=== PATIENT | male | born 1960 | race Caucasian/White ===

== ENCOUNTER 2020-01-29 12:01 | Outpatient (CLI) | payer BC, SELFPAY ==
[2020-01-29 12:15] LABS: Basophils Absolute Auto 0.04 K/mm3 (0.00-0.10); Basophils Percent Auto 0.4 % (0.0-1.0); Eosinophils Absolute Auto 0.14 K/mm3 (0.02-0.50); Eosinophils Percent Auto 1.4 % (1.0-6.0); Hematocrit 45.9 % (40.0-54.0); Hemoglobin 15.9 g/dL (14.0-18.0); Immature Granulocyte Absolute 0.04 K/mm3 (0.00-0.00); Immature Granulocyte Percent A 0.4 % (0.0-0.0); Lymphocytes Absolute Auto 2.81 K/mm3 (1.10-4.50); Lymphocytes Percent Auto 28.8 % (18.0-42.0); Mean Corpuscular HGB Conc 34.6 g/dL (32.0-36.0); Mean Corpuscular Hemoglobin 33.3 pg (27.0-31.0); Mean Platelet Volume 9.8 fl (8.7-11.0); Monocytes Absolute Auto 0.73 K/mm3 (0.10-0.90); Monocytes Percent Auto 7.5 % (2.0-11.0); Neutrophils Percent Auto 61.5 % (50.0-70.0); Platelet Count Result 234 K/mm3 (150-420); Red Blood Count 4.78 M/mm3 (4.70-6.10); Red Cell Distribution Width 13.2 % (11.6-14.4); White Blood Count 9.8 K/mm3 (4.8-10.8)
[2020-01-29 13:09] LABS: Alanine Aminotransferase 44 U/L (16-63); Albumin Level 3.8 g/dL (3.4-5.0); Alkaline Phosphatase 110 U/L (46-116); Anion Gap 14.2 mmol/L (7-16); Aspartate Amino Transferase 29 U/L (15-37); Bilirubin,Total 0.5 mg/dL (0.00-1.00); Blood Urea Nitrogen 15 mg/dL (7-18); Calcium 8.8 mg/dL (8.5-10.1); Carbon Dioxide 31 mmol/L (21-32); Chloride 101 mmol/L (98-108); Cholesterol 269 mg/dL (0-200); Estimated Glomerular Filt Rate > 60; Glucose 179 mg/dL (70-99); HDL Direct 30 mg/dL (40-60); LDL Cholesterol Calculated 201 mg/dL (<130); Osmolality Calculated 298 mOsm/kg (285-295); Potassium 4.2 mmol/L (3.5-5.1); Sodium 142 mmol/L (136-145); Total Protein 7.1 g/dL (6.4-8.2); Triglycerides 189 mg/dL (0-150)
== END 2020-01-29 12:02 | disposition home or self-care (01) ==
PROVIDERS: PCP Nurse Practitioner Family; Visit Provider Nurse Practitioner Family
DX: E11.9 Type 2 diabetes mellitus without complications (principal); I10 Essential (primary) hypertension
CPT/HCPCS: 36415; 80053; 80061; 83036; 85025

== ENCOUNTER 2020-03-07 06:32 | Outpatient (CLI) | payer BC, SELFPAY ==
[2020-03-07 17:27] LABS: SARS-CoV-2 RNA PCR Negative
== END 2020-03-07 06:33 | disposition home or self-care (01) ==
LOC: ANHCOVIDDT 06:32
PROVIDERS: PCP Nurse Practitioner Family; Visit Provider Otolaryngology
DX: Z01.812 Encounter for preprocedural laboratory examination (principal); Z11.59 Encounter for screening for other viral diseases
CPT/HCPCS: 87635; C9803; U0003

== ENCOUNTER 2020-03-10 02:47 | Day surgery (SDC) | payer BC, SELFPAY ==
[2020-02-28 12:02] VITALS: BMI 36.9
[2020-03-10] VITALS (7 sets, daily range): BP systolic 83–185; BP diastolic 59–99; PULSE 78–103; RESP 18–26; TEMP 36.3–37.1; O2SAT 94–100
--- NOTE | 2020-03-10 06:15 | PM.HPGS ---
History of Present Illness History of Present Illness Consent: Risks, benefits, and alternatives have been discussed and questions answered. Patient agrees to proceed with procedure. Chief complaint: vocal cord polyp Narrative: Yasmani Mcpherson Jr. is a 59 year old male history now has chronic coarseness indirect examination the office revealed the presence of vocal polyp he is admitted now for microlaryngoscopy removal of the polyp Review of Systems Review of Systems: All systems reviewed & are unremarkable except as noted in HPI and below PMFSH Social History Social History Smoking status: Current every day smoker Smoking end date: 11/02/18 Alcohol intake: never Substance use: never Substance use type: does not use Meds Home Medications and Allergies Home Medications Medication Instructions Recorded Confirmed Type glipizide 10 mg tablet 10 mg PO DAILY #180 tablet 12/02/19 02/28/20 Rx metformin 1,000 mg tablet 1,000 mg PO DAILY tablet 12/02/19 02/28/20 History atorvastatin 10 mg tablet 10 mg PO DAILY #30 tablet 01/29/20 02/28/20 Rx blood sugar diagnostic #100 each 01/29/20 02/10/20 Rx dulaglutide 0.75 mg/0.5 mL 0.75 mg SUB-Q WEEKLY #2 ml 01/29/20 02/28/20 Rx subcutaneous pen injector lancets #100 each 01/29/20 02/10/20 Rx lisinopril 20 mg tablet 20 mg PO DAILY #90 tablet 01/29/20 02/28/20 Rx cyclobenzaprine 10 mg PO DAILY 02/28/20 02/28/20 History loratadine [Claritin] 10 mg PO DAILY 02/28/20 02/28/20 History nicotine 14 mg/24 hr daily See Rx Instructions .ROUTE 03/02/20 Rx transdermal patch .COMPLEX #28 patch nicotine 7 mg/24 hr daily 1 patch TRANSDERM DAILY #14 each 03/02/20 Rx transdermal patch Allergies Allergy/AdvReac Type Severity Reaction Status Date / Time No Known Allergies Allergy Verified 02/28/20 12:03 Assessment and Plan Additional Plan Plan is for microlaryngoscopy and possible biopsy removal of vocal polyp
--- NOTE | 2020-03-10 06:17 | WPDHPUPDATE1 ---
History and Physical Update Update Date/Time: 03/10/20 06:17 History and Physical has been reviewed, including an updated exam of the patient. There are NO changes in the patient's condition. Risks, benefits, and alternatives have been discussed and questions answered. Patient agrees to proceed with procedure.
--- NOTE | 2020-03-10 08:11 | ECG_ITS ---
Measurements Intervals [place] Rate: 103 P: 52 AL: 163 QRS: -84 QRSD: 170 T: 83 QT: 395 QTc: 518 Interpretive Statements SINUS TACHYCARDIA POSSIBLE LEFT ATRIAL ENLARGEMENT RIGHT BUNDLE BRANCH BLOCK LEFT ANTERIOR FASCICULAR BLOCK LEFT VENTRICULAR HYPERTROPHY AND ST-T CHANGE ABNORMAL ECG Electronically Signed On 03-10-2020 8:58:43 CDT by Luis Manuel Hurt D.O.
--- NOTE | 2020-03-10 09:07 | WPDANESEPPF ---
Anes - Initial Pre Proc Eval Procedure: Operation Date: 03/10/20 10:30 Proposed Procedures p Microlaryngoscopy with Biopsy - Isaac Bonilla MD Date/Time: 03/10/20 09:07 Surgeon: Isaac Bonilla MD Pre Op Diagnosis: vocal cord polyp Patient Data Age: 59 Gender: M Height: 6 ft 1 in Weight: 127.01 kg Allergies Allergy/AdvReac Type Severity Reaction Status Date / Time No Known Allergies Allergy Verified 03/10/20 07:47 Home Medications Medication Instructions Recorded Confirmed Type glipizide 10 mg tablet 10 mg PO DAILY #180 tablet 12/02/19 02/28/20 Rx metformin 1,000 mg tablet 1,000 mg PO DAILY tablet 12/02/19 02/28/20 History atorvastatin 10 mg tablet 10 mg PO DAILY #30 tablet 01/29/20 02/28/20 Rx blood sugar diagnostic #100 each 01/29/20 02/10/20 Rx dulaglutide 0.75 mg/0.5 mL 0.75 mg SUB-Q WEEKLY #2 ml 01/29/20 02/28/20 Rx subcutaneous pen injector lancets #100 each 01/29/20 02/10/20 Rx lisinopril 20 mg tablet 20 mg PO DAILY #90 tablet 01/29/20 02/28/20 Rx cyclobenzaprine 10 mg PO DAILY 02/28/20 02/28/20 History loratadine [Claritin] 10 mg PO DAILY 02/28/20 02/28/20 History nicotine 14 mg/24 hr daily See Rx Instructions .ROUTE 03/02/20 Rx transdermal patch .COMPLEX #28 patch nicotine 7 mg/24 hr daily 1 patch TRANSDERM DAILY #14 each 03/02/20 Rx transdermal patch Patient hx anesthesia problems: none Family hx anesthesia problems: none PMFSH Past Medical History Medical History HTN (hypertension) Overweight Tobacco dependence Type 2 diabetes mellitus Social History Social History Smoking status: Current every day smoker Smoking end date: 11/02/18 Alcohol intake: never Substance use: never Substance use type: does not use Anes - Eval Final PreProcedure Day of Procedure 03/10/20 09:07 Patient weight: morbidly obese Heart: regular rate and rhythm Lungs: decreased breath sounds Airway: Mallampati scale class III Neurological: alert and oriented Last oral intake: >/= 8 hours ASA classification: III Emergent: no Anesthetic plan: proceed Anesthesia type and monitoring: general ETT and standard monitoring Informed Consent: The patient's anesthetic plan and its attendant risks and benefits were discussed with the patient/family/POA. Questions were solicited and answers provided to the satisfaction of the patient/family/POA.
[2020-03-10 09:11] LABS: Glucose Point of Care 288 (65-105)
[2020-03-10] MEDS: LACTATED RINGERS 1,000 ML 30 ML IV CONT ×2 (09:15→11:05)
--- NOTE | 2020-03-10 09:39 | SUR.PREOP ---
DR SHETH MADE AWARE OF HEART RATE, BLOOD SUGAR AND BLOOD PRESSURE. NO ORDERS RECEIVED
--- NOTE | 2020-03-10 10:46 | PM.PROC ---
Procedure Note - Detailed Date of procedure: 03/10/20 Pre-op diagnosis: vocal cord polyp Vocal cord polyps Surgeon: Isaac Bonilla MD
--- NOTE | 2020-03-10 10:47 | PM.PROC ---
Procedure Note - Detailed Date of procedure: 03/10/20 Pre-op diagnosis: vocal cord polyp Post-op diagnosis: same Procedure performed: Patient was prepped and draped for additional anesthesia laryngoscope changes of the left glottis there may major polyps on both sides which were removed with up-biting forceps might have been a polyp underneath the tube however could not be found the remainder of the polyps removed patient awakened returned to recovery in good condition Surgeon: Isaac Bonilla MD Estimated blood loss (mL): 0 Drains: No Packing: No Pathology: yes Complications: No immediate complications Condition: stable Disposition: PACU
--- NOTE | 2020-03-10 10:50 | PM.PROC ---
Procedure Note - Detailed Date of procedure: 03/10/20 Pre-op diagnosis: vocal cord polyp Post-op diagnosis: same Procedure performed: Patient was prepped and draped in usual fashion renal anesthesia laryngoscope was introduced to the level of glottis polyps on both sides remove the upbiting forceps I did not see a polyp under the endotracheal tube patient awakened returned to recovery in good condition Anesthesia: GLMA Surgeon: Isaac Bonilla MD Estimated blood loss (mL): 0 Drains: No Packing: No Pathology: yes Complications: No immediate complications Condition: stable Disposition: PACU
[2020-03-10 11:16] LABS: Glucose Point of Care 275 (65-105)
--- NOTE | 2020-03-10 11:26 | SUR.PHASEI ---
1125 DR BOSS AWARE OF BLOOD SUGAR 275- NO NEW ORDERS RECEIVED.
== END 2020-03-10 12:35 | disposition home or self-care (01) ==
PROVIDERS: PCP Nurse Practitioner Family; Visit Provider Otolaryngology
PROC: 0CJS8ZZ Inspection of Larynx, Via Natural or Artificial Opening Endoscopic (ICD-10-PCS; CPT 31575; principal; 2020-03-10 10:30)
DX: J38.1 Polyp of vocal cord and larynx (principal); I10 Essential (primary) hypertension; E11.9 Type 2 diabetes mellitus without complications; F17.210 Nicotine dependence, cigarettes, uncomplicated; Z79.84 Long term (current) use of oral hypoglycemic drugs; E66.01 Morbid (severe) obesity due to excess calories; Z68.39 Body mass index [BMI] 39.0-39.9, adult
CPT/HCPCS: 31535; 87635; 88305; 93005; C9803; J1100; J2250; J2370; J2405; J2704; J3010; J7120; U0003

== ENCOUNTER 2021-09-13 14:44 | Outpatient (NON) | payer BC, SELFPAY | END 2021-09-13 14:45 | disposition home or self-care (01) | LOC: CHSLAB 14:46 | PROVIDERS: PCP Nurse Practitioner Family; Visit Provider Nurse Practitioner Family | DX: S81.802A Unspecified open wound, left lower leg, initial encounter (principal) | CPT/HCPCS: 87070; 87205 ==

== ENCOUNTER 2021-10-11 09:47 | Outpatient (RCR) | payer BC, SELFPAY | END 2021-11-10 23:59 | disposition home or self-care (01) | LOC: CHSWOUND 09:47 | PROVIDERS: Visit Provider Nurse Practitioner Family | DX: E11.622 Type 2 diabetes mellitus with other skin ulcer (principal); L97.812 Non-pressure chronic ulcer of other part of right lower leg with fat layer exposed; I10 Essential (primary) hypertension; E66.9 Obesity, unspecified; F17.210 Nicotine dependence, cigarettes, uncomplicated; Z79.84 Long term (current) use of oral hypoglycemic drugs; Z79.899 Other long term (current) drug therapy | CPT/HCPCS: 11042; 87070; 87205; 99213; G0463 ==

== ENCOUNTER 2022-07-29 09:48 | Outpatient (CLI) | payer OTHER, SELFPAY ==
--- NOTE | ~2022-07-29 | XR_ITS ---
XR ribs BI 3V w CXR 2V DATE: 07/29/2022 10:29 INDICATION: Shortness of breath for one month TECHNIQUE: PA and lateral views. 3 views of right ribs. 3 views of left ribs. COMPARISON: 02/12/2019 2 view chest FINDINGS: There is cardiomegaly. There is prominence of the minor and greater fissure suggesting subp leural edema. There is pulmonary vascular congestion and redistribution. Small pleural effusions. The findings are consistent with mild congestive heart failure. No left or right rib fracture or bone destruction is detected. Very prominent bridging osteophyte on the right at L2-3. Moderately prominent loss of height and anterior wedging of L1, new findings since 02/12/2019. Diffuse osteopenia. IMPRESSION: Moderately prominent L1 compression fracture, new since 02/12/2019 Mild congestive heart failure Reviewed, dictated and finalized at location A. ESTATE LAW[employer]ER
[2022-07-29 10:14] LABS: Appearance Urine Clear (Clear); Bilirubin Urine Negative (Negative); Color Urine Yellow (Yellow); Glucose Urine UA 3+ (Negative); Ketones Urine Negative (Negative); Leukocyte Esterase Ur Negative LEU/UL (Negative); Nitrate Urine Negative (Negative); Protein Urine 2+ (Negative); Specific Grav Ur 1.025 (1.010-1.020); Urobilinogen Urine 0.2 mg/dL (0.2-1.0); pH Urine 6.5 (5.0-8.0)
[2022-07-29 10:19] LABS: Creatinine Urine 122.01 mg/dL (40-278)
[2022-07-29 10:20] LABS: Add Urine Microscopic? YES; Bacteria Urine Trace /hpf; Blood Urine Trace-lysed (Negative); RBC Urine 0-2 /hpf (0-2); Squamous Epithelial Cell Urine None seen /hpf (Few); WBC Urine 0-3 /hpf (0-3)
[2022-07-29 10:29] LABS: MALB Creatinine Ratio 327.8 mg/g (0-30); Microalbumin Urine Random > 400.0 mg/L
[2022-07-29 10:31] LABS: Troponin I 49.9 ng/L (0.00-60.4)
[2022-07-29 13:09] LABS: Basophils Absolute Auto 0.03 K/mm3 (0.00-0.10); Basophils Percent Auto 0.3 % (0.0-1.0); Eosinophils Absolute Auto 0.08 K/mm3 (0.02-0.50); Eosinophils Percent Auto 0.9 % (1.0-6.0); Hemoglobin 16.5 g/dL (14.0-18.0); Immature Granulocyte Absolute 0.04 K/mm3 (0.00-0.00); Immature Granulocyte Percent A 0.4 % (0.0-0.0); Lymphocytes Absolute Auto 1.86 K/mm3 (1.10-4.50); Lymphocytes Percent Auto 20.3 % (18.0-42.0); Mean Corpuscular Hemoglobin 32.9 pg (27.0-31.0); Mean Corpuscular Volume 99.8 fL (78.0-102.0); Mean Platelet Volume 11.2 fl (8.7-11.0); Monocytes Absolute Auto 0.56 K/mm3 (0.10-0.90); Monocytes Percent Auto 6.1 % (2.0-11.0); Neutrophils Absolute Auto 6.6 K/mm3 (1.7-7.2); Platelet Count Result 214 K/mm3 (150-420); Red Blood Count 5.01 M/mm3 (4.70-6.10); Red Cell Distribution Width 13.7 % (11.6-14.4); White Blood Count 9.2 K/mm3 (4.8-10.8)
[2022-07-29 13:17] LABS: Alanine Aminotransferase 44 U/L (16-63); Albumin Level 3.5 g/dL (3.4-5.0); Alkaline Phosphatase 175 U/L (46-116); Anion Gap 6 mmol/L (8-16); Aspartate Amino Transferase 20 U/L (15-37); Bilirubin,Total 0.5 mg/dL (0.00-1.00); Blood Urea Nitrogen 10 mg/dL (7-18); Calcium 8.8 mg/dL (8.5-10.1); Carbon Dioxide 30 mmol/L (21-32); Chloride 103 mmol/L (98-108); Estimated Glomerular Filt Rate > 60; Glucose 315 mg/dL (70-99); Osmolality Calculated 299 mOsm/kg (285-295); Potassium 4.1 mmol/L (3.5-5.1); Sodium 139 mmol/L (136-145); Total Protein 7.1 g/dL (6.4-8.2)
[2022-07-29 17:04] LABS: NT Pro B Type Natriuretic Pept 793 pg/mL (0-125)
== END 2022-07-29 09:49 | disposition home or self-care (01) ==
LOC: CHSLAB 09:49
PROVIDERS: PCP Nurse Practitioner Family; Visit Provider Nurse Practitioner Family
DX: R06.02 Shortness of breath (principal); I10 Essential (primary) hypertension; E11.9 Type 2 diabetes mellitus without complications
CPT/HCPCS: 36415; 71046; 71110; 80053; 81001; 82043; 83880; 84484; 85025

== ENCOUNTER 2022-11-29 11:14 | Outpatient (NON) | payer OTHER, SELFPAY | END 2022-11-29 11:15 | disposition home or self-care (01) | LOC: CHSLAB 11:15 | PROVIDERS: Visit Provider Nurse Practitioner Family | DX: S91.302A Unspecified open wound, left foot, initial encounter (principal) | CPT/HCPCS: 87070; 87205 ==

== ENCOUNTER 2023-02-03 09:18 | Outpatient (CLI) | payer OTHER, SELFPAY ==
--- NOTE | ~2023-02-03 | XR_ITS ---
EXAMINATION: XR chest 2V DATE: 02/03/2023 09:42 INDICATION: Orthopnea, shortness of breath TECHNIQUE: PA and lateral views of the chest are obtained. COMPARISON: 07/29/2022 FINDINGS: Cardiomegaly is noted. There is a mild diffuse interstitial pattern. There are small pleura l effusions. There are minimal airspace opacities of the lung bases. No pneumothorax is identified. A n L1 compression fracture is again noted. IMPRESSION: 1. Cardiomegaly with mild pulmonary edema. 2. Small pleural effusions with probable mild atelectasis. Reviewed, dictated and finalized at location B.
[2023-02-03 09:33] LABS: Hematocrit 47.9 % (40.0-54.0); Hemoglobin 15.8 g/dL (14.0-18.0); Mean Corpuscular Hemoglobin 32.9 pg (27.0-31.0); Mean Corpuscular Volume 99.8 fL (78.0-102.0); Mean Platelet Volume 10.6 fl (8.7-11.0); Platelet Count Result 181 K/mm3 (150-420)
--- NOTE | 2023-02-03 09:34 | ECG_ITS ---
Measurements Intervals [place] Rate: 93 P: 59 NC: 179 QRS: -76 QRSD: 181 T: 101 QT: 424 QTc: 529 Interpretive Statements SINUS RHYTHM POSSIBLE LEFT ATRIAL ENLARGEMENT [-0.1mV P-WAVE IN V1/V2] RIGHT BUNDLE BRANCH BLOCK LEFT ANTERIOR FASCICULAR BLOCK ST AND T-WAVE ABNORMALITY, CONSIDER LATERAL ISCHEMIA ABNORMAL ECG Electronically Signed On 02-06-2023 9:19:58 CDT by Kenny Christianson M.D.
[2023-02-03 09:54] LABS: Alanine Aminotransferase 51 U/L (16-63); Albumin Level 3.4 g/dL (3.4-5.0); Alkaline Phosphatase 225 U/L (46-116); Anion Gap 8 mmol/L (8-16); Aspartate Amino Transferase 23 U/L (15-37); Bilirubin,Total 0.5 mg/dL (0.00-1.00); Blood Urea Nitrogen 15 mg/dL (7-18); Calcium 8.4 mg/dL (8.5-10.1); Carbon Dioxide 30 mmol/L (21-32); Chloride 100 mmol/L (98-108); Estimated Glomerular Filt Rate > 60; Magnesium 1.9 mg/dL (1.8-2.4); NT Pro B Type Natriuretic Pept 750 pg/mL (0-125); Osmolality Calculated 304 mOsm/kg (285-295); Potassium 3.9 mmol/L (3.5-5.1); Sodium 138 mmol/L (136-145); Total Protein 7.1 g/dL (6.4-8.2)
[2023-02-03 09:57] LABS: Glucose 422 mg/dL (70-99)
[2023-02-03 13:15] LABS: Troponin I 56.4 ng/L (0.00-60.4)
== END 2023-02-03 09:19 | disposition home or self-care (01) ==
LOC: CHSLAB 09:21
PROVIDERS: PCP Nurse Practitioner Family; Visit Provider Nurse Practitioner Family
DX: R06.02 Shortness of breath (principal); R06.01 Orthopnea; I48.92 Unspecified atrial flutter; I50.9 Heart failure, unspecified; I51.7 Cardiomegaly; J90 Pleural effusion, not elsewhere classified; R94.31 Abnormal electrocardiogram [ECG] [EKG]
CPT/HCPCS: 36415; 71046; 80053; 83735; 83880; 84484; 85027; 93005

== ENCOUNTER 2023-02-03 10:41 | Emergency (ER) | payer OTHER, SELFPAY ==
[2023-02-03] VITALS (11 sets, daily range): BP systolic 151–195; BP diastolic 88–110; PULSE 72–86; RESP 18; TEMP 36.8–36.9; O2SAT 92–96
[2023-02-03 10:56] LABS: Glucose Point of Care > 450 mg/dl (65-105)
--- NOTE | 2023-02-03 10:59 | ED.RECABL ---
HPI - Recheck/Abnormal Lab/Rx General Chief Complaint: Recheck/Abnormal Lab/Rx Stated Complaint: abnormal labs Time Seen by Provider: 02/03/23 10:59 Source: patient and RN notes reviewed Mode of arrival: ambulatory Limitations: no limitations History of Present Illness HPI narrative: patient states he went to his primary care physician for shortness of breath this morning. He was sent over for evaluation possible pneumonia. Chest x-ray shows some pleural effusion no evidence of pneumonia. His being a trip peptide is unchanged from 1 month ago. However his blood sugar was 422 so they do not come the emergency room to get that lowered. complaint: abnormal lab Initial visit (ago): hour(s) (2) Initial visit for: other ( Shortness of breath) Returns today for: called because of abnormal lab/test Symptoms since prior visit: no new symptoms Associated symptoms: shortness of breath Related Data Home Medications Medication Instructions Recorded Confirmed amlodipine 10 mg tablet 10 mg PO DAILY 02/03/23 02/03/23 atorvastatin 10 mg tablet 10 mg PO DAILY 02/03/23 02/03/23 Allergies Allergy/AdvReac Type Severity Reaction Status Date / Time No Known Allergies Allergy Verified 02/03/23 10:57 Review of Systems Review of Systems: All systems reviewed & are unremarkable except as noted in HPI and below PMFSH Past Medical History Medical History (Updated 02/03/23 @ 14:36 by Gregorio Clinton MD) Atrial flutter HTN (hypertension) Overweight Tobacco dependence Type 2 diabetes mellitus Family History Family History Mother Hypertension Family history of chronic obstructive pulmonary disease Family history of obesity Other Family history of type 2 diabetes mellitus Social History Social History Smoking status: Current every day smoker Smoking end date: 11/02/18 Alcohol intake: never Substance use: never Substance use type: does not use Lack of Transportation: No Lack of Food: Never True Current Housing: I Have Housing Concerned About Future Housing: No Difficulty Paying Gas/Electric Bills: No Difficulty Paying for Meds: No Currently Unemployed: No Education: Associate Degree Difficulty w/ Childcare or Family Care: No Living arrangements: with family Exam Const: General: healthy appearing, no acute distress and alert Nutritional Appearance: well nourished and obese Orientation/consciousness: patient oriented x3 Limitations: no limitations HENMT: Head: normal to inspection Ears: external ears normal Face/Nose/Sinus: Normal external nose present Face and sinus: normal facial exam Mouth: Yes moist mucous membranes Eyes: Conjunctivae: conjunctivae normal Pupils: Equal, round and reactive pupils present EOM: EOMs intact bilaterally Neck: Neck: normal visual inspection Resp: Effort & Inspection: normal respiratory effort Auscultation: crackles diffuse Cardio: Rate: regular rate Rhythm: regular rhythm GI: GI Palp: Yes Soft to palpation and No Tenderness to palpation present (GI) Auscultation: normal bowel sounds Back/Spine/Pelvis: Cervical Spine: cervical ROM normal Thoracic/Lumbar Spine: thoraco-lumbar ROM normal Skin: General skin exam: normal color Rashes: no rashes Neuro: General: patient oriented x3 and moves all extremities Speech: normal speech Gait exam (Neuro): Normal gait present Extrem: General: edema bilateral ( 2+ to mid leon) Psych: Mental Status: mental status grossly normal Affect: normal affect Attitude: cooperative Course Course Emergency Course: patient given 1 L of normal saline but due to his history of congestive heart failure recent chest x-ray showing some increased pulmonary edema I decided only given 1 L and just work on bringing down his blood sugars. He is having some symptoms of increased fluid retention due to his medicatio
[2023-02-03] MEDS: SODIUM CHLORIDE 0.9% IV 1,000 ML 999 ML IV CONT (11:21)
[2023-02-03] MEDS: INSULIN REG 100 UNITS/100 ML 100 UNITS/100 ML BAG 8 UNITS IV CONT (11:22)
[2023-02-03 12:22] LABS: Glucose Point of Care 372 mg/dl (65-105)
[2023-02-03 13:22] LABS: Glucose Point of Care 291 mg/dl (65-105)
--- NOTE | 2023-02-03 14:16 | PC.NURSE ---
glucose is 227, per erp stop insulin drip at this time.
[2023-02-03 14:17] LABS: Glucose Point of Care 227 mg/dl (65-105)
[2023-02-03] MEDS: FUROSEMIDE INJ 40 MG/4 ML VIAL 60 MG IV PUSH (14:17)
== END 2023-02-03 14:53 | disposition home or self-care (01) ==
PROVIDERS: Emergency Provider Emergency Medicine; PCP Nurse Practitioner Family
DX: I11.0 Hypertensive heart disease with heart failure (principal); I50.22 Chronic systolic (congestive) heart failure; E11.65 Type 2 diabetes mellitus with hyperglycemia; Z87.891 Personal history of nicotine dependence
CPT/HCPCS: 82948; 96361; 96374; 96375; 99284; J1815; J1940; J7030

== ENCOUNTER 2023-02-18 13:51 | Emergency (ER) | payer OTHER, SELFPAY ==
--- NOTE | ~2023-02-18 | XR_ITS ---
XR tibia fibula LT 2V 02/18/2023 14:42 Indication: Left leg pain. Ulceration of the midposterior and distal anterior calf. Procedure: 2 views left tibia/fibula Comparison: No prior studies for comparison. Findings: Normal mineralization. No fracture, subluxation or dislocation. No evidence for osteomyelit is. Mild subcutaneous edema noted. No foreign bodies. Mild osteoarthritis of the left knee and ankle. Impression: 1: No significant bone or joint abnormality. Reviewed, dictated and finalized at location A. Impression: 1: No significant bone or joint abnormality.
[2023-02-18 13:51] VITALS: BP 179/109; PULSE 81; RESP 16; TEMP 35.7; O2SAT 96
--- NOTE | 2023-02-18 14:18 | ED.GENADULT ---
HPI - General Adult General Chief complaint: Skin/Abscess/Foreign Body Stated complaint: left leg possible spider bite History of Present Illness HPI narrative: This is a 62-year-old male with history of diabetes and lower extremity edema presenting ED with an ulceration to the back of his left calf. Patient notices approximately 3 days ago. He believes it is a brown reclusive bite. he has not seen a spider. It is not painful. He has multiple ulcerations that are similar over the rest was legs in different stages of healing. he denies fever, chills nausea vomiting or diarrhea. He has been to a wound care clinic in the past but has not seen the several years. Related Data Home Medications Medication Instructions Recorded Confirmed amlodipine 10 mg tablet 10 mg PO DAILY 02/03/23 02/18/23 Allergies Allergy/AdvReac Type Severity Reaction Status Date / Time No Known Allergies Allergy Verified 02/18/23 15:05 [facility] Past Medical History Medical History Atrial flutter HTN (hypertension) Overweight Tobacco dependence Type 2 diabetes mellitus Family History Family History Mother Hypertension Family history of chronic obstructive pulmonary disease Family history of obesity Other Family history of type 2 diabetes mellitus Social History Social History Smoking status: Current every day smoker Smoking end date: 11/02/18 Alcohol intake: never Substance use: never Substance use type: does not use Lack of Transportation: No Lack of Food: Never True Current Housing: I Have Housing Concerned About Future Housing: No Difficulty Paying Gas/Electric Bills: No Difficulty Paying for Meds: No Currently Unemployed: No Education: Associate Degree Difficulty w/ Childcare or Family Care: No Living arrangements: with family Exam Narrative: APPEARANCE: No apparent distress. Head: atraumatic. EYES: EOMI, NOSE: Atraumatic NECK: Trachea midline RESPIRATORY: No increased rate of breathing, CTAB CARDIOVASCULAR: RRR, Chronic edema of the lower extremities ABDOMINAL: Non-distended MUSCULOSKELETAl: No obvious deformities NEURO: Alert. Moving 4/4 extremities SKIN:: multiple ulcerations over the lower extremities in different stages of healing. The ulceration of concern is in the back of the left calf is approximately 1 cm in diameter with black eschar in the middle. No purulent drainage or surrounding cellulitis PSYCHIATRIC: Normal affect Course Vital Signs Vital signs: Vital Signs Temperature 96.2 F L 02/18/23 13:51 Pulse Rate 81 02/18/23 13:51 Respiratory Rate 16 02/18/23 13:51 Blood Pressure 179/109 H 02/18/23 13:51 Pulse Oximetry 96 02/18/23 13:51 Oxygen Delivery Room Air 02/18/23 13:51 Temperature 96.2 F L 02/18/23 13:51 Pulse Rate 77 02/18/23 14:39 Respiratory Rate 16 02/18/23 14:39 Blood Pressure 140/84 02/18/23 14:39 Pulse Oximetry 96 02/18/23 13:51 Oxygen Delivery Room Air 02/18/23 13:51 Medical Decision Making [facility] Narrative Medical decision making narrative: -Presentation: 62-year-old diabetic with chronic lower extremity edema presenting with an ulceration back to his calf. patient is a poorly controlled diabetic and is a history of medication noncompliance. 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 Glucose is elevated without evidence of DKA/HHS. Co
[2023-02-18 14:39] VITALS: BP 140/84; PULSE 77; RESP 16
[2023-02-18 14:44] LABS: Basophils Absolute Auto 0.03 K/mm3 (0.00-0.10); Basophils Percent Auto 0.3 % (0.0-1.0); Eosinophils Percent Auto 1.1 % (1.0-6.0); Hematocrit 48.9 % (40.0-54.0); Hemoglobin 16.5 g/dL (14.0-18.0); Immature Granulocyte Absolute 0.02 K/mm3 (0.00-0.00); Immature Granulocyte Percent A 0.2 % (0.0-0.0); Lymphocytes Absolute Auto 1.97 K/mm3 (1.10-4.50); Lymphocytes Percent Auto 21.6 % (18.0-42.0); Mean Corpuscular HGB Conc 33.7 g/dL (32.0-36.0); Mean Corpuscular Hemoglobin 33.1 pg (27.0-31.0); Mean Platelet Volume 10.6 fl (8.7-11.0); Monocytes Absolute Auto 0.69 K/mm3 (0.10-0.90); Monocytes Percent Auto 7.6 % (2.0-11.0); Neutrophils Absolute Auto 6.3 K/mm3 (1.7-7.2); Neutrophils Percent Auto 69.2 % (50.0-70.0); Platelet Count Result 206 K/mm3 (150-420); Red Blood Count 4.99 M/mm3 (4.70-6.10); Red Cell Distribution Width 13.2 % (11.6-14.4); White Blood Count 9.1 K/mm3 (4.8-10.8)
[2023-02-18 14:54] LABS: Partial Thromboplastin Time 27.8 SEC (23.90-30.70); Prothrombin Time 10.7 Seconds (9.50-12.10)
[2023-02-18 14:58] LABS: Lactic Acid Reflex 2.5 mmol/L (0.4-2.0)
[2023-02-18 15:01] LABS: Anion Gap 9 mmol/L (8-16); Blood Urea Nitrogen 17 mg/dL (7-18); Calcium 9.2 mg/dL (8.5-10.1); Carbon Dioxide 30 mmol/L (21-32); Chloride 98 mmol/L (98-108); Estimated CRCL calculation 80 ml/min; Estimated Glomerular Filt Rate > 60; Magnesium 1.8 mg/dL (1.8-2.4); Osmolality Calculated 306 mOsm/kg (285-295); Potassium 3.8 mmol/L (3.5-5.1); Sodium 137 mmol/L (136-145)
[2023-02-18 15:02] LABS: Glucose 483 mg/dL (70-99)
[2023-02-18 15:33] LABS: Reflex Lactic Acid Yes or No Add Lactic
[2023-02-18 15:43] LABS: Erythrocyte Sedimentation Rate 6 mm/hr (0-20)
[2023-02-18 15:50] VITALS: BP 180/100; PULSE 91; RESP 18; O2SAT 95
== END 2023-02-18 16:01 | disposition home or self-care (01) ==
PROVIDERS: Emergency Provider Emergency Medicine; PCP Nurse Practitioner Family
DX: I11.0 Hypertensive heart disease with heart failure (principal); I50.9 Heart failure, unspecified; E11.622 Type 2 diabetes mellitus with other skin ulcer; L97.229 Non-pressure chronic ulcer of left calf with unspecified severity; E11.65 Type 2 diabetes mellitus with hyperglycemia; Z91.148 Patient's other noncompliance with medication regimen for other reason; Z87.891 Personal history of nicotine dependence
CPT/HCPCS: 36415; 73590; 80048; 83605; 83735; 85025; 85610; 85652; 85730; 99283

== ENCOUNTER 2023-02-21 10:32 | Emergency (ER) | payer OTHER, SELFPAY ==
[2023-02-21] VITALS (17 sets, daily range): BP systolic 155–198; BP diastolic 83–108; PULSE 100–104; RESP 17–22; TEMP 36.7–36.8; O2SAT 87–96
--- NOTE | ~2023-02-21 | XR_ITS ---
EXAMINATION: XR chest 1V portable 02/21/2023 12:00 INDICATION: Hemoptysis PROCEDURE: AP portable chest COMPARISON: Comparison to multiple prior studies sequentially, with oldest reviewed study dated 01/21. FINDINGS: The lungs are clear. The cardiomediastinal silhouette is within normal limits. There are no pleural effusions. There is no pneumothorax suspected. IMPRESSION: 1: NO ACUTE CARDIOPULMONARY DISEASE. Reviewed, dictated and finalized at location L.
--- NOTE | 2023-02-21 10:45 | ED.GENADULT ---
HPI - General Adult General Chief complaint: Unspecified Stated complaint: Nausea; blood in vomit Time Seen by Provider: 02/21/23 10:40 Source: patient Mode of arrival: ambulatory Limitations: no limitations History of Present Illness HPI narrative: 62-year-old male, with a 40 pack year smoking history, obesity, hypertension, diabetes, dyslipidemia, Arthritis, bilateral leg swelling,atrial flutter on Eliquis presented to the ER after a spider bite to the left lower extremity 3 days ago. He received Bactrim. He presents to the ER today with -- hemoptysis. He had 1 episode where he spit out a glob of blood larger than a giuliano. he denies fever/chills. He has chronic cough but no mucopurulent sputum. No chest pain or palpitation. -- He is also noted to have oral bleeding possibly from a carious tooth. -- bilateral leg swelling with multiple ulcerations. Onset (ago): day(s) ( 1 day) Relieving factors: none Exacerbating factors: none Treatments prior to arrival: other ( On Bactrim for spider bite related cellulitis) Related Data Home Medications Medication Instructions Recorded Confirmed amlodipine 10 mg tablet 10 mg PO DAILY 02/03/23 02/21/23 Allergies Allergy/AdvReac Type Severity Reaction Status Date / Time No Known Allergies Allergy Verified 02/21/23 10:48 Review of Systems Constitutional: Constitutional: Reports as per HPI and Reports no additional constitutional complaints Eyes: Eyes: Reports as per HPI and Reports no additional eye complaints ENT: Reports system reviewed and no additional complaints, except as documented and Reports as per HPI Cardiovascular: Cardiovascular: Reports as per HPI and Reports no additional cardiovascular complaints Respiratory: Respiratory: Reports as per HPI, Reports no additional respiratory complaints, Reports cough and Reports dyspnea Gastrointestinal: Gastrointestinal: Reports as per HPI and Reports no additional gastrointestinal complaints Genitourinary: Genitourinary: Reports no additional male genitourinary complaints Musculoskeletal: Musculoskeletal: Reports no additional musculoskeletal complaints and Reports as per HPI Integumentary/Breasts: Skin/Breast: Reports system reviewed and no additional complaints, except as docu Comments: bilateral leg swelling with multiple cutaneous ulcers measuring 1-3 cm. Neurologic: Reports system reviewed and no additional complaints, except as documented and Reports as per HPI Psychiatric: Psychiatric: Reports no additional psychiatric complaints and Reports as per HPI Endocrine: Endocrine: Reports no additional endocrine complaints, Reports as per HPI and Reports fatigue Hematologic/Lymphatic: Hematologic/Lymphatic: Reports no additional hematologic/lymphatic complaints and Reports as per HPI Allergic/Immunologic: Allergic/Immunologic: Reports no additional allergic/immunologic complaints and Reports as per HPI PMFSH Past Medical History Medical History Atrial flutter HTN (hypertension) Overweight Tobacco dependence Type 2 diabetes mellitus Family History Family History Mother Hypertension Family history of chronic obstructive pulmonary disease Family history of obesity Other Family history of type 2 diabetes mellitus Social History Social History Smoking status: Current every day smoker Smoking end date: 11/02/18 Alcohol intake: never Substance use: never Substance use type: does not use Lack of Transportation: No Lack of Food: Never True Current Housing: I Have Housing Concerned About Future Housing: No Difficulty Paying Gas/Electric Bills: No Difficulty Paying for Meds: No Currently Unemployed: No Education: Associate Degree Difficulty w/ Childcare or Family Care: No Living arrangements: with family
[2023-02-21 12:00] LABS: Basophils Absolute Auto 0.06 K/mm3 (0.00-0.10); Basophils Percent Auto 0.7 % (0.0-1.0); Eosinophils Percent Auto 1.1 % (1.0-6.0); Hematocrit 45.5 % (40.0-54.0); Hemoglobin 15.5 g/dL (14.0-18.0); Immature Granulocyte Absolute 0.02 K/mm3 (0.00-0.00); Immature Granulocyte Percent A 0.2 % (0.0-0.0); Lymphocytes Absolute Auto 1.66 K/mm3 (1.10-4.50); Lymphocytes Percent Auto 18.5 % (18.0-42.0); Mean Corpuscular HGB Conc 34.1 g/dL (32.0-36.0); Mean Corpuscular Hemoglobin 32.8 pg (27.0-31.0); Mean Corpuscular Volume 96.4 fL (78.0-102.0); Mean Platelet Volume 10.6 fl (8.7-11.0); Monocytes Percent Auto 5.6 % (2.0-11.0); Neutrophils Absolute Auto 6.6 K/mm3 (1.7-7.2); Neutrophils Percent Auto 73.9 % (50.0-70.0); Platelet Count Result 199 K/mm3 (150-420); Red Blood Count 4.72 M/mm3 (4.70-6.10)
[2023-02-21 12:09] LABS: Anion Gap 7 mmol/L (8-16); Blood Urea Nitrogen 12 mg/dL (7-18); Calcium 8.7 mg/dL (8.5-10.1); Carbon Dioxide 31 mmol/L (21-32); Chloride 97 mmol/L (98-108); Estimated CRCL calculation 94 ml/min; Estimated Glomerular Filt Rate > 60; Glucose 351 mg/dL (70-99); Osmolality Calculated 293 mOsm/kg (285-295); Potassium 3.5 mmol/L (3.5-5.1); Sodium 135 mmol/L (136-145)
[2023-02-21 12:14] LABS: Partial Thromboplastin Time 29.8 SEC (23.90-30.70); Prothrombin Time 11.4 Seconds (9.50-12.10)
== END 2023-02-21 12:59 | disposition home or self-care (01) ==
PROVIDERS: Emergency Provider Internal Medicine Critical Care Medicine; PCP Nurse Practitioner Family
DX: D68.9 Coagulation defect, unspecified (principal); E11.65 Type 2 diabetes mellitus with hyperglycemia; R04.2 Hemoptysis; I10 Essential (primary) hypertension; E78.5 Hyperlipidemia, unspecified; Z79.01 Long term (current) use of anticoagulants; Z87.891 Personal history of nicotine dependence
CPT/HCPCS: 36415; 71045; 80048; 85025; 85610; 85730; 99283

== ENCOUNTER 2023-07-13 10:21 | Outpatient (NON) | payer OTHER, SELFPAY | END 2023-07-13 10:22 | disposition home or self-care (01) | LOC: CHSLAB 10:22 | PROVIDERS: Visit Provider Nurse Practitioner Family | DX: L97.309 Non-pressure chronic ulcer of unspecified ankle with unspecified severity (principal); E11.622 Type 2 diabetes mellitus with other skin ulcer | CPT/HCPCS: 87070; 87147; 87186; 87205 ==

== ENCOUNTER 2023-08-24 10:20 | Outpatient (CLI) | payer OTHER, SELFPAY ==
--- NOTE | ~2023-08-24 | XR_ITS ---
AP and lateral views of the left tibia/fibula Clinical History: Ulcer, diabetes Findings: No acute fracture or dislocation is seen. Osseous alignment is anatomic. Joint spaces are p reserved without significant erosive or degenerative change. Soft tissues are unremarkable. Impression: Unremarkable left tib-fib radiographs. Reviewed, dictated and finalized at [facility]. [employer]ICAL FOREMAN Impression: Unremarkable left tib-fib radiographs.
--- NOTE | ~2023-08-24 | XR_ITS ---
Left foot Technique: AP and lateral views were obtained. Clinical History: Chronic ulcer Findings: No acute fracture or dislocation is seen. Osseous alignment is anatomic. Joint spaces are p reserved without erosive or degenerative change. Soft tissues are unremarkable. Impression: Unremarkable left foot radiographs. Reviewed, dictated and finalized at [facility]. [employer]ER Impression: Unremarkable left foot radiographs.
--- NOTE | ~2023-08-24 | XR_ITS ---
AP and lateral views of the right tibia/fibula Clinical History: Ulcer, diabetes Findings: No acute fracture or dislocation is seen. Osseous alignment is anatomic. Possible focal or erosive change is cortical destruction of the medial malleolus of the distal tibia. Joint spaces are preserved without significant erosive or degenerative change. Soft tissues are unremarkable. Impression: Suspected focal erosive change at the medial malleolus, which could reflect osteomyelitis. Reviewed, dictated and finalized at location M. INE EDITOR Impression: Suspected focal erosive change at the medial malleolus, which could reflect ost eomyelitis.
[2023-08-24 10:41] LABS: Basophils Absolute Auto 0.05 K/mm3 (0.00-0.10); Basophils Percent Auto 0.5 % (0.0-1.0); Eosinophils Absolute Auto 0.09 K/mm3 (0.02-0.50); Eosinophils Percent Auto 0.8 % (1.0-6.0); Hematocrit 53.6 % (40.0-54.0); Immature Granulocyte Absolute 0.03 K/mm3 (0.00-0.00); Immature Granulocyte Percent A 0.3 % (0.0-0.0); Lymphocytes Absolute Auto 2.29 K/mm3 (1.10-4.50); Lymphocytes Percent Auto 20.7 % (18.0-42.0); Mean Corpuscular HGB Conc 33.6 g/dL (32.0-36.0); Mean Corpuscular Hemoglobin 32.8 pg (27.0-31.0); Mean Corpuscular Volume 97.6 fL (78.0-102.0); Mean Platelet Volume 10.6 fl (8.7-11.0); Monocytes Absolute Auto 0.85 K/mm3 (0.10-0.90); Monocytes Percent Auto 7.7 % (2.0-11.0); Neutrophils Absolute Auto 7.8 K/mm3 (1.7-7.2); Platelet Count Result 230 K/mm3 (150-420); Red Blood Count 5.49 M/mm3 (4.70-6.10); Red Cell Distribution Width 13.1 % (11.6-14.4); White Blood Count 11.1 K/mm3 (4.8-10.8)
[2023-08-24 11:29] LABS: Alanine Aminotransferase 24 U/L (16-63); Albumin Level 3.9 g/dL (3.4-5.0); Alkaline Phosphatase 164 U/L (46-116); Anion Gap 6 mmol/L (8-16); Aspartate Amino Transferase 24 U/L (15-37); Bilirubin,Total 0.5 mg/dL (0.00-1.00); Blood Urea Nitrogen 18 mg/dL (7-18); CRP 1.2 mg/dL (0.0-0.9); Calcium 9.8 mg/dL (8.5-10.1); Carbon Dioxide 34 mmol/L (21-32); Chloride 99 mmol/L (98-108); Estimated Glomerular Filt Rate > 60; Glucose 268 mg/dL (70-99); Osmolality Calculated 298 mOsm/kg (285-295); Potassium 4.5 mmol/L (3.5-5.1); Sodium 139 mmol/L (136-145); Total Protein 7.8 g/dL (6.4-8.2)
== END 2023-08-24 10:21 | disposition home or self-care (01) ==
PROVIDERS: PCP Nurse Practitioner Family; Visit Provider Nurse Practitioner Family
DX: M79.672 Pain in left foot (principal); L97.309 Non-pressure chronic ulcer of unspecified ankle with unspecified severity; E11.622 Type 2 diabetes mellitus with other skin ulcer; L97.509 Non-pressure chronic ulcer of other part of unspecified foot with unspecified severity
CPT/HCPCS: 36415; 73590; 73620; 80053; 85025; 86140

== ENCOUNTER 2023-08-25 12:49 | Emergency (ER) | payer OTHER, SELFPAY ==
[2023-08-25] VITALS (21 sets, daily range): BP systolic 110–166; BP diastolic 57–91; PULSE 74–101; RESP 12–20; TEMP 36.6; O2SAT 95–100
--- NOTE | 2023-08-25 14:17 | ED.WOUNDLAC ---
HPI - Wound/Laceration General Chief Complaint: Wound/Laceration Stated Complaint: Diabetic Wounds Time Seen by Provider: 08/25/23 13:33 Source: patient and family (daughter) Limitations: no limitations History of Present Illness HPI narrative: 63-year-old male with past medical history diabetes who presents with wounds his bilateral shins and feet. he denies any pain. These wounds have been the clinic and ongoing for 3-4 months. no fevers. Patient was recently seen yesterday at [place]. imaging there was concerning for osteomyelitis and patient was told to present to this hospital. patient denies any known history of neuropathy. his only complaint is of headache and some nausea. Medications are A muscle relaxer, Jardiance 10 mg, glipizide, Trulicity, lisinopril and Eliquis. He is not certain why he is on Eliquis but believes it might be for atrial fibrillation. His last dose was last evening. PCP Yessi Aguilar. Related Data Allergies Allergy/AdvReac Type Severity Reaction Status Date / Time No Known Allergies Allergy Verified 08/25/23 13:59 [facility] Past Medical History Medical History Atrial flutter HTN (hypertension) Overweight Tobacco dependence Type 2 diabetes mellitus Family History Family History Mother Hypertension Family history of chronic obstructive pulmonary disease Family history of obesity Other Family history of type 2 diabetes mellitus Social History Social History (Updated 08/27/23 @ 17:16 by Keri Seaman MD) Social History: Has a daughter Smoking status: Current every day smoker Smoking end date: 11/02/18 Alcohol intake: never Substance use: never Substance use type: does not use Lack of Transportation: No Lack of Food: Never True Current Housing: I Have Housing Concerned About Future Housing: No Difficulty Paying Gas/Electric Bills: No Difficulty Paying for Meds: No Currently Unemployed: No Education: Associate Degree Difficulty w/ Childcare or Family Care: No Living arrangements: with family Occupation/Education: occupation 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 Mountain Dew in hand. HEAD: Normocephalic, atraumatic. EYES: Non injected, non icteric ENT: Nares clear, no rhinorrhea or epistaxis. NECK: Supple. CHEST: speaking in clear sentences. No respiratory distress. HEART: Regular rate and rhythm the time of my exam . initially difficult to palpate DP pulses but there is arterial and venous blood flow on color flow using point of care ultrasound ABDOMEN: Soft, nondistended. EXTREMITIES: Normal range of motion. Venous stasis. Diffuse ulceration wounds along anterior tibial shins bilaterally with escar and granulation tissue. Surrounding tissue woody, not particularly warm to the touch but erythematous. No tenderness to palpation overlying bilateral medial malleoli. SKIN: Diffuse ulceration wounds along anterior tibial shins bilaterally with escar and granulation tissue. NEURO: Alert and oriented x3. Intermittent proprioception in bilateral great toes (equivocal). Diminished sensation throughout bilateral lower extremities. PSYCH: Normal mood and affect. Very pleasant. Course Vital Signs Vital signs: Vital Signs Temperature 97.9 F 08/25/23 12:52 Pulse Rate 101 H 08/25/23 12:52 Respiratory Rate 18 08/25/23 12:52 Blood Pressure 166/85 H 08/25/23 12:52 Pulse Oximetry 99 08/25/23 12:52 Oxygen Delivery Room Air 08/25/23 12:52 Temperature 97.9 F 08/25/23 12:52 Pulse Rate 95 08/25/23 19:45 Respiratory Rate 19 08/25/23 19:45 Blood Pressure 110/72 08/25/23 18:00 Pulse Oximetry 96 08/25/23 18:45 Oxygen Delivery Room Air 08/25/23 12:52 MDM - Wound/Laceration
[2023-08-25] MEDS: ACETAMINOPHEN 500 MG TABLET 1000 MG PO (15:24)
[2023-08-25 15:45] LABS: Glucose Point of Care 281 mg/dl (65-105)
[2023-08-25 15:51] LABS: Basophils Percent Auto 0.3 % (0.2-1.2); Eosinophils Absolute Auto 0.1 K/mm3 (0-0.3); Eosinophils Percent Auto 0.7 % (0-4.4); Hematocrit 53.7 % (42.0-52.0); Hemoglobin 17.4 g/dL (14.0-18.0); Immature Granulocyte Absolute 0.02 K/mm3 (0.00-0.031); Immature Granulocyte Percent A 0.2 % (0-0.5); Lymphocytes Absolute Auto 2.05 K/mm3 (0.9-3.2); Lymphocytes Percent Auto 18.8 % (18.3-44.2); Mean Corpuscular HGB Conc 32.4 g/dl (32-36); Mean Corpuscular Hemoglobin 31.6 pg (26-34); Mean Corpuscular Volume 97.5 fl (80-100); Mean Platelet Volume 10.4 fl (7.4-10.4); Monocytes Absolute Auto 0.9 K/mm3 (0.1-0.6); Neutrophils Absolute Auto 7.8 K/mm3 (1.3-6.7); Platelet Count Result 221 k/mm3 (150-375); Red Blood Count 5.51 M/mm3 (4.6-6.20); Red Cell Distribution Width 13.4 % (11.5-14.5); White Blood Count 10.9 K/mm3 (4.5-10.0)
[2023-08-25 16:04] LABS: Partial Thromboplastin Time 35.5 SECONDS (22.3-36.8)
[2023-08-25 16:36] LABS: Erythrocyte Sedimentation Rate 8 mm/hr (0-20)
[2023-08-25 17:12] LABS: Alanine Aminotransferase 20 U/L (6-50); Albumin Level 3.9 g/dL (3.5-5.1); Alkaline Phosphatase 127 U/L (38-126); Anion Gap 10 mmol/L (8-16); Aspartate Amino Transferase 25 U/L (17-59); Bilirubin,Total 0.7 mg/dL (0.2-1.3); Blood Urea Nitrogen 23 mg/dL (9-20); CRP 1.9 mg/dL (<1.0); Calcium 9.4 mg/dL (8.4-10.2); Carbon Dioxide 28 mmol/L (22-30); Chloride 99 mmol/L (98-107); Estimated CRCL calculation 76 ml/min; Estimated Glomerular Filt Rate > 60; Glucose 270 mg/dL (65-110); Sodium 137 mmol/L (137-145)
[2023-08-25] MEDS: SULFAMETHOXAZOLE/TRIMETHOPRIM 800/160 MG DS TABLET 2 TAB PO (20:25)
[2023-08-25] MEDS: CEPHALEXIN 500 MG CAPSULE PO (20:25)
== END 2023-08-25 20:30 | disposition home or self-care (01) ==
PROVIDERS: Emergency Provider Student in an Organized Health Care Education/Training Program; PCP Nurse Practitioner Family
DX: E11.622 Type 2 diabetes mellitus with other skin ulcer (principal); L97.819 Non-pressure chronic ulcer of other part of right lower leg with unspecified severity; L97.829 Non-pressure chronic ulcer of other part of left lower leg with unspecified severity; L03.116 Cellulitis of left lower limb; L03.115 Cellulitis of right lower limb; I48.91 Unspecified atrial fibrillation; I10 Essential (primary) hypertension; E66.3 Overweight; Z68.33 Body mass index [BMI] 33.0-33.9, adult; Z87.891 Personal history of nicotine dependence; Z79.85 Long-term (current) use of injectable non-insulin antidiabetic drugs; Z79.84 Long term (current) use of oral hypoglycemic drugs; Z79.01 Long term (current) use of anticoagulants
CPT/HCPCS: 36415; 80053; 82948; 85025; 85610; 85652; 85730; 86140; 99283; A9270

== ENCOUNTER 2023-09-07 13:05 | Outpatient (CLI) | payer OTHER, SELFPAY ==
--- NOTE | ~2023-09-07 | US_ITS ---
EXAMINATION: US arterial ankle brachial ind DATE: 09/07/2023 13:49 INDICATION: Other specified symptoms and signs involving the circulatory system. Peripheral vascular disease risk factors of diabetes, hypertension, hyperlipidemia and smoking. Bilateral leon wounds. TECHNIQUE: Segmental pressures and plethysmographic and Doppler waveforms of the brachial and lower e xtremity arteries were obtained. COMPARISON: None. FINDINGS: Right and left brachial artery pressures of 103 mm Hg and 99 mm Hg, respectively, are concordant (nor mal difference <= 30 mmHg). The right ankle-brachial index (CHUCK) is 1.13 (normal >= 0.9-1.0). The right great toe-brachial index (TBI) is unable to be obtained due to inability to identify a discernible pulse at the great toe (nor mal >= 0.65). Arterial Doppler waveforms are monophasic with mildly delayed systolic upstrokes at the right posterior tibial artery. A barely discernible pulses identified at the right dorsalis pedis ar kierra. The left CHUCK is 1.11. The left TBI is 0.66. Arterial Doppler waveforms are monophasic with borderline mildly delayed systolic upstrokes at both left posterior tibial and dorsalis pedis arteries. IMPRESSION: 1. Normal bilateral ABIs and left TBI which is discordant with the indiscernible right great toe wave form, nearly indiscernible waveforms at the left great toe and the right dorsalis pedis artery and mo nophasic waveforms with mildly delayed upstrokes in the remaining arteries at the ankles. This sugges ts the obtained occlusion pressures may be artifactually elevated due to vessel wall calcification al though only minimal vessel wall calcification is evident on the bilateral lower leg radiographs dated 08/24/2023. Reviewed, dictated and finalized at location A. REPRESENTATIVE IMPRESSION: 1. Normal bilateral ABIs and left TBI which is discordant with the indiscernibl e right great toe waveform, nearly indiscernible waveforms at the left great to e and the right dorsalis pedis artery and monophasic waveforms with mildly pancho yed upstrokes in the remaining arteries at the ankles. This suggests the obtain ed occlusion pressures may be artifactually elevated due to vessel wall calcifi cation although only minimal vessel wall calcification is evident on the bilate ral lower leg radiographs dated 08/24/2023.
== END 2023-09-07 13:06 | disposition home or self-care (01) ==
LOC: CHSIMG 13:12
PROVIDERS: PCP Nurse Practitioner Family; Visit Provider Nurse Practitioner Family
DX: R09.89 Other specified symptoms and signs involving the circulatory and respiratory systems (principal)
CPT/HCPCS: 93922

== ENCOUNTER 2024-01-19 20:54 | Emergency (ER) | payer OTHER, SELFPAY ==
[2024-01-19 21:00] VITALS: BP 162/104; PULSE 91; RESP 20; TEMP 37; O2SAT 97
--- NOTE | 2024-01-19 21:27 | ED.SKABFB ---
HPI - Skin/Abscess/Foreign Bdy General Chief complaint: Skin/Abscess/Foreign Body Stated complaint: Allergic Reaction Time Seen by Provider: 01/19/24 21:27 Source: patient Mode of arrival: ambulatory Limitations: no limitations History of Present Illness HPI narrative: 63-year-old male with a history smoking, hypertension, dyslipidemia,diabetes mellitus diabetic foot atrial flutter on Eliquis, hypertension presents to the ER with -- bilateral forearm erythematous rash with swelling and swelling of his fingers which has been going on for the past 1 month. No itching. The rash is present in predominantly sun-exposed areas. No throat swelling. No worsening of his shortness of breath -- diabetic foot for which he is currently on treatment. The patient has high blood sugars with the latest HbA1c of 7.7. The patient takes Empagliflozin 25 mg, glipizide 10 mg and semaglutide 0.75 mg weekly. His abdominal wounds are healing. The patient does not want to switch to insulin for financial reasons. -- Bilateral leg swelling which has greatly improved with recent increase in the dose of Lasix. The the rash has been treated with topical steroids. MD complaint: rash Onset (ago): month(s) ( One month) Tetanus up to date: no Location: LUE and RUE ( the rash is predominantly present in both forearms.) Severity: moderate Quality: burning Pain Consistency: constant Relieving factors: none Exacerbating factors: none Associated symptoms: denies other symptoms Treatments prior to arrival: none Related Data Home Medications Medication Instructions Recorded Confirmed metoprolol tartrate 50 mg tablet 50 mg PO DAILY 01/19/24 01/19/24 Allergies Allergy/AdvReac Type Severity Reaction Status Date / Time No Known Allergies Allergy Verified 01/03/24 13:51 Review of Systems Review of Systems: All systems reviewed & are unremarkable except as noted in HPI and below Constitutional: Constitutional: Reports as per HPI and Reports no additional constitutional complaints Eyes: Eyes: Reports as per HPI and Reports no additional eye complaints ENT: Reports system reviewed and no additional complaints, except as documented and Reports as per HPI Cardiovascular: Cardiovascular: Reports as per HPI and Reports no additional cardiovascular complaints Respiratory: Respiratory: Reports as per HPI, Reports no additional respiratory complaints and Reports cough Gastrointestinal: Gastrointestinal: Reports as per HPI and Reports no additional gastrointestinal complaints Genitourinary: Genitourinary: Reports no additional male genitourinary complaints Musculoskeletal: Musculoskeletal: Reports no additional musculoskeletal complaints and Reports as per HPI Comments: Diabetic foot ulcers Neurologic: Reports system reviewed and no additional complaints, except as documented and Reports as per HPI Psychiatric: Psychiatric: Reports no additional psychiatric complaints and Reports as per HPI Endocrine: Endocrine: Reports no additional endocrine complaints and Reports as per HPI Hematologic/Lymphatic: Hematologic/Lymphatic: Reports no additional hematologic/lymphatic complaints and Reports as per HPI Allergic/Immunologic: Allergic/Immunologic: Reports no additional allergic/immunologic complaints and Reports as per HPI PMFSH Past Medical History Medical History Atrial flutter HTN (hypertension) Overweight Tobacco dependence Type 2 diabetes mellitus Family History Family History Mother Hypertension Family history of chronic obstructive pulmonary disease Family history of obesity Other Family history of type 2 diabetes mellitus Social History Social History Social History: Has a daughter Smoking status: Current every day smoker Smoking end date: 11/02/18 Alcohol
[2024-01-19] MEDS: TETANUS,DIPHTHERIA,AC PERTUSSIS ADULT 0.5 ML (ADACEL) IM (23:01)
[2024-01-19 23:12] VITALS: BP 145/75; PULSE 87; RESP 20; TEMP 36.6; O2SAT 98
== END 2024-01-19 23:12 | disposition home or self-care (01) ==
PROVIDERS: Emergency Provider Internal Medicine Critical Care Medicine; PCP Nurse Practitioner Family
DX: L23.9 Allergic contact dermatitis, unspecified cause (principal); I48.92 Unspecified atrial flutter; I10 Essential (primary) hypertension; E78.5 Hyperlipidemia, unspecified; E11.9 Type 2 diabetes mellitus without complications; Z79.01 Long term (current) use of anticoagulants; Z79.84 Long term (current) use of oral hypoglycemic drugs; Z87.891 Personal history of nicotine dependence; Z23 Encounter for immunization
CPT/HCPCS: 90471; 90715; 99283

== ENCOUNTER 2024-02-08 17:40 | Outpatient (CLI) | payer OTHER, SELFPAY ==
[2024-02-08 17:55] LABS: Basophils Absolute Auto 0.04 K/mm3 (0.00-0.10); Basophils Percent Auto 0.4 % (0.0-1.0); Eosinophils Absolute Auto 0.07 K/mm3 (0.02-0.50); Eosinophils Percent Auto 0.7 % (1.0-6.0); Hemoglobin 16.2 g/dL (14.0-18.0); Immature Granulocyte Absolute 0.03 K/mm3 (0.00-0.00); Immature Granulocyte Percent A 0.3 % (0.0-0.0); Lymphocytes Absolute Auto 2.24 K/mm3 (1.10-4.50); Lymphocytes Percent Auto 23.7 % (18.0-42.0); Mean Corpuscular HGB Conc 33.1 g/dL (32-36); Mean Corpuscular Hemoglobin 31.8 pg (27.0-31.0); Mean Corpuscular Volume 96.1 fL (78.0-102.0); Mean Platelet Volume 10.2 fl (8.7-11.0); Monocytes Absolute Auto 0.71 K/mm3 (0.10-0.90); Monocytes Percent Auto 7.5 % (2.0-11.0); Neutrophils Absolute Auto 6.38 K/mm3 (1.70-7.20); Neutrophils Percent Auto 67.4 % (50.0-70.0); Platelet Count Result 225 K/mm3 (150-420); Red Cell Distribution Width 13.6 % (11.6-14.4); White Blood Count 9.5 K/mm3 (4.8-10.8)
[2024-02-08 18:03] LABS: Hemoglobin A1C 8.9 % (<5.7)
[2024-02-08 18:50] LABS: Albumin Level 3.3 g/dL (3.4-5.0); Alkaline Phosphatase 111 U/L (46-116); Anion Gap 9 mmol/L (4-12); Aspartate Amino Transferase 14 U/L (15-37); Bilirubin,Total 0.4 mg/dL (0.00-1.00); Blood Urea Nitrogen 30 mg/dL (7-18); Calcium 8.8 mg/dL (8.5-10.1); Carbon Dioxide 29 mmol/L (21-32); Chloride 99 mmol/L (98-108); Estimated Glomerular Filt Rate 44; Osmolality Calculated 308 mOsm/kg (285-295); Potassium 4.3 mmol/L (3.5-5.1); Sodium 137 mmol/L (136-145); Total Protein 6.5 g/dL (6.4-8.2)
[2024-02-08 19:11] LABS: Alanine Aminotransferase < 6 U/L (16-63); Glucose 415 mg/dL (70-99)
[2024-02-12 14:38] LABS: CRP, High Sensitivity 4.1 mg/L
[2024-02-13 16:09] LABS: Almond (F20) IgE <0.10 kU/L; Cashew Nut (F202) IgE <0.10 kU/L; Cashew Nut (F202) IgE Class 0; Codfish (F3) IgE <0.10 kU/L; Codfish (F3) IgE Class 0; Cow's Milk (F2) IgE <0.10 kU/L; Cow's Milk (F2) IgE Class 0; Egg White (F1) IgE <0.10 kU/L; Egg White (F1) IgE Class 0; Hazelnut (F17) IgE <0.10 kU/L; Hazelnut (F17) IgE Class 0; Peanut (F13) IgE <0.10 kU/L; Peanut (F13) IgE Class 0; Salmon (F41) IgE <0.10 kU/L; Salmon (F41) IgE Class 0; Scallop (F338) IgE <0.10 kU/L; Scallop (F338) IgE Class 0; Sesame Seed <0.10 kU/L; Shrimp (F24) IgE <0.10 kU/L; Soybean (F14) IgE <0.10 kU/L; Soybean (F14) IgE Class 0; Tuna (F40) <0.10 kU/L; Tuna (F40) Class 0; Walnut (F256) IgE <0.10 kU/L; Walnut (F256) IgE Class 0; Wheat (F4) IgE <0.10 kU/L; Wheat (F4) IgE Class 0
[2024-02-21 12:20] LABS: Rheumatoid Factor Screen Negative (Negative)
== END 2024-02-08 17:41 | disposition home or self-care (01) ==
LOC: CHSLAB 17:41
PROVIDERS: PCP Nurse Practitioner Family; Visit Provider Nurse Practitioner Family
DX: E11.9 Type 2 diabetes mellitus without complications (principal); R21 Rash and other nonspecific skin eruption; R53.83 Other fatigue
CPT/HCPCS: 36415; 80053; 82785; 83036; 85025; 86003; 86038; 86039; 86141; 86430

== ENCOUNTER 2024-03-21 10:02 | Observation (INO) | payer OTHER, SELFPAY ==
[2024-03-21] VITALS (53 sets, daily range): BP systolic 132–188; BP diastolic 52–119; PULSE 92–120; RESP 13–27; TEMP 35.9–36.8; O2SAT 90–100; BMI 36.1
--- NOTE | ~2024-03-21 | CT_ITS ---
Clinical Indication: Shortness of breath CT Scan of the Chest with Contrast: Technique: Contiguous sections were acquired throughout the chest after intravenous administration of 100 cc of Omnipaque 350. Dose reduction technique was used on this scan by utilizing automated expos ure control and iterative reconstruction technique. The dose-length product (DLP) was 993.06 mGy-cm. Findings: 30 gland is diffusely prominent, without discrete nodule identified on CT imaging. There is no evidence of any significant mediastinal, hilar or axillary lymphadenopathy. There is no f illing defect in the pulmonary arterial tree to suggest pulmonary embolus. There is no evidence of ao rtic dissection or aneurysm. No pericardial effusion. Moderate to large right pleural effusion is present. There is mild dependent atelectatic change bilat erally. No left pleural effusion. Probable minimal patchy groundglass pulmonary edema in the aerated lungs. Images through the upper abdomen reveal no abnormalities. Compression fracture of L1 present. Impression: No evidence of pulmonary embolus, aortic dissection, or aortic aneurysm. Moderate to large right pleural effusion with mild bibasilar atelectatic change and probable mild pul monary edema. Reviewed, dictated and finalized at [facility]. Impression: No evidence of pulmonary embolus, aortic dissection, or aortic aneurysm. Moderate to large right pleural effusion with mild bibasilar atelectatic change and probable mild pulmonary edema.
--- NOTE | ~2024-03-21 | XR_ITS ---
XR chest 2V 03/23/2024 09:33 Indication: Pneumonia Procedure: 2 view chest Comparison: Comparison to multiple prior studies sequentially, with oldest reviewed study dated 10/2022. Findings: Cardiomegaly. Right basilar airspace disease. Bilateral pleural effusions, right greater th an left. No pneumothorax. No acute osseous abnormality. Impression: 1: Right basilar airspace disease may represent atelectasis or pneumonia. 2: Bilateral pleural effusions, right greater than left. 3: Cardiomegaly. Reviewed, dictated and finalized at location B. Impression: 1: Right basilar airspace disease may represent atelectasis or pneumonia. 2: Bilateral pleural effusions, right greater than left. 3: Cardiomegaly.
--- NOTE | ~2024-03-21 | XR_ITS ---
Portable chest x-ray Comparison: 02/21/2023 Clinical History: Shortness of breath Findings: Olxfy-qe-[id number] right pleural effusion present. There is mild right basilar pulmonary ed junior/atelectasis. Cardiomediastinal silhouette is stable. Bones and soft tissues are unremarkable. Impression: [id number] right pleural effusion with bibasilar pulmonary edema/atelectasis. Correlate clinic ally for pneumonia. Reviewed, dictated and finalized at location . Impression: Njzzz-[id number] right pleural effusion with bibasilar pulmonary edema/atelect asis. Correlate clinically for pneumonia.
--- NOTE | 2024-03-21 10:16 | ECG_ITS ---
Test Date: 2024-03-21 10:13:55 Measurements Intervals [place] Rate: 120 P: 270 MN: 149 QRS: -77 QRSD: 162 T: 105 QT: 391 QTc: 552 Interpretive Statements ATRIAL FLUTTER/TACHYCARDIA WITH RAPID VENTRICULAR RESPONSE RIGHT BUNDLE BRANCH BLOCK LEFT ANTERIOR FASCICULAR BLOCK LEFT VENTRICULAR HYPERTROPHY AND ST-T CHANGE BASELINE ARTIFACT- I, AVR, AVL, V4 ABNORMAL ECG No previous ECG available for comparison Electronically Signed On 03-21-2024 16:40:31 CDT by Luis Manuel Hurt D.O.
--- NOTE | 2024-03-21 10:34 | PC.NURSE ---
1035: covid test administered & handed to lab who is @ pt bedside
--- NOTE | 2024-03-21 10:37 | ED.SOB ---
HPI - SOB/Dyspnea General Chief Complaint: Shortness of Breath/Dyspnea Stated Complaint: SOB History of Present Illness HPI Narrative: A 64-year-old white male smoker, with history of hypercholesterolemia, type 2 diabetes, hypertension, history of intermittent atrial fibrillation on anticoagulation, obesity, COPD, presents having been at his baseline when he went to bed last night, and was this morning when he woke up he had dyspnea on exertion when he tried to walk to the restroom, but walked to the kitchen, get dressed, or any other type of activity. Once she sits back down to takes a few minutes for him to catch his breath and then his breathing is back to baseline. He denies any chest pain, near-syncope or syncope. Denies recent fever or chills, sinus drainage, sore throat, has a chronic smoker cough Which he thinks is a little worse than usual, denies abdominal pain, nausea or vomiting, diarrhea constipation, dysuria urgency or frequency. He reports he has had a little increase in pedal edema in the lower extremities over the past few days, but reports she always has some, and he does use compression stockings that reach to the knee but not include the knee. Related Data Allergies Allergy/AdvReac Type Severity Reaction Status Date / Time No Known Allergies Allergy Verified 03/21/24 10:10 Review of Systems Review of Systems: All systems reviewed & are unremarkable except as noted in HPI and below PMFSH Past Medical History Medical History Atrial flutter HTN (hypertension) Overweight Tobacco dependence Type 2 diabetes mellitus Family History Family History Mother Hypertension Family history of chronic obstructive pulmonary disease Family history of obesity Other Family history of type 2 diabetes mellitus Social History Social History Social History: Has a daughter Smoking status: Current every day smoker Smoking end date: 11/02/18 Alcohol intake: never Substance use: never Substance use type: does not use Lack of Transportation: No Lack of Food: Never True Current Housing: I Have Housing Concerned About Future Housing: No Difficulty Paying Gas/Electric Bills: No Difficulty Paying for Meds: No Currently Unemployed: No Education: Associate Degree Difficulty w/ Childcare or Family Care: No Living arrangements: with family Occupation/Education: occupation 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 Skin changes consistent with longstanding tobacco exposure. Const: General: no acute distress, alert and well nourished Nutritional Appearance: well nourished and obese Orientation/consciousness: patient oriented x3 Limitations: no limitations HENMT: Head: normal to inspection Ears: external ears normal Face/Nose/Sinus: Normal external nose present and normal facial exam Mouth: Yes Normal oral and palatal mucosa present Teeth and gingiva: dentition normal Throat: posterior oropharynx normal Eyes: Conjunctivae: conjunctivae normal Pupils: Equal, round and reactive pupils present EOM: EOMs intact bilaterally Neck: Neck: normal visual inspection and no meningeal signs Chest: Chest palpation & inspection: normal inspection of the chest Resp: Effort & Inspection: normal respiratory effort Auscultation: rales and rhonchi Cardio: Rate: regular rate Rhythm: regular rhythm GI: GI Palp: Yes Soft to palpation and Yes Tenderness to palpation present (GI) Auscultation: normal bowel sounds Other: No mass, no organomegaly, no percussion or rebound tenderness : General: Yes bladder normal to palpation Skin: General ski
[2024-03-21 10:51] LABS: Hematocrit 45.8 % (40.0-54.0); Hemoglobin 14.8 g/dL (14.0-18.0); Mean Corpuscular HGB Conc 32.3 g/dL (32-36); Mean Corpuscular Hemoglobin 32.7 pg (27.0-31.0); Mean Corpuscular Volume 101.1 fL (78.0-102.0); Mean Platelet Volume 10.2 fl (8.7-11.0); Platelet Count Result 271 K/mm3 (150-420); Red Blood Count 4.53 M/mm3 (4.70-6.10); Red Cell Distribution Width 15.1 % (11.6-14.4); White Blood Count 9.9 K/mm3 (4.8-10.8)
[2024-03-21 11:05] LABS: Alanine Aminotransferase 14 U/L (16-63); Albumin Level 3.3 g/dL (3.4-5.0); Alkaline Phosphatase 175 U/L (46-116); Anion Gap 10 mmol/L (4-12); Aspartate Amino Transferase 14 U/L (15-37); Bilirubin,Total 0.6 mg/dL (0.00-1.00); Blood Urea Nitrogen 20 mg/dL (7-18); Carbon Dioxide 29 mmol/L (21-32); Chloride 103 mmol/L (98-108); Estimated CRCL calculation 83 ml/min; Estimated Glomerular Filt Rate > 60; Glucose 208 mg/dL (70-99); Osmolality Calculated 302 mOsm/kg (285-295); Potassium 3.6 mmol/L (3.5-5.1); Sodium 142 mmol/L (136-145)
[2024-03-21 11:07] LABS: D Dimer 0.89 mg/L (0.19-0.50)
[2024-03-21 11:08] LABS: Lactic Acid Reflex 1.5 mmol/L (0.4-2.0)
[2024-03-21 11:24] LABS: SARS-CoV-2 RNA PCR Negative (Negative)
[2024-03-21 11:28] LABS: Influenza A QL RT-PCR Negative (Negative); Influenza B QL RT-PCR Negative (Negative); NT Pro B Type Natriuretic Pept 2675 pg/mL (0-125); RSV RNA, RT-PCR Negative (Negative); Troponin I 36.5 ng/L (0.00-60.4)
[2024-03-21 11:28] LABS: INR 1.1; Prothrombin Time 11.9 Seconds (9.50-12.1)
[2024-03-21 11:29] LABS: Magnesium 2.2 mg/dL (1.8-2.4)
[2024-03-21] MEDS: ALBUTEROL SULFATE NEB 2.5 MG/3 ML INH 10 MG INHALATION (11:31)
[2024-03-21] MEDS: NITROGLYCERIN OINTMENT 1 INCH DOSE TRANSDERM (11:36)
[2024-03-21] MEDS: methylPREDNISolone SOD SUCC 125 MG VIAL IV PUSH (11:37)
[2024-03-21] MEDS: FUROSEMIDE INJ 100 MG/10 ML VIAL 80 MG IV PUSH (11:39)
[2024-03-21] MEDS: cefTRIAXone 2 GM/NS 100 ML 2 GM/100 ML BAG IVPB (11:41)
[2024-03-21] MEDS: hydrALAZINE HCL 20 MG/ML VIAL IV PUSH (12:06)
[2024-03-21] MEDS: AZITHROMYCIN 500 MG/NS 250 ML 500 MG/250 ML BAG 250 MG IVPB (12:13)
[2024-03-21 14:04] LABS: Troponin I 36.3 ng/L (0.00-60.4)
[2024-03-21] MEDS: hydrALAZINE HCL 20 MG/ML VIAL 10 MG IV PUSH (14:42)
--- OUTSIDE RECORDS SUMMARY | 2024-03-21 15:28 | XMS_ITS | Continuity of Care Document ---
Author Name Unknown Address [address] [place] [address] Phone [facility] Address [address] [place] [address] Phone Support Name Relationship Address Phone VIVIANA Cantu Primary Care Provider [address] [place] [address] MD Nikolai Bejarano Emergency Provider [address] [place] [address] Unavailable DO Luis Manuel Hurt Attending Provider [address] [facility] [address] [place] [id number] MD Daniele Scott Emergency Provider [address] [place] [address] MD Le[place] [address] Care Teams Patient Care Team Team Status: Active Member Role Status Eli Cantu NP Primary Care Provider Active Visit Care Team Team Status: Active Member Role Status Eli Cantu NP Primary Care Provider Active Daniele Scott MD Emergency Provider Active Leandro Hatfield MD Admit Provider, Attending Provi wili Active Visit Care Team Team Status: Inactive Member Role Status Eli Cantu NP Primary Care Provider Active Nikolai Bejarano MD Emergency Provider Active Visit Care Team Team Status: Inactive Member Role Status Eli Cantu NP Primary Care Provider, Attend ing Provider Active Visit Care Team Team Status: Inactive
[2024-03-21 16:37] LABS: Glucose Point of Care 256 mg/dl (65-105)
[2024-03-21] MEDS: LEVALBUTEROL NEB 1.25 MG/3 ML INHALATION (16:37)
[2024-03-21] MEDS: ACETAMINOPHEN 325 MG TABLET 650 MG PO (16:51)
[2024-03-21] MEDS: FUROSEMIDE INJ 40 MG/4 ML VIAL IV PUSH (16:51)
[2024-03-21] MEDS: DOCUSATE SODIUM 100 MG CAPSULE PO (16:52)
[2024-03-21] MEDS: INSULIN HUMAN LISPRO (*BKC) 1,000 UNITS/10 ML VIAL SUB-Q (16:53)
--- NOTE | 2024-03-21 18:13 | PC.NURSE ---
Patient came to unit in w/c, accompanied by ER staff and patient's daughter. Patient able to transfer independently from w/c to bed to be weighed and from bed to chair. Patient admitted to room 210 and educated on use of call light, bed controls, visiting hours, isolation practices and general hospital policies. Patient has wounds on BLE that are being treated by [facility] wound center. There are 2 open areas on Right lower leg, one on Right 2nd metatarsal, One on the lateral Left Great toe and one on the top of the Left 2nd metatarsal. Photos taken and wounds cleansed and covered with CDI dressing. Patient voices understanding of education. Education provided r/t CHF.
[2024-03-21] MEDS: IBUPROFEN 400 MG TABLET PO (18:35)
[2024-03-21] MEDS: RIVAROXABAN 15 MG TABLET PO (18:39)
[2024-03-21] MEDS: carvediloL 6.25 MG TABLET PO (20:52)
[2024-03-21 20:53] LABS: Glucose Point of Care 289 mg/dl (65-105)
[2024-03-21] MEDS: GABAPENTIN 300 MG CAPSULE PO (20:53)
[2024-03-22] VITALS (12 sets, daily range): BP systolic 112–147; BP diastolic 67–95; PULSE 85–118; RESP 16–18; TEMP 35.6–37; O2SAT 93–98
[2024-03-22] MEDS: ACETAMINOPHEN 325 MG TABLET 650 MG PO ×2 (00:24→23:46)
[2024-03-22] MEDS: IBUPROFEN 400 MG TABLET PO (04:49)
[2024-03-22] MEDS: diphenhydrAMINE HCl CAP 25 MG CAPSULE 50 MG PO (04:50)
[2024-03-22 05:20] LABS: Basophils Absolute Auto 0.01 K/mm3 (0.00-0.10); Basophils Percent Auto 0.1 % (0.0-1.0); Hematocrit 43.6 % (40.0-54.0); Hemoglobin 14.4 g/dL (14.0-18.0); Immature Granulocyte Absolute 0.03 K/mm3 (0.00-0.00); Immature Granulocyte Percent A 0.3 % (0.0-0.0); Lymphocytes Percent Auto 10.1 % (18.0-42.0); Mean Corpuscular Hemoglobin 32.6 pg (27.0-31.0); Mean Corpuscular Volume 98.6 fL (78.0-102.0); Monocytes Absolute Auto 0.44 K/mm3 (0.10-0.90); Monocytes Percent Auto 4.9 % (2.0-11.0); Neutrophils Absolute Auto 7.53 K/mm3 (1.70-7.20); Neutrophils Percent Auto 84.6 % (50.0-70.0); Platelet Count Result 276 K/mm3 (150-420); Red Blood Count 4.42 M/mm3 (4.70-6.10); Red Cell Distribution Width 14.7 % (11.6-14.4); White Blood Count 8.9 K/mm3 (4.8-10.8)
[2024-03-22 05:31] LABS: Anion Gap 12 mmol/L (4-12); Blood Urea Nitrogen 26 mg/dL (7-18); Calcium 8.9 mg/dL (8.5-10.1); Carbon Dioxide 26 mmol/L (21-32); Chloride 100 mmol/L (98-108); Estimated CRCL calculation 78 ml/min; Estimated Glomerular Filt Rate > 60; Glucose 228 mg/dL (70-99); Osmolality Calculated 297 mOsm/kg (285-295); Potassium 3.7 mmol/L (3.5-5.1); Sodium 138 mmol/L (136-145)
[2024-03-22] MEDS: LEVALBUTEROL NEB 1.25 MG/3 ML INHALATION (05:42)
[2024-03-22 05:43] LABS: Lactic Acid Reflex 1.2 mmol/L (0.4-2.0)
[2024-03-22] MEDS: DOCUSATE SODIUM 100 MG CAPSULE PO (09:07)
[2024-03-22] MEDS: ATORVASTATIN 10 MG TABLET PO (09:07)
[2024-03-22] MEDS: FUROSEMIDE INJ 40 MG/4 ML VIAL IV PUSH ×2 (09:07→16:41)
[2024-03-22] MEDS: LOSARTAN POTASSIUM 50 MG TABLET 100 MG PO (09:07)
[2024-03-22] MEDS: EMPAGLIFLOZIN 25 MG TABLET PO (09:08)
[2024-03-22] MEDS: INSULIN HUMAN LISPRO (*BKC) 1,000 UNITS/10 ML VIAL SUB-Q ×2 (09:08→12:19)
[2024-03-22] MEDS: HYDROCORTISONE 1% 30 GM CREAM 1 APPLIC TOPICAL (09:09)
[2024-03-22] MEDS: POTASSIUM CHLORIDE 20 MEQ ER TABLET 40 MEQ PO (09:46)
[2024-03-22] MEDS: carvediloL 12.5 MG TABLET PO ×2 (09:46→21:44)
[2024-03-22 12:00] LABS: Glucose Point of Care 249 mg/dl (65-105)
[2024-03-22] MEDS: AZITHROMYCIN IV 250 MG in SODIUM CHLORIDE 0.9% IV 250 ML IVPB (12:19)
--- NOTE | 2024-03-22 12:44 | PM.IMHP ---
H&P: HPI History of Present Illness Date/Time: 03/22/24 12:44 Chief Complaint: SOB Narrative: Patient is a 64-year-old male who presented to the emergency department with complaints shortness of breath that started earlier that day prior to arrival to the emergency department. Patient has a history of HLD, diabetes, HTN, paroxysmal AFib/a flutter, COPD, tobacco dependency and obesity. Patient stated his shortness of breath has been worsening with any activity or exertion and it is taking longer for him to recover when at rest. Patient is currently on no treatment for his COPD. Patient denied any chest pain, nausea, vomiting, dizziness, abdominal pain, fever or chills. Findings the emergency department patient's BNP 2675, CTA was negative for pulmonary emboli however did show a moderate to large right pleural effusion and pulmonary edema. Patient's EKG also showed AFib with RVR at a rate of 120. Patient was admitted to the medical unit for continued evaluation and treatment of acute on chronic CHF exacerbation COPD exacerbation, AFIB with RVR and pleural effusion. Review of Systems Review of Systems: All systems reviewed & are unremarkable except as noted in HPI and below PMFSH Past Medical History Medical History (Updated 03/22/24 @ 13:18 by Gladis Lin APRN) Acute bronchitis Atrial flutter Bilateral cellulitis of lower leg Chronic laryngitis Chronic wound of extremity Coagulation disorder Decreased pedal pulses Diabetic ulcer of leon Dyslipidemia Edema of both lower extremities Hemoptysis HTN (hypertension) Hyperglycemia Hypertension Insomnia Noncompliance with medication regimen Orthopnea Overweight Overweight Singers' nodes Sinusitis Snoring Tobacco abuse Tobacco dependence Tobacco dependence syndrome Type 2 diabetes mellitus Type 2 diabetes mellitus Type 2 diabetes mellitus with hyperglycemia Ulcer of ankle due to diabetes mellitus Ulcer of foot Ulcer of lower extremity Venous insufficiency of both lower extremities Wound of left foot Wound of right lower extremity Family History Family History Mother Hypertension Family history of chronic obstructive pulmonary disease Family history of obesity Other Family history of type 2 diabetes mellitus Social History Social History Social History: Has a daughter Smoking packs per day: 0.5 Smoking cigarettes per day: 10.0 Years smoked: 40 Smoking pack-years: 20.00 Smoking status: Current every day smoker Tobacco type: cigarettes Second hand tobacco smoke exposure: Yes Smoking end date: 11/02/18 Alcohol intake: never Substance use: never Substance use type: does not use Lack of Transportation: No Lack of Food: Never True Current Housing: I Have Housing Concerned About Future Housing: No Difficulty Paying Gas/Electric Bills: No Difficulty Paying for Meds: No Currently Unemployed: No Education: Associate Degree Difficulty w/ Childcare or Family Care: No Living arrangements: with family Occupation/Education: occupation 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 Meds Home Medications and Allergies Home Medications Medication Instructions Recorded Confirmed Type blood glucose control, normal #1 ea 07/29/22 03/21/24 Rx (OneTouch Ultra Control solution) blood sugar diagnostic (OneTouch #100 ea 07/29/22 03/21/24 Rx Ultra Test strips) blood-glucose meter (OneTouch #1 ea 07/29/22 03/21/24 Rx Ultra2 Meter) lancets (OneTouch UltraSoft #100 ea 07/29/22 03/21/24 Rx Lancets) cyclobenzaprine 10 mg tablet See Rx Instructions .Route 10/05/23 03/21/24 Rx .COMPLEX #30 tabs atorvastatin 10 mg tablet See Rx Instructions .Route 12/15/23 03/21/24 Rx .COMPLEX #90 tabs empagliflozin 25 mg tablet 25 mg PO DAILY #90 tabs 12/21/23 03/21/24 Rx (Ja
[2024-03-22] MEDS: SPIRONOLACTONE 25 MG TABLET 50 MG PO (13:36)
[2024-03-22] MEDS: RIVAROXABAN 15 MG TABLET PO (16:41)
[2024-03-22 16:48] LABS: Glucose Point of Care 151 mg/dl (65-105)
--- NOTE | 2024-03-22 19:00 | PC.NURSE ---
Band aids to right and left toes changed, site cleansed with wound cleanser and clean band aid applied. Patient sitting up in recliner with BLE elevated. Call light at side.
[2024-03-22] MEDS: GABAPENTIN 300 MG CAPSULE PO (21:44)
[2024-03-22 21:56] LABS: Glucose Point of Care 208 mg/dl (65-105)
[2024-03-23 04:00] VITALS: BP 138/75; PULSE 82; PULSE 90; RESP 18; TEMP 36.1; O2SAT 92
[2024-03-23 05:39] LABS: Hematocrit 42.6 % (40.0-54.0); Mean Corpuscular HGB Conc 32.9 g/dL (32-36); Mean Corpuscular Hemoglobin 33.1 pg (27.0-31.0); Mean Corpuscular Volume 100.7 fL (78.0-102.0); Mean Platelet Volume 10.4 fl (8.7-11.0); Platelet Count Result 265 K/mm3 (150-420); Red Blood Count 4.23 M/mm3 (4.70-6.10); Red Cell Distribution Width 15.3 % (11.6-14.4); White Blood Count 9.8 K/mm3 (4.8-10.8)
[2024-03-23 06:03] LABS: Alanine Aminotransferase 13 U/L (16-63); Alkaline Phosphatase 130 U/L (46-116); Anion Gap 6 mmol/L (4-12); Aspartate Amino Transferase 10 U/L (15-37); Bilirubin,Total 0.5 mg/dL (0.00-1.00); Blood Urea Nitrogen 33 mg/dL (7-18); Calcium 8.6 mg/dL (8.5-10.1); Carbon Dioxide 31 mmol/L (21-32); Chloride 100 mmol/L (98-108); Estimated CRCL calculation 70 ml/min; Estimated Glomerular Filt Rate 55; Glucose 165 mg/dL (70-99); Osmolality Calculated 295 mOsm/kg (285-295); Potassium 3.4 mmol/L (3.5-5.1); Sodium 137 mmol/L (136-145); Total Protein 6.2 g/dL (6.4-8.2)
[2024-03-23 06:06] LABS: Cholesterol 141 mg/dL (0-200); Triglycerides 98 mg/dL (0-150)
[2024-03-23 06:07] LABS: HDL Direct 35 mg/dL (40-60); LDL Cholesterol Calculated 86 mg/dL (<130)
[2024-03-23 08:00] VITALS: BP 117/70; PULSE 85; PULSE 95; RESP 16; TEMP 36; O2SAT 99
[2024-03-23] MEDS: FUROSEMIDE INJ 40 MG/4 ML VIAL IV PUSH (08:41)
[2024-03-23] MEDS: SPIRONOLACTONE 25 MG TABLET 50 MG PO (08:44)
[2024-03-23] MEDS: predniSONE 40 MG, predniSONE 10 MG 50 MG PO (08:44)
[2024-03-23] MEDS: ATORVASTATIN 10 MG TABLET PO (08:45)
[2024-03-23] MEDS: EMPAGLIFLOZIN 25 MG TABLET PO (08:45)
[2024-03-23 08:46] VITALS: PULSE 85
[2024-03-23] MEDS: LOSARTAN POTASSIUM 50 MG TABLET 100 MG PO (08:46)
[2024-03-23] MEDS: carvediloL 12.5 MG TABLET PO (08:46)
[2024-03-23] MEDS: DOCUSATE SODIUM 100 MG CAPSULE PO (08:46)
--- NOTE | 2024-03-23 10:16 | PM.DS ---
DS: Admitting Diagnosis Discharge Date 03/23/2024 Admitting Diagnosis Shortness of breath, Afib w RVR, Hypertension DS: Discharge Diagnosis Discharge Diagnosis (1) Type 2 diabetes mellitus with hyperglycemia: Code(s): E11.65 - Type 2 diabetes mellitus with hyperglycemia Status: Acute Assessment and Plan: continue to monitor your blood sugars. (2) Tobacco abuse: Code(s): Z72.0 - Tobacco use Status: Acute Assessment and Plan: encourage to quit smoking (3) Shortness of breath: Code(s): R06.02 - Shortness of breath Status: Acute Assessment and Plan: breathing treatment inhalers as needed (4) Rash: Code(s): R21 - Rash and other nonspecific skin eruption Status: Acute Assessment and Plan: Oral steroids monitor you may need immunology (5) Hypertension: Code(s): I10 - Essential (primary) hypertension Status: Acute Assessment and Plan: cotninue home medication (6) Congestive heart failure: Code(s): I50.9 - Heart failure, unspecified Status: Acute Assessment and Plan: continue home medication monitor labs DS: Summary Hospital Course Reason for hospitalization: chronic CHF exacerbation COPD exacerbation, AFIB with RVR and pleural effusion Hospital Course: This is a 64 year old male that was treated for CHF, COPD, Afib w rvr. Patient was treated with breathing treatments, IV lasix and continued on home medication and anticoagulation. Patient has been up on the side of the bed eating and drinking without difficulties and has remained a febrile. Patient breathing is a lot better and labs are trending down. Patient may be in need of a thoracentesis if his pleural effusion do not improve but he will be seen as a outpatient with his pcp and they will decided the next step. Patient to have labs drawn and sent to his pcp. Patient is able to ambulate without shortness of breath and he is feeling more like himself. Potassium is 3.4, sodium 137, BUN 33, CR 1.31,WBC9.8, plt 265. He will discharge on oral antibioitics and lasix and inhaler. Patient instructed on symptoms when he should return to hospital and to follow up with his PCP Time Spent with Patient Time attestation: Total time spent providing and/or coordinating discharge services: Exam Narrative: Physical Exam: GENERAL: Pleasant older obese male Alert and oriented x 3. No acute distress. EYES: EOMI. No scleral icterus. PERRLA. HEENT: Moist mucous membranes. LUNGS: diminished auscultation bilaterally. No accessory muscle use. CARDIOVASCULAR: Irregular irregular 108. No murmur. No JVD. S1-S2 ABDOMEN: Soft, non tenderness and non-distended. No palpable masses. EXTREMITIES: No edema. Non-tender SKIN: Non raise rash to bilateral upper extremities or lesions. Skin warm, dry. NEUROLOGIC: No focal neurological deficits. CN II-XII grossly intact PSYCHIATRIC: Appropriate mood and affect. Good judgement and insight. No visual or auditory hallucinations. No suicidal or homicidal ideation. DS: Data Data Completed and Pending Labs on day of discharge: Labs from last 24 hours 03/23/24 03/22/24 03/22/24 04:59 21:51 16:42 WBC 9.8 RBC 4.23 L Hgb 14.0 Hct 42.6 MCV 100.7 MCH 33.1 H MCHC 32.9 RDW 15.3 H Plt Count 265 MPV 10.4 Sodium 137 Potassium 3.4 L Chloride 100 Carbon Dioxide 31 Anion Gap 6 BUN 33 H Creatinine 1.31 H Estim Creat Clear Calc 70 Estimated GFR 55 L Glucose 165 H POC Capillary Glucose 208 H 151 H Calculated Osmolality 295 Calcium 8.6 Total Bilirubin 0.5 AST 10 L ALT 13 L Alkaline Phosphatase 130 H Total Protein 6.2 L Albumin 3.0 L Triglycerides 98 Cholesterol 141 LDL Cholesterol, Calc 86 HDL Direct 35 L 03/22/24 11:58 WBC RBC Hgb Hct MCV MCH MCHC RDW Plt Count MPV Sodium Potassium
[2024-03-23] MEDS: AZITHROMYCIN IV 250 MG in SODIUM CHLORIDE 0.9% IV 250 ML IVPB (10:31)
--- NOTE | 2024-03-23 10:57 | PC.NURSE ---
Furosemide prescription did not electronically transmit, paper script printed and given to patient.
[2024-03-23 11:36] LABS: Glucose Point of Care 205 mg/dl (65-105)
[2024-03-23 12:00] VITALS: PULSE 86
[2024-03-23] MEDS: INSULIN HUMAN LISPRO (*BKC) 1,000 UNITS/10 ML VIAL SUB-Q (12:19)
--- NOTE | 2024-03-23 14:15 | PC.NURSE ---
Patient left unit in w/c accompanied by patient's daughter and nurse. Discharge instructions given to both patient and patient's daughter and both voiced understanding. Personal belongings sent home with patient. Written prescription sent with patient for medication that would not send electronically. Patient left hospital grounds in privately owned vehicle.
--- NOTE | 2024-04-01 09:31 | PC.NURSE ---
Discharge call back attempted, no answer
--- NOTE | 2024-04-04 10:49 | PC.NURSE ---
unable to complete dc call back, no answer
== END 2024-03-23 14:15 | disposition home or self-care (01) ==
LOC: CHSED 12:31 → CHS2ND 14:47
PROVIDERS: Nurse Practitioner Family; Admitting Provider Internal Medicine; Emergency Provider Emergency Medicine; PCP Nurse Practitioner Family; Visit Provider Nurse Practitioner Family
DX: J90 Pleural effusion, not elsewhere classified (principal); I11.0 Hypertensive heart disease with heart failure; I50.33 Acute on chronic diastolic (congestive) heart failure; R21 Rash and other nonspecific skin eruption; R06.02 Shortness of breath; E11.65 Type 2 diabetes mellitus with hyperglycemia; J44.9 Chronic obstructive pulmonary disease, unspecified; I48.0 Paroxysmal atrial fibrillation; E78.00 Pure hypercholesterolemia, unspecified; Z20.822 Contact with and (suspected) exposure to COVID-19; E66.9 Obesity, unspecified; Z68.36 Body mass index [BMI] 36.0-36.9, adult; Z79.84 Long term (current) use of oral hypoglycemic drugs; Z79.01 Long term (current) use of anticoagulants; F17.210 Nicotine dependence, cigarettes, uncomplicated
CPT/HCPCS: 36415; 71045; 71046; 71275; 80048; 80053; 80061; 82948; 83605; 83735; 83880; 84484; 85025; 85027; 85380; 85610; 87040; 87637; 93005; 94640; 96365; 96367; 96374; 96375; 96376; 99285; A9270; G0378; J0360; J0456; J0696; J1815; J1940; J2919; J7050; J7512; Q9967

== ENCOUNTER 2024-04-08 14:05 | Outpatient (CLI) | payer OTHER, SELFPAY ==
--- NOTE | ~2024-04-08 | XR_ITS ---
EXAMINATION: XR chest 2V Exam Date/Time: 04/08/2024 14:30 CDT HISTORY: J90 - Pleural effusion, not elsewhere classified Comparison: 03/23/2024. RESULT: Lines, tubes, and devices: None. Lungs and pleura: Right basilar airspace disease. Mild right and minimal left costophrenic angle eliud nting. Cardiomediastinal silhouette: Stable. Other: No acute osseous or upper abdominal finding. IMPRESSION: Stable, small right pleural effusion with adjacent atelectasis, right basilar infection not excluded. Trace left pleural effusion versus chronic pleural blunting. Reviewed, dictated and finalized at location [facility]. IMPRESSION: Stable, small right pleural effusion with adjacent atelectasis, right basilar i nfection not excluded. Trace left pleural effusion versus chronic pleural blunt ing.
[2024-04-08 14:30] LABS: Basophils Absolute Auto 0.05 K/mm3 (0.00-0.10); Basophils Percent Auto 0.5 % (0.0-1.0); Eosinophils Absolute Auto 0.08 K/mm3 (0.02-0.50); Eosinophils Percent Auto 0.8 % (1.0-6.0); Hematocrit 46.4 % (40.0-54.0); Hemoglobin 14.9 g/dL (14.0-18.0); Immature Granulocyte Absolute 0.02 K/mm3 (0.00-0.00); Immature Granulocyte Percent A 0.2 % (0.0-0.0); Lymphocytes Absolute Auto 1.81 K/mm3 (1.10-4.50); Lymphocytes Percent Auto 17.3 % (18.0-42.0); Mean Corpuscular HGB Conc 32.1 g/dL (32-36); Mean Corpuscular Volume 102.7 fL (78.0-102.0); Mean Platelet Volume 10.4 fl (8.7-11.0); Monocytes Absolute Auto 0.81 K/mm3 (0.10-0.90); Monocytes Percent Auto 7.7 % (2.0-11.0); Neutrophils Absolute Auto 7.72 K/mm3 (1.70-7.20); Neutrophils Percent Auto 73.5 % (50.0-70.0); Platelet Count Result 152 K/mm3 (150-420); Red Blood Count 4.52 M/mm3 (4.70-6.10); Red Cell Distribution Width 14.5 % (11.6-14.4); White Blood Count 10.5 K/mm3 (4.8-10.8)
[2024-04-09 18:31] LABS: Alanine Aminotransferase 36 U/L (16-63); Albumin Level 3.3 g/dL (3.4-5.0); Alkaline Phosphatase 185 U/L (46-116); Anion Gap 10 mmol/L (4-12); Aspartate Amino Transferase 13 U/L (15-37); Bilirubin,Total 0.7 mg/dL (0.00-1.00); Blood Urea Nitrogen 28 mg/dL (7-18); Calcium 8.6 mg/dL (8.5-10.1); Carbon Dioxide 25 mmol/L (21-32); Chloride 104 mmol/L (98-108); Estimated Glomerular Filt Rate > 60; Glucose 291 mg/dL (70-99); NT Pro B Type Natriuretic Pept 2142 pg/mL (0-125); Osmolality Calculated 304 mOsm/kg (285-295); Potassium 4.3 mmol/L (3.5-5.1); Sodium 139 mmol/L (136-145); Total Protein 6.1 g/dL (6.4-8.2)
== END 2024-04-08 14:06 | disposition home or self-care (01) ==
LOC: CHSLAB 14:07
PROVIDERS: PCP Nurse Practitioner Family; Visit Provider Nurse Practitioner Family
DX: I50.9 Heart failure, unspecified (principal); J90 Pleural effusion, not elsewhere classified
CPT/HCPCS: 36415; 71046; 80053; 83880; 85025

== ENCOUNTER 2024-05-09 13:45 | Outpatient (CLI) | payer OTHER, SELFPAY ==
[2024-05-09 13:57] LABS: Hematocrit 50.6 % (40.0-54.0); Hemoglobin 16.1 g/dL (14.0-18.0); Mean Corpuscular HGB Conc 31.8 g/dL (32-36); Mean Corpuscular Hemoglobin 32.1 pg (27.0-31.0); Mean Corpuscular Volume 100.8 fL (78.0-102.0); Mean Platelet Volume 10.7 fl (8.7-11.0); Platelet Count Result 195 K/mm3 (150-420); Red Blood Count 5.02 M/mm3 (4.70-6.10); Red Cell Distribution Width 13.7 % (11.6-14.4); White Blood Count 7.3 K/mm3 (4.8-10.8)
[2024-05-10 09:09] LABS: Alanine Aminotransferase 16 U/L (6-50); Albumin Level 3.7 g/dL (3.5-5.1); Alkaline Phosphatase 176 U/L (38-126); Anion Gap 10 mmol/L (4-12); Aspartate Amino Transferase 22 U/L (17-59); Bilirubin,Total 0.4 mg/dL (0.2-1.3); Blood Urea Nitrogen 23 mg/dL (9-20); Calcium 8.9 mg/dL (8.4-10.2); Carbon Dioxide 27 mmol/L (22-30); Chloride 103 mmol/L (98-107); Estimated Glomerular Filt Rate > 60; Glucose 244 mg/dL (65-110); Osmolality Calculated 301 mOsm/kg (285-295); Potassium 3.8 mmol/L (3.4-5.0); Sodium 140 mmol/L (137-145)
[2024-05-10 09:36] LABS: NT Pro B Type Natriuretic Pept 2780 pg/mL (19.9-100)
[2024-05-10 12:27] LABS: Cholesterol 137 mg/dL (0-200); HDL Direct 37 mg/dL; LDL Cholesterol Calculated 72 mg/dL (<130); Triglycerides 141 mg/dL (<150)
== END 2024-05-09 13:46 | disposition home or self-care (01) ==
PROVIDERS: Internal Medicine Cardiovascular Disease; Nurse Practitioner Family; PCP Nurse Practitioner Family; Visit Provider Nurse Practitioner Family
DX: E78.5 Hyperlipidemia, unspecified (principal); E11.65 Type 2 diabetes mellitus with hyperglycemia; I50.9 Heart failure, unspecified; I10 Essential (primary) hypertension
CPT/HCPCS: 36415; 80053; 80061; 83880; 84443; 85027

== ENCOUNTER 2025-01-15 09:57 | Emergency (ER) | payer OTHER, SELFPAY ==
[2025-01-15] VITALS (28 sets, daily range): BP systolic 76–154; BP diastolic 38–88; PULSE 41–86; RESP 11–20; TEMP 36.6–36.8; O2SAT 93–98
--- NOTE | ~2025-01-15 | XR_ITS ---
EXAMINATION: XR chest 1V portable DATE: 01/15/2025 12:04 INDICATION: Shortness of breath TECHNIQUE: frontal view of the chest was obtained. COMPARISON: Chest radiograph dated 04/08/2024 FINDINGS: Unchanged mild linear discoid atelectasis/scarring at the left costophrenic angle. Remainder the lung s are clear. No pulmonary edema, pleural effusion or pneumothorax. Heart size is normal. IMPRESSION: 1. Minimal discoid atelectasis/scarring at the left costophrenic angle. No other acute cardiopulmonar y disease. Reviewed, dictated and finalized at location A. IMPRESSION: 1. Minimal discoid atelectasis/scarring at the left costophrenic angle. No othe r acute cardiopulmonary disease.
--- NOTE | 2025-01-15 10:04 | ED_ITS ---
HPI - Dizziness General Chief Complaint: Dizziness Stated Complaint: dizzy Time Seen by Provider: 01/15/25 10:02 Source: patient, family and EMS History of Present Illness HPI Narrative: year old male for a history of hypertension, dyslipidemia, diabetes mellitus, CHF systolic/ diastolic with an EF of 35-40%, atrial fibrillation/ flutter on Xarelto, chronic diarrhea, COPD, peripheral vascular disease with bilateral leg ulcers with osteomyelitis on vancomycin and ertapenem presents to the ED with -- low blood pressure. blood pressure was noted to be in 70s. The patient is on Coreg, losartan and Lasix. the patient had cardioversion few weeks ago. -- dizziness his leg wounds are improving. He is on vancomycin and ertapenem for osteomyelitis of the right 3rd toe which was started last . No sore throat or upper respiratory symptoms no chest pain or shortness of breath MD elicited complaint: dizziness and lightheadedness Onset (ago): day(s) ( 1 day) Timing: sudden onset Severity: mild Description: lightheadedness Context: change in body position Exacerbating factors: change in body position Relieving factors: remaining still Associated symptoms: denies other symptoms and weakness Related Data Home Medications Medication Instructions Recorded Confirmed Last Taken Type carvedilol 6.25 mg tablet 6.25 mg PO DAILY 01/15/25 Unknown History ertapenem 1 gram solution for 1 g IV Q24H 01/15/25 Unknown History injection furosemide 40 mg tablet 80 mg PO QAM 01/15/25 Unknown History losartan 100 mg tablet 100 mg PO DAILY 01/15/25 Unknown History rivaroxaban 15 mg tablet 15 mg PO DAILY 01/15/25 Unknown History vancomycin 1,000 mg intravenous 1.25 g IV DAILY 01/15/25 Unknown History injection Allergies Allergy/AdvReac Type Severity Reaction Status Date / Time Sulfa (Sulfonamide Allergy Intermediate Redness of Verified 01/15/25 11:23 Antibiotics) Skin Review of Systems 2 Review of Systems: All systems reviewed & are unremarkable except as noted in HPI and below Constitutional: Constitutional: Reports as per HPI, Reports no additional constitutional complaints and Reports weakness Eyes: Eyes: Reports as per HPI and Reports no additional eye complaints ENT: Reports system reviewed and no additional complaints, except as documented and Reports as per HPI Cardiovascular: Cardiovascular: Reports as per HPI and Reports no additional cardiovascular complaints Respiratory: Respiratory: Reports as per HPI and Reports no additional respiratory complaints Gastrointestinal: Gastrointestinal: Reports as per HPI and Reports no additional gastrointestinal complaints Genitourinary: Genitourinary: Reports no additional male genitourinary complaints and Reports as per HPI Musculoskeletal: Musculoskeletal: Reports no additional musculoskeletal complaints and Reports as per HPI Integumentary/Breasts: Skin/Breast: Reports system reviewed and no additional complaints, except as docu and Reports as per HPI Comments: bilateral leg and foot ulcers Neurologic: Reports system reviewed and no additional complaints, except as documented and Reports as per HPI Psychiatric: Psychiatric: Reports no additional psychiatric complaints and Reports as per HPI Endocrine: Endocrine: Reports no additional endocrine complaints and Reports as per HPI Hematologic/Lymphatic: Hematologic/Lymphatic: Reports no additional hematologic/lymphatic complaints and Reports as per HPI Allergic/Immunologic: Allergic/Immunologic: Reports no additional allergic/immunologic complaints and Reports as per HPI [facility] Past Medical History Medical History Wound of right lower extremity Wound of left foot Venous insufficiency of both lower extremities Ulcer of lower extremity Ulcer of foot Ulcer of ankle due to diabetes mellitus Type 2 diabetes mellitus with hyperglycemia Type 2 diabetes mellitus Tobacco dependence syndrome Tobacco abuse Snoring Sinusitis Singers' nodes Overweight Orthopnea Noncompliance with medication regimen Insomnia Hypertension Hyperglycemia Hemoptysis Edema of both lower extremities Dyslipidemia Diabetic ulcer of leon Decreased pedal pulses Coagulation disorder Chronic wound of extremity Chronic laryngitis Bilateral cellulitis of lower leg Acute bronchitis Atrial flutter Overweight Tobacco dependence Type 2 diabetes mellitus HTN (hypertension) Family History Family History Mother Hypertension Family history of chronic obstructive pulmonary disease Family history of obesity Other Family history of type 2 diabetes mellitus Social History Social History Social History: Has a daughter Smoking packs per day: 0.5 Smoking cigarettes per day: 10.0 Years smoked: 40 Smoking pack-years: 20.00 Smoking status: Current every day smoker Tobacco type: cigarettes Second hand tobacco smoke exposure: Yes Smoking end date: 11/02/18 Alcohol intake: never Substance use: never Substance use type: does not use Do You Feel Safe in your Home?: Yes Lack of Transportation: No Lack of Food: Never True Current Housing: I Have Housing Concerned About Future Housing: No Difficulty Paying Gas/Electric Bills: No Difficulty Paying for Meds: No Currently Unemployed: No Education: High School Diploma/GED Difficulty w/ Childcare or Family Care: No Living arrangements: with family Occupation/Education: occupation 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 Exam 2 Narrative: blood pressure was noted to be 77 /45 with a heart rate 49 Const: General: no acute distress Orientation/consciousness: patient oriented x3 Limitations: no limitations HENMT: Head: normal to inspection Face/Nose/Sinus: Normal external nose present Face and sinus: normal facial exam Mouth: Yes Normal oral and palatal mucosa present Throat: posterior oropharynx normal Eyes: Conjunctivae: conjunctivae normal Pupils: Equal, round and reactive pupils present EOM: EOMs intact bilaterally Direct Ophthalmoscopy: no photophobia Neck: Neck: normal visual inspection, no lymphadenopathy and no meningeal signs Chest: Chest palpation & inspection: normal inspection of the chest Resp: Effort & Inspection: normal respiratory effort Other: basilar rales Cardio: Rate: bradycardic Rhythm: abnormal rhythm GI: GI Palp: Yes Soft to palpation Auscultation: normal bowel sounds O ther: no tenderness/rigidity / rebound. : General: Yes no CVA tenderness Back/Spine/Pelvis: Back: no CVA tenderness Skin: Other: Bilateral leg wounds is ulceration /wounds of the right medial ankle, 2nd/3rd/ 4th and great toes left medial great toe Neuro: General: patient oriented x3, moves all extremities, no meningeal signs, no focal motor deficits and CN's II-XI intact bilaterally Speech: n ormal speech Extrem: General: edema Other: wound/ulceration of the right ankle, 1st 2nd 3/4 toes and left medial great toe Psych: Mental Status: mental status grossly normal Affect: normal affect Attitude: cooperative Course Course Emergency Course: hypotension and bradycardia- patient on losartan, Lasix and Coreg. Would give him glucagon and 1 L NS in view of his hypotension. during his ER stay the patient has had notable rhythm with a rate as low as 44. Currently he is in normal sinus rhythm with a rate of 81. Elevated troponin of 0.079 and BNP of 8 150 acute on chronic renal failure. The patient has a BUN/ creatinine of 29/1.6 and a baseline creatinine of 1.3 hyperglycemia bilateral leg wounds Vital Signs Vital signs: Vital Signs Temperature 36.6 C 01/15/25 09:58 Pulse Rate 86 01/15/25 09:58 Respiratory Rate 18 01/15/25 09:58 Blood Pressure 95/51 L 01/15/25 09:58 Pulse Oximetry 97 01/15/25 09:58 Oxygen Delivery Room Air 01/15/25 09:58 Temperature 36.6 C 01/15/25 09:58 Pulse Rate 80 01/15/25 12:50 Respiratory Rate 20 01/15/25 11:30 Blood Pressure 154/88 H 01/15/25 12:32 Pulse Oximetry 93 01/15/25 12:32 Oxygen Delivery Room Air 01/15/25 12:32 MDM - Dizziness MDM Narrative Medical decision making narrative: symptomatic bradycardia with blood pressure of 77/40 and dizziness sick sinus syndrome patient has a history of AFib and currently bradycardia. During the ER stay the patient had rose rhythm heart rate in the 40s elevated troponin /proBNP acute on chronic renal failure Differential Diagnosis Differential diagnosis: Likely vertebral basilar insufficiency and cerebrovascular accident Medical Records Attestation: I reviewed the patient's medical records. Lab Data Attestation: I reviewed the patient's lab results. 01/15/25 10:33 01/15/25 10:33 Labs: Lab Results 01/15/25 Range/Units 10:33 WBC 7.7 (4.8-10.8) K/mm3 RBC 4.84 (4.70-6.10) M/mm3 Hgb 15.1 (14.0-18.0) g/dL Hct 47.2 (40.0-54.0) % MCV 97.5 (78.0-102.0) fL MCH 31.2 H (27.0-31.0) pg MCHC 32.0 (32-36) g/dL RDW 15.2 H (11.6-14.4) % Plt Count 184 (150-420) K/mm3 MPV 10.7 (8.7-11.0) fl Immature Gran % (Auto) 0.1 H (0.0-0.0) % Neut % (Auto) 72.4 H (50.0-70.0) % Lymph % (Auto) 16.2 L (18.0-42.0) % Moffat % (Auto) 9.7 (2.0-11.0) % Eos % (Auto) 1.2 (1.0-6.0) % Baso % (Auto) 0.4 (0.0-1.0) % Lymph # (Auto) 1.25 (1.10-4.50) K/mm3 Moffat # (Auto) 0.75 (0.10-0.90) K/mm3 Eos # (Auto) 0.09 (0.02-0.50) K/mm3 Baso # (Auto) 0.03 (0.00-0.10) K/mm3 Abs Immat Gran (auto) 0.01 H (0.00-0.00) K/mm3 Absolute Neuts (auto) 5.59 (1.70-7.20) K/mm3 Absolute Nucleated RBC 0.00 (0.00-0.00) K/mm3 Nucleated RBC % 0.0 (0-0.0) % PT 11.9 (9.50-12.1) Seconds INR 1.1 APTT 30.7 (23.9-30.70) Sec Sodium 140 (137-145) mmol/L Potassium 4.4 (3.4-5.0) mmol/L Chloride 104 (98-107) mmol/L Carbon Dioxide 31 H (22-30) mmol/L Anion Gap 5 (4-12) mmol/L BUN 29 H (9-20) mg/dL Creatinine 1.61 H (0.7-1.3) mg/dL Estim Creat Clear Calc 58 ml/min Estimated GFR 44 L (59 - ) Glucose 179 H (65-110) mg/dL Calculated Osmolality 299 H (285-295) mOsm/kg Lactic Acid 1.8 (0.4-2.0) mmol/L Calcium 8.9 (8.4-10.2) mg/dL Total Bilirubin 0.8 (0.2-1.3) mg/dL AST 28 (17-59) U/L ALT 25 (6-50) U/L Alkaline Phosphatase 157 H (38-126) U/L Total Creatine Kinase 46 L (55-170) U/L Troponin I 0.079 H* (0.000-0.034) ng/mL NT-Pro-B Natriuret Pep 8150 H (19.9-100) pg/mL Total Protein 6.3 (6.3-8.2) g/dL Albumin 3.5 (3.5-5.1) g/dL Discharge Plan Discharge Clinical Impression: Non-ST elevated myocardial infarction (non-STEMI), Sick sinus syndrome Type 2 diabetes mellitus with hyperglycemia Qualifiers: Diabetes mellitus exterminator insulin use: without long-term use Qualified Code(s): E11.65 - Type 2 diabetes mellitus with hyperglycemia Acute on chronic kidney failure Qualifiers: Acute renal failure type: unspecified Chronic kidney disease stage: unspecified stage Qualified Code(s): N17.9 - Acute kidney failure, unspecified Patient Disposition: Still a Patient Condition: Stable Additional Instructions: transfer patient to [facility]. Patient has been accepted by Dr. Valderrama Patient Language: Namibian Prescriptions: No Action albuterol sulfate 90 mcg/actuation HFA aerosol inhaler 2 inh inhalation Q4H PRN (Reason: shortness of breath or wheezing) Qty: 6.7 0RF carvedilol 6.25 mg tablet 6.25 mg PO DAILY ertapenem 1 gram recon soln 1 g IV Q24H losartan 100 mg tablet 100 mg PO DAILY rivaroxaban 15 mg tablet 15 mg PO DAILY Rx Instructions: must administer with evening meal vancomycin 1,000 mg recon soln 1.25 g IV DAILY furosemide 40 mg tablet 80 mg PO QAM Xarelto 15 mg tablet 15 mg PO QPM Qty: 90 2RF Rx Instructions: must administer with evening meal losartan 100 mg tablet 100 mg PO DAILY Qty: 90 3RF (DME) lancets [OneTouch UltraSoft Lancets[place] [facility] [place]ructions .ROUTE .MEDSUPPLY Qty: 100 2RF Rx Instructions: For testing once daily dx: E11.9 (DME) blood-glucose meter [OneTouch Ultra2 Meter] Misc See Rx Instructions .Route Qty: 1 0RF Rx Instructions: As directed (DME) blood glucose control, normal [OneTouch Ultra Control] Solution See Rx Instructions .ROUTE .MEDSUPPLY Qty: 1 0RF Rx Instructions: As directed (DME) OneTouch Ultra Test Strip See Rx Instructions .ROUTE .MEDSUPPLY Qty: 100 2RF Rx Instructions: As directed Jardiance 25 mg tablet 25 mg PO DAILY Qty: 90 3RF cyclobenzaprine 10 mg tablet See Rx Instructions .ROUTE .COMPLEX Qty: 30 3RF Dose Instruction: TAKE 1 TABLET BY MOUTH EVERY 8 HOURS NEEDED FOR MUSCLE SPASMS Rx Instructions: TAKE 1 TABLET BY MOUTH EVERY 8 HOURS NEEDED FOR MUSCLE SPASMS gabapentin 300 mg capsule See Rx Instructions .ROUTE .COMPLEX Qty: 30 2RF Dose Instruction: 300 MG ORALLY EVERY DAY AT BEDTIME Rx Instructions: 300 MG ORALLY EVERY DAY AT BEDTIME Ozempic 2 mg/dose (8 mg/3 mL) pen injector See Rx Instructions .ROUTE .COMPLEX Qty: 3 3RF Dose Instruction: 2 MG (0.75 ML) SUBCUTANEOUSLY WEEKLY Rx Instructions: 2 MG (0.75 ML) SUBCUTANEOUSLY WEEKLY atorvastatin 10 mg tablet See Rx Instructions .ROUTE .COMPLEX Qty: 90 2RF Dose Instruction: TAKE 1 TABLET BY MOUTH EVERY DAY Rx Instructions: TAKE 1 TABLET BY MOUTH EVERY DAY tramadol 50 mg tablet 50 mg PO Q6H PRN (Reason: pain) Qty: 20 0RF Follow-up/Referrals: Yessi Cantu JEWELRY MAKER [Primary Care Provider] - Time of Disposition: 13:03
--- NOTE | 2025-01-15 10:14 | ECG_ITS ---
Test Date: 2025-01-15 10:17:26 Measurements Intervals Monette Rate: 51 P: 0 ID: 0 QRS: -78 QRSD: 177 T: 72 QT: 498 QTc: 460 Interpretive Statements JUNCTIONAL BRADYCARDIA WITH INTERMITTENT PREMATURE ATRIAL BETAS RIGHT BUNDLE BRANCH BLOCK [120+ ms QRS DURATION, UPRIGHT V1, 40+ ms S IN I/aVL/V4/V5/V6] LEFT ANTERIOR FASCICULAR BLOCK [QRS AXIS <= -45, QR IN I, RS IN II] LEFT VENTRICULAR HYPERTROPHY AND ST-T CHANGE [VOLTAGE CRITERIA PLUS ST/T ABNORMALITY] Compared to ECG 03/21/2024 10:13:55 Atrial flutter no longer present Electronically Signed On 01-15-2025 11:45:01 CDT by Everett Powell M.D.
--- OUTSIDE RECORDS SUMMARY | 2025-01-15 10:18 | XMS_ITS | Encounter Summary ---
Author Organization [facility] Address [address] [place] [address] Care Team Providers Care Nutrition Services Assistant Name Role Phone Yessi Cantu PATRICE Primary Care Provider [phone] Ray Brar MD Unavailable [phone] Encounter Details Date Type Department Care Team (Late st Contact Info) Description 01/14/2025 12:58 PM CDT Hospital Encounter [facility] [address], [place] [id number] Meenakshi Koroma MD [address], [place] [id number] Arrived Social History Tobacco Use Types Packs/Day Years Used Date Smoking Tobacco: Every Day Cigarettes 1 40 Smokeless Tobacco: Never Alcohol Use Standard Drinks/Week Comments Never 0 (1 standard drink = 0.6 oz pur e alcohol) OASIS D0700: Social Isolation Answer Da te Recorded Frequency of experiencing loneliness or isolatio n Never 10/30/2024 OASIS A1250: Transportation Answer Date Recorded Lack of Transportation (Medical) No 10/30/2024 Lack of Transportation (Non-Medical) No 10/30/2024 Patient Unable or Declines to Respond No 10/30/2024 OASIS B1300: Health Literacy Answer Onofre e Recorded Frequency of needing help to read materials from doctor or pharmacy Never 10/30/2024 [facility] Utilities Answer Date Recorded In the past 12 months has th e electric, gas, oil, or water company threatened to shut off services in your home? No 06/02/2024 Humiliation, Afraid, Rape, and Kick questionnair e Answer Date Recorded Within the last year, have y ou been afraid of your partner or ex-partner? No 06/02/2024 Within the last year, have y ou been humiliated or emotionally abused in other ways by your partner or ex-partner? No Within the last year, have y ou been kicked, hit, slapped, or otherwise physically hurt by your partner or ex-partner? No 06/02/2024 Within the last year, have y ou been raped or forced to have any kind of sexual activity by your partner or ex-partner? No 06/02/2024 Overall Financial Resource Strain (CARDIA) Answe r Date Recorded How hard is it for you to pa y for the very basics like food, housing, medical care, and heating? Not hard at all 06/02/2024 Hunger Vital Sign Answer Date Recorded Within the past 12 months, y ou worried that your food would run out before you got the money to buy more. Never true 06/02/20 24 Within the past 12 months, t he food you bought just didn't last and you didn't have money to get more. Never true 06/02/2024 PRAPARE - Transportation Answer Date Re corded In the past 12 months, has l ack of transportation kept you from medical appointments or from getting medications? No 05/06 In the past 12 months, has l ack of transportation kept you from meetings, work, or from getting things needed for daily living? No 06/02/2024 Housing Stability Vital Sign Answer Onofre e Recorded In the last 12 months, was t here a time when you were not able to pay the mortgage or rent on time? No 06/02/2024 In the past 12 months, how m any times have you moved where you were living? 0 06/02/2024 At any time in the past 12 m [facility], were you homeless or living in a usp (including now)? No 06/02/2024 Sex and Gender Information Value Date Recorded Sex Assigned at Male 09/23/2024 10:52 AM KITCHEN AND BATH DESIGNER Legal Sex Male 5:55 PM KITCHEN AND BATH DESIGNER Gender Identity Not on file Sexual Orientation Not on file documented as of this encounter Functional Status * Are you deaf or do you have serious difficulty hearing Answer Date of Assessment Author Status No 05/30/2024 2:43 AM Aliyah Coulter RN Active * Are you blind or do you have serious difficulty seeing, even when wearing glasses? Answer Date of Assessment Author Status No 05/30/2024 2:43 AM Aliyah Coulter RN Active * Do you have serious difficulty walking or climbing stairs? Answer Date of Assessment Author Status Yes 05/30/2024 2:43 AM Aliyah Coulter RN Active * Do you have difficulty dressing or bathing? Answer Date of Assessment Author Status Yes 05/30/2024 2:43 AM Aliyah Coulter RN Active * Because of a physical, mental, or emotional condition, do you have difficulty doing errands alone such as visiting a doctor's office or shopping? Answer Date of Assessment Author Status No 05/30/2024 2:43 AM Aliyah Coulter RN Active documented as of this encounter Mental Status * Because of a physical, mental, or emotional condition, do you have serious difficulty concentrating, remembering, or making decisions? Answer Entry Date Author Status No 05/30/2024 2:43 AM Aliyah Coulter RN Active documented in this encounter Plan of Treatment Upcoming Encounters Date Type Department Care Team (Late st Contact Info) Description 01/17/2025 8:15 AM CDT Home Care Visit [facility] [address] [place] [address] María Elena Canales LPN 01/20/2025 11:00 AM CDT Home Care Visit [facility] Home Care [facility] [address] [place] [address] Phyllis Grande, RN 01/21/2025 2:00 PM CDT Appointment [facility] [address] [place] [address] Isaac Serrano, DPM [address] [place] [address] 01/24/2025 9:00 AM CDT Home Care Visit [facility] Home Care [facility] [address] [place] [address] Phyllis Grande, RN 01/28/2025 12:00 PM CDT Home Care Visit [facility] Home Care [facility] [address] [place] [address] Phyllis Grande, RN 01/30/2025 11:00 AM CDT [facility] [address] [place] [address] Ray Brar MD [address] [place] [address] 01/31/2025 9:00 AM CDT Home Care Visit [place] [address] [place] [address] Phyllis Grande, RN 02/03/2025 10:30 AM CDT Home Care Visit [facility] [place] [address] [place] [address] Phyllis Grande, RN 02/07/2025 8:00 AM CDT Home Care Visit [facility] Home Care [place] [address] [place] [address] Phyllis Grande, RN 02/10/2025 9:00 AM CDT Home Care Visit [place] [address] [place] [address] Phyllis Grande, RN 02/14/2025 8:00 AM CDT Home Care Visit [facility] Home Care [place] [address] [place] [address] Phyllis Grande, RN 02/17/2025 9:00 AM CDT Home Care Visit [facility] Home Care [place] [address] [place] [address] Phyllis Grande, RN 02/21/2025 8:00 AM CDT Home Care Visit [facility] [place] [address] [place] [address] Phyllis Grande, RN 02/24/2025 9:00 AM CDT Appointment [facility] Care [facility] [address] [place] [address] Phyllis Grande, RN documented as of this encounter Visit Diagnoses Not on filedocumented in this encounter Administered Medications Inactive Administered Medications - up to 3 most recent administrations Medication Order MAR Action Action Date Dose Rate Site lidocaine 2 % URO-JET jelly 1 dose, Starting on Mon01/14/25 at 1331, Until Mon01/14/25 at 1336, Created by cabinet override Given 01/14/2025 1:36 PM CDT 11 mLs documented in this encounter Additional Health Concerns Infection Onset Date Last Indicated Resolved Time MRSA 05/30/2024 05/30/2024 documented as of this encounter Care Teams Nutrition Services Assistant Relationship Specialty Start Date End Date Yessi Cantu FNP [address] [place] [address] PCP - General NURSE PRACTITIONER 09/26/23 Ray Brar MD [address] [place] [address] EP Energy Systems Engineer CLINICAL CARDIAC ELECTROPHYSIOLOGY 10/31/24 documented as of this encounter
--- OUTSIDE RECORDS SUMMARY | 2025-01-15 10:18 | XMS_ITS | Encounter Summary ---
Author Organization [facility] Address [address] [place] [address] Care Team Providers Care Salad Maker Name Role Phone Yessi Cantu PATRICE Primary Care Provider [phone] Ray Brar MD Unavailable [phone] Encounter Details Date Type Department Care Team (Late st Contact Info) Description 12/23/2024 Results Follow-Up [facility] [address] [place] [address] Ruth Durbin, VIVIANA [address] [place] [address] MRI FOOT LT WWO CON, MRI FOOT RT WWO CON Social History Tobacco Use Types Packs/Day Years [...] materials from doctor or pharmacy Never 10/30/2024 [facility] Utilities Answer Date Recorded In the past 12 months has th e [employer], gas, oil, or water company threatened to [...] any time in the past 12 m [facility], were you homeless or living in a jail (including now)? No 06/02/2024 Sex and Gender Information Value Date Recorded Sex Assigned at Male 09/23/2024 10:52 AM WIND FIELD MANAGER Legal Sex Male 5:55 PM WIND FIELD MANAGER Gender Identity Not on file Sexual Orientation [...] 2:43 AM Aliyah Coulter RN Active * Calculated C-SSRS Risk Score (Lifetime/Recent) Answer Date of Assessment Author Status No Risk Indicated 12/25/2024 12:10 PM Soniya Allan RN Active * [place]ine Suicide Severity Rating Scale (Screener/Recent Self-Report) Question Answer Date of Assessment Author Status 1. Wish to be (Past 1 Month) No 12/25/2024 12:10 PM Liya Allan RN Ac tive 2. Non-Specific Active Suicidal Thoughts (Past 1 Month) No 12/25/2024 12:10 PM Liya Allan RN Ac tive 6. Suicidal Behavior (Lifetime) No 12/25/2024 12:10 PM Liya Allan RN Ac tive documented as of this encounter Mental Status * Because of a physical, mental, or emotional condition, do you have serious difficulty concentrating, remembering, or making decisions? Answer Entry Date Author Status No 05/30/2024 2:43 AM Aliyah Coulter RN Active documented in this encounter Progress Notes * Ruth Durbin NP - 12/23/2024 4:56 PM CDT Pt has follow up with you tomorrow. documented in this encounter Plan of Treatment Upcoming Encounters Date Type Department Care Team (Late st Contact Info) Description 01/17/2025 8:15 AM CDT Home Care Visit [facility] [address] [place] [address] María Elena Canales LPN 01/20/2025 11:00 AM CDT Home Care Visit [place] [address] [place] [address] Phyllis Grande, RN 01/21/2025 2:00 PM CDT Appointment [facility] Wound [facility] [address] [place] [address] Isaac Serrano, DPM [address] [place] [address] 01/24/2025 9:00 AM CDT Home Care Visit [place] [address] [place] [address] Phyllis Grande, RN 01/28/2025 12:00 PM CDT Home Care Visit [place] [address] [place] [address] Phyllis Grande, RN 01/30/2025 11:00 AM CDT [facility] [address] [place] [address] Ray Brar MD [address] [place] [address] 01/31/2025 9:00 AM CDT Home Care Visit [place] [address] [place] [address] Phyllis Grande, RN 02/03/2025 10:30 AM CDT Home Care Visit [place] [address] [place] [address] Phyllis Grande, RN 02/07/2025 8:00 AM CDT [facility] Care Visit [facility] [address] [place] [address] Phyllis Grande, RN 02/10/2025 9:00 AM CDT Home Care Visit [facility] [address] [place] [address] Phyllis Grande, RN 02/14/2025 8:00 AM CDT Home Care Visit [place] [address] [place] [address] Phyllis Grande, RN 02/17/2025 9:00 AM CDT Home Care Visit [facility] [place] [address] [place] [address] Phyllis Grande, RN 02/21/2025 8:00 AM CDT Home Care Visit [place] [address] [place] [address] Phyllis Grande, RN 02/24/2025 9:00 AM CDT Appointment [place] [address] [place] [address] Phyllis Grande, RN documented as of this encounter Visit Diagnoses Not on filedocumented in this encounter Additional Health Concerns Infection Onset Date Last Indicated Resolved Time MRSA 05/30/2024 05/30/2024 documented as of this encounter Care Teams Salad Maker Relationship Specialty Start Date End Date Yessi Cantu FNP [address] [place] [address] PCP - General NURSE PRACTITIONER 09/26/23 Ray Brar MD [address] [place] [address] EP Customer Order Clerk CLINICAL CARDIAC ELECTROPHYSIOLOGY 10/31/24 documented as of this encounter
--- OUTSIDE RECORDS SUMMARY | 2025-01-15 10:18 | XMS_ITS | Encounter Summary ---
Author Organization [facility] Address [address] [place] [address] Care Team Providers Care Voice Professor Name Role Phone Yessi Cantu PATRICE Primary Care Provider [phone] Ray rBar MD Unavailable [phone] Encounter Details Date Type Department Care Team (Latest Contact Info) Description 01/14/2025 Travel Social History Tobacco Use Types Packs/Day Years [...] materials from doctor or pharmacy Never 10/30/2024 [facility] Utilities Answer Date Recorded In the past 12 months has e [employer], oil, or water [employer] threatened to shut off services in your [...] any time in the past 12 m [facility], were you homeless or living in a prison (including now)? No 06/02/2024 Sex and Gender Information Value Date Recorded Sex Assigned at Male 09/23/2024 10:52 AM BOARD WINDER Legal Sex Male 5:55 PM BOARD WINDER Gender Identity Not on file Sexual Orientation [...] Assessment Author Status Yes 05/30/2024 2:43 AM CDT Aliyah Eagle RN Active * Do you have difficulty dressing or bathing? Answer Date of Assessment Author Status Yes 05/30/2024 2:43 AM GRIST Aliyah Eagle RN Active * Because of a physical, [...] 01/17/2025 8:15 AM CDT Home Care Visit [facility] [address] [place] [address] María Elena Canales LPN 01/20/2025 11:00 AM CDT Home Care Visit [facility] [address] [place] [address] Phyllis Grande, RN 01/21/2025 2:[address] [facility] [address] [place] [address] Isaac Serrano, DPM [address] [place] [address] 01/24/2025 9:00 AM CDT Home Care Visit [facility] [address] [place] [address] Phyllis Grande, RN 01/28/2025 12:00 PM CDT Home Care Visit [facility] [address] [place] [address] Phyllis Grande, RN 01/30/2025 11:00 AM CDT Office Visit [facility] [address] [place] [place] [phone] Ray Brar MD [address] [place] [address] 01/31/2025 9:00 AM CDT Home Care Visit [place] [address] [place] [address] Phyllis Grande, RN 02/03/2025 10:30 AM CDT Home Care Visit [facility] [address] [place] [address] Phyllis Grande, RN 02/07/2025 8:00 AM CDT Home Care Visit [facility] [address] [place] [address] Phyllis Grande, RN 02/10/2025 9:00 AM CDT Home Care Visit [facility] [address] [place] [address] Phyllis Grande, RN 02/14/2025 8:00 AM CDT Home Care Visit [facility] [place] [address] [place] [address] Phyllis Grande, RN 02/17/2025 9:00 AM CDT Home Care Visit [place] [address] [place] [address] Phyllis Grande, RN 02/21/2025 8:00 AM CDT Home Care Visit [facility] Home [place] [address] [place] [address] Phyllis Grande, RN 02/24/2025 9:00 AM CDT Appointment [place] [address] [place] [address] Phyllis Grande, RN documented as of this encounter Visit Diagnoses Not on filedocumented in this encounter Additional Health Concerns Infection Onset Date Last Indicated Resolved Time MRSA 05/30/2024 05/30/2024 documented as of this encounter Care Teams Voice Professor Relationship Specialty Start Date End Date Yessi Cantu FNP [address] [place] [address] PCP - General NURSE PRACTITIONER 09/26/23 Ray Brar MD [address] [place] [address] EP Tour Counselor CLINICAL CARDIAC ELECTROPHYSIOLOGY 10/31/24 documented as of this encounter
--- OUTSIDE RECORDS SUMMARY | 2025-01-15 10:18 | XMS_ITS | Encounter Summary ---
Author Organization [facility] Address [address] [place] [address] Care Team Providers Care Hogshead Dumper Name Role Phone Yessi Cantu PATRICE Primary Care Provider [phone] Ray Brar MD Unavailable [phone] Encounter Details Date Type Department Care Team (Late st Contact Info) Description 12/26/2024 Results Follow-Up [facility] [address] [place] [phone] Connie Forman LPN USE ECHOCARDIOGRAM Social History Tobacco Use Types Packs/Day Years [...] materials from doctor or pharmacy Never 10/30/2024 [facility] Utilities Answer Date Recorded In the past 12 months has th e [employer], gas, oil, or water company threatened to [...] any time in the past 12 m [facility], were you homeless or living in a skilled nursing (including now)? No 06/02/2024 Sex and Gender Information Value Date Recorded Sex Assigned at Male 09/23/2024 10:52 AM WILDLIFE BIOLOGY TECHNICIAN Legal Sex Male 5:55 PM WILDLIFE BIOLOGY TECHNICIAN Gender Identity Not on file Sexual Orientation Not on file documented as of this encounter Functional Status * Are you deaf or do you have serious difficulty hearing Answer Date of Assessment Author Status No 05/30/2024 2:43 AM CDAliyah Crowley RN Active * Are you blind or do you have serious difficulty seeing, even when wearing glasses? Answer Date of Assessment Author Status No 05/30/2024 2:43 AM CDT Aliyah Eagle RN Active * Do you have serious difficulty walking or climbing stairs? Answer Date of Assessment Author Status Yes 05/30/2024 2:43 AM GRIST Aliyah Eagle RN Active * Do you have difficulty dressing or bathing? Answer Date of Assessment Author Status Yes 05/30/2024 2:43 AM RGIST Aliyah Eagle RN Active * Because of [...] 01/17/2025 8:15 AM CDT Home Care Visit [facility] [address] [place] [address] María Elena Canales LPN 01/20/2025 11:00 AM CDT Home Care Visit [facility] [address] [place] [address] Phyllis Grande, RN 01/21/2025 2:00 PM CDT Appointment [facility] [address] [place] [address] Isaac Serrano, DPM [address] [place], [place] [address] 01/24/2025 9:00 AM CDT Home Care Visit [facility] [address] [place] [address] Phyllis Grande, RN 01/28/2025 12:00 PM CDT Home Care Visit [facility] Home Care [place] [address] [place] [address] Phyllis Grande, RN 01/30/2025 11:00 AM CDT [facility] [address] [place] [address] Ray Brar MD [address] [place] [address] 01/31/2025 9:00 AM CDT Home Care Visit [place] [address] [place] [address] Phyllis Grande, RN 02/03/2025 10:30 AM CDT Home Care Visit [place] [address] [place] [address] Phyllis Grande, RN 02/07/2025 8:00 AM CDT Home Care Visit [place] [address] [place] [address] Phyllis Grande, RN 02/10/2025 9:00 AM CDT Home Care Visit [place] [address] [place] [address] Phyllis Grande, RN 02/14/2025 8:00 AM CDT Home Care Visit [place] [address] [place] [address] Phyllis Grande, RN 02/17/2025 9:00 AM CDT Home Care Visit [place] [address] [place] [address] Phyllis Grande, RN 02/21/2025 8:00 AM CDT Home Care Visit [facility] Care [place] [address] [place] [address] Phyllis Grande, RN 02/24/2025 9:00 AM CDT Appointment [place] [address] [place] [address] Phyllis Grande, RN documented as of this encounter Visit Diagnoses Not on filedocumented in this encounter Additional Health Concerns Infection Onset Date Last Indicated Resolved Time MRSA 05/30/2024 05/30/2024 documented as of this encounter Care Teams Hogshead Dumper Relationship Specialty Start Date End Date Yessi Cantu FNP [address] [place] [address] PCP - General NURSE PRACTITIONER 09/26/23 Ray Brar MD [address] [place] [phone] EP Repairer Finished Metal CLINICAL CARDIAC ELECTROPHYSIOLOGY 10/31/24 documented as of this encounter
--- OUTSIDE RECORDS SUMMARY | 2025-01-15 10:18 | XMS_ITS | Encounter Summary ---
Author Organization [facility] Address [address] [place] [address] Care Team Providers Care Talend Etl Developer Name Role Phone Yessi Cantu HVAC MECHANICAL ENGINEER Primary Care Provider [phone] Ray Brar MD Unavailable [phone] Encounter Details Date Type Department Care Team (Latest Contact Info) Description 01/07/2025 Scan [facility] FACILITY DEFAULT Scanned[facility] Social History Tobacco Use Types Packs/Day Years [...] materials from doctor or pharmacy Never 10/30/2024 [facility] Utilities Answer Date Recorded In the past 12 months has e [employer], oil, or water [employer] threatened to shut off services in your [...] any time in the past 12 m [facility], were you homeless or living in a fci (including now)? No 06/02/2024 Sex and Gender Information Value Date Recorded Sex Assigned at Male 09/23/2024 10:52 AM CHAIN PERSON Legal Sex Male 5:55 PM CHAIN PERSON Gender Identity Not on file Sexual Orientation [...] AM CDT Aliyah Eagle RN Active * Because of a physical, mental, or emotional condition, do you have difficulty doing errands alone such as visiting a doctor's office or shopping? Answer Date of Assessment Author Status No 05/30/2024 2:43 AM CDT Aliyah Eagle RN Active documented as of this encounter Mental Status * Because of a physical, mental, or emotional condition, do you have serious difficulty concentrating, remembering, or making decisions? Answer Entry Date Author Status No 05/30/2024 2:43 AM GRIST Aliyah Eagle RN Active documented in this encounter Plan of Treatment Upcoming Encounters Date Type Department Care Team (Late st Contact Info) Description 01/17/2025 8:15 AM CDT Home Care Visit [place] [address] [place] [address] María Elena Canales LPN 01/20/2025 11:00 AM CDT Home Care Visit [place] [address] [place] [address] Phyllis Grande, RN 01/21/2025 2:00 PM CDT Appointment [facility] [address] [place] [address] Isaac Serrano, DPM [address] [place] [address] 01/24/2025 9:00 AM CDT Home Care Visit [place] [address] [place] [address] Phyllis Grande, RN 01/28/2025 12:00 PM CDT Home Care Visit [place] [address] [place] [address] Phyllis Grande, RN 01/30/2025 11:00 AM CDT [facility] [address] [place] [address] [phone] Ray Brar MD [address] [place] [phone] 01/31/2025 9:00 AM CDT Home Care Visit [place] [address] [place] [address] Phyllis Grande, RN 02/03/2025 10:30 AM CDT Home Care Visit [place] [address] [place] [address] Phyllis Grande, RN 02/07/2025 8:00 AM CDT Home Care Visit [place] [address] [place] [address] Phyllis Grande, RN 02/10/2025 9:00 AM CDT Home Care Visit [place] [address] [place] [address] Phyllis Grande, RN 02/14/2025 8:00 AM CDT Home Care Visit [place] [address] [place] [address] Phyllis Grande, RN 02/17/2025 9:00 AM CDT Home Care Visit [place] [address] [place] [address] Phyllis Grande, RN 02/21/2025 8:00 AM CDT Home Care Visit [facility] Home [place] [address] [place] [address] Phyllis Grande, RN 02/24/2025 9:00 AM CDT Appointment [place] [address] [place] [address] Phyllis Grande, RN documented as of this encounter Visit Diagnoses Not on filedocumented in this encounter Additional Health Concerns Infection Onset Date Last Indicated Resolved Time MRSA 05/30/2024 05/30/2024 documented as of this encounter Care Teams Talend Etl Developer Relationship Specialty Start Date End Date Yessi Cantu FNP [address] [place] [address] PCP - General NURSE PRACTITIONER 09/26/23 Ray Brar MD [address] [place] [phone] EP Electrical Control Assembler CLINICAL CARDIAC ELECTROPHYSIOLOGY 10/31/24 documented as of this encounter
--- OUTSIDE RECORDS SUMMARY | 2025-01-15 10:18 | XMS_ITS | Clinical Summary ---
Author Organization [facility] Address [address] [place] [address] Care Team Providers Care Antenna Installer Name Role Phone Yessi Cantu PATRICE Primary Care Provider [phone] Ray Brar MD Unavailable [phone] Allergies Active Allergy Reactions Criticality Noted Date Comments Sulfa Antibiotics Unknown 05/29/2024 Medications cyclobenzaprine (FLEXERIL) 10 MG tabletIndicatio ns:muscle spasms Take 1 tablet (10 mg total) by mouth daily. Indications: muscle spasms FOR MUSCLE SPASMS 024 Active atorvastatin (LIPITOR) 10 MG tabletIndicatio ns:cholesterol Take 1 tablet (10 mg total) by mouth daily. Indications: cholesterol 024 Active empagliflozin (JARDIANCE) 25 MG tabletIndicatio ns:diabetes Take 1 tablet (25 mg total) by mouth daily. Indications: diabetes 024 Active OZEMPIC 1 mg/dose injection (PEN)Indication s:Diabetes Mellitus Inject 3 mg into the skin once a week. Indications: Diabetes 024 Active albuterol sulfate HFA 108 (90 Base) MCG/ACT inhalerIndicati ons:cough, wheezing Inhale 2 puffs into the lungs every 6 (six) hours as needed for Wheezing. Indications: cough, wheezing Active gabapentin (NEURONTIN) 300 MG capsuleIndicati ons:neuropathy Take 1 capsule (300 mg total) by mouth daily. Indications: neuropathy 025 Active acetaminophen (TYLENOL) 500 MG tabletIndicatio ns:pain Take 2 tablets (1,000 mg total) by mouth every 6 (six) hours as needed for Pain. Indications: pain 025 Active Loperamide HCl PowderIndicatio ns:diarrhea Take 1-2 tablets by mouth as needed (diarrhea). Indications: diarrhea 025 Active diphenhydrAMINE (BENADRYL) 50 MG tabletIndicatio ns:itching Take 1 tablet (50 mg total) by mouth every 6 (six) hours as needed for Itching. Indications: itching 025 Active HYDROcodone-erickson taminophen (NORCO) 5-325 MG tabletIndicatio ns:Chronic Pain Take 1 tablet by mouth every 8 (eight) hours as needed for Pain. Indications: Chronic Pain 025 Active furosemide (LASIX) 40 MG tablet TAKE 1 TABLET (40 MG TOTAL) BY MOUTH 2 (TWO) TIMES DAILY FOR 120 DOSES. 025 Active furosemide (LASIX) 80 MG tabletIndicatio ns:diuretic Take 1 tablet (80 mg total) by mouth daily. Indications: diuretic 90 tablet 4 025 Active losartan (COZAAR) 100 MG tabletIndicatio ns:hypertension Take 1 tablet (100 mg total) by mouth daily. Indications: hypertension 90 tablet 4 025 Active rivaroxaban (XARELTO) 15 MG tabletIndicatio ns:Atrial Fibrillation Take 1 tablet (15 mg total) by mouth daily with supper. Indications: Atrial Fibrillation 90 tablet 4 025 Active traMADol (ULTRAM) 50 MG tabletIndicatio ns:Acute Pain < 7 Day Supply,Chronic Pain Take 1 tablet (50 mg total) by mouth every 6 (six) hours as needed. Indications: Acute Pain < 7 Day Supply, Chronic Pain 025 Active carvedilol (COREG) 6.25 MG tabletIndicatio ns:Atrial Fibrillation Take 1 tablet (6.25 mg total) by mouth 2 (two) times daily. Indications: Atrial Fibrillation 60 tablet 1 025 Active vancomycin (VANCOCIN) 1.25 g injectionIndica tions:Osteomyel itis, foot Inject 1.25 g into the vein every 12 (twelve) hours. Indications: Osteomyelitis, foot 025 2024 Active ertapenem 1,000 mg in sodium chloride 0.9 % SOLN 50 mLIndications:O steomyelitis Inject 1,000 mg into the vein daily. Indications: Infection of Bone and Bone Marrow 025 2024 Active Heparin Sod, Pork, Lock Flush (HEPARIN, PORCINE, LOCK FLUSH IV)Indications: IV Flush Inject 10 Units/mL into the vein see administration instructions. Infuse per SASH method with IV med administration and blood draws. Indications: IV Flush Active sodium chloride 0.9 % solutionIndicat ions:IV Flush Inject 10 mLs into the vein see administration instructions. Infuse per SASH method with IV med administration and blood draws. Indications: IV Flush Active carvedilol (COREG) 12.5 MG tabletIndicatio ns:hypertension Take 1 tablet (12.5 mg total) by mouth daily. Indications: hypertension patient taking 1 tab 1 time daily 90 tablet 4 025 2024 Discontinued(S top Taking at Discharge) doxycycline hyclate (VIBRAMYCIN) 100 MG capsuleIndicati ons:Infection Take 100 mg by mouth 2 (two) times daily. Indications: Infection 025 2024 Discontinued amoxicillin (AMOXIL) 875 MG tabletIndicatio ns:Infection Take 875 mg by mouth 2 (two) times daily. Indications: Infection 025 2024 Discontinued doxycycline hyclate (VIBRAMYCIN) 100 MG capsuleIndicati ons:Diabetic Foot Ulcer Take 1 capsule (100 mg total) by mouth 2 (two) times daily for 14 days. Indications: Diabetic Foot Ulcer 28 capsule 025 2024 ampicillin 500 MG capsuleIndicati ons:Diabetic Foot Ulcer Take 1 capsule (500 mg total) by mouth 3 (three) times daily for 14 days. Indications: Diabetic Foot Ulcer 42 capsule 025 2024 Active Problems Problem Noted Date Diagnosed Date Other chronic osteomyelitis, right ankle and foot ([facility]) 01/08/2025 Open wound of both lower ext remities with complication, initial encounter 10/25/2023 Chronic venous insufficiency 10/25/2023 Ulcer of lower extremity wit h fat layer exposed, unspecified laterality ([facility]) 10/25/2023 Dyslipidemia Atrial flutter ([facility]) CHF (congestive heart failure) ([facility]) Overview (12/01/2024): 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% Encounters Date Type Department Care Team Description 01/14/2025 2:30 PM CDT Hospital Encounter [facility] [address] [place] [address] Russell Cannon MD Arrived 01/14/2025 12:58 PM CDT Hospital Encounter [facility] [address] [place] [address] Meenakshi Koroma MD Arrived 01/14/2025 Travel 01/13/2025 10:31 AM CDT - 01/13/2025 11:59 PM CDT Hospital Encounter [facility] [address] [facility] [facility] [place] [address] Meenakshi Koroma MD Discharge Disposition: Home or Self Care (Routine Discharge) 01/13/2025 8:00 AM CDT Home Care Visit [facility] Home Care [facility] [address] [place] [address] Phyllis Grande, RN SN HOME VISIT 01/13/2025 Orders Only [facility] [address] [place] [address] Meenakshi Koroma MD 01/13/2025 Telephone [facility] [address] [place] [address] Carla Arana, RN Advise (Phyllis schmid/[facility] Home health called stating patient's red lumen on his PICC is leaking when flushing with saline and when drawing blood it draws back air as well. Nurse clamped red lumen and will not use, purple lumen functioning appropriately. Patient to come in tomorrow 01/14/25 after wound clinic appt for PICC check. Phyllis to give patient appointment info.) 01/10/2025 8:00 AM CDT Home Care Visit [facility] Home Care [facility] [address] [place] [address] Phyllis Grande, RN SN HOME VISIT 01/10/2025 Telephone [facility] [address] [place] [phone] Ray Brar MD Holter Monitor 01/09/2025 3:30 PM CDT Treatment [facility] [address] [place] [address] Meenakshi Koroma MD Infusion Therapy; Lab Draw 01/09/2025 2:00 PM CDT - 01/09/2025 11:59 PM CDT Hospital Encounter [facility] [address] [place] [address] Meenakshi Koroma MD Discharge Disposition: Home or Self Care (Routine Discharge) 01/09/2025 Travel 01/07/2025 2:00 PM CDT - 01/07/2025 11:59 PM CDT Hospital Encounter [facility] [address] [place] [address] Isaac Serrano DPM Discharge Disposition: Home or Self Care (Routine Discharge) 01/07/2025 Scan [facility] FACILITY DEFAULT [facility] 01/07/2025 Travel 01/07/2025 Telephone [facility] [address] [place] [address] Carla Arana, RN Schedule Procedure (Patient accepted procedure date/time of 01/09/25 ARR 1345/PICC 1400 and where to arrive. They are aware they may eat, drink, take meds, and drive after the procedure.) 01/02/2025 8:49 AM CDT - 01/02/2025 11:59 PM CDT Hospital Encounter [facility] Wound [facility] [address] [place] [address] Meenakshi Koroma MD Discharge Disposition: Home or Self Care (Routine Discharge) 01/02/2025 Travel 12/31/2024 10:15 AM CDT Home Care Visit [facility] Home Care [facility] [address] [place] [address] María Elena Cnaales LPN SN HOME VISIT 12/31/2024 Telephone [facility] [address] [place] [phone] Ray Brar MD Concerns 12/27/2024 11:00 AM CDT Home Care Visit [facility] Home Care [facility] [address] [place] [address] Phyllis Grande, RN SN OASIS RECERTIFICATION 12/27/2024 Plan of Care Documentation [facility] Home Care [facility] [address] [place] [address] 12/26/2024 [address] [facility] [address] [place] [phone] Ray Brar MD Heart Problem 12/26/2024 Results Follow-Up [facility] [address] [place] [phone] Connie Forman LPN USE ECHOCARDIOGRAM 12/25/2024 9:57 AM CDT - 12/25/2024 11:59 PM CDT Hospital Encounter [facility] [address] [place] [address] Ray Brar MD Discharge Disposition: Home or Self Care (Routine Discharge) 12/25/2024 9:54 AM CDT - 12/25/2024 9:56 AM CDT Hospital Encounter [facility] Non Invasive Cardiology [facility] [address] [place] [address] Ray Brar MD Discharge Disposition: Home or Self Care (Routine Discharge) 12/25/2024 Travel 12/24/2024 8:41 AM CDT - 12/24/2024 11:59 PM CDT Hospital Encounter [facility] Wound [facility] [address] [place] [address] Jayashree Lee, DPM Discharge Disposition: Home or Self Care (Routine Discharge) 12/24/2024 Travel 12/23/2024 Results Follow-Up [facility] [address] [place] [address] Ruth Durbin, VIVIANA MRI FOOT LT WWO CON, MRI FOOT RT WWO CON 12/20/2024 12:30 PM CDT Home Care Visit [facility] Home Care [facility] [address] [place] [address] María Elena Canales LPN SN HOME PRN VISIT 12/18/2024 9:02 AM CDT - 12/18/2024 11:59 PM CDT Hospital Encounter [facility] [address] [place] [address] Ruth Durbin, VIVIANA Discharge Disposition: Home or Self Care (Routine Discharge) 12/17/2024 2:02 PM CDT - 12/17/2024 11:59 PM CDT Hospital Encounter [facility] Wound [facility] [address] [place] [address] Isaac Serrano, DPM Discharge Disposition: Home or Self Care (Routine Discharge) 12/17/2024 Travel 12/13/2024 10:00 AM CDT Home Care Visit [facility] [address] [place] [address] María Elena Canales LPN SN HOME VISIT 12/10/2024 9:42 AM CDT - 12/10/2024 11:59 PM CDT Hospital Encounter [facility] Wound [facility] [address] [place] [address] Jayashree Lee, ASHTYNM Discharge Disposition: Home or Self Care (Routine Discharge) 12/10/2024 Travel 12/05/2024 1:30 PM CDT Home Care Visit [facility] Home [facility] [address] [place] [address] María Elena Canales LPN SN HOME VISIT 12/02/2024 9:58 AM CDT - 12/02/2024 11:59 PM CDT Hospital Encounter [facility] Wound [facility] [address] [place] [address] Ruth Durbin, PEDIATRIC NEPHROLOGIST Discharge Disposition: Home or Self Care (Routine Discharge) 12/02/2024 Travel 11/28/2024 11:30 AM CDT Home Care Visit [facility] Home [facility] [address] [place] [address] Phyllis Grande, RN SN HOME VISIT 11/27/2024 Telephone [facility] [address] [place] [address] Ray Brar MD Schedule Procedure 11/25/2024 12:56 PM CDT - 11/25/2024 11:59 PM CDT Hospital Encounter [facility] [address] [place] [address] Ruth Durbin, PEDIATRIC NEPHROLOGIST Discharge Disposition: Home or Self Care (Routine Discharge) 11/25/2024 11:30 AM CDT Office Visit [facility] [address] [place] [address] Ray Brar MD Consult 11/25/2024 Travel 11/22/[address]24 [address] [facility] [address] [place] [address] Ray Brar MD Appointment Reminder 11/20/2024 12:00 PM CDT Home Care Visit [facility] [address] [place] [address] Regine Salvador LPN SN HOME VISIT 11/19/2024 Home Care Visit [facility] [address] [place] [address] Phyllis Grande, RN SN TELEPHONE CALL 11/18/2024 1:39 PM CDT - 11/18/2024 11:59 PM CDT Hospital Encounter [facility] [address] [place] [address] Percy Bowen MD Discharge Disposition: Home or Self Care (Routine Discharge) 11/18/2024 Home Care Visit [facility] Home [facility] [address] [place] [address] Bre Wallace, RN CASE COMMUNICATION 11/18/2024 Travel 11/14/2024 10:30 AM CDT Home Care Visit [facility] Home Care [facility] [address] [place] [address] Regine Salvador LPN SN HOME VISIT 11/11/2024 10:00 AM CDT - 11/11/2024 11:59 PM CDT Hospital Encounter [facility] [address] [place] [address] Ruth Durbin, PEDIATRIC NEPHROLOGIST Discharge Disposition: Home or Self Care (Routine Discharge) 11/11/2024 Travel 11/07/2024 9:30 AM COMMUNITY SERVICE SPECIALIST Home Care Visit [place] [address] [place] [address] Phyllis Grande RN SN HOME VISIT 11/06/2024 Abstract [facility] [address] [place] [address] Abstract, Doc Pccl 11/04/2024 10:55 AM COMMUNITY SERVICE SPECIALIST - 11/04/2024 11:59 PM COMMUNITY SERVICE SPECIALIST Hospital Encounter [facility] [address] [place] [address] Percy Bowen MD Discharge Disposition: Home or Self Care (Routine Discharge) 11/04/2024 Scan [facility] FACILITY DEFAULT Scanned, Doc Hospital 11/04/2024 Travel 10/31/[address]24 Telephone [facility] [address] [place] [address] Ray Brar MD Appointment Request 10/30/2024 10:45 AM COMMUNITY SERVICE SPECIALIST Home Care Visit [facility] Home Care [facility] [address] [place] [address] Yessenia Degroot, RN SN OASIS START OF CARE 10/30/2024 Scan [facility] [address] [place] [address] Scanned, Doc Pccl 10/30/2024 Home Care Visit [facility] [address] [place] [address] Yessenia Degroot RN [facility] 10/30/2024 Plan of Care Documentation [facility] [address] [place] [address] 10/28/2024 10:44 AM COMMUNITY SERVICE SPECIALIST - 10/28/2024 11:59 PM COMMUNITY SERVICE SPECIALIST Hospital Encounter [facility] [address] [place] [address] Percy Bowen MD Discharge Disposition: Home or Self Care (Routine Discharge) 10/28/2024 Travel 10/25/2024 9:54 AM COMMUNITY SERVICE SPECIALIST - 10/25/2024 11:59 PM COMMUNITY SERVICE SPECIALIST Hospital Encounter [facility] Wound [facility] [address] [place] [address] Percy Bowen MD Discharge Disposition: Home or Self Care (Routine Discharge) 10/25/2024 Scan [facility] [address] [place] [address] [facility] 10/25/2024 Travel from Last 3 Months Immunizations Immunization Administration Dates Next Due Fluzone (IIV3, Trivalent, 0.5 ML Prefilled Syrin ) 06/02/2024 Social History Tobacco Use Types Packs/Day Years Used Date Smoking Tobacco: Every Day Cigarettes 1 40 Smokeless Tobacco: Never Tobacco Cessation:Ready to Q uit: Not Asked; Counseling Given: Not Answered Alcohol Use Standard Drinks/Week Comments Never 0 [...] materials from doctor or pharmacy Never 10/30/2024 C Utilities Answer Date Recorded In the past 12 months has th e electric, gas, oil, or water [employer] threatened to shut off services in your [...] any time in the past 12 m [facility], were you homeless or living in a jail (including now)? No 06/02/2024 Sex and Gender Information Value Date Recorded Sex Assigned at Male 09/23/2024 10:52 AM COMMUNITY SERVICE SPECIALIST Legal Sex Male 5:55 PM COMMUNITY SERVICE SPECIALIST Gender Identity Not on file Sexual Orientation Not on file Last Filed Vital Signs Vital Sign Reading Time Taken Comments Blood Pressure 122/68 01/13/2025 8:50 AM CDT Pulse 70 01/13/2025 8:50 AM CDT Temperature 36.4 C (97.6 F) 01/13/2025 8:50 AM CDT Respiratory Rate 18 01/13/2025 8:50 AM CDT Oxygen Saturation 92% 01/13/2025 8:50 AM CDT Inhaled Oxygen Concentration - - Weight 111.6 kg (246 lb) 12/25/2024 12:16 PM CDT Height 182.9 cm (6') 12/25/2024 12:16 PM CDT Body Mass Index 33.36 12/25/2024 12:16 PM CDT Plan of Treatment Upcoming Encounters Date Type Department Care Team (Late st Contact Info) Description 01/17/2025 8:15 AM CDT Home Care Visit [facility] [address] [place] [address] María Elena Canales LPN 01/20/2025 11:00 AM CDT Home Care Visit [facility] [address] [place] [address] Phyllis Grande, RN 01/21/2025 2:00 PM CDT Appointment [facility] [address] [place] [address] Isaac Serrano, DPM [address] [place] [address] 01/24/2025 9:00 AM CDT Home Care Visit [facility] [address] [place] [address] Phyllis Grande, RN 01/28/2025 12:00 PM CDT Home Care Visit [facility] [address] [place] [address] Phyllis Grande, RN 01/30/2025 11:00 AM CDT Office Visit [facility] [address] [place] [address] Ray Brar MD [address] [place] [phone] 01/31/2025 9:00 AM CDT Home Care Visit [facility] [address] [place] [address] Phyllis Grande, RN 02/03/2025 10:30 AM CDT Home Care Visit [facility] Home Care [facility] [address] [place] [address] Phyllis Grande, RN 02/07/2025 8:00 AM CDT Home Care Visit [facility] Care [place] [address] [place] [address] Phyllis Grande, RN 02/10/2025 9:00 AM CDT Home Care Visit [facility] [address] [place] [address] Phyllis Grande, RN 02/14/2025 8:00 AM CDT Home Care Visit [facility] [address] [place] [address] Phyllis Grande, RN 02/17/2025 9:00 AM CDT Home Care Visit [facility] [address] [place] [address] Phyllis Grande, RN 02/21/2025 8:00 AM CDT Home Care Visit [facility] Home Care [place] [address] [place] [address] Phyllis Grande, RN 02/24/2025 9:00 AM CDT Appointment [facility] [address] [place] [address] Phyllis Grande, RN Health Maintenance Due Date Last Done Comments ASCVD LDL 1962 Colorectal Cancer Screening Colonoscopy (10 Years) 1962 Kidney Health Evaluation 1962 Hemoglobin A1C 1962 Lipid Panel 1962 Annual Physical 1965 Diabetes: Retinopathy Eye Exam 1980 Hepatitis C 1980 DTaP, Tdap and Td Vaccines ( 1 - Tdap) 1981 Pneumococcal Vaccine: 50+ Years (1 of 2 - PCV) 1981 Lung Cancer Screening 2012 Zoster Vaccines (1 of 2) 2012 RSV Immunization or 60+ Years (1 - Risk 60-74 years 1-dose series) 2022 COVID-19 Vaccine (3 - 2023-2 5 season) 2024 01/26/2021, 12/15/2020 Meningococcal B Vaccine Aged Out No l onger eligible based on patient's age to complete this topic Meningococcal Vaccine Aged Out No carlton tamanna eligible based on patient's age to complete this topic RSV Immunizations Under 20 Months Aged Out No longer eligible b ased on patient's age to complete this topic Procedures Procedure Name Priority Date/Time Associated Diagnosis Comments IR REPLACE PICC WO PORT PUMP Routine 01/14/2025 3:37 PM CDT S/P PICC central line placement CBC W/DIFF AUTOMATED Routine 01/13/2025 8:30 AM CDT Osteomyelitis of right foot ([facility]) SED RATE, ERYTHROCYTE (ESR) Routine 01/13/2025 8:30 AM CDT Osteomyelitis of right foot ([facility]) COMPREHENSIVE METABOLIC PANEL Routine 01/13/2025 8:30 AM CDT Osteomyelitis of right foot ([facility] HHS/HCC) VANCOMYCIN TROUGH Routine 01/13/2025 8:30 AM CDT Osteomyelitis of right foot ([facility] HHS/HCC) C-REACTIVE PROTEIN Routine 01/13/2025 8:30 AM CDT Osteomyelitis of right foot ([facility] HHS/HCC) C-REACTIVE PROTEIN Routine 01/09/2025 2:50 PM CDT Other chronic osteomyelitis, right ankle and foot (CMS/HCC HHS/HCC) SED RATE, ERYTHROCYTE (ESR) Routine 01/09/2025 2:50 PM CDT Other chronic osteomyelitis, right ankle and foot (CMS/HCC HHS/HCC) COMPREHENSIVE METABOLIC PANEL Routine 01/09/2025 2:50 PM CDT Other chronic osteomyelitis, right ankle and foot (CMS/HCC HHS/HCC) CBC W/DIFF AUTOMATED Routine 01/09/2025 2:50 PM CDT Other chronic osteomyelitis, right ankle and foot (CMS/HCC HHS/HCC) IR PICC PLC GREATER 5YR Routine 01/10/20 25 2:27 PM CDT Chronic osteomyelitis of toe, right (CMS/HCC HHS/HCC) ECG 12-LEAD Routine 12/25/2024 2:04 PM CDT Atrial fibrillation status post cardioversion (CMS/HCC HHS/HCC) ECG 12-LEAD Routine 12/25/2024 12:31 PM CDT A-fib (CMS/HCC HHS/HCC) USE ECHOCARDIOGRAM Routine 12/25/2024 10:44 AM CDT Acute on chronic systolic congestive heart failure (CMS/HCC HHS/HCC) A-fib (CMS/HCC HHS/HCC) BASIC METABOLIC PANEL STAT 12/25/2024 10:04 AM CDT Acute on chronic systolic congestive heart failure (CMS/HCC HHS/HCC) CARDIOVERSION EXTERNAL Routine 9:57 AM CDT Acute on chronic systolic congestive heart failure (CMS/HCC HHS/HCC) A-fib (CMS/HCC HHS/HCC) MRI FOOT RT WWO CON Routine 12/18/2024 11:17 AM CDT Chronic venous insufficiency Ulcer of lower extremity with fat layer exposed, unspecified laterality (CMS/HCC HHS/HCC) Open wound of both lower extremities with complication, initial encounter Osteomyelitis (CMS/HCC HHS/HCC) MRI FOOT LT WWO CON Routine 12/18/2024 11:16 AM CDT Chronic venous insufficiency Ulcer of lower extremity with fat layer exposed, unspecified laterality (CMS/HCC HHS/HCC) Open wound of both lower extremities with complication, initial encounter Osteomyelitis (CMS/HCC HHS/HCC) CULTURE, TISSUE W/GRAM STAIN Nurse Collected Priority 12/02/2024 11:15 AM CDT Ulcer of lower extremity with fat layer exposed, unspecified laterality (CMS/HCC HHS/HCC) CULTURE, WOUND, W/GRAM STAIN Nurse Collected Priority 12/02/2024 11:15 AM CDT Ulcer of lower extremity with fat layer exposed, unspecified laterality (CMS/HCC HHS/HCC) ELECTROCARDIOGRAM (NON MIDMARK ACQUIRED) Routine 11/25/2024 11:55 AM CDT H/O atrial flutter CTA AORTO ILIOFEM RUNOFF Routine 11/18/2024 2:44 PM CDT Swelling CREATININE WHOLE BLOOD Routine 2:30 PM CDT from Last 3 Months Results * IR REPLACE PICC WO PORT PUMP (01/14/2025 3:37 PM CDT) Anatomical Region Laterality Modality NA Interventional R adiology, Radiographic Imaging 01/14/2025 3:47 PM CDT Impressions 01/14/2025 4:04 PM CDT IMPRESSION: Procedure note for PICC line change. Ordered By: RUSSELL CANNON Interpreted By: Ace Asencio MD, 01/14/2025 3:47 PM Narrative 01/14/2025 4:04 PM [address]T [address] [id number] IR PROCEDURE NOTE - PICC LINE CHANGE Indication/preprocedure diagnosis: Hole in red lumen of PICC line PICC line change required. Post procedure diagnosis: Same Radiologist: Dr. Asencio Senior Product Designer: None Technique/findings: The left arm PICC line site was prepped and draped in sterile fashion. Maximal sterile barrier technique was utilized for the entire procedure including hand washing with conventional soap and water or an alcohol based hand rub. Timeout was performed. The indwelling the line was removed over a 0.018 guidewire. Peel-away sheath was placed. A new 5 Jamaican dual PICC line was cut to 51 cm length and then advanced through the peel-away sheath and positioned under fluoroscopic guidance with tip at junction of SVC and right atrium. PICC line was secured in place. No complications. Permanent fluoroscopic image was recorded. Patient's radiation exposure - Reference Air Kerma (Ka,r) 2 mGy for this procedure. Single permanent fluoroscopic Image was recorded. Complications: None EBL: Nil Procedure Note Ace Asencio MD - 01/14/2025 [place] [id number] IR PROCEDURE NOTE - PICC LINE CHANGE Indication/preprocedure diagnosis: Hole in red lumen of PICC line PICCline change required. Post procedure diagnosis: Same Radiologist: Dr. Asencio Senior Product Designer: None Technique/findings: The left arm PICC line site was prepped and draped in sterile fashion. Maximal sterile barrier technique was utilized for the entire procedureincluding hand washing with conventional soap and water or an alcoholbased hand rub. Timeout was performed. The indwelling the line was removed over a 0.018 guidewire. Peel-awaysheath was placed. A new 5 Jamaican dual PICC line was cut to 51 cm lengthand then advanced through the peel-away sheath and positioned underfluoroscopic guidance with tip at junction of SVC and right atrium. PICCline was secured in place. No complications. Permanent fluoroscopic imagewas recorded. Patient's radiation exposure - Reference Air Kerma (Ka,r) 2 mGy for thisprocedure. Single permanent fluoroscopic Image was recorded. Complications: None EBL: Nil IMPRESSION: Procedure note for PICC line change. Ordered By: RUSSELL CANNON Interpreted By: Ace Asencio MD, 01/14/2025 3:47 PM us Russell Cannon MD INTERVENTIONAL RADIOLOGY Final Result * VANCOMYCIN TROUGH (01/13/2025 8:30 AM CDT) VANCOMYCIN TROUGH 13.7 10.0 - 20.0 MCG/ML 01/13/2025 11:[address] [facility] Specimen (Source) Anatomical Location / [id number]|2025-01-17 13:34:56|2025-01-17 13:34:56|PC.NURSE||||"Preliminary blood culture report; no growth to date. "
--- OUTSIDE RECORDS SUMMARY | 2025-01-15 10:19 | XMS_ITS | Encounter Summary ---
Author Organization [facility] Address [address] [place] [address] Care Team Providers Care Buddhist Monk Name Role Phone Yessi Cantu THREAD PULLER Primary Care Provider [phone] Ray Brar MD Unavailable [phone] Reason for Visit * Imaging (Routine) - Closed Specialty Diagnoses / Procedures Referred By Contac t Referred To Contact Diagnoses S/P PICC central line placement Procedures IR REPLACE PICC WO PORT PUMP IR CENTRAL VENOUS CATH CHECK Russell Quigley MD [address] [address] Phone: tel: fax: [facility] [address] [place] [address] Phone: tel: fax: Referral ID Status Reason Start Date Expiration Date Visits Re quested Visits Authorized [id number] Closed 01/13/2025 02/12/2026 1 1 Encounter Details Date Type Department Care Team (Latest Contact Info) Description 01/14/2025 2:30 PM CDT Hospital Encounter [facility] Interventional Radiology [address] [place] [address] Russell Quigley MD [address] [id number] Arrived Social History Tobacco Use Types Packs/Day [...] materials from doctor or pharmacy Never 10/30/2024 [facility] Utilities Answer Date Recorded In the past 12 months has th e [employer], oil, or water [employer] threatened to shut off services in your [...] any time in the past 12 m [facility], were you homeless or living in a [facility] (including now)? 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 Legal Sex Male 5:55 PM COVERSTITCH ELASTIC ATTACHER Gender Identity Not on file Sexual Orientation [...] 01/17/2025 8:15 AM CDT Home Care Visit [facility] [place] [address] [place] [address] María Elena Canales LPN 01/20/2025 11:00 AM CDT Home Care Visit [facility] [address] [place] [address] Phyllis Grande, RN 01/21/2025 2:00 PM CDT Appointment [facility] [address] [place] [address] Isaac Serrano, DPM [address] [place] [address] 01/24/2025 9:00 AM CDT Home Care Visit [place] [address] [place] [address] Phyllis Grande, RN 01/28/2025 12:00 PM CDT Home Care Visit [facility] [address] [place] [address] Phyllis Grande, RN 01/30/2025 11:00 AM CDT Office Visit [facility] [address] [place] [address] Ray Brar MD [address] [place] [address] 01/31/2025 9:00 AM CDT Home Care Visit [facility] [address] [place] [address] Phyllis Grande, RN 02/03/2025 10:30 AM CDT Home Care Visit [facility] [address] [place] [address] Phyllis Grande, RN 02/07/2025 8:00 AM CDT Home Care Visit [facility] [address] [place] [address] Phyllis Grande, RN 02/10/2025 9:00 AM CDT Home Care Visit [facility] [address] [place] [address] Phyllis Grande, RN 02/14/2025 8:00 AM CDT Home Care Visit [place] [address] [place] [address] Phyllis Grande, RN 02/17/2025 9:00 AM CDT Home Care Visit [place] [address] [place] [address] Phyllis Grande, RN 02/21/2025 8:00 AM CDT Home Care Visit [place] [address] [place] [address] Phyllis Grande, RN 02/24/2025 9:00 AM CDT Appointment [place] [address] [place] [address] Phyllis Grande, RN documented as of this encounter Procedures Procedure Name Priority Date/Time Associated Diagnosis Comments IR REPLACE PICC WO PORT PUMP Routine 01/14/2025 3:37 PM CDT S/P PICC central line placement documented in this encounter Results * IR REPLACE PICC WO PORT PUMP (01/14/2025 3:37 PM CDT) Anatomical Region Laterality Modality NA Interventional R adiology, Radiographic Imaging 01/14/2025 3:47 PM CDT Impressions 01/14/2025 4:04 PM CDT IMPRESSION: Procedure note for PICC line change. Ordered By: RUSSELL QUIGLEY Interpreted By: Ace Asencio MD, 01/14/2025 3:47 PM Narrative 01/14/2025 4:04 PM CDT [address] [address] IR PROCEDURE NOTE - PICC LINE CHANGE Indication/preprocedure diagnosis: Hole in red lumen of PICC line PICC line change required. Post procedure diagnosis: Same Radiologist: Dr. Asencio Wedding Photographer: None Technique/findings: The left arm PICC line site was prepped and draped in sterile fashion. Maximal sterile barrier technique was utilized for the entire procedure including hand washing with conventional soap and water or an alcohol based hand rub. Timeout was performed. The indwelling the line was removed over a 0.018 guidewire. Peel-away sheath was placed. A new 5 Citizen [place] dual PICC line was cut to 51 [...] Procedure Note Ace Asencio MD - 01/14/[address] PROCEDURE NOTE - PICC LINE CHANGE Indication/preprocedure diagnosis: Hole in red lumen of PICC line PICCline change required. Post procedure diagnosis: Same Radiologist: Dr. Asencio Wedding Photographer: None Technique/findings: The left arm PICC line site was prepped and draped in sterile fashion. Maximal sterile barrier technique was utilized for the entire procedureincluding hand washing with conventional soap and water or an alcoholbased hand rub. Timeout was performed. The indwelling the line was removed over a 0.018 guidewire. Peel-awaysheath was placed. A new 5 Citizen [place] dual PICC line was cut to 51 [...] for PICC line change. 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
--- OUTSIDE RECORDS SUMMARY | 2025-01-15 10:19 | XMS_ITS | Encounter Summary ---
Author Organization [facility] Address [address] [place] [address] Care Team Providers Care Scene Painter Name Role Phone Yessi Cantu PATRICE Primary Care Provider [phone] Ray Brar MD Unavailable [phone] Encounter Details Date Type Department Care Team (Late st Contact Info) Description 01/13/2025 10:31 AM CDT - 01/13/2025 11:59 PM T Hospital Encounter [facility] [address] [place] [address] [place] [address] Meenakshi Koroma MD [address] [place], [place] [id number] Discharge Disposition: Home or Self Care (Routine Discharge) Social History Tobacco Use Types Packs/Day Years [...] materials from doctor or pharmacy Never 10/30/2024 [facility] Utilities Answer Date Recorded In the [...] any time in the past 12 m [facility], were you homeless or living in a [facility] (including now)? 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 Indications: pain 5 albuterol sulfate HFA 108 (90 Base) MCG/ACT inhalerIndication s:cough, wheezing Inhale 2 puffs into the lungs every 6 (six) hours as needed for Wheezing. Indications: cough, wheezing atorvastatin (LIPITOR) 10 MG tabletIndications :cholesterol Take 1 tablet (10 mg total) by mouth daily. Indications: cholesterol 4 carvedilol (COREG) 6.25 MG tabletIndications :Atrial Fibrillation Take 1 tablet (6.25 mg total) by mouth 2 (two) times daily. Indications: Atrial Fibrillation 60 tablet 1 5 cyclobenzaprine (FLEXERIL) 10 MG tabletIndications :muscle spasms Take 1 tablet (10 mg total) by mouth daily. Indications: muscle spasms FOR MUSCLE SPASMS 4 diphenhydrAMINE (BENADRYL) 50 MG tabletIndications :itching Take 1 tablet (50 mg total) by mouth every 6 (six) hours as needed for Itching. Indications: itching 5 empagliflozin (JARDIANCE) 25 MG tabletIndications :diabetes Take 1 tablet (25 mg total) by mouth daily. Indications: diabetes 4 ertapenem 1,000 mg in sodium chloride 0.9 % SOLN 50 mLIndications:Ost eomyelitis Inject 1,000 mg into the vein daily. Indications: Infection of Bone and Bone Marrow 5 02/21/20 25 furosemide (LASIX) 40 MG tablet TAKE 1 TABLET (40 MG TOTAL) BY MOUTH 2 (TWO) TIMES DAILY FOR 120 DOSES. 5 furosemide (LASIX) 80 MG tabletIndications :diuretic Take 1 tablet (80 mg total) by mouth daily. Indications: diuretic 90 tablet 4 5 gabapentin (NEURONTIN) 300 MG capsuleIndication s:neuropathy Take 1 capsule (300 mg total) by mouth daily. Indications: neuropathy 5 Heparin Sod, Pork, Lock Flush (HEPARIN, PORCINE, LOCK FLUSH IV)Indications:IV Flush Inject 10 Units/mL into the vein see administration instructions. Infuse per SAS method with IV med administration and blood draws. Indications: IV Flush 5 HYDROcodone-aceta minophen (NORCO) 5-325 MG tabletIndications :Chronic Pain Take 1 tablet by mouth every 8 (eight) hours as needed for Pain. Indications: Chronic Pain 5 Loperamide HCl PowderIndications :diarrhea Take 1-2 tablets by mouth as needed (diarrhea). Indications: diarrhea 5 losartan (COZAAR) 100 MG tabletIndications :hypertension Take 1 tablet (100 mg total) by mouth daily. Indications: hypertension 90 tablet 4 5 OZEMPIC 1 mg/dose injection (PEN)Indications: Diabetes Mellitus Inject 3 mg into the skin once a week. Indications: Diabetes 4 rivaroxaban (XARELTO) 15 MG tabletIndications :Atrial Fibrillation Take 1 tablet (15 mg total) by mouth daily with supper. Indications: Atrial Fibrillation 90 tablet 4 5 sodium chloride 0.9 % solutionIndicatio ns:IV Flush Inject 10 mLs into the vein see administration instructions. Infuse per SASH method with IV med administration and blood draws. Indications: IV Flush 5 traMADol (ULTRAM) 50 MG tabletIndications :Acute Pain < 7 Day Supply,Chronic Pain Take 1 tablet (50 mg total) by mouth every 6 (six) hours as needed. Indications: Acute Pain < 7 Day Supply, Chronic Pain 5 vancomycin (VANCOCIN) 1.25 g injectionIndicati ons:Osteomyelitis , foot Inject 1.25 g into the vein every 12 (twelve) hours. Indications: Osteomyelitis, foot 5 02/21/20 25 documented as of this encounter Plan of Treatment Upcoming Encounters Date Type Department Care Team (Late st Contact Info) Description 01/17/2025 8:15 AM CDT Home Care Visit [facility] [address] [place] [address] María Elena Canales LPN 01/20/2025 11:00 AM CDT Home Care Visit [facility] [address] [place] [address] Phyllis Grande, RN 01/21/2025 2:00 PM CDT Appointment [facility] [address] [place] [address] Isaac Serrano, DPM [address] [place] [address] 01/24/2025 9:00 AM CDT Home Care Visit [facility] [address] [place] [address] Phyllis Grande, RN 01/28/2025 12:00 PM CDT Home Care Visit [facility] [address] [place] [address] Phyllis Grande, RN 01/30/2025 11:00 AM CDT [facility] [place] [address] [place] [address] Ray Brar MD [address] [place] [address] 01/31/2025 9:00 AM CDT Home Care Visit [place] [address] [place] [address] Phyllis Grande, RN 02/03/2025 10:30 AM CDT Home Care Visit [place] [address] [place] [address] Phyllis Grande, RN 02/07/2025 8:00 AM CDT Home Care Visit [place] [address] [place] [address] Phyllis Grande, RN 02/10/2025 9:00 AM CDT Home Care Visit [address] [address] Phyllis Grande, RN 02/14/2025 8:00 AM CDT Home Care Visit [address] [address] Phyllis Grande, RN 02/17/2025 9:00 AM CDT Home Care Visit [address] [address] Phyllis Grande, RN 02/21/2025 8:00 AM CDT Home Care Visit [place] [address] [place] [address] Phyllis Grande, RN 02/24/2025 9:00 AM CDT Appointment [address] [address] Phyllis Grande, RN documented as of this encounter Procedures Procedure Name Priority Date/Time Associated Diagnosis Comments VANCOMYCIN TROUGH Routine 01/13/2025 8:3 0 AM CDT Osteomyelitis of right foot ([facility]) SED RATE, ERYTHROCYTE (ESR) Routine 01/13/2025 8:30 AM CDT Osteomyelitis of right foot ([facility]/HCC) COMPREHENSIVE METABOLIC PANEL Routine 01/13/2025 8:30 AM CDT Osteomyelitis of right foot ([facility]/HCC HHS/HCC) C-REACTIVE PROTEIN Routine 01/13/2025 8: 30 AM CDT Osteomyelitis of right foot ([facility] H[facility]/HCC) CBC W/DIFF AUTOMATED Routine 01/13/2025 8:30 AM CDT Osteomyelitis of right foot ([facility]/HCC) documented in this encounter Results * (ABNORMAL) CBC W/DIFF AUTOMATED (01/13/2025 8:30 AM CDT) WBC 6.26 4.00 - 10.80 x10'3/uL 01/13/2025 10:45 AM CDT [facility] RBC 4.75 4.50 - 6.10 x10'6/uL 01/13/2025 10:45 AM CDT [facility] HGB 15.0 13.0 - 18.0 G/DL 01/13/2025 10:45 AM CDT [facility] HCT 46.2 37.0 - 52.0 % 01/13/2025 10:45 AM CDT [facility] MCV 97.3 78.0 - 100.0 FL 01/13/2025 10:45 AM CDT [facility] MCH 31.6(H) 27.0 - 31.0 PG 01/13/2025 10:45 AM CDT [facility] MCHC 32.5(L) 33.0 - 36.0 G/DL 01/13/2025 10:45 AM CDT [facility] RDW 14.9(H) 11.5 - 14.5 % 01/13/2025 10:45 AM CDT [facility] PLT 159 150 - 350 x10'3/uL 01/13/2025 10:45 AM CDT [facility] MPV 11.7(H) 7.4 - 10.4 FL 01/13/2025 10:45 AM CDT [facility] CBC COMMENT NORMAL REFERENCE RANGE NOT ESTABLISHED FOR THE PROPORTIONAL LEUKOCYTE DIFFERENTIAL. 01/13/2025 10:45 AM CDT [facility] NEUTROPHILS % 74.1 % 01/13/2025 10:45 AM CDT [facility] LYMPHOCYTES % 13.7 % 01/13/2025 10:45 AM CDT [facility] MONOCYTES % 10.1 % 01/13/2025 10:45 AM CDT [facility] EOSINOPHILS % 1.4 % 01/13/2025 10:45 AM CDT [facility] BASOPHILS % 0.5 % 01/13/2025 10:45 AM CDT [facility] IMMATURE GRANS % 0.2 % 01/14/20 10:45 AM CDT [facility] NRBC % 0.0 % 01/13/2025 10:45 AM CDT [facility] ABS. NEUTROPHILS 4.64 1.60 - 8.30 x10'3/uL 01/13/2025 10:45 AM CDT [facility] ABS. LYMPHOCYTES 0.86 0.80 - 4.70 x10'3/uL 01/13/2025 10:45 AM T [facility] ABS. MONOCYTES 0.63 0.00 - 1.50 x10'3/uL 01/13/2025 10:45 AM CDT [facility] ABS. EOSINOPHILS 0.09 0.00 - 0.40 x10'3/uL 01/13/2025 10:45 AM CDT [facility] ABS. BASOPHILS 0.03 0.00 - 0.20 x10'3/uL 01/13/2025 10:45 AM CDT [facility] ABS. IMMATURE GRANULOCYTES 0.01 0.00 - 0.03 x10'3/uL 01/13/2025 10:45 AM CDT [facility] ABS. NUCLEATED RBC'S 0.00 0.00 - 0.01 x10'3/uL 01/13/2025 10:45 AM CDT [facility] 01/13/2025 8:30 AM CDT us Meenakshi Koroma MD LABORATORY Final Result Performing Organization Address [facility]/ZIP Co de Phone Number [facility] [address] [place] [address], * (ABNORMAL) SED RATE, ERYTHROCYTE (ESR) (01/13/2025 8:30 AM CDT) ESR 33(H) 0 - 15 MM/HR 01/13/2025 10:51 AM CDT [facility] 01/13/2025 8:30 AM CDT us Meenakshi Koroma MD LABORATORY Final Result Performing Organization Address [facility] Co de Phone Number [facility] [address] [place] [address], [place] [phone] * (ABNORMAL) COMPREHENSIVE METABOLIC PANEL (01/13/2025 8:30 AM CDT) SODIUM S/P/B 141 136 - 145 MMOL/L 01/13/2025 11:12 AM CDT [facility] POTASSIUM S/P/B 4.1 3.5 - 5.1 MMOL/L 01/13/2025 11:12 AM CDT [facility] CHLORIDE S/P/B 103 98 - 107 MMOL/L 01/13/2025 11:12 AM CDT [facility] CO2 34.0(H) 21.0 - 32.0 MMOL/L 01/13/2025 11:12 AM CDT [facility] GLUCOSE 236(H) 70 - 99 MG/DL 01/13/2025 11:12 AM CDT [facility] Comment: FASTING GLUCOSE 100 TO 125 MG/DL IS CONSISTENT WITH IMPAIRED FASTING GLUCOSE. FASTING GLUCOSE >125 MG/DL IS CONSISTENT WITH DIABETES. RANDOM GLUCOSE >200 MG/DL WITH HYPERGLYCEMIC SYMPTOMS IS CONSISTENT WITH DIABETES. PER ADA GUIDELINES BUN 22 6 - 24 MG/DL 01/13/2025 11:12 AM [facility] CREATININE S/P/B 1.04 0.70 - 1.30 MG/DL 01/13/2025 11:12 AM [facility] CALCIUM S/P/B 9.3 8.4 - 10.5 MG/DL 01/13/2025 11:12 AM [facility] BILIRUBIN TOTAL S/P/B 0.8 0.2 - 1.0 MG/DL 01/13/2025 11:12 AM [facility] Comment: THIS ASSAY IS NOT RECOMMENDED FOR PATIENTS UNDERGOING TREATMENT WITH ELTROMBOPAG DUE TO THE POTENTIAL FOR FALSELY ELEVATED RESULTS. ALKALINE PHOSPHATASE S/P/B 192(H) 45 - 115 U/L 01/13/2025 11:12 AM [facility] AST 31 15 - 37 U/L 01/13/2025 11:12 AM [facility] ALT 31 16 - 63 U/L 01/13/2025 11:12 AM [facility] TOTAL PROTEIN S/P/B 6.8 6.4 - 8.2 G/DL 01/13/2025 11:12 AM [facility] ALBUMIN S/P/B 3.1(L) 3.4 - 5.0 G/DL 01/13/2025 11:12 AM [facility] ANION GAP 4.0(L) 5.0 - 15.0 MMOL/L 01/13/2025 11:12 AM [facility] OSMOLALITY (CALC) 303 MOSM/KG 025 11:12 AM [facility] Comment:REFERENCE RANGE NOT ESTABLISHED GFR ESTIMATE 81(L) >89 ML/MIN/1. 73 M2 01/13/2025 11:12 AM [facility] GFR NOTES GFR REFERENCE S: 01/13/2025 11:12 AM [facility] Comment: THE ESTIMATED GFR IS CALCULATED USING THE 2020 CKD-EPI EQUATION. THE FOLLOWING CATEGORIES FOR GRADING RENAL FUNCTION ARE RECOMMENDED BY THE INTERNATIONAL SOCIETY OF NEPHROLOGY (KDIGO 2012 CLINICAL PRACTICE GUIDELINE). G1,NORMAL OR HIGH: >89 ml/min/1.73 m2 G2,MILDLY DECREASED: 60-89 ml/min/1.73 m2 G3A,MILDLY TO MODERATELY DECREASED: 45-59 ml/min/1.73 m2 G3B,MODERATELY TO SEVERELY DECREASED: 30-44 ml/min/1.73 m2 G4,SEVERELY DECREASED: 15-29 ml/min/1.73 m2 G5,KIDNEY FAILURE: <15 ml/min/1.73 m2 01/13/2025 8:30 AM CDT us Meenakshi Koroma MD LABORATORY Final Result Performing Organization Address [facility] Co de Phone Number [facility] [address] [place] [address], * VANCOMYCIN TROUGH (01/13/2025 8:30 AM CDT) VANCOMYCIN TROUGH 13.7 10.0 - 20.0 MCG/ML 01/13/2025 11:12 AM CDT [facility] 01/13/2025 8:30 AM CDT us Meenakshi Koroma MD LABORATORY Final Result Performing Organization Address [facility] Co de Phone Number [facility] [address] [place] [address], [place] [phone] * (ABNORMAL) C-REACTIVE PROTEIN (01/13/2025 8:30 AM CDT) C-REACTIVE PROTEIN 1.00(H) <0.30 mg/dL 01/13/2025 11:12 AM CDT [facility] 01/13/2025 8:30 AM CDT us Meenakshi Koroma MD LABORATORY Final Result Performing Organization Address City/[facility]/ZIP Co de Phone Number [facility] [address] [place], [place] [address] [phone] documented in this encounter Visit Diagnoses Diagnosis Osteomyelitis of right foot ([facility]) Unspecified osteomyelitis, ankle and foot documented in this encounter Additional Health Concerns Infection Onset Date Last Indicated Resolved Time MRSA 05/30/2024 05/30/2024 documented as of this encounter Care Teams Scene Painter Relationship Specialty Start Date End Date Yessi Cantu FNP [address] [place] [address] PCP - General NURSE PRACTITIONER 09/26/23 Ray Brar MD [address] [place] [id number] EP Company Doctor CLINICAL CARDIAC ELECTROPHYSIOLOGY 10/31/24 documented as of this encounter
--- OUTSIDE RECORDS SUMMARY | 2025-01-15 10:19 | XMS_ITS | Encounter Summary ---
Author Organization [facility] Address [address] [place] [address] Care Team Providers Care Reach Lift Truck Driver Name Role Phone Yessi Cantu PATRICE Primary Care Provider [phone] Ray Brar MD Unavailable [phone] Encounter Details Date Type Department Care Team (Late st Contact Info) Description 01/13/2025 Orders Only [facility] [address] [place] [address] Meenakshi Koroma MD [address] [place] [address] Social History Tobacco Use Types Packs/Day Years [...] materials from doctor or pharmacy Never 10/30/2024 [facility] Utilities Answer Date Recorded In the past 12 months has th e [employer], gas, oil, or water [employer] threatened to shut off services in your [...] any time in the past [address] [facility], were you homeless or living in a fci (including now)? No 06/02/2024 Sex and Gender Information Value Date Recorded Sex Assigned at Male 09/23/2024 10:52 AM R D INTERN Legal Sex Male 5:55 PM R D INTERN Gender Identity Not on file Sexual Orientation [...] Assessment Author Status No 05/30/2024 2:43 AM GRIST [...] Assessment Author Status No 05/30/2024 2:43 AM GRIST Aliyah Eagle RN Active documented as of [...] 01/17/2025 8:15 AM CDT Home Care Visit [facility] Home Care [facility] [address] [place] [address] María Elena Canales LPN 01/20/2025 11:00 AM CDT Home Care Visit [facility] Home Care [facility] [address] [place] [address] Phyllis Grande, RN 01/21/2025 2:00 PM CDT Appointment [facility] [address] [place] [address] Isaac Serrano, DPSamantha [address] [place] [address] 01/24/2025 9:00 AM CDT Home Care Visit [facility] [address] [place] [address] Phyllis Grande, RN 01/28/2025 12:00 PM CDT Home Care Visit [facility] Home Care [facility] [address] [place] [address] Phyllis Grande, RN 01/30/2025 11:00 AM CDT [facility] [address] [place] [phone] Ray Brar MD [address] [place] [phone] 01/31/2025 9:00 AM CDT Home Care Visit [facility] Care [place] [address] [place] [address] Phyllis Grande, RN 02/03/2025 10:30 AM CDT Home Care Visit [place] [address] [place] [address] Phyllis Grande, RN 02/07/2025 8:00 AM CDT Home Care Visit [facility] Home Care [place] [address] [place] [address] Phyllis Grande, RN 02/10/2025 9:00 AM CDT Home Care Visit [place] [address] [place] [address] Phyllis Grande, RN 02/14/2025 8:00 AM CDT Home Care Visit [facility] Home Care [facility] [address] [place] [address] Phyllis Grande, RN 02/17/2025 9:00 AM CDT Home Care Visit [facility] [place] [address] [place] [address] Phyllis Grande, RN 02/21/2025 8:00 AM CDT Home Care Visit [facility] Care [facility] [address] [place] [address] Phyllis Grande, RN 02/24/2025 9:00 AM CDT Appointment [place] [address] [place] [address] Phyllis Grande RN documented as of this encounter Results * (ABNORMAL) C-REACTIVE PROTEIN (01/13/2025 8:30 AM CDT) Pathologist [facility] C-REACTIVE PROTEIN 1.00(H) <0.30 mg/dL 01/13/2025 11:12 AM CDT [facility] 01/13/2025 8:30 AM CDT us Meenakshi Koroma MD LABORATORY Final Result Performing Organization Address City/[facility]/ZIP Co de Phone Number [facility] [address] [place] [address], * VANCOMYCIN TROUGH (01/13/2025 8:30 AM CDT) Pathologist [facility] VANCOMYCIN TROUGH 13.7 10.0 - 20.0 MCG/ML 01/13/2025 11:12 AM CDT [facility] 01/13/2025 8:30 AM CDT us Meenakshi Koroma MD LABORATORY Final Result Performing Organization Address City/[facility]/ZIP Co de Phone Number [facility] [address] [place] [address], [place] [phone] * (ABNORMAL) COMPREHENSIVE METABOLIC PANEL (01/13/2025 8:30 AM CDT) Pathologist [facility] SODIUM S/P/B 141 136 - 145 MMOL/L 01/13/2025 11:12 AM CDT [facility] POTASSIUM S/P/B 4.1 3.5 - 5.1 MMOL/L 01/13/2025 11:12 AM CDT [facility] CHLORIDE S/P/B 103 98 - 107 MMOL/L 01/13/2025 11:12 AM CDT [facility] CO2 34.0(H) 21.0 - 32.0 MMOL/L 01/13/2025 11:12 AM CDT [facility] GLUCOSE 236(H) 70 - 99 MG/DL 01/13/2025 11:12 AM [facility] Comment: FASTING GLUCOSE 100 TO 125 MG/DL IS CONSISTENT WITH IMPAIRED FASTING GLUCOSE. FASTING GLUCOSE >125 MG/DL IS CONSISTENT WITH DIABETES. RANDOM GLUCOSE >200 MG/DL WITH HYPERGLYCEMIC SYMPTOMS IS CONSISTENT WITH DIABETES. PER ADA GUIDELINES BUN 22 6 - 24 MG/DL 01/13/2025 11:12 AM [facility] CREATININE S/P/B 1.04 0.70 - 1.30 MG/DL 01/13/2025 11:12 AM [facility] CALCIUM S/P/B 9.3 8.4 - 10.5 MG/DL 01/13/2025 11:12 AM [facility] BILIRUBIN TOTAL S/P/B 0.8 0.2 - 1.0 MG/DL 01/13/2025 11:12 AM [facility] Comment: THIS ASSAY IS NOT RECOMMENDED FOR PATIENTS UNDERGOING TREATMENT WITH ELTROMBOPAG DUE TO THE POTENTIAL FOR FALSELY ELEVATED RESULTS. ALKALINE PHOSPHATASE S/P/B 192(H) 45 - 115 U/L 01/13/2025 11:12 AM [facility] AST 31 15 - 37 U/L 01/13/2025 11:12 AM [facility] ALT 31 16 - 63 U/L 01/13/2025 11:12 AM [facility] TOTAL PROTEIN S/P/B 6.8 6.4 - 8.2 G/DL 01/13/2025 11:12 AM [facility] ALBUMIN S/P/B 3.1(L) 3.4 - 5.0 G/DL 01/13/2025 11:12 AM [facility] ANION GAP 4.0(L) 5.0 - 15.0 MMOL/L 01/13/2025 11:12 AM [facility] OSMOLALITY (CALC) 303 MOSM/KG 025 11:12 AM [facility] Comment:REFERENCE RANGE NOT ESTABLISHED GFR ESTIMATE 81(L) >89 ML/MIN/1. 73 M2 01/13/2025 11:12 AM CDT [facility] GFR NOTES GFR REFERENCE S: 01/13/2025 11:12 AM CDT [facility] Comment: THE ESTIMATED GFR IS [...] us Meenakshi Koroma MD LABORATORY Final Result [facility] [address] [place] [address], * (ABNORMAL) SED RATE, ERYTHROCYTE (ESR) (01/13/2025 8:30 AM CDT) ESR 33(H) 0 - 15 MM/HR 01/13/2025 10:51 AM CDT [facility] 01/13/2025 8:30 AM CDT us Meenakshi Koroma MD LABORATORY Final Result [facility] [address] [place] [address], * (ABNORMAL) CBC W/DIFF AUTOMATED (01/13/2025 8:30 AM CDT) WBC 6.26 4.00 - 10.80 x10'3/uL 01/13/2025 10:45 AM CDT [facility] RBC 4.75 4.50 - 6.10 x10'6/uL 01/13/2025 10:45 AM CDT [facility] HGB 15.0 13.0 - 18.0 G/DL 01/13/2025 10:45 AM CDT [facility] HCT 46.2 37.0 - 52.0 % 01/13/2025 10:45 AM CDT [facility] MCV 97.3 78.0 - 100.0 FL 01/13/2025 10:45 AM CDT [facility] MCH 31.6(H) 27.0 - 31.0 PG 01/13/2025 10:45 AM CDT [facility] MCHC 32.5(L) 33.0 - 36.0 G/DL 01/13/2025 10:45 AM CDT [facility] RDW 14.9(H) 11.5 - 14.5 % 01/13/2025 10:45 AM CDT [facility] PLT 159 150 - 350 x10'3/uL 01/13/2025 10:45 AM CDT [facility] MPV 11.7(H) 7.4 - 10.4 FL 01/13/2025 10:45 AM CDT [facility] CBC COMMENT NORMAL REFERENCE RANGE NOT ESTABLISHED FOR THE PROPORTIONAL LEUKOCYTE DIFFERENTIAL. 01/13/2025 10:45 AM CDT [facility] NEUTROPHILS % 74.1 % 01/13/2025 10:45 AM CDT [facility] LYMPHOCYTES % 13.7 % 01/13/2025 10:45 AM CDT [facility] MONOCYTES % 10.1 % 01/13/2025 10:45 AM CDT [facility] EOSINOPHILS % 1.4 % 01/13/2025 10:45 AM CDT [facility] BASOPHILS % 0.5 % 01/13/2025 10:45 AM CDT [facility] IMMATURE GRANS % 0.2 % 01/14/20 10:45 AM CDT [facility] NRBC % 0.0 % 01/13/2025 10:45 AM CDT [facility] ABS. NEUTROPHILS 4.64 1.60 - 8.30 x10'3/uL 01/13/2025 10:45 AM CDT [facility] ABS. LYMPHOCYTES 0.86 0.80 - 4.70 x10'3/uL 01/13/2025 10:45 AM CDT [facility] ABS. MONOCYTES 0.63 0.00 - 1.50 x10'3/uL 01/13/2025 10:45 AM CDT [facility] ABS. EOSINOPHILS 0.09 0.00 - 0.40 x10'3/uL 01/13/2025 10:45 AM CDT [facility] ABS. BASOPHILS 0.03 0.00 - 0.20 x10'3/uL 01/13/2025 10:45 AM CDT [facility] ABS. IMMATURE GRANULOCYTES 0.01 0.00 - 0.03 x10'3/uL 01/13/2025 10:45 AM CDT [facility] ABS. 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
[2025-01-15] MEDS: SODIUM CHLORIDE 0.9% IV 1,000 ML 999 ML IV CONT (10:26)
[2025-01-15 10:38] LABS: Basophils Absolute Auto 0.03 K/mm3 (0.00-0.10); Basophils Percent Auto 0.4 % (0.0-1.0); Eosinophils Absolute Auto 0.09 K/mm3 (0.02-0.50); Eosinophils Percent Auto 1.2 % (1.0-6.0); Hematocrit 47.2 % (40.0-54.0); Hemoglobin 15.1 g/dL (14.0-18.0); Immature Granulocyte Absolute 0.01 K/mm3 (0.00-0.00); Immature Granulocyte Percent A 0.1 % (0.0-0.0); Lymphocytes Absolute Auto 1.25 K/mm3 (1.10-4.50); Lymphocytes Percent Auto 16.2 % (18.0-42.0); Mean Corpuscular Hemoglobin 31.2 pg (27.0-31.0); Mean Corpuscular Volume 97.5 fL (78.0-102.0); Mean Platelet Volume 10.7 fl (8.7-11.0); Monocytes Absolute Auto 0.75 K/mm3 (0.10-0.90); Monocytes Percent Auto 9.7 % (2.0-11.0); Neutrophils Absolute Auto 5.59 K/mm3 (1.70-7.20); Neutrophils Percent Auto 72.4 % (50.0-70.0); Platelet Count Result 184 K/mm3 (150-420); Red Blood Count 4.84 M/mm3 (4.70-6.10); Red Cell Distribution Width 15.2 % (11.6-14.4); White Blood Count 7.7 K/mm3 (4.8-10.8)
[2025-01-15] MEDS: GLUCAGON FOR INJ 1 MG VIAL IM (10:38)
--- OUTSIDE RECORDS SUMMARY | 2025-01-15 10:57 | XMS_ITS | Clinical Summary ---
Author Organization [facility] Address [address] [place] [address] Care Team Providers Care Stretching Press Operator Name Role Phone Yessi Cantu PATRICE Primary Care Provider [phone] Ray Brar MD Unavailable [phone] Allergies Active Allergy Reactions Criticality Noted [...] Other chronic osteomyelitis, right ankle and foot ([facility]) 01/08/2025 Open wound of both lower ext remities with complication, initial encounter 10/25/2023 Chronic venous insufficiency 10/25/2023 Ulcer of lower extremity wit h fat layer exposed, unspecified laterality ([facility]) 10/25/2023 Dyslipidemia Atrial flutter ([facility]) CHF (congestive heart failure) ([facility]) Overview (12/01/2024): 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% Encounters Date Type Department Care Team Description 01/14/2025 2:30 PM CDT Hospital Encounter [facility] Interventional Radiology [address] [place] [address] Russell Cannon MD Arrived 01/14/2025 12:58 PM CDT Hospital Encounter [facility] [address] [place] [address] Meenakshi Koroma MD Arrived 01/14/2025 Travel 01/13/2025 10:31 AM CDT - 01/13/2025 11:59 PM CDT Hospital Encounter [facility] [email or web address] [address] Meenakshi Koroma MD Discharge Disposition: Home or Self Care (Routine Discharge) 01/13/2025 8:00 AM CDT Home Care Visit [facility] Home Care [facility] [address] [place] [address] Phyllis Grande, RN SN HOME VISIT 01/13/2025 Orders Only [facility] [address] [place] [address] Meenakshi Koroma MD 01/13/2025 Telephone [facility] Interventional Radiology [address] [place] [address] Carla Araan, RN Advise (Phyllis schmid/[facility] Home health called stating patient's red lumen [...] 01/10/2025 8:00 AM CDT Home Care Visit [facility] Home Care [facility] [address] [place] [address] Phyllis Grande, RN SN HOME VISIT 01/10/2025 Telephone [facility] [address] [place] [phone] Ray Brar MD Holter Monitor 01/09/2025 3:30 PM CDT Treatment [facility] Infusion Services [address] [place] [address] Meenakshi Koroma MD Infusion Therapy; Lab Draw 01/09/2025 2:00 PM CDT - 01/09/2025 11:59 PM CDT Hospital Encounter [facility] Interventional Radiology [address] [place] [address] Meenakshi Koroma MD Discharge Disposition: Home or Self Care (Routine Discharge) 01/09/2025 Travel 01/07/2025 2:00 PM CDT - 01/07/2025 11:59 PM CDT Hospital Encounter [facility] [address] [place] [address] Isaac Serrano DPM Discharge Disposition: Home or Self Care (Routine Discharge) 01/07/2025 Scan [facility] FACILITY DEFAULT [facility] 01/07/2025 Travel 01/07/2025 Telephone [facility] Interventional Radiology [address] [place] [address] Carla Arana, RN Schedule Procedure (Patient accepted procedure date/time of 01/09/25 ARR 1345/PICC 1400 and where to arrive. They are aware they may eat, drink, take meds, and drive after the procedure.) 01/02/2025 8:49 AM CDT - 01/02/2025 11:59 PM CDT Hospital Encounter [facility] [address] [place] [address] Meenakshi Koroma MD Discharge Disposition: Home or Self Care (Routine Discharge) 01/02/2025 Travel 12/31/2024 10:15 AM CDT Home Care Visit [facility] Home Care [facility] [address] [place] [address] María Elena Canales LPN SN HOME VISIT 12/31/2024 Telephone [facility] [address] [place] [phone] Ray Brar MD Concerns 12/27/2024 11:00 AM CDT Home Care Visit [facility] Home Care [facility] [address] [place] [address] Phyllis Grande, RN SN OASIS RECERTIFICATION 12/27/2024 Plan of Care Documentation [facility] Home Care [facility] [address] [place] [address] 12/26/2024 Telephone [facility] [address] [place] [phone] Ray Brar MD Heart Problem 12/26/2024 Results Follow-Up [facility] [address] [place] [phone] Connie Forman LPN USE ECHOCARDIOGRAM 12/25/2024 9:57 AM CDT - 12/25/2024 11:59 PM CDT Hospital Encounter [facility] [address] [place] [address] Ray Brar MD Discharge Disposition: Home or Self Care (Routine Discharge) 12/25/2024 9:54 AM CDT - 12/25/2024 9:56 AM CDT Hospital Encounter [facility] Non Invasive Cardiology [facility] [address] [place] [address] Ray Brar MD Discharge Disposition: Home or Self Care (Routine Discharge) 12/25/2024 Travel 12/24/2024 8:41 AM CDT - 12/24/2024 11:59 PM CDT Hospital Encounter [facility] [address] [place] [address] Jayashree Lee, DPM Discharge Disposition: Home or Self Care (Routine Discharge) 12/24/2024 Travel 12/23/2024 Results Follow-Up [facility] [address] [place] [address] Ruth Durbin, VIVIANA MRI FOOT LT WWO CON, MRI FOOT RT WWO CON 12/20/2024 12:30 PM CDT Home Care Visit [facility] Home Care [facility] [address] [place] [address] María Elena Canales LPN SN HOME PRN VISIT 12/18/2024 9:02 AM CDT - 12/18/2024 11:59 PM CDT Hospital Encounter [facility] [address] [place] [address] Ruth Durbin, VIVIANA Discharge Disposition: Home or Self Care (Routine Discharge) 12/17/2024 2:02 PM CDT - 12/17/2024 11:59 PM CDT Hospital Encounter [facility] [address] [place] [address] Isaac Serrano, DPM Discharge Disposition: Home or Self Care (Routine Discharge) 12/17/2024 Travel 12/13/2024 10:00 AM CDT Home Care Visit [facility] [address] [place] [address] María Elena Canales LPN SN HOME VISIT 12/10/2024 9:42 AM CDT - 12/10/2024 11:59 PM CDT Hospital Encounter [facility] [address] [place] [address] Jayashree Lee, ASHTYNM Discharge Disposition: Home or Self Care (Routine Discharge) 12/10/2024 Travel 12/05/2024 1:30 PM CDT Home Care Visit [facility] Home [facility] [address] [place] [address] María Elena Canales LPN SN HOME VISIT 12/02/2024 9:58 AM CDT - 12/02/2024 11:59 PM CDT Hospital Encounter [facility] [address] [place] [address] Ruth Durbin, POLE FRAMER Discharge Disposition: Home or Self Care (Routine Discharge) 12/02/2024 Travel 11/28/2024 11:30 AM CDT Home Care Visit [facility] Home [facility] [address] [place] [address] Phyllis Grande, RN SN HOME VISIT 11/27/2024 Telephone [facility] [address] [place] [address] Ray Brar MD Schedule Procedure 11/25/2024 12:56 PM CDT - 11/25/2024 11:59 PM CDT Hospital Encounter [facility] [address] [place] [address] Ruth Durbin, POLE FRAMER Discharge Disposition: Home or Self Care (Routine Discharge) 11/25/2024 11:30 AM CDT Office Visit [facility] [address] [place] [address] Ray Brar MD Consult 11/25/2024 Travel 11/22/2024 Telephone [facility] [address] [place] [address] Ray Brar MD Appointment Reminder 11/20/2024 12:00 PM CDT Home Care Visit [facility] [address] [place] [address] Regine Salvador LPN SN HOME VISIT 11/19/2024 Home Care Visit [facility] [address] [place] [address] Phyllis Grande, RN SN TELEPHONE CALL 11/18/2024 1:39 PM CDT - 11/18/2024 11:59 PM CDT Hospital Encounter [facility] [address] [place] [address] Percy Bowen MD Discharge Disposition: Home or Self Care (Routine Discharge) 11/18/2024 Home Care Visit [facility] Home [facility] [address] [place] [address] Bre Wallace, RN CASE COMMUNICATION 11/18/2024 Travel 11/14/2024 10:30 AM CDT Home Care Visit [facility] Home Care [facility] [address] [place] [address] Regine Salvador LPN SN HOME VISIT 11/11/2024 10:00 AM CDT - 11/11/2024 11:59 PM CDT Hospital Encounter [facility] [address] [place] [address] Ruth Durbin, POLE FRAMER Discharge Disposition: Home or Self Care (Routine Discharge) 11/11/2024 Travel 11/07/2024 9:30 AM NOZZLEMAN Home Care Visit [place] [address] [place] [address] Phyllis Grande RN SN HOME VISIT 11/06/2024 Abstract [facility] [place] [address] [place] [address] Abstract, Doc Pccl 11/04/2024 10:55 AM NOZZLEMAN - 11/04/2024 11:59 PM NOZZLEMAN Hospital Encounter [facility] [address] [place] [address] Percy Bowen MD Discharge Disposition: Home or Self Care (Routine Discharge) 11/04/2024 Scan [facility] FACILITY DEFAULT Scanned, [facility] Hospital 11/04/2024 Travel 10/31/2024 Telephone [facility] [address] [place] [address] Ray Brar MD Appointment Request 10/30/2024 10:45 AM NOZZLEMAN Home Care Visit [facility] Home Care [facility] [address] [place] [address] Yessenia Degroot, RN SN OASIS START OF CARE 10/30/2024 Scan [facility] [address] [place] [address] Scanned, Doc Pccl 10/30/2024 Home Care Visit [facility] [address] [place] [address] Yessenia Degroot RN [facility] 10/30/2024 Plan of Care Documentation [facility] [address] [place] [address] 10/28/2024 10:44 AM NOZZLEMAN - 10/28/2024 11:59 PM NOZZLEMAN Hospital Encounter [facility] [address] [place] [address] Percy Bowen MD Discharge Disposition: Home or Self Care (Routine Discharge) 10/28/2024 Travel 10/25/2024 9:54 AM NOZZLEMAN - 10/25/2024 11:59 PM NOZZLEMAN Hospital Encounter [facility] [address] [place] [address] Percy Bowen MD Discharge Disposition: Home or Self Care (Routine Discharge) 10/25/2024 Scan [facility] [address] [place] [address] [facility] 10/25/2024 Travel from Last 3 Months Immunizations [...] th e electric, gas, oil, or water [employer] threatened to shut off services in your [...] in the past 12 m [facility], were you homeless or living in a penitentiary (including now)? No 06/02/2024 Sex and Gender Information Value Date Recorded Sex Assigned at Male 09/23/2024 10:52 AM NOZZLEMAN Legal Sex Male 5:55 PM NOZZLEMAN Gender Identity Not on file Sexual Orientation [...] 01/17/2025 8:15 AM CDT Home Care Visit [facility] [address] [place] [address] María Elena Canales LPN 01/20/2025 11:00 AM CDT Home Care Visit [facility] [address] [place] [address] Phyllis Grande, RN 01/21/2025 2:00 PM CDT Appointment [facility] [address] [place] [address] Isaac Serrano, DPM [address] [place] [address] 01/24/2025 9:00 AM CDT Home Care Visit [facility] [address] [place] [address] Phyllis Grande, RN 01/28/2025 12:00 PM CDT Home Care Visit [facility] [address] [place] [address] Phyllis Grande, RN 01/30/2025 11:00 AM CDT Office Visit [facility] [address] [place] [address] Ray Brar MD [address] [place] [address] 01/31/2025 9:00 AM CDT Home Care Visit [facility] [address] [place] [address] Phyllis Grande, RN 02/03/2025 10:30 AM CDT Home Care Visit [facility] Home Care [place] [address] [place] [address] Phyllis Grande, RN 02/07/2025 8:00 AM CDT Home Care Visit [facility] Care [place] [address] [place] [address] Phyllis Grande, RN 02/10/2025 9:00 AM CDT Home Care Visit [place] [address] [place] [address] Phyllis Grande, RN 02/14/2025 8:00 AM CDT Home Care Visit [place] [address] [place] [address] Phyllis Grande, RN 02/17/2025 9:00 AM CDT Home Care Visit [place] [address] [place] [address] Phyllis Grande, RN 02/21/2025 8:00 AM CDT Home Care Visit [facility] Home Care [place] [address] [place] [address] Phyllis Grande, RN 02/24/2025 9:00 AM CDT Appointment [place] [address] [place] [address] Phyllis Grande, RN Health Maintenance Due Date [...] 8:30 AM CDT Osteomyelitis of right foot ([facility]) SED RATE, ERYTHROCYTE (ESR) Routine 01/13/2025 8:30 AM CDT Osteomyelitis of right foot ([facility]) COMPREHENSIVE METABOLIC PANEL Routine 01/13/2025 8:30 AM CDT Osteomyelitis of right foot ([facility]/HCC) VANCOMYCIN TROUGH Routine 01/13/2025 8:30 AM CDT Osteomyelitis of right foot ([facility]/H[facility]) C-REACTIVE PROTEIN Routine 01/13/2025 8:30 AM CDT Osteomyelitis of right foot ([facility]) C-REACTIVE PROTEIN Routine 01/09/2025 2:50 PM [...] 3:47 PM Narrative 01/14/2025 4:04 PM CDT [address] [address] IR PROCEDURE NOTE - PICC LINE CHANGE Indication/preprocedure diagnosis: Hole in red lumen of PICC line PICC line change required. Post procedure diagnosis: Same Radiologist: Dr. Asencio Pipeline Systems Operator: None Technique/findings: The left arm PICC line site was prepped and draped in sterile fashion. Maximal sterile barrier technique was utilized for the entire procedure including hand washing with conventional soap and water or an alcohol based hand rub. Timeout was performed. The indwelling the line was removed over a 0.018 guidewire. Peel-away sheath was placed. A new 5 [place]ander dual PICC line was cut to 51 [...] Procedure Note Ace Asencio MD - 01/14/2025 [place] [address] IR PROCEDURE NOTE - PICC LINE CHANGE Indication/preprocedure diagnosis: Hole in red lumen of PICC line PICCline change required. Post procedure diagnosis: Same Radiologist: Dr. Asencio Pipeline Systems Operator: None Technique/findings: The left arm PICC line site was prepped and draped in sterile fashion. Maximal sterile barrier technique was utilized for the entire procedureincluding hand washing with conventional soap and water or an alcoholbased hand rub. Timeout was performed. The indwelling the line was removed over a 0.018 guidewire. Peel-awaysheath was placed. A new 5 [place] dual PICC line was cut to 51 [...] By: Ace Asencio MD, 01/14/2025 3:47 PM Russell Cannon MD INTERVENTIONAL RADIOLOGY Final Result * VANCOMYCIN TROUGH (01/13/2025 8:30 AM CDT) VANCOMYCIN TROUGH 13.7 10.0 - 20.0 MCG/ML 01/13/2025 11:12 AM CDT [facility] Specimen (Source) Anatomical Location / Late [id number]|2025-01-15 10:58:00|2025-01-15 10:57:00|XMS_ITS|TYRONE NUR|External Medical Summaries|[id number]|" Encounter Summary Created on: January 15, 2025 Yasmani Mcpherson : 1960 Sex: Male Author Organization [facility] Address [facility] [place] [address] Care Team Providers Care Stretching Press Operator Name Role Phone Yessi Cantu Primary Care Provider [phone] Ray Brar MD Unavailable Encounter Details Date Type Department Care Team (Late Contact Info) Description 12/26/2024 Results Follow-Up [facility] [address] [place] [address] Connie Forman LPN USE ECHOCARDIOGRAM Social History [...] materials from doctor or pharmacy Never 10/30/2024 [facility] Utilities Answer Date Recorded In the past 12 months has th e earthmine, oil, or water [employer] threatened to shut off services in your [...] in the past 12 m [facility], were you homeless or living in a penitentiary (including now)? No 06/02/2024 Sex and Gender Information Value Date Recorded Sex Assigned at Male 09/23/2024 10:52 AM NOZZLEMAN Legal Sex Male 5:55 PM NOZZLEMAN Gender Identity Not on file Sexual Orientation [...] 01/17/2025 8:15 AM CDT Home Care Visit [facility] Home Care [facility] [address] [place] [address] María Elena Canales LPN 01/20/2025 11:00 AM CDT Home Care Visit [facility] Care [facility] [address] [place] [address] Phyllis Grande, RN 01/21/2025 2:00 PM CDT Appointment [facility] [address] [place] [address] Isaac Serrano, DPM [address] [place] [address] 01/24/2025 9:00 AM CDT Home Care Visit [facility] [address] [place] [address] Phyllis Grande, RN 01/28/2025 12:00 PM CDT Home Care Visit [facility] [address] [place] [address] Phyllis Grande, RN 01/30/2025 11:00 AM CDT [facility] [address] [place] [address] Ray Brar MD [address] [place] [address] 01/31/2025 9:00 AM CDT Home Care Visit [facility] [address] [place] [address] Phyllis Grande, RN 02/03/2025 10:30 AM CDT Home Care Visit [facility] [address] [place] [address] Phyllis Grande, RN 02/07/2025 8:00 AM CDT Home Care Visit [facility] [address] [place] [address] Phyllis Grande, RN 02/10/2025 9:00 AM CDT Home Care Visit [facility] [address] [place] [address] Phyllis Grande, RN 02/14/2025 8:00 AM CDT Home Care Visit [facility] [address] [place] [address] Phyllis Grande, RN 02/17/2025 9:00 AM CDT Home Care Visit [facility] [address] [place] [address] Phyllis Grande, RN 02/21/2025 8:00 AM CDT Home Care Visit [facility] [address] [place] [address] Phyllis Grande, RN 02/24/2025 9:00 AM CDT Appointment [place] [address] [place] [address] Phyllis Grande, RN documented as of this encounter Visit Diagnoses Not on filedocumented in this encounter Additional Health Concerns Infection Onset Date Last Indicated Resolved Time MRSA 05/30/2024 05/30/2024 documented as of this encounter Care Teams Stretching Press Operator Relationship Specialty Start Date End Date Yessi Cantu FNP [address] [place] [address] PCP - General NURSE PRACTITIONER 09/26/23 Ray Brar MD [address] [place] [address] EP Hydraulic Boom Operator CLINICAL CARDIAC ELECTROPHYSIOLOGY 10/31/24 documented as of this encounter "
--- OUTSIDE RECORDS SUMMARY | 2025-01-15 10:58 | XMS_ITS | Encounter Summary ---
Author Organization [facility] Address [address] [place] [address] Care Team Providers Care Tipple Repairer Name Role Phone Yessi Cantu PATRICE Primary Care Provider [phone] Ray Brar MD Unavailable [phone] Encounter Details Date Type Department Care Team (Late st Contact Info) Description 01/14/2025 12:58 PM CDT Hospital Encounter [facility] [address] [place], [place] [phone] Meenakshi Koroma MD [address] [place], [place] [phone] Arrived Social History Tobacco Use Types Packs/Day [...] materials from doctor or pharmacy Never 10/30/2024 [facility] Utilities Answer Date Recorded In the past [...] any time in the past 12 m [facility], were you homeless or living in a [facility] (including now)? No 06/02/2024 Sex and Gender Information Value Date Recorded Sex Assigned at Male 09/23/2024 10:52 AM INTERMEDIATE TEACHER Legal Sex Male 5:55 PM INTERMEDIATE TEACHER Gender Identity Not on file Sexual Orientation [...] 01/17/2025 8:15 AM CDT Home Care Visit [facility] [address] [place] [address] María Elena Canales LPN 01/20/2025 11:00 AM CDT Home Care Visit [facility] Home Care [facility] [address] [place] [address] Phyllis Grande, RN 01/21/2025 2:00 PM CDT Appointment [facility] [address] [place] [address] Isaac Serrano, DPM [address] [place] [address] 01/24/2025 9:00 AM CDT Home Care Visit [facility] Home Care [facility] [address] [place] [address] Phyllis Grande, RN 01/28/2025 12:00 PM CDT Home Care Visit [facility] Home Care [facility] [address] [place] [address] Phyllis Grande, RN 01/30/2025 11:00 AM CDT [facility] [address] [place] [address] Ray Brar MD [address] [place] [address] 01/31/2025 9:00 AM CDT Home Care Visit [place] [address] [place] [address] Phyllis Grande, RN 02/03/2025 10:30 AM CDT Home Care Visit [facility] Care [place] [address] [place] [address] Phyllis Grande, RN 02/07/2025 8:00 AM CDT Home Care Visit [facility] Home Care [place] [address] [place] [address] Phyllis Grande, RN 02/10/2025 9:00 AM CDT Home Care Visit [place] [address] [place] [address] Phyllis Grande, RN 02/14/2025 8:00 AM CDT Home Care Visit [facility] Home Care [place] [address] [place] [address] Phyllis Grande, RN 02/17/2025 9:00 AM CDT Home Care Visit [facility] Home Care [place] [address] [place] [address] Phyllis Grande, RN 02/21/2025 8:00 AM CDT Home Care Visit [facility] Care [place] [address] [place] [address] Phyllis Grande, RN 02/24/2025 9:00 AM CDT Appointment [facility] Care [facility] [address] [place] [address] Phyllis Grande, RN documented as of this [...] documented as of this encounter Care Teams Tipple Repairer Relationship Specialty Start Date End Date Yessi Cantu FNP [address] [place] [address] PCP - General NURSE PRACTITIONER 09/26/23 Ray Brar MD [address] [place] [address] EP Bullion Weigher CLINICAL CARDIAC ELECTROPHYSIOLOGY 10/31/24 documented as of this encounter
--- OUTSIDE RECORDS SUMMARY | 2025-01-15 10:58 | XMS_ITS | Encounter Summary ---
Author Organization [facility] Address [address] [place] [address] Care Team Providers Care Marketing Intern Name Role Phone Yessi Cantu PATRICE Primary Care Provider [phone] Ray Brar MD Unavailable [phone] Encounter Details Date Type Department Care [...] doctor or pharmacy Never 10/30/2024 [facility] Utilities Answer Date Recorded In the past 12 months has e [employer], oil, or water [employer] threatened to shut off services in your [...] any time in the past 12 m [facility], were you homeless or living in a care home (including now)? No 06/02/2024 Sex and Gender Information Value Date Recorded Sex Assigned at Male 09/23/2024 10:52 AM DOWEL POINTER Legal Sex Male 5:55 PM DOWEL POINTER Gender Identity Not on file Sexual Orientation [...] 01/17/2025 8:15 AM CDT Home Care Visit [facility] [address] [place] [address] María Elena Canales LPN 01/20/2025 11:00 AM CDT Home Care Visit [facility] [address] [place] [address] Phyllis Grande, RN 01/21/2025 2:00 PM CDT Appointment [facility] [address] [place] [address] Isaac Serrano, DPM [address] [place] [address] 01/24/2025 9:00 AM CDT Home Care Visit [facility] [address] [place] [address] Phyllis Grande, RN 01/28/2025 12:00 PM CDT Home Care Visit [facility] [address] [place] [address] Phyllis Grande, RN 01/30/2025 11:00 AM CDT Office Visit [facility] [address] [phone] Ray Brar MD [address] [place] [phone] 01/31/2025 9:00 AM CDT Home Care Visit [place] [address] [place] [address] Phyllis Grande, RN 02/03/2025 10:30 AM CDT Home Care Visit [place] [address] [place] [address] Phyllis Grande, RN 02/07/2025 8:00 AM CDT Home Care Visit [place] [address] [place] [address] Phyllis Grande, RN 02/10/2025 9:00 AM CDT Home Care Visit [place] [address] [place] [address] Phyllis Grande, RN 02/14/2025 8:00 AM CDT Home Care Visit [place] [address] [place] [address] Phyllis Grande, RN 02/17/2025 9:00 AM CDT Home Care Visit [place] [address] [place] [address] Phyllis Grande, RN 02/21/2025 8:00 AM CDT Home Care Visit [facility] [place] [address] [place] [address] Phyllis Grande, RN 02/24/2025 9:00 AM CDT Appointment [place] [address] [place] [address] Phyllis Grande, RN documented as of this encounter Visit Diagnoses Not on filedocumented in this encounter Additional Health Concerns Infection Onset Date Last Indicated Resolved Time MRSA 05/30/2024 05/30/2024 documented as of this encounter Care Teams Marketing Intern Relationship Specialty Start Date End Date Yessi Cantu FNP [address] [place] [address] PCP - General NURSE PRACTITIONER 09/26/23 Ray Brar MD [address] [place] [phone] EP Coder CLINICAL CARDIAC ELECTROPHYSIOLOGY 10/31/24 documented as of this encounter
--- OUTSIDE RECORDS SUMMARY | 2025-01-15 10:58 | XMS_ITS | Encounter Summary ---
Author Organization [facility] Address [address] [place] [address] Care Team Providers Care Head Bucker Name Role Phone Yessi Cantu ANESTHESIA RESIDENT Primary Care Provider [phone] Ray Brar MD Unavailable [phone] Encounter Details Date Type Department Care Team (Latest Contact Info) Description 01/07/2025 Scan [facility] DEFAULT Scanned, [facility] Social History [...] materials from doctor or pharmacy Never 10/30/2024 [facility] Utilities Answer Date Recorded In the past 12 months has e [employer], oil, or water [employer] threatened to shut off services in your [...] Sex Assigned at Male 09/23/2024 10:52 AM YARN 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 OPERATOR Legal Sex Male 5:55 PM YARN MERCERIZER OPERATOR Gender Identity Not on file Sexual Orientation [...] 01/17/2025 8:15 AM CDT Home Care Visit [place] [address] [place] [address] María Elena Canales LPN 01/20/2025 11:00 AM CDT Home Care Visit [place] [address] [place] [address] Phyllis Grande, RN 01/21/2025 2:00 PM CDT Appointment [facility] [address] [place] [address] Isaac Serrano, DPM [address] [place] [address] 01/24/2025 9:00 AM CDT Home Care Visit [place] [address] [place] [address] Phyllis Grande, RN 01/28/2025 12:00 PM CDT Home Care Visit [place] [address] [place] [address] Phyllis Grande, RN 01/30/2025 11:00 AM CDT Office Visit [facility] [address] [place] [address] [phone] Ray Brar MD [address] [place] [phone] 01/31/2025 9:00 AM CDT Home Care Visit [place] [address] [place] [address] Phyllis Grande, RN 02/03/2025 10:30 AM CDT Home Care Visit [place] [address] [place] [address] Phyllis Grande, RN 02/07/2025 8:00 AM CDT Home Care Visit [place] [address] [place] [address] Phyllis Grande, RN 02/10/2025 9:00 AM CDT Home Care Visit [place] [address] [place] [address] Phyllis Grande, RN 02/14/2025 8:00 AM CDT Home Care Visit [place] [address] [place] [address] Phyllis Grande, RN 02/17/2025 9:00 AM CDT Home Care Visit [place] [address] [place] [address] Phyllis Grande, RN 02/21/2025 8:00 AM CDT Home Care Visit [facility] [place] [address] [place] [address] Phyllis Grande, RN 02/24/2025 9:00 AM CDT Appointment [place] [address] [place] [address] Phyllis Grande, RN documented as of this encounter Visit Diagnoses Not on filedocumented in this encounter Additional Health Concerns Infection Onset Date Last Indicated Resolved Time MRSA 05/30/2024 05/30/2024 documented as of this encounter Care Teams Head Bucker Relationship Specialty Start Date End Date Yessi Cantu FNP [address] [place] [address] PCP - General NURSE PRACTITIONER 09/26/23 Ray Brar MD [address] [place] [phone] EP Central Supply Supervisor CLINICAL CARDIAC ELECTROPHYSIOLOGY 10/31/24 documented as of this encounter
--- OUTSIDE RECORDS SUMMARY | 2025-01-15 10:58 | XMS_ITS | Encounter Summary ---
Author Organization [facility] Address [address] [place] [address] Care Team Providers Care Building Estimator Name Role Phone Yessi Cantu RACKMAN Primary Care Provider [phone] Ray Brar MD Unavailable [phone] Reason for Visit * Imaging (Routine) - Closed Specialty Diagnoses / Procedures Referred By Contac t Referred To Contact Diagnoses S/P PICC central line placement Procedures IR REPLACE PICC WO PORT PUMP IR CENTRAL VENOUS CATH CHECK Russell Quigley MD [address] [address] Phone: tel: fax: [facility] [address] [place] [address] Phone: tel: fax: Referral ID Status Reason Start Date Expiration Date Visits Re quested Visits Authorized [id number] Closed 01/13/2025 02/12/2026 1 1 Encounter Details Date Type Department Care Team (Latest Contact Info) Description 01/14/2025 2:30 PM CDT Hospital Encounter [facility] Interventional Radiology [address] [place] [address] Russell Quigley MD [address] [phone] Arrived Social History Tobacco Use Types Packs/Day [...] materials from doctor or pharmacy Never 10/30/2024 [facility] Utilities Answer Date Recorded In the past 12 months has th e [employer], oil, or water [employer] threatened to shut off services in your [...] any time in the past 12 m [facility], were you [facility] or living in a fci (including now)? No 06/02/2024 Sex and Gender Information Value Date Recorded Sex Assigned at Male 09/23/2024 10:52 AM EGG CRATER Legal Sex Male 5:55 PM EGG CRATER Gender Identity Not on file Sexual Orientation [...] 01/17/2025 8:15 AM CDT Home Care Visit [facility] Home Care [place] [address] [place] [address] María Elena Canales LPN 01/20/2025 11:00 AM CDT Home Care Visit [facility] Care [facility] [address] [place] [address] Phyllis Grande, RN 01/21/2025 2:00 PM CDT Appointment [facility] [address] [place] [address] Isaac Serrano, DPM [address] [place] [address] 01/24/2025 9:00 AM CDT Home Care Visit [place] [address] [place] [address] Phyllis Grande, RN 01/28/2025 12:00 PM CDT Home Care Visit [facility] [address] [place] [address] Phyllis Grande, RN 01/30/2025 11:00 AM CDT Office Visit [facility] [address] [place] [address] Ray Brar MD [address] [place] [address] 01/31/2025 9:00 AM CDT Home Care Visit [facility] [address] [place] [address] Phyllis Grande, RN 02/03/2025 10:30 AM CDT Home Care Visit [facility] [address] [place] [address] Phyllis Grande, RN 02/07/2025 8:00 AM CDT Home Care Visit [facility] [address] [place] [address] Phyllis Grande, RN 02/10/2025 9:00 AM CDT Home Care Visit [facility] [address] [place] [address] Phyllis Grande, RN 02/14/2025 8:00 AM CDT Home Care Visit [place] [address] [place] [address] Phyllis Grande, RN 02/17/2025 9:00 AM CDT Home Care Visit [place] [address] [place] [address] Phyllis Grande, RN 02/21/2025 8:00 AM CDT Home Care Visit [place] [address] [place] [address] Phyllis Grande, RN 02/24/2025 9:00 AM CDT Appointment [place] [address] [place] [address] Phyllis Grande, RN documented as of this [...] 3:47 PM Narrative 01/14/2025 4:04 PM CDT [address] [address] IR PROCEDURE NOTE - PICC LINE CHANGE Indication/preprocedure diagnosis: Hole in red lumen of PICC line PICC line change required. Post procedure diagnosis: Same Radiologist: Dr. Asencio Tile Applicator: None Technique/findings: The left arm PICC line site was prepped and draped in sterile fashion. Maximal sterile barrier technique was utilized for the entire procedure including hand washing with conventional soap and water or an alcohol based hand rub. Timeout was performed. The indwelling the line was removed over a 0.018 guidewire. Peel-away sheath was placed. A new 5 Guyanese dual PICC line was cut to 51 [...] Procedure Note Ace Asencio MD - 01/14/[address] PROCEDURE NOTE - PICC LINE CHANGE Indication/preprocedure diagnosis: Hole in red lumen of PICC line PICCline change required. Post procedure diagnosis: Same Radiologist: Dr. Asencio Tile Applicator: None Technique/findings: The left arm PICC line site was prepped and draped in sterile fashion. Maximal sterile barrier technique was utilized for the entire procedureincluding hand washing with conventional soap and water or an alcoholbased hand rub. Timeout was performed. The indwelling the line was removed over a 0.018 guidewire. Peel-awaysheath was placed. A new 5 Guyanese dual PICC line was cut to 51 [...] documented as of this encounter Care Teams Building Estimator Relationship Specialty Start Date End Date Yessi Cantu FNP [address] [place] [address] PCP - General NURSE PRACTITIONER 09/26/23 Ray Brar MD [address] [place] [address] EP Eyeglass Lens Generator CLINICAL CARDIAC ELECTROPHYSIOLOGY 10/31/24 documented as of this encounter
--- OUTSIDE RECORDS SUMMARY | 2025-01-15 10:58 | XMS_ITS | Encounter Summary ---
Author Organization [facility] Address [address] [place] [address] Care Team Providers Care Furnace Installer Name Role Phone Yessi Cantu PATRICE Primary Care Provider [phone] Ray Brar MD Unavailable [phone] Encounter Details Date Type Department Care Team (Late st Contact Info) Description 01/13/2025 10:31 AM CDT - 01/13/2025 11:59 PM T Hospital Encounter [facility] [address] [place] [address] [place] [address] Meenakshi Koroma MD [address] [place], [place] [address] Discharge Disposition: Home or Self Care (Routine [...] materials from doctor or pharmacy Never 10/30/2024 [facility] Utilities Answer Date Recorded In [...] any time in the past 12 m [facility], were you homeless or living in a fci (including now)? No 06/02/2024 Sex and Gender Information Value Date Recorded Sex Assigned at Male 09/23/2024 10:52 AM BLUEPRINT TRACER Legal Sex Male 5:55 PM BLUEPRINT TRACER Gender Identity Not on file Sexual Orientation [...] 8:15 AM CDT Home Care Visit [facility] [address] [place] [address] María Elena Canales LPN 01/20/2025 11:00 AM CDT Home Care Visit [facility] [address] [place] [address] Phyllis Grande, RN 01/21/2025 2:00 PM CDT Appointment [facility] [address] [place] [address] Isaac Serrano, DPM [address] [place] [address] 01/24/2025 9:00 AM CDT Home Care Visit [facility] [address] [place] [address] Phyllis Grande, RN 01/28/2025 12:00 PM CDT Home Care Visit [facility] [address] [place] [address] Phyllis Grande, RN 01/30/2025 11:00 AM CDT [facility] [place] [address] [place] [address] Ray Brar MD [address] [place] [address] 01/31/2025 9:00 AM CDT Home Care Visit [place] [address] [place] [address] Phyllis Grande, RN 02/03/2025 10:30 AM CDT Home Care Visit [place] [address] [place] [address] Phyllis Grande, RN 02/07/2025 8:00 AM CDT Home Care Visit [place] [address] [place] [address] Phyllis Grande, RN 02/10/2025 9:00 AM CDT Home Care Visit [address] [address] Phyllis Grande, RN 02/14/2025 8:00 AM CDT Home Care Visit [address] [address] Phyllis Grande, RN 02/17/2025 9:00 AM CDT Home Care Visit [address] [address] Phyllis Grande, RN 02/21/2025 8:00 AM CDT Home Care Visit [place] [address] [place] [address] Phyllis Grande, RN 02/24/2025 9:00 AM CDT Appointment [address] [address] Phyllis Grande, RN documented as of this encounter Procedures Procedure Name Priority Date/Time Associated Diagnosis Comments VANCOMYCIN TROUGH Routine 01/13/2025 8:3 0 AM CDT Osteomyelitis of right foot ([facility]) SED RATE, ERYTHROCYTE (ESR) Routine 01/13/2025 8:30 AM CDT Osteomyelitis of right foot ([facility]/HCC HHS/HCC) COMPREHENSIVE METABOLIC PANEL Routine 01/13/2025 8:30 AM CDT Osteomyelitis of right foot (CMS/HCC HHS/HCC) C-REACTIVE PROTEIN Routine 01/13/2025 8: 30 AM CDT Osteomyelitis of right foot ([facility]/HCC HHS/HCC) CBC W/DIFF AUTOMATED Routine 01/13/2025 8:30 AM CDT Osteomyelitis of right foot ([facility]/HCC HHS/HCC) documented in this encounter Results * (ABNORMAL) CBC W/DIFF AUTOMATED (01/13/2025 8:30 AM CDT) WBC 6.26 4.00 - 10.80 x10'3/uL 01/13/2025 10:45 AM CDT [facility] RBC 4.75 4.50 - 6.10 x10'6/uL 01/13/2025 10:45 AM CDT [facility] HGB 15.0 13.0 - 18.0 G/DL 01/13/2025 10:45 AM CDT [facility] HCT 46.2 37.0 - 52.0 % 01/13/2025 10:45 AM CDT [facility] MCV 97.3 78.0 - 100.0 FL 01/13/2025 10:45 AM CDT [facility] MCH 31.6(H) 27.0 - 31.0 PG 01/13/2025 10:45 AM CDT [facility] MCHC 32.5(L) 33.0 - 36.0 G/DL 01/13/2025 10:45 AM CDT [facility] RDW 14.9(H) 11.5 - 14.5 % 01/13/2025 10:45 AM CDT [facility] PLT 159 150 - 350 x10'3/uL 01/13/2025 10:45 AM CDT [facility] MPV 11.7(H) 7.4 - 10.4 FL 01/13/2025 10:45 AM CDT [facility] CBC COMMENT NORMAL REFERENCE RANGE NOT ESTABLISHED FOR THE PROPORTIONAL LEUKOCYTE DIFFERENTIAL. 01/13/2025 10:45 AM CDT [facility] NEUTROPHILS % 74.1 % 01/13/2025 10:45 AM CDT [facility] LYMPHOCYTES % 13.7 % 01/13/2025 10:45 AM CDT [facility] MONOCYTES % 10.1 % 01/13/2025 10:45 AM CDT [facility] EOSINOPHILS % 1.4 % 01/13/2025 10:45 AM CDT [facility] BASOPHILS % 0.5 % 01/13/2025 10:45 AM CDT [facility] IMMATURE GRANS % 0.2 % 01/14/20 10:45 AM CDT [facility] NRBC % 0.0 % 01/13/2025 10:45 AM CDT [facility] ABS. NEUTROPHILS 4.64 1.60 - 8.30 x10'3/uL 01/13/2025 10:45 AM CDT [facility] ABS. LYMPHOCYTES 0.86 0.80 - 4.70 x10'3/uL 01/13/2025 10:45 AM T [facility] ABS. MONOCYTES 0.63 0.00 - 1.50 x10'3/uL 01/13/2025 10:45 AM CDT [facility] ABS. EOSINOPHILS 0.09 0.00 - 0.40 x10'3/uL 01/13/2025 10:45 AM CDT [facility] ABS. BASOPHILS 0.03 0.00 - 0.20 x10'3/uL 01/13/2025 10:45 AM CDT [facility] ABS. IMMATURE GRANULOCYTES 0.01 0.00 - 0.03 x10'3/uL 01/13/2025 10:45 AM CDT [facility] ABS. NUCLEATED RBC'S 0.00 0.00 - 0.01 x10'3/uL 01/13/2025 10:45 AM CDT [facility] 01/13/2025 8:30 AM CDT us Meenakshi Koroma MD LABORATORY Final Result Performing Organization Address [facility]/ZIP Co de Phone Number [facility] [address] [place] [address], * (ABNORMAL) SED RATE, ERYTHROCYTE (ESR) (01/13/2025 8:30 AM CDT) ESR 33(H) 0 - 15 MM/HR 01/13/2025 10:51 AM CDT [facility] 01/13/2025 8:30 AM CDT us Meenakshi Koroma MD LABORATORY Final Result Performing Organization Address [facility] Co de Phone Number [facility] [address] [place] [address], [place] [phone] * (ABNORMAL) COMPREHENSIVE METABOLIC PANEL (01/13/2025 8:30 AM CDT) SODIUM S/P/B 141 136 - 145 MMOL/L 01/13/2025 11:12 AM CDT [facility] POTASSIUM S/P/B 4.1 3.5 - 5.1 MMOL/L 01/13/2025 11:12 AM CDT [facility] CHLORIDE S/P/B 103 98 - 107 MMOL/L 01/13/2025 11:12 AM CDT [facility] CO2 34.0(H) 21.0 - 32.0 MMOL/L 01/13/2025 11:12 AM CDT [facility] GLUCOSE 236(H) 70 - 99 MG/DL 01/13/2025 11:12 AM CDT [facility] Comment: FASTING GLUCOSE 100 TO 125 MG/DL IS CONSISTENT WITH IMPAIRED FASTING GLUCOSE. FASTING GLUCOSE >125 MG/DL IS CONSISTENT WITH DIABETES. RANDOM GLUCOSE >200 MG/DL WITH HYPERGLYCEMIC SYMPTOMS IS CONSISTENT WITH DIABETES. PER ADA GUIDELINES BUN 22 6 - 24 MG/DL 01/13/2025 11:12 AM [facility] CREATININE S/P/B 1.04 0.70 - 1.30 MG/DL 01/13/2025 11:12 AM [facility] CALCIUM S/P/B 9.3 8.4 - 10.5 MG/DL 01/13/2025 11:12 AM [facility] BILIRUBIN TOTAL S/P/B 0.8 0.2 - 1.0 MG/DL 01/13/2025 11:12 AM [facility] Comment: THIS ASSAY IS NOT RECOMMENDED FOR PATIENTS UNDERGOING TREATMENT WITH ELTROMBOPAG DUE TO THE POTENTIAL FOR FALSELY ELEVATED RESULTS. ALKALINE PHOSPHATASE S/P/B 192(H) 45 - 115 U/L 01/13/2025 11:12 AM [facility] AST 31 15 - 37 U/L 01/13/2025 11:12 AM [facility] ALT 31 16 - 63 U/L 01/13/2025 11:12 AM [facility] TOTAL PROTEIN S/P/B 6.8 6.4 - 8.2 G/DL 01/13/2025 11:12 AM [facility] ALBUMIN S/P/B 3.1(L) 3.4 - 5.0 G/DL 01/13/2025 11:12 AM [facility] ANION GAP 4.0(L) 5.0 - 15.0 MMOL/L 01/13/2025 11:12 AM [facility] OSMOLALITY (CALC) 303 MOSM/KG 025 11:12 AM [facility] Comment:REFERENCE RANGE NOT ESTABLISHED GFR ESTIMATE 81(L) >89 ML/MIN/1. 73 M2 01/13/2025 11:12 AM [facility] GFR NOTES GFR REFERENCE S: 01/13/2025 11:12 AM [facility] Comment: THE ESTIMATED GFR IS [...] MD LABORATORY Final Result Performing Organization Address [facility] Co de Phone Number [facility] [address] [place] [address], * VANCOMYCIN TROUGH (01/13/2025 8:30 AM CDT) VANCOMYCIN TROUGH 13.7 10.0 - 20.0 MCG/ML 01/13/2025 11:12 AM CDT [facility] 01/13/2025 8:30 AM CDT us Meenakshi Koroma MD LABORATORY Final Result Performing Organization Address [facility] Co de Phone Number [facility] [address] [place] [address], [place] [phone] * (ABNORMAL) C-REACTIVE PROTEIN (01/13/2025 8:30 AM CDT) C-REACTIVE PROTEIN 1.00(H) <0.30 mg/dL 01/13/2025 11:12 AM CDT [facility] 01/13/2025 8:30 AM CDT us Meenakshi Koroma MD LABORATORY Final Result Performing Organization Address City/[facility]/ZIP Co de Phone Number [facility] [address] [place], [place] [address] [phone] documented in this encounter Visit Diagnoses Diagnosis Osteomyelitis of right foot ([facility]/HCC HHS/[facility]) Unspecified osteomyelitis, ankle and foot documented in this encounter Additional Health Concerns Infection Onset Date Last Indicated Resolved Time MRSA 05/30/2024 05/30/2024 documented as of this encounter Care Teams Furnace Installer Relationship Specialty Start Date End Date Yessi Cantu FNP [address] [place] [address] PCP - General NURSE PRACTITIONER 09/26/23 Ray Brar MD [address] [place] [phone] EP District Recruiter CLINICAL CARDIAC ELECTROPHYSIOLOGY 10/31/24 documented as of this encounter
--- OUTSIDE RECORDS SUMMARY | 2025-01-15 10:58 | XMS_ITS | Encounter Summary ---
Author Organization [facility] Address [address] [place] [address] Care Team Providers Care Key Maker Name Role Phone Yessi Cantu PRIVATE MORTGAGE BANKER SAFE Primary Care Provider [phone] Ray Brar MD Unavailable [phone] Reason for Referral * (Routine) - New Request Specialty Diagnoses / Procedures Referred By Contac t Referred To Contact Diagnoses A-fib ([facility]) Atrial flutter, unspecified type ([facility]) Atrial fibrillation status post cardioversion ([facility]) Procedures MOBILE CONTINUOUS TELEMETRY Ray Brar MD [address] [place] [address] Phone: tel: fax: Referral ID Status Reason Start Date Expiration Date V isits Requested Visits Authorized [id number] New Request 01/15/2025 01/15/2026 1 1 Reason for Visit * Reason Onset Date Comments Holter Monitor 01/10/2025 Encounter Details Date Type Department Care Team ([facility] st Contact Info) Description 01/10/2025 Telephone [facility] [address] [place] [address] Ray Brar MD [address] [place] [address] Holter Monitor Social History Tobacco Use Types Packs/Day Years [...] materials from doctor or pharmacy Never 10/30/2024 [facility] Utilities Answer Date Recorded In the past 12 months has th e [place], gas, oil, or water [employer] threatened to shut off services in your [...] any time in the past 12 m [facility], were you homeless or living in a long-term (including now)? 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 New order placed to correct duration. Called pt daughter, no answer, left vm to call back. IF PT DAUGHTER CALLS BACK Reason for monitor is post-op bradycardia, if further questions send call to nurse * [facility] - 01/10/2025 11:56 AM CDT Spoke with patient and daughter to schedule the heart monitor. The daughter wanted to speak with the office before proceeding. Please call to discuss. The order also needs updated to include a duration. Thank you. documented in this encounter Plan of Treatment Upcoming Encounters Date Type Department Care Team (Late st Contact Info) Description 01/17/2025 8:15 AM CDT Home Care Visit [facility] [address] [place] [address] María Elena Canales LPN 01/20/2025 11:00 AM CDT Home Care Visit [facility] [address] [place] [address] Phyllis Grande, RN 01/21/2025 2:00 PM CDT Appointment [facility] [address] [place] [address] Isaac Serrano, DPSamantha [address] [place], [place] [address] 01/24/2025 9:00 AM CDT Home Care Visit [facility] [address] [place] [address] Phyllis Grande, RN 01/28/2025 12:00 PM CDT Home Care Visit [facility] Home Care [facility] [address] [place] [address] Phyllis Grande, RN 01/30/2025 11:00 AM CDT [facility] [address] [place] [address] Ray Brar MD [address] [place] [phone] 01/31/2025 9:00 AM CDT Home Care Visit [facility] [place] [address] [place] [address] Phyllis Grande, RN 02/03/2025 10:30 AM CDT Home Care Visit [facility] [address] [place] [address] Phyllis Grande, RN 02/07/2025 8:00 AM CDT Home Care Visit [facility] [place] [address] [place] [address] Phyllis Grande, RN 02/10/2025 9:00 AM CDT Home Care Visit [place] [address] [place] [address] Phyllis Grande, RN 02/14/2025 8:00 AM CDT Home Care Visit [facility] [address] [place] [address] Phyllis Grande, RN 02/17/2025 9:00 AM CDT Home Care Visit [facility] Home Care [place] [address] [place] [address] Phyllis Grande, RN 02/21/2025 8:00 AM CDT Home Care Visit [facility] [address] [place] [address] Phyllis Grande, RN 02/24/2025 9:00 AM CDT Appointment [place] [address] [place] [address] Phyllis Grande, RN Scheduled Orders Name Type Priority Associated Diagnoses Orde r Schedule MOBILE CONTINUOUS TELEMETRY EKG-NonRad Routine A-fib ([facility]) Atrial flutter, unspecified type ([facility]) Atrial fibrillation status post cardioversion ([facility]) Expected: 01/15/2025, Expires: 01/15/2026 documented as of this encounter Visit Diagnoses Diagnosis Atrial fibrillation status post cardioversion ([facility])- Primary Cardiac complications A-fib ([facility]) Atrial fibrillation Atrial flutter, unspecified type ([facility]) documented in this encounter Additional Health Concerns Infection Onset Date Last Indicated Resolved Time MRSA 05/30/2024 05/30/2024 documented as of this encounter Care Teams Key Maker Relationship Specialty Start Date End Date Yessi Cantu FNP [address] [place] [address] PCP - General NURSE PRACTITIONER 09/26/23 Ray Brar MD [address] [place] [address] EP Cloth Dyeing Range Tender CLINICAL CARDIAC ELECTROPHYSIOLOGY 10/31/24 documented as of this encounter
--- OUTSIDE RECORDS SUMMARY | 2025-01-15 10:58 | XMS_ITS | Encounter Summary ---
Author Organization [facility] Address [address] [place] [address] Care Team Providers Care Fire Control System Installer Name Role Phone Yessi Cantu PATRICE Primary Care Provider [phone] Ray Brar MD Unavailable [phone] Encounter Details Date Type Department Care Team (Late st Contact Info) Description 12/23/2024 Results Follow-Up [facility] [address] [place] [address] Ruth Durbin, VIVIANA [address] [place] [address] MRI FOOT LT WWO CON, [...] materials from doctor or pharmacy Never 10/30/2024 [facility] Utilities Answer Date Recorded In the past 12 months has th e [employer], gas, oil, or water company threatened to [...] any time in the past 12 m [facility], were you homeless or living in a usp (including now)? 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 Gender Identity Not on file Sexual [...] 12:10 PM Soniya Allan RN Active * [place] Suicide Severity Rating Scale (Screener/Recent Self-Report) Question [...] 01/17/2025 8:15 AM CDT Home Care Visit [place] [address] [place] [address] María Elena Canales LPN 01/20/2025 11:00 AM CDT Home Care Visit [place] [address] [place] [address] Phyllis Grande, RN 01/21/2025 2:00 PM CDT Appointment [facility] [address] [place] [address] Isaac Serrano, DPM [address] [place] [address] 01/24/2025 9:00 AM CDT Home Care Visit [place] [address] [place] [address] Phyllis Grande, RN 01/28/2025 12:00 PM CDT Home Care Visit [place] [address] [place] [address] Phyllis Grande, RN 01/30/2025 11:00 AM CDT [facility] [address] [place] [address] Ray Brar MD [address] [place] [address] 01/31/2025 9:00 AM CDT Home Care Visit [place] [address] [place] [address] Phyllis Grande, RN 02/03/2025 10:30 AM CDT Home Care Visit [place] [address] [place] [address] Phyllis Grande, RN 02/07/2025 8:00 AM CDT Home Care Visit [facility] Home [facility] [address] [place] [address] Phyllis Grande, RN 02/10/2025 9:00 AM CDT Home Care Visit [facility] [address] [place] [address] Phyllis Grande, RN 02/14/2025 8:00 AM CDT Home Care Visit [place] [address] [place] [address] Phyllis Grande, RN 02/17/2025 9:00 AM CDT Home Care Visit [facility] [place] [address] [place] [address] Phyllis Grande, RN 02/21/2025 8:00 AM CDT Home Care Visit [place] [address] [place] [address] Phyllis Grande, RN 02/24/2025 9:00 AM CDT Appointment [place] [address] [place] [address] Phyllis Grande, RN documented as of this encounter Visit Diagnoses Not on filedocumented in this encounter Additional Health Concerns Infection Onset Date Last Indicated Resolved Time MRSA 05/30/2024 05/30/2024 documented as of this encounter Care Teams Fire Control System Installer Relationship Specialty Start Date End Date Yessi Cantu FNP [address] [place] [address] PCP - General NURSE PRACTITIONER 09/26/23 Ray Brar MD [address] [place] [address] EP Certifed Refrigeration Operator CLINICAL CARDIAC ELECTROPHYSIOLOGY 10/31/24 documented as of this encounter
--- OUTSIDE RECORDS SUMMARY | 2025-01-15 10:58 | XMS_ITS | Encounter Summary ---
Author Organization [facility] Address [address] [place] [address] Care Team Providers Care Tele Rn Name Role Phone Yessi Cantu PATRICE Primary Care Provider [phone] Ray Brar MD Unavailable [phone] Encounter Details Date Type Department Care Team (Late st Contact Info) Description 01/13/2025 Orders Only [facility] [address] [place] [address] Meenakshi Koroma MD [address] [place] [address] Social History Tobacco Use Types [...] materials from doctor or pharmacy Never 10/30/2024 [facility] Utilities Answer Date Recorded In the past 12 months has th e [employer], gas, oil, or water [employer] threatened to shut off services in [...] were you homeless or living in a longterm (including now)? 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 Legal Sex Male 5:55 PM TRAFFIC OPERATIONS ENGINEER Gender Identity Not on file Sexual Orientation [...] 01/17/2025 8:15 AM CDT Home Care Visit [facility] Home Care [facility] [address] [place] [address] María Elena Canales LPN 01/20/2025 11:00 AM CDT Home Care Visit [facility] Home Care [facility] [address] [place] [address] Phyllis Grande, RN 01/21/2025 2:00 PM CDT Appointment [facility] [address] [place] [address] Isaac Serrano, DPSamantha [address] [place] [address] 01/24/2025 9:00 AM CDT Home Care Visit [facility] Care [facility] [address] [place] [address] Phyllis Grande, RN 01/28/2025 12:00 PM CDT Home Care Visit [facility] Home Care [facility] [address] [place] [address] Phyllis Grande, RN 01/30/2025 11:00 AM CDT [facility] [address] [place] [address] Ray Brar MD [address] [place] [address] 01/31/2025 9:00 AM CDT Home Care Visit [facility] [place] [address] [place] [address] Phyllis Grande, RN 02/03/2025 10:30 AM CDT Home Care Visit [place] [address] [place] [address] Phyllis Grande, RN 02/07/2025 8:00 AM CDT Home Care Visit [facility] Home Care [place] [address] [place] [address] Phyllis Grande, RN 02/10/2025 9:00 AM CDT Home Care Visit [place] [address] [place] [address] Phyllis Grande, RN 02/14/2025 8:00 AM CDT Home Care Visit [facility] Home Care [facility] [address] [place] [address] Phyllis Grande, RN 02/17/2025 9:00 AM CDT Home Care Visit [facility] [place] [address] [place] [address] Phyllis Grande, RN 02/21/2025 8:00 AM CDT Home Care Visit [facility] Care [facility] [address] [place] [address] Phyllis Grande, RN 02/24/2025 9:00 AM CDT Appointment [place] [address] [place] [address] Phyllis Grande RN documented as of this encounter Results * (ABNORMAL) C-REACTIVE PROTEIN (01/13/2025 8:30 AM CDT) Pathologist [facility] C-REACTIVE PROTEIN 1.00(H) <0.30 mg/dL 01/13/2025 11:12 AM CDT [facility] 01/13/2025 8:30 AM CDT us Meenakshi Koroma MD LABORATORY Final Result Performing Organization Address City/[facility]/ZIP Co de Phone Number [facility] [address] [place] [address], * VANCOMYCIN TROUGH (01/13/2025 8:30 AM CDT) Pathologist [facility] VANCOMYCIN TROUGH 13.7 10.0 - 20.0 MCG/ML 01/13/2025 11:12 AM CDT [facility] 01/13/2025 8:30 AM CDT us Meenakshi Koroma MD LABORATORY Final Result Performing Organization Address City/[facility]/ZIP Co de Phone Number [facility] [address] [place] [address], [place] [phone] * (ABNORMAL) COMPREHENSIVE METABOLIC PANEL (01/13/2025 8:30 AM CDT) Pathologist [facility] SODIUM S/P/B 141 136 - 145 MMOL/L 01/13/2025 11:12 AM CDT [facility] POTASSIUM S/P/B 4.1 3.5 - 5.1 MMOL/L 01/13/2025 11:12 AM CDT [facility] CHLORIDE S/P/B 103 98 - 107 MMOL/L 01/13/2025 11:12 AM CDT [facility] CO2 34.0(H) 21.0 - 32.0 MMOL/L 01/13/2025 11:12 AM CDT [facility] GLUCOSE 236(H) 70 - 99 MG/DL 01/13/2025 11:12 AM [facility] Comment: FASTING GLUCOSE 100 TO 125 MG/DL IS CONSISTENT WITH IMPAIRED FASTING GLUCOSE. FASTING GLUCOSE >125 MG/DL IS CONSISTENT WITH DIABETES. RANDOM GLUCOSE >200 MG/DL WITH HYPERGLYCEMIC SYMPTOMS IS CONSISTENT WITH DIABETES. PER ADA GUIDELINES BUN 22 6 - 24 MG/DL 01/13/2025 11:12 AM [facility] CREATININE S/P/B 1.04 0.70 - 1.30 MG/DL 01/13/2025 11:12 AM [facility] CALCIUM S/P/B 9.3 8.4 - 10.5 MG/DL 01/13/2025 11:12 AM [facility] BILIRUBIN TOTAL S/P/B 0.8 0.2 - 1.0 MG/DL 01/13/2025 11:12 AM [facility] Comment: THIS ASSAY IS NOT RECOMMENDED FOR PATIENTS UNDERGOING TREATMENT WITH ELTROMBOPAG DUE TO THE POTENTIAL FOR FALSELY ELEVATED RESULTS. ALKALINE PHOSPHATASE S/P/B 192(H) 45 - 115 U/L 01/13/2025 11:12 AM [facility] AST 31 15 - 37 U/L 01/13/2025 11:12 AM [facility] ALT 31 16 - 63 U/L 01/13/2025 11:12 AM [facility] TOTAL PROTEIN S/P/B 6.8 6.4 - 8.2 G/DL 01/13/2025 11:12 AM [facility] ALBUMIN S/P/B 3.1(L) 3.4 - 5.0 G/DL 01/13/2025 11:12 AM [facility] ANION GAP 4.0(L) 5.0 - 15.0 MMOL/L 01/13/2025 11:12 AM [facility] OSMOLALITY (CALC) 303 MOSM/KG 025 11:12 AM [facility] Comment:REFERENCE RANGE NOT ESTABLISHED GFR ESTIMATE 81(L) >89 ML/MIN/1. 73 M2 01/13/2025 11:12 AM CDT [facility] GFR NOTES GFR REFERENCE S: 01/13/2025 11:12 AM CDT [facility] Comment: THE ESTIMATED GFR IS CALCULATED [...] us Meenakshi Koroma MD LABORATORY Final Result [facility] [address] [place] [address], * (ABNORMAL) SED RATE, ERYTHROCYTE (ESR) (01/13/2025 8:30 AM CDT) ESR 33(H) 0 - 15 MM/HR 01/13/2025 10:51 AM CDT [facility] 01/13/2025 8:30 AM CDT us Meenakshi Koroma MD LABORATORY Final Result [facility] [address] [place] [address], * (ABNORMAL) CBC W/DIFF AUTOMATED (01/13/2025 8:30 AM CDT) WBC 6.26 4.00 - 10.80 x10'3/uL 01/13/2025 10:45 AM CDT [facility] RBC 4.75 4.50 - 6.10 x10'6/uL 01/13/2025 10:45 AM CDT [facility] HGB 15.0 13.0 - 18.0 G/DL 01/13/2025 10:45 AM CDT [facility] HCT 46.2 37.0 - 52.0 % 01/13/2025 10:45 AM CDT [facility] MCV 97.3 78.0 - 100.0 FL 01/13/2025 10:45 AM CDT [facility] MCH 31.6(H) 27.0 - 31.0 PG 01/13/2025 10:45 AM CDT [facility] MCHC 32.5(L) 33.0 - 36.0 G/DL 01/13/2025 10:45 AM CDT [facility] RDW 14.9(H) 11.5 - 14.5 % 01/13/2025 10:45 AM CDT [facility] PLT 159 150 - 350 x10'3/uL 01/13/2025 10:45 AM CDT [facility] MPV 11.7(H) 7.4 - 10.4 FL 01/13/2025 10:45 AM CDT [facility] CBC COMMENT NORMAL REFERENCE RANGE NOT ESTABLISHED FOR THE PROPORTIONAL LEUKOCYTE DIFFERENTIAL. 01/13/2025 10:45 AM CDT [facility] NEUTROPHILS % 74.1 % 01/13/2025 10:45 AM CDT [facility] LYMPHOCYTES % 13.7 % 01/13/2025 10:45 AM CDT [facility] MONOCYTES % 10.1 % 01/13/2025 10:45 AM CDT [facility] EOSINOPHILS % 1.4 % 01/13/2025 10:45 AM CDT [facility] BASOPHILS % 0.5 % 01/13/2025 10:45 AM CDT [facility] IMMATURE GRANS % 0.2 % 01/14/20 10:45 AM CDT [facility] NRBC % 0.0 % 01/13/2025 10:45 AM CDT [facility] ABS. NEUTROPHILS 4.64 1.60 - 8.30 x10'3/uL 01/13/2025 10:45 AM CDT [facility] ABS. LYMPHOCYTES 0.86 0.80 - 4.70 x10'3/uL 01/13/2025 10:45 AM CDT [facility] ABS. MONOCYTES 0.63 0.00 - 1.50 x10'3/uL 01/13/2025 10:45 AM CDT [facility] ABS. EOSINOPHILS 0.09 0.00 - 0.40 x10'3/uL 01/13/2025 10:45 AM CDT [facility] ABS. BASOPHILS 0.03 0.00 - 0.20 x10'3/uL 01/13/2025 10:45 AM CDT [facility] ABS. IMMATURE GRANULOCYTES 0.01 0.00 - 0.03 x10'3/uL 01/13/2025 10:45 AM CDT [facility] ABS. NUCLEATED RBC'S 0.00 0.00 - 0.01 x10'3/uL 01/13/2025 10:45 AM CDT [facility] 01/13/2025 8:30 AM CDT us Meenakshi Koroma MD LABORATORY Final Result [facility] [address] [employer] [place] [address], documented in this encounter Visit Diagnoses Diagnosis Osteomyelitis of right foot ([facility]/HCC)- Primary Unspecified osteomyelitis, ankle and foot documented in this encounter Additional Health Concerns Infection Onset Date Last Indicated Resolved Time MRSA 05/30/2024 05/30/2024 documented as of this encounter Care Teams Tele Rn Relationship Specialty Start Date End Date Yessi Cantu FNP [address] [place] [address] PCP - General NURSE PRACTITIONER 09/26/23 Ray Brar MD [address] [place] [phone] EP Fixed Capital Clerk CLINICAL CARDIAC ELECTROPHYSIOLOGY 10/31/24 documented as of this encounter
[2025-01-15 11:02] LABS: Lactic Acid Reflex 1.8 mmol/L (0.4-2.0)
[2025-01-15 11:03] LABS: Alanine Aminotransferase 25 U/L (6-50); Albumin Level 3.5 g/dL (3.5-5.1); Alkaline Phosphatase 157 U/L (38-126); Anion Gap 5 mmol/L (4-12); Aspartate Amino Transferase 28 U/L (17-59); Bilirubin,Total 0.8 mg/dL (0.2-1.3); Blood Urea Nitrogen 29 mg/dL (9-20); Calcium 8.9 mg/dL (8.4-10.2); Carbon Dioxide 31 mmol/L (22-30); Chloride 104 mmol/L (98-107); Creatine Kinase 46 U/L (55-170); Estimated CRCL calculation 58 ml/min; Estimated Glomerular Filt Rate 44; Glucose 179 mg/dL (65-110); Osmolality Calculated 299 mOsm/kg (285-295); Potassium 4.4 mmol/L (3.4-5.0); Sodium 140 mmol/L (137-145); Total Protein 6.3 g/dL (6.3-8.2)
[2025-01-15 11:10] LABS: NT Pro B Type Natriuretic Pept 8150 pg/mL (19.9-100)
[2025-01-15 11:19] LABS: INR 1.1; Partial Thromboplastin Time 30.7 Sec (23.9-30.70); Prothrombin Time 11.9 Seconds (9.50-12.1)
[2025-01-15 11:21] LABS: Troponin I 0.079 ng/mL (0.000-0.034)
--- NOTE | 2025-01-15 11:21 | PC.NURSE ---
attempted to urinate. unsuccessful at this time.
--- NOTE | 2025-01-21 06:25 | PC.NURSE ---
Preliminary Blood Culture Gram positive bacilli isolated from anaerobic bottle only. Awaiting LANDSCAPING MANAGER.
--- NOTE | 2025-01-22 12:23 | PC.NURSE ---
final blood cultures x2 reviewed. one set had no growth after 5 days. one set showed cutibacterium acnes...susceptibility testing is not routinely performed on this isolate. no change in plan of care
== END 2025-01-15 13:40 | disposition short-term general hospital (02) ==
PROVIDERS: Emergency Provider Internal Medicine Critical Care Medicine; PCP Nurse Practitioner Family
DX: I21.4 Non-ST elevation (NSTEMI) myocardial infarction (principal); E11.65 Type 2 diabetes mellitus with hyperglycemia; N17.9 Acute kidney failure, unspecified; E78.5 Hyperlipidemia, unspecified; I11.0 Hypertensive heart disease with heart failure; I50.9 Heart failure, unspecified; F17.210 Nicotine dependence, cigarettes, uncomplicated
CPT/HCPCS: 36415; 71045; 80053; 82550; 83605; 83880; 84484; 85025; 85610; 85730; 87040; 87147; 93005; 96372; 96374; 99285; J1610; J7030

== ENCOUNTER 2025-02-07 11:07 | Outpatient (CLI) | payer OTHER, SELFPAY ==
--- NOTE | ~2025-02-07 | CT_ITS ---
Non-contrast Head CT History: Altered mental status Technique: Axial non-contrast imaging of the brain was performed. Dose reduction technique was used on this scan by utilizing automated exposure control and iterative reconstruction technique. The dose -length product (DLP) was 605.33 mGy-cm. Findings: There is no evidence of intracranial hemorrhage, mass lesion, or acute infarct. Brain par enchyma appears normal. The ventricles and subarachnoid spaces are normal in size. The calvarium ap pears normal. The visualized paranasal sinuses and mastoid air cells are clear. Impression: No significant abnormality seen. Reviewed, dictated and finalized at location . Impression: No significant abnormality seen.
[2025-02-07 11:29] LABS: Basophils Absolute Auto 0.02 K/mm3 (0.00-0.10); Basophils Percent Auto 0.3 % (0.0-1.0); Eosinophils Absolute Auto 0.08 K/mm3 (0.02-0.50); Eosinophils Percent Auto 1.4 % (1.0-6.0); Hematocrit 42.2 % (40.0-54.0); Hemoglobin 13.2 g/dL (14.0-18.0); Immature Granulocyte Absolute 0.01 K/mm3 (0.00-0.00); Immature Granulocyte Percent A 0.2 % (0.0-0.0); Lymphocytes Absolute Auto 0.84 K/mm3 (1.10-4.50); Lymphocytes Percent Auto 14.6 % (18.0-42.0); Mean Corpuscular HGB Conc 31.3 g/dL (32-36); Mean Corpuscular Hemoglobin 31.7 pg (27.0-31.0); Mean Corpuscular Volume 101.4 fL (78.0-102.0); Mean Platelet Volume 10.5 fl (8.7-11.0); Monocytes Absolute Auto 0.81 K/mm3 (0.10-0.90); Monocytes Percent Auto 14.1 % (2.0-11.0); Neutrophils Absolute Auto 3.98 K/mm3 (1.70-7.20); Neutrophils Percent Auto 69.4 % (50.0-70.0); Platelet Count Result 171 K/mm3 (150-420); Red Blood Count 4.16 M/mm3 (4.70-6.10); Red Cell Distribution Width 15.4 % (11.6-14.4); White Blood Count 5.7 K/mm3 (4.8-10.8)
[2025-02-07 12:27] LABS: Ethanol < 10 mg/dL (<10)
[2025-02-07 13:51] LABS: Troponin I 0.035 ng/mL (0.000-0.034)
[2025-02-07 13:54] LABS: Chloride 109 mmol/L (98-107); Sodium 143 mmol/L (137-145)
[2025-02-07 13:55] LABS: Alanine Aminotransferase 38 U/L (6-50); Albumin Level 3.8 g/dL (3.5-5.1); Alkaline Phosphatase 201 U/L (38-126); Anion Gap 4 mmol/L (4-12); Aspartate Amino Transferase 39 U/L (17-59); Bilirubin,Total 0.6 mg/dL (0.2-1.3); Calcium 8.5 mg/dL (8.4-10.2); Carbon Dioxide 30 mmol/L (22-30); Estimated Glomerular Filt Rate > 60; Glucose 106 mg/dL (65-110); Total Protein 6.5 g/dL (6.3-8.2)
[2025-02-07 14:14] LABS: Blood Urea Nitrogen 34 mg/dL (9-20); Osmolality Calculated 303 mOsm/kg (285-295)
[2025-02-07 15:36] LABS: Folic Acid 11.5 ng/mL (2.76->20)
== END 2025-02-07 11:08 | disposition home or self-care (01) ==
PROVIDERS: PCP Family Medicine; Visit Provider Family Medicine
DX: R41.82 Altered mental status, unspecified (principal); E53.8 Deficiency of other specified B group vitamins; E03.9 Hypothyroidism, unspecified
CPT/HCPCS: 36415; 70450; 80053; 80307; 82077; 82607; 82746; 84443; 84484; 85025

== ENCOUNTER 2025-02-07 14:22 | Emergency (ER) | payer OTHER, SELFPAY ==
[2025-02-07] VITALS (29 sets, daily range): BP systolic 114–148; BP diastolic 74–110; PULSE 86–99; RESP 20; TEMP 36.6; O2SAT 80–96
--- NOTE | ~2025-02-07 | XR_ITS ---
XR chest 1V portable 02/07/2025 15:21 Indication: Chest pain and weakness Procedure: AP portable chest Comparison: Comparison to multiple prior studies sequentially, with oldest reviewed study dated 03/21. Findings: Cardiomegaly. Asymmetric right-sided airspace disease. New moderate right pleural effusion. No pneumothorax. PICC line tip in the CC. Impression: 1: Asymmetric right-sided airspace disease which may represent edema or pneumonia. 2: Moderate right pleural effusion. Reviewed, dictated and finalized at location A. Impression: 1: Asymmetric right-sided airspace disease which may represent edema or pneumon ia. 2: Moderate right pleural effusion.
--- NOTE | 2025-02-07 14:24 | ECG_ITS ---
Test Date: 2025-02-07 14:33:03 Measurements Intervals [place] Rate: 101 P: 0 KS: 0 QRS: -66 QRSD: 162 T: 103 QT: 400 QTc: 519 Interpretive Statements ATRIAL FIBRILLATION WITH RAPID VENTRICULAR RESPONSE RIGHT BUNDLE BRANCH BLOCK LEFT ANTERIOR FASCICULAR BLOCK POSSIBLE ANTERIOR MYOCARDIAL INFARCTION , OF INDETERMINATE AGE BASELINE ARTIFACT- I, III, AVR, AVL, V1-V6 ABNORMAL ECG Compared to ECG 01/15/2025 10:17:26 JUNCTIONAL ESCAPE RHYTHM NO LONGER PRESENT Electronically Signed On 02-07-2025 15:33:38 CDT by Luis Manuel Hurt D.O.
--- NOTE | 2025-02-07 14:45 | ED.RECABL ---
HPI - Recheck/Abnormal Lab/Rx General Chief Complaint: Recheck/Abnormal Lab/Rx Stated Complaint: abnormal labs Source: patient and family Mode of arrival: ambulatory Limitations: no limitations History of Present Illness HPI narrative: patient is a 64-year-old male with some altered mental status and confusion pleasantly over the past 2 days. He also had abnormal blood work at the primary doctor today and was sent to the ER for further evaluation. His troponin was elevated. He does not have chest pain but he does have some shortness of breath and a little bit of hypoxia in the emergency room that required some oxygen. He has aches and pains secondary to chronic changes but no other complaints at this time. Patient has a PICC line for chronic osteomyelitis of the toe on the right side and is getting antibiotics. MD complaint: other ( Abnormal labs and altered mental status) Initial visit (ago): day(s) ( 2) Initial visit for: other ( abnormal labs from the primary doctor office) Returns today for: called because of abnormal lab/test ( elevated troponin with routine labs for altered mental status) Description of abnormal result: elevated troponin with altered mental status at the primary doctor's office today and sent to the ER for further evaluation Symptoms since prior visit: no new symptoms Context: called for abnormal lab result Associated symptoms: shortness of breath Treatments prior to arrival: other ( none) Related Data Home Medications ?Medication ?Instructions ?Recorded ?Confirmed ?Last Taken ?Type ertapenem 1 gram solution for 1 g IV Q24H 01/15/25 Unknown History injection furosemide 40 mg tablet 80 mg PO QAM 01/15/25 Unknown History losartan 100 mg tablet 100 mg PO DAILY 01/15/25 Unknown History vancomycin 1,000 mg intravenous 1.25 g IV DAILY 01/15/25 Unknown History injection amlodipine 10 mg tablet 10 mg PO DAILY 02/07/25 Unknown History Allergies Allergy/AdvReac Type Severity Reaction Status Date / Time Sulfa (Sulfonamide Allergy Intermediate Redness of Verified 02/07/25 15:50 Antibiotics) Skin Review of Systems Review of Systems: All systems reviewed & are unremarkable except as noted in HPI and below Constitutional: Constitutional: Reports no additional constitutional complaints Eyes: Eyes: Reports no additional eye complaints ENT: Reports system reviewed and no additional complaints, except as documented Cardiovascular: Cardiovascular: Reports no additional cardiovascular complaints Respiratory: Respiratory: Reports no additional respiratory complaints Gastrointestinal: Gastrointestinal: Reports no additional gastrointestinal complaints Genitourinary: Genitourinary: Reports no additional male genitourinary complaints Musculoskeletal: Musculoskeletal: Reports no additional musculoskeletal complaints Integumentary/Breasts: Skin/Breast: Reports system reviewed and no additional complaints, except as docu Neurologic: Reports system reviewed and no additional complaints, except as documented Psychiatric: Psychiatric: Reports no additional psychiatric complaints Endocrine: Endocrine: Reports no additional endocrine complaints Hematologic/Lymphatic: Hematologic/Lymphatic: Reports no additional hematologic/lymphatic complaints Allergic/Immunologic: Allergic/Immunologic: Reports no additional allergic/immunologic complaints [facility] Past Medical History Medical History Wound of right lower extremity Wound of left foot Venous insufficiency of both lower extremities Ulcer of lower extremity Ulcer of foot Ulcer of ankle due to diabetes mellitus Type 2 diabetes mellitus with hyperglycemia Type 2 diabetes mellitus Tobacco dependence syndrome Tobacco abuse Snoring Sinusitis Singers' nodes Overweight Orthopnea Noncompliance with medication regimen Insomnia Hypertension Hyperglycemia Hemoptysis Edema of both lower extremities Dyslipidemia Diabetic ulcer of leon Decreased pedal pulses Coagulation disorder Chronic wound of extremity Chronic laryngitis Bilateral cellulitis of lower leg Acute bronchitis Atrial flutter Overweight Tobacco dependence Type 2 diabetes mellitus HTN (hypertension) Family History Family History Mother Hypertension Family history of chronic obstructive pulmonary disease Family history of obesity Other Family history of type 2 diabetes mellitus Social History Social History Social History: Has a daughter Smoking packs per day: 0.5 Smoking cigarettes per day: 10.0 Years smoked: 40 Smoking pack-years: 20.00 Smoking status: Current every day smoker Tobacco type: cigarettes Second hand tobacco smoke exposure: Yes Smoking end date: 11/02/18 Alcohol intake: never Substance use: never Substance use type: does not use Do You Feel Safe in your Home?: Yes Lack of Transportation: No Lack of Food: Never True Current Housing: I Have Housing Concerned About Future Housing: No Difficulty Paying Gas/Electric Bills: No Difficulty Paying for Meds: No Currently Unemployed: No Education: High School Diploma/GED Difficulty w/ Childcare or Family Care: No Living arrangements: with family Occupation/Education: occupation 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 Exam Const: General: alert and confusion Nutritional Appearance: well nourished Limitations: altered mental status Other: slightly short of breath HENMT: Head: normal to inspection Ears: external ears normal Face/Nose/Sinus: Normal external nose present Eyes: Conjunctivae: conjunctivae normal Pupils: Equal, round and reactive pupils present EOM: EOMs intact bilaterally Neck: Neck: normal visual inspection Chest: Chest palpation & inspection: normal inspection of the chest Resp: Effort & Inspection: normal respiratory effort and not labored Auscultation: not clear to auscultation bilaterally, crackles ( left lung), no rales, no rhonchi, no wheezes, breath sounds present and diminished lung sounds ( left lung) Cardio: Rate: regular rate Rhythm: regular rhythm Heart sounds: no murmurs GI: Inspection: non-distended GI Palp: Yes Soft to palpation and No Tenderness to palpation present (GI) Auscultation: normal bowel sounds : General: Yes bladder normal to palpation Back/Spine/Pelvis: Back: no CVA tenderness Skin: General skin exam: normal color Rashes: no rashes Wounds: no wounds Neuro: General: moves all extremities, no meningeal signs, no focal motor deficits and CN's II-XI intact bilaterally Cranial nerves: Yes Nystagmus not present Speech: normal speech Other: fast exam negative, NIH is 0, El coma Score is 15 Extrem: General: abnormal to inspection Other: patient has chronic red and erythema of his arms and legs according to the daughter and he has right great toe osteomyelitis which is also being treated and chronic Psych: Affect: normal affect Attitude: cooperative Course Vital Signs Vital signs: Vital Signs Temperature 36.6 C 02/07/25 14:25 Pulse Rate 99 02/07/25 14:25 Respiratory Rate 20 02/07/25 14:25 Blood Pressure 132/97 H 02/07/25 14:25 Pulse Oximetry 93 02/07/25 14:25 Oxygen Delivery Nasal Cannula 02/07/25 14:25 Oxygen Flow Rate 2 02/07/25 14:25 Temperature 36.6 C 02/07/25 14:25 Pulse Rate 93 02/07/25 15:46 Respiratory Rate 20 02/07/25 15:46 Blood Pressure 118/85 02/07/25 15:46 Pulse Oximetry 90 02/07/25 15:46 Oxygen Delivery Nasal Cannula 02/07/25 15:46 Oxygen Flow Rate 2 02/07/25 15:46 MDM - Recheck/Abnormal Lab/Rx MDM Narrative Medical decision making narrative: patient is a 64-year-old male with a abnormal troponin elevation and altered mental status for the past 2 days and sent by the primary doctor for further evaluation. It appears patient has hypoxia and abnormal chest x-ray with right pleural effusion with pneumonia which is the cause likely of all the problems at this time. We will transfer patient due to the fact that he has a large pleural effusion and we cannot work on that problem at this facility. Family has asked to go to [facility]. Interestingly enough the patient is on antibiotics to include vancomycin and still has a pneumonia process. We will give Zosyn for broad-spectrum coverage and have [facility] decide on ID changes. Patient is on Xarelto for AFib. Lab Data Attestation: I reviewed the patient's lab results. 02/07/25 15:03 02/07/25 15:03 Labs: Lab Results 02/07/25 Range/Units 15:03 WBC 6.3 (4.8-10.8) K/mm3 RBC 4.17 L (4.70-6.10) M/mm3 Hgb 13.2 L (14.0-18.0) g/dL Hct 42.4 (40.0-54.0) % MCV 101.7 (78.0-102.0) fL MCH 31.7 H (27.0-31.0) pg MCHC 31.1 L (32-36) g/dL RDW 15.6 H (11.6-14.4) % Plt Count 175 (150-420) K/mm3 MPV 10.7 (8.7-11.0) fl Immature Gran % (Auto) 0.2 H (0.0-0.0) % Neut % (Auto) 73.9 H (50.0-70.0) % Lymph % (Auto) 12.7 L (18.0-42.0) % [place] % (Auto) 11.6 H (2.0-11.0) % Eos % (Auto) 1.3 (1.0-6.0) % Baso % (Auto) 0.3 (0.0-1.0) % Lymph # (Auto) 0.80 L (1.10-4.50) K/mm3 [place] # (Auto) 0.73 (0.10-0.90) K/mm3 Eos # (Auto) 0.08 (0.02-0.50) K/mm3 Baso # (Auto) 0.02 (0.00-0.10) K/mm3 Abs Immat Gran (auto) 0.01 H (0.00-0.00) K/mm3 Absolute Neuts (auto) 4.64 (1.70-7.20) K/mm3 Absolute Nucleated RBC 0.00 (0.00-0.00) K/mm3 Nucleated RBC % 0.0 (0-0.0) % Sodium 142 (137-145) mmol/L Potassium 3.9 (3.4-5.0) mmol/L Chloride 109 H (98-107) mmol/L Carbon Dioxide 29 (22-30) mmol/L Anion Gap 4 (4-12) mmol/L BUN 34 H (9-20) mg/dL Creatinine 1.22 (0.7-1.3) mg/dL Estim Creat Clear Calc 71 ml/min Estimated GFR 60 (59 - ) Glucose 186 H (65-110) mg/dL Calculated Osmolality 306 H (285-295) mOsm/kg Calcium 8.5 (8.4-10.2) mg/dL Total Bilirubin 0.7 (0.2-1.3) mg/dL AST 38 (17-59) U/L ALT 39 (6-50) U/L Alkaline Phosphatase 185 H (38-126) U/L Troponin I 0.034 (0.000-0.034) ng/mL NT-Pro-B Natriuret Pep 1430 H (19.9-100) pg/mL Total Protein 6.5 (6.3-8.2) g/dL Albumin 3.6 (3.5-5.1) g/dL Imaging Data Attestation: I personally reviewed and interpreted this imaging study as follows: Radiologist's impression: Chest x-ray shows a moderate right pleural effusion with some pneumonia process associated ECG Data EKG #1: Attestation: I personally reviewed and interpreted this ECG as follows: ECG completion date: 02/07/25 ECG completion time: 16:18 EKG Interpretation: tachycardia, atrial fibrillation, non-specific ST changes, widened QRS, RBBB, normal QT and left axis Discharge Plan Discharge Clinical Impression: Hypoxia, Pleural effusion Pneumonia Qualifiers: Pneumonia type: due to unspecified organism Laterality: right Lung location: unspecified part of lung Qualified Code(s): J18.9 - Pneumonia, unspecified organism AMS (altered mental status) Qualifiers: Altered mental status type: delirium Qualified Code(s): R41.0 - Disorientation, unspecified Patient Disposition: Acute Care Hospital Condition: Stable Patient Language: Urdu Prescriptions: No Action amlodipine 10 mg tablet 10 mg PO DAILY ertapenem 1 gram recon soln 1 g IV Q24H losartan 100 mg tablet 100 mg PO DAILY vancomycin 1,000 mg recon soln 1.25 g IV DAILY furosemide 40 mg tablet 80 mg PO QAM Xarelto 15 mg tablet 15 mg PO QPM Qty: 90 2RF Rx Instructions: must administer with evening meal (DME) lancets [OneTouch UltraSoft Lancets[place] [facility] [place] Instructions .ROUTE .MEDSUPPLY Qty: 100 2RF Rx Instructions: For testing once daily dx: E11.9 (DME) blood-glucose meter [OneTouch Ultra2 Meter] [facility] [place] Rx Instructions .Route Qty: 1 0RF Rx Instructions: As directed (DME) blood glucose control, normal [OneTouch Ultra Control] Solution See Rx Instructions .ROUTE .MEDSUPPLY Qty: 1 0RF Rx Instructions: As directed (DME) OneTouch Ultra Test Strip See Rx Instructions .ROUTE .MEDSUPPLY Qty: 100 2RF Rx Instructions: As directed Jardiance 25 mg tablet 25 mg PO DAILY Qty: 90 3RF cyclobenzaprine 10 mg tablet See Rx Instructions .ROUTE .COMPLEX Qty: 30 3RF Dose Instruction: TAKE 1 TABLET BY MOUTH EVERY 8 HOURS NEEDED FOR MUSCLE SPASMS Rx Instructions: TAKE 1 TABLET BY MOUTH EVERY 8 HOURS NEEDED FOR MUSCLE SPASMS gabapentin 300 mg capsule See Rx Instructions .ROUTE .COMPLEX Qty: 30 2RF Dose Instruction: 300 MG ORALLY EVERY DAY AT BEDTIME Rx Instructions: 300 MG ORALLY EVERY DAY AT BEDTIME Ozempic 2 mg/dose (8 mg/3 mL) pen injector See Rx Instructions .ROUTE .COMPLEX Qty: 3 3RF Dose Instruction: 2 MG (0.75 ML) SUBCUTANEOUSLY WEEKLY Rx Instructions: 2 MG (0.75 ML) SUBCUTANEOUSLY WEEKLY atorvastatin 10 mg tablet See Rx Instructions .ROUTE .COMPLEX Qty: 90 2RF Dose Instruction: TAKE 1 TABLET BY MOUTH EVERY DAY Rx Instructions: TAKE 1 TABLET BY MOUTH EVERY DAY tramadol 50 mg tablet 50 mg PO Q6H PRN (Reason: pain) Qty: 20 0RF Follow-up/Referrals: Marcio Vera DO [Primary Care Provider] - Time of Disposition: 16:53
[2025-02-07 15:19] LABS: Basophils Absolute Auto 0.02 K/mm3 (0.00-0.10); Basophils Percent Auto 0.3 % (0.0-1.0); Eosinophils Absolute Auto 0.08 K/mm3 (0.02-0.50); Eosinophils Percent Auto 1.3 % (1.0-6.0); Hematocrit 42.4 % (40.0-54.0); Hemoglobin 13.2 g/dL (14.0-18.0); Immature Granulocyte Absolute 0.01 K/mm3 (0.00-0.00); Immature Granulocyte Percent A 0.2 % (0.0-0.0); Lymphocytes Percent Auto 12.7 % (18.0-42.0); Mean Corpuscular HGB Conc 31.1 g/dL (32-36); Mean Corpuscular Hemoglobin 31.7 pg (27.0-31.0); Mean Corpuscular Volume 101.7 fL (78.0-102.0); Mean Platelet Volume 10.7 fl (8.7-11.0); Monocytes Absolute Auto 0.73 K/mm3 (0.10-0.90); Monocytes Percent Auto 11.6 % (2.0-11.0); Neutrophils Absolute Auto 4.64 K/mm3 (1.70-7.20); Neutrophils Percent Auto 73.9 % (50.0-70.0); Platelet Count Result 175 K/mm3 (150-420); Red Blood Count 4.17 M/mm3 (4.70-6.10); Red Cell Distribution Width 15.6 % (11.6-14.4); White Blood Count 6.3 K/mm3 (4.8-10.8)
[2025-02-07 15:36] LABS: Alanine Aminotransferase 39 U/L (6-50); Albumin Level 3.6 g/dL (3.5-5.1); Alkaline Phosphatase 185 U/L (38-126); Anion Gap 4 mmol/L (4-12); Aspartate Amino Transferase 38 U/L (17-59); Bilirubin,Total 0.7 mg/dL (0.2-1.3); Blood Urea Nitrogen 34 mg/dL (9-20); Calcium 8.5 mg/dL (8.4-10.2); Carbon Dioxide 29 mmol/L (22-30); Chloride 109 mmol/L (98-107); Estimated CRCL calculation 71 ml/min; Estimated Glomerular Filt Rate 60; Glucose 186 mg/dL (65-110); Osmolality Calculated 306 mOsm/kg (285-295); Potassium 3.9 mmol/L (3.4-5.0); Sodium 142 mmol/L (137-145); Total Protein 6.5 g/dL (6.3-8.2)
[2025-02-07 15:45] LABS: NT Pro B Type Natriuretic Pept 1430 pg/mL (19.9-100)
[2025-02-07 16:01] LABS: Troponin I 0.034 ng/mL (0.000-0.034)
[2025-02-07] MEDS: PIPERACILLN/TAZ 3.375GM/NS50ML 3.375 GM/50 ML BAG IVPB (17:26)
--- NOTE | 2025-02-09 14:19 | PC.NURSE ---
PRELIMINARY BLOOD CULTURE REPORT; NO GROWTH TO DATE.
--- NOTE | 2025-02-13 15:19 | PC.NURSE ---
FINAL BLOOD CULTURE REPORT; NO GROWTH AFTER 5 DAYS.
== END 2025-02-07 18:20 | disposition short-term general hospital (02) ==
PROVIDERS: Emergency Provider Emergency Medicine; PCP Family Medicine
DX: J90 Pleural effusion, not elsewhere classified (principal); J18.9 Pneumonia, unspecified organism; R41.0 Disorientation, unspecified; I10 Essential (primary) hypertension; E11.9 Type 2 diabetes mellitus without complications; F17.210 Nicotine dependence, cigarettes, uncomplicated
CPT/HCPCS: 36415; 71045; 80053; 83880; 84484; 85025; 87040; 93005; 96365; 99285; J2543

== ENCOUNTER 2025-02-24 14:28 | Outpatient (NON) | payer OTHER, SELFPAY ==
[2025-02-24 14:39] LABS: Basophils Absolute Auto 0.05 K/mm3 (0.00-0.10); Basophils Percent Auto 0.7 % (0.0-1.0); Eosinophils Absolute Auto 0.16 K/mm3 (0.02-0.50); Eosinophils Percent Auto 2.3 % (1.0-6.0); Hematocrit 43.4 % (40.0-54.0); Immature Granulocyte Absolute 0.03 K/mm3 (0.00-0.00); Immature Granulocyte Percent A 0.4 % (0.0-0.0); Lymphocytes Absolute Auto 1.09 K/mm3 (1.10-4.50); Lymphocytes Percent Auto 15.5 % (18.0-42.0); Mean Corpuscular HGB Conc 32.3 g/dL (32-36); Mean Corpuscular Hemoglobin 32.6 pg (27.0-31.0); Mean Corpuscular Volume 100.9 fL (78.0-102.0); Mean Platelet Volume 9.9 fl (8.7-11.0); Monocytes Absolute Auto 0.56 K/mm3 (0.10-0.90); Monocytes Percent Auto 7.9 % (2.0-11.0); Neutrophils Absolute Auto 5.16 K/mm3 (1.70-7.20); Neutrophils Percent Auto 73.2 % (50.0-70.0); Platelet Count Result 223 K/mm3 (150-420); Red Cell Distribution Width 13.4 % (11.6-14.4); White Blood Count 7.1 K/mm3 (4.8-10.8)
[2025-02-24 14:46] LABS: Alanine Aminotransferase 27 U/L (6-50); Albumin Level 3.5 g/dL (3.5-5.1); Alkaline Phosphatase 172 U/L (38-126); Anion Gap -1 mmol/L (4-12); Aspartate Amino Transferase 27 U/L (17-59); Bilirubin,Total 0.8 mg/dL (0.2-1.3); Blood Urea Nitrogen 26 mg/dL (9-20); Calcium 8.7 mg/dL (8.4-10.2); Carbon Dioxide 36 mmol/L (22-30); Chloride 104 mmol/L (98-107); Estimated Glomerular Filt Rate > 60; Glucose 163 mg/dL (65-110); Osmolality Calculated 296 mOsm/kg (285-295); Potassium 4.2 mmol/L (3.4-5.0); Sodium 139 mmol/L (137-145); Total Protein 6.2 g/dL (6.3-8.2)
[2025-02-24 14:54] LABS: NT Pro B Type Natriuretic Pept 1990 pg/mL (19.9-100)
== END 2025-02-24 14:29 | disposition home or self-care (01) ==
LOC: CHSLAB 14:30
PROVIDERS: PCP Nurse Practitioner Family; Visit Provider Nurse Practitioner Family
DX: E11.9 Type 2 diabetes mellitus without complications (principal); N17.9 Acute kidney failure, unspecified; R06.01 Orthopnea; I11.0 Hypertensive heart disease with heart failure
CPT/HCPCS: 36415; 80053; 83036; 83880; 85025

== ENCOUNTER 2025-03-10 15:03 | Outpatient (CLI) | payer OTHER, SELFPAY ==
--- OUTSIDE RECORDS SUMMARY | 2025-03-10 15:06 | XMS_ITS | Encounter Summary ---
Author Organization [facility] Address [address] [place] [address] Care Team Providers Care Hvac Refrigeration Technician Name Role Phone Yessi CantuP Primary Care Provider [phone] Ray Brar MD Unavailable [phone] Encounter Details Date Type Department Care Team (Late st Contact Info) Description 01/20/2025 Hospital Follow-up Call [facility] [address] [place] [address] Regina Fosetr, RN Social History Tobacco Use Types Packs/Day Years Used Date Smoking Tobacco: Every Day Cigarettes 1 40 Smokeless Tobacco: Never Alcohol Use Standard Drinks/Week Comments Never 0 (1 standard drink = 0.6 oz pur e alcohol) OASIS D0700: Social Isolation Answer Da te Recorded Frequency of experiencing loneliness or isolatio n Never 01/20/2025 OASIS A1250: Transportation Answer Date Recorded Lack of Transportation (Medical) No 01/20/2025 Lack of Transportation (Non-Medical) No 01/20/2025 Patient Unable or Declines to Respond No 01/20/2025 OASIS B1300: Health Literacy Answer Onofre e Recorded Frequency of needing help to read materials from doctor or pharmacy Rarely 01/20/2025 [facility] Utilities Answer Date Recorded In the past 12 months has th e [employer], gas, oil, or water company threatened to shut off services in your home? No 01/15/2025 Humiliation, Afraid, Rape, and Kick questionnair e Answer Date Recorded Within the last year, have y ou been afraid of your partner or ex-partner? No 01/15/2025 Within the last year, have y ou been humiliated or emotionally abused in other ways by your partner or ex-partner? No Within the last year, have y ou been kicked, hit, slapped, or otherwise physically hurt by your partner or ex-partner? No 01/15/2025 Within the last year, have y ou been raped or forced to have any kind of sexual activity by your partner or ex-partner? No 01/15/2025 Overall Financial Resource Strain (CARDIA) Answe r Date Recorded How hard is it for you to pa y for the very basics like food, housing, medical care, and heating? Not hard at all 01/15/2025 Hunger Vital Sign Answer Date Recorded Within the past 12 months, y ou worried that your food would run out before you got the money to buy more. Never true 01/16/20 25 Within the past 12 months, t he food you bought just didn't last and you didn't have money to get more. Never true 01/15/2025 PRAPARE - Transportation Answer Date Re corded In the past 12 months, has l ack of transportation kept you from medical appointments or from getting medications? No 01/02 In the past 12 months, has l ack of transportation kept you from meetings, work, or from getting things needed for daily living? No 01/15/2025 Housing Stability Vital Sign Answer Onofre e Recorded In the last 12 months, was t here a time when you were not able to pay the mortgage or rent on time? No 01/15/2025 In the past 12 months, how m any times have you moved where you were living? 0 01/15/2025 At any time in the past [address] [facility], were you homeless or living in a prison (including now)? 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 Answer Date of Assessment Author Status No 01/15/2025 3:07 PM CDT Connie Ochoa RN Active * Do you have serious difficulty walking or climbing stairs? Answer Date of Assessment Author Status Yes 01/15/2025 3:07 PM CDT Connie Ochoa RN Active * Do you have difficulty dressing or bathing? Answer Date of Assessment Author Status Yes 01/15/2025 3:07 PM CDT Connie Ochoa RN Active * Because of a physical, mental, or emotional condition, do you have difficulty doing errands alone such as visiting a doctor's office or shopping? Answer Date of Assessment Author Status No 01/15/2025 3:07 PM Connie Landaverde RN Active documented as of this encounter Mental Status * Because of a physical, mental, or emotional condition, do you have serious difficulty concentrating, remembering, or making decisions? Answer Entry Date Author Status No 01/15/2025 3:07 PM CDT Connie Ochoa RN Active documented in this encounter Plan of Treatment Upcoming Encounters Date Type Department Care Team (Late st Contact Info) Description 03/11/2025 11:[address] [facility] [address], [place] [id number] Meenakshi Koroma MD [address] [place], [place] [id number] Jayashree Lee, SOURAV [address] [place], [place] [address] 03/12/2025 11:00 AM CDT Home Care Visit [facility] Home Care [facility] [address] [place] [address] Leona Murcia PTA 03/13/2025 2:00 PM CDT Office Visit [facility] [address] [place] [phone] Ray Brar MD [address] [place] [address] 03/14/2025 9:15 AM CDT Home Care Visit [facility] [address] [place] [address] María Elena Canales LPN 03/14/2025 10:00 AM CDT Home Care Visit [facility] [address] [place] [address] Leona Murcia, ROVING SIZER 2025 10:00 AM CDT Home Care Visit [facility] [address] [place] [address] Leona Murcia, ROVING SIZER 03/21/2025 8:00 AM CDT Home Care Visit [facility] [address] [place] [address] Phyllis Grande, RN 03/21/2025 10:00 AM CDT Home Care Visit [facility] [address] [place] [address] Marla Logan, PT [address] [place] [address] 03/28/2025 9:00 AM CDT Home Care Visit [facility] [address] [place] [address] Phyllis Grande, RN 04/04/2025 8:00 AM CDT Home Care Visit [facility] [address] [place] [address] Phyllis Grande, RN 04/11/2025 8:00 AM CDT Home Care Visit [facility] [address] [place] [address] Phyllis Grande, RN 04/18/2025 9:00 AM CDT Home Care Visit [facility] [address] [place] [address] Phyllis Grande, RN 04/25/2025 8:00 AM CDT Appointment [facility] Care [facility] [address] [place] [address] Phyllis Grande, RN documented as of this encounter Visit Diagnoses Not on filedocumented in this encounter Additional Health Concerns Infection Onset Date Last Indicated Resolved Time MRSA 05/30/2024 05/30/2024 Respiratory Rule Out 02/08/2025 02/08/2025 025 3:30 AM CDT documented as of this encounter Care Teams Hvac Refrigeration Technician Relationship Specialty Start Date End Date Yessi Cantu FNP [address] [place] [address] PCP - General NURSE PRACTITIONER 09/26/23 Ray Brar MD [address] [place] [id number] EP Felt Strip Finisher CLINICAL CARDIAC ELECTROPHYSIOLOGY 10/31/24 documented as of this encounter
--- OUTSIDE RECORDS SUMMARY | 2025-03-10 15:06 | XMS_ITS | Clinical Summary ---
Author Organization [facility] Address [address] [place] [address] Care Team Providers Care Veneer Cutter Name Role Phone Smithmaitekp Yessi Singh ENVIRONMENTAL ENGINEERING MANAGER Primary Care Provider [phone] Bryan Fleming MD Unavailable [phone] Allergies Active Allergy Reactions Criticality Noted Date Comments Carvedilol Dizziness Low 02/07/2025 Sulfa Antibiotics Unknown 05/29/2024 Medications cyclobenzaprine (FLEXERIL) 10 MG tabletIndication s:muscle spasms Take 1 tablet (10 mg total) by mouth daily as needed. Indications: muscle spasms FOR MUSCLE SPASMS 024 Active atorvastatin (LIPITOR) 10 MG tabletIndication s:cholesterol Take 1 tablet (10 mg total) by mouth daily. Indications: cholesterol 024 Active empagliflozin (JARDIANCE) 25 MG tabletIndication s:diabetes Take 1 tablet (25 mg total) by mouth daily. Indications: diabetes 024 Active OZEMPIC 1 mg/dose injection (PEN)Indications :Diabetes Mellitus Inject 3 mg into the skin once a week. Indications: Diabetes On Wednesdays 024 Active albuterol sulfate HFA 108 (90 Base) MCG/ACT inhalerIndicatio ns:cough, wheezing Inhale 2 puffs into the lungs every 6 (six) hours as needed for Wheezing. Indications: cough, wheezing Active gabapentin (NEURONTIN) 300 MG capsuleIndicatio ns:neuropathy Take 1 capsule (300 mg total) by mouth nightly. Indications: neuropathy 025 Active acetaminophen (TYLENOL) 500 MG tabletIndication s:pain Take 2 tablets (1,000 mg total) by mouth every 6 (six) hours as needed for Pain. Indications: pain 025 Active Loperamide HCl PowderIndication s:diarrhea Take 1-2 tablets by mouth as needed (diarrhea). Indications: diarrhea 025 Active diphenhydrAMINE (BENADRYL) 50 MG tabletIndication s:itching Take 1 tablet (50 mg total) by mouth every 6 (six) hours as needed for Itching. Indications: itching 025 Active furosemide (LASIX) 40 MG tabletIndication s:fluid TAKE 1 TABLET (40 MG TOTAL) BY MOUTH 2 (TWO) TIMES DAILY FOR 120 DOSES. 025 Active rivaroxaban (XARELTO) 15 MG tabletIndication s:Atrial Fibrillation Take 1 tablet (15 mg total) by mouth daily with supper. Indications: Atrial Fibrillation 90 tablet 4 025 Active traMADol (ULTRAM) 50 MG tabletIndication s:Acute Pain < 7 Day Supply,Chronic Pain Take 1 tablet (50 mg total) by mouth every 6 (six) hours as needed. Indications: Acute Pain < 7 Day Supply, Chronic Pain 025 Active OXYGEN CONCENTRATOR SUPPLY, DME,Indications: Pneumonia 1 Device by Nasal route continuous. Indications: Pneumonia Nasal cannula, 2 with rest, activity and sleep. Portable oxygen concentrator, stationary oxygen concentrator 1 Device 025 Active OXYGEN CONCENTRATOR SUPPLY, DME,Indications: Congestive Heart Failure 1 Device by Nasal route continuous. Indications: Congestive Heart Failure High flow nasal cannula. 2L rest and activity. 6L nocturnal. High liter flow concentrator 1 Device 025 Active losartan (COZAAR) 100 MG tabletIndication s:hypertension Take 0.5 tablets (50 mg total) by mouth daily. Indications: hypertension 60 tablet 025 Active OXYGEN CONCENTRATOR SUPPLY, DME,Indications: Chronic Obstructive Pulmonary Disease 1 Device by Nasal route continuous. Indications: Chronic Obstructive Lung Disease Nasal cannula, 2 with rest and activity, 6 with sleep, portable oxygen concentrator, stationary oxygen concentrator 1 Device 025 Active OXYGENIndication s:COPD 2-6 L/min by Nasal route continuous. 2 L/min when up and 6 L/min at night. Indications: COPD Active HYDROcodone-acet aminophen (NORCO) 5-325 MG tabletIndication s:Chronic Pain Take 1 tablet by mouth every 8 (eight) hours as needed for Pain. Indications: Chronic Pain 025 2024 Discontinued(S top Taking at Discharge) losartan (COZAAR) 100 MG tabletIndication s:hypertension Take 1 tablet (100 mg total) by mouth daily. Indications: hypertension 90 tablet 4 025 2024 Discontinued ertapenem 1,000 mg in sodium chloride 0.9 % SOLN 50 mLIndications:Os teomyelitis Inject 1,000 mg into the vein daily. Indications: Infection of Bone and Bone Marrow 025 2024 Heparin Sod, Pork, Lock Flush (HEPARIN, PORCINE, LOCK FLUSH IV)Indications:I V Flush Inject 10 Units/mL into the vein see administration instructions. Infuse per SASH method with IV med administration and blood draws. Indications: IV Flush 025 2024 Discontinued(T herapy completed) sodium chloride 0.9 % solutionIndicati ons:IV Flush Inject 10 mLs into the vein see administration instructions. Indications: IV Flush Infuse per SASH method with IV med administration and blood draws. 025 2024 Discontinued(T herapy completed) amLODIPine (NORVASC) 10 MG tabletIndication s:HTN Take 1 tablet (10 mg total) by mouth daily for 30 days. Indications: HTN 30 tablet 025 2024 Discontinued(S top Taking at Discharge) Vancomycin HCl 2 g Recon SolnIndications: Chronic Osteomyelitis of Right Ankle and Foot Inject 2 g into the vein daily. Indications: Chronic Osteomyelitis of Right Ankle and Foot 025 2024 Active Problems Problem Noted Date Diagnosed Date Pneumonia 02/07/2025 Bradycardia 01/15/2025 Sick sinus syndrome ([facility]) 01/15/2025 Other chronic osteomyelitis, right ankle and foot ([facility]) 01/08/2025 Open wound of both lower ext remities with complication, initial encounter 10/25/2023 Chronic venous insufficiency 10/25/2023 Ulcer of lower extremity wit h fat layer exposed, unspecified laterality ([facility]) 10/25/2023 Dyslipidemia Atrial flutter ([facility]) CHF (congestive heart failure) ([facility]) Overview (12/01/2024): 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% Encounters Date Type Department Care Team Description 03/06/2025 12:45 PM CDT [facility] [address] [place] [address] Leona Murcia LONE LEAD LINEMAN LONE LEAD LINEMAN HOME VISIT 03/06/2025 11:30 AM CDT [facility] Visit [facility] [address] [place] [address] María Elena Canales LPN SN HOME VISIT 03/03/2025 12:00 PM CDT Home [facility] Visit [facility] [address] [place] [address] Leona Murcia LONE LEAD LINEMAN LONE LEAD LINEMAN HOME VISIT 02/28/2025 2:00 PM CDT Home Care Visit [facility] [address] [place] [address] Marla Logan, PT PT INITIAL EVALUATION 02/28/2025 12:30 PM CDT Home Care Visit [facility] [address] [place] [address] María Elena Canales LPN SN HOME VISIT 02/25/2025 10:58 AM CDT - 02/25/2025 11:59 PM CDT Hospital Encounter [facility] [address] [place] [address] Jayashree Lee, DPM Discharge Disposition: Home or Self Care (Routine Discharge) 02/25/2025 8:45 AM CDT Home Care Visit [facility] [address] [place] [address] Navin Neal, OT OT INITIAL EVALUATION 02/25/2025 Travel 02/25/2025 Home Care Visit [facility] Home Care [facility] [address] [place] [address] Marla Logan, PT CASE COMMUNICATION 02/24/2025 2:30 PM CDT Home Care Visit [facility] [address] [place] [address] Marla Logan, PT PT TELEPHONE CALL 02/24/2025 10:30 AM CDT Home Care Visit [facility] [place] [address] [place] [address] Phyllis Grande, RN SN OASIS RECERTIFICATION 02/24/2025 Plan of Care Documentation [place] [address] [place] [address] 02/21/2025 9:30 AM CDT Home Care Visit [place] [address] [place] [address] Yessenia Degroot RN SN HOME VISIT 02/20/2025 12:15 PM CDT Home Care Visit [place] [address] [place] [address] Phyllis Grande, RN SN OASIS RESUMPTION OF CARE 02/20/2025 Plan of Care Documentation [place] [address] [place] [address] 02/20/2025 [place] [address] [place] [phone] Bryan Fleming MD Medication Information 02/18/2025 11:00 AM CDT - 02/18/2025 11:59 PM CDT Hospital Encounter [facility] [address] [place] [address] Meenakshi Sanderson MD Discharge Disposition: Home or Self Care (Routine Discharge) 02/18/2025 9:30 AM CDT Home [facility] Visit [facility] [address] [place] [address] Marla Gifford RN SN NON ADMIT SAEID 02/18/2025 Travel 02/18/2025 Telephone [facility] [address] [place] [phone] Bryan Fleming MD Appointment Request 02/12/2025 Scan [facility] Information Services [address] [place] [address] Scanned, [facility] Procedure 02/12/2025 Telephone [facility] [address] [place] [phone] Bryan Fleming MD Appointment Reminder 02/10/2025 Home Care Visit [facility] Home Care [facility] [address] [place] [address] Desire Chinchilla RN SN OASIS TRANSFER W/OUT DC 02/07/2025 7:34 PM CDT - 02/17/2025 3:40 PM CDT Hospital Encounter [facility] [address] [place] [address] Arturo Rodriguez MD Naveed, MD Urbano Yadav Atif, MD Parikh, Ankit R, MD Discharge Disposition: Home with Home Health Care 02/07/2025 Travel 02/04/2025 1:15 PM CDT - 02/04/2025 11:59 PM CDT Hospital Encounter [facility] [address] [place] [address] Ruth Durbin, Isaac Rogers, DPM Discharge Disposition: Home or Self Care (Routine Discharge) 02/04/2025 Travel 02/03/2025 8:30 AM CDT Home Care Visit [facility] Home Care [facility] [address] [place] [address] Phyllis Grande, RN SN HOME VISIT 01/31/2025 10:00 AM CDT Home Care Visit [facility] Home Care [facility] [address] [place] [address] María Elena Canales LPN SN HOME VISIT 01/30/2025 Results Follow-Up [facility] [address] [place] [phone] Cyndi Alex, CENTRIFUGE OPERATOR CONTINUOUS TELEMETRY 01/30/2025 Telephone [facility] [address] [place] [phone] Bryan Fleming MD Reschedule 01/29/2025 Telephone [facility] [address] [place] [phone] Bryan Fleming MD Holter Monitor 01/29/2025 Telephone [facility] [address] [place] [phone] Bryan Fleming MD Appointment Reminder 01/28/2025 1:00 PM CDT - 01/28/2025 11:59 PM CDT Hospital Encounter [facility] [address] [place] [address] Meenakshi Sanderson MD Discharge Disposition: Home or Self Care (Routine Discharge) 01/28/2025 10:49 AM CDT - 01/28/2025 12:59 PM CDT Hospital Encounter [place] [address] [place] [address] Meenakshi Sanderson MD Discharge Disposition: Home or Self Care (Routine Discharge) 01/28/2025 8:00 AM CDT Home Care Visit [facility] Home Care [facility] [address] [place] [address] Phyllis Grande, RN SN HOME VISIT 01/28/2025 Travel 01/28/2025 Orders Only [facility] [address] [place] [address] Meenakshi Sanderson MD 01/24/2025 11:49 AM CDT - 01/24/2025 11:59 PM CDT Hospital Encounter [facility] [address] [place] [address] Yessi Cantu, ENVIRONMENTAL ENGINEERING MANAGER Discharge Disposition: Home or Self Care (Routine Discharge) 01/24/2025 8:45 AM CDT Home Care Visit [facility] Home Care [facility] [address] [place] [address] Phyllis Grande, RN SN HOME VISIT 01/24/2025 Orders Only [place] [address] [facility] [place] [address] SmithkathieYessi chris, ENVIRONMENTAL ENGINEERING MANAGER 01/23/2025 Home Care Visit [facility] Care [facility] [address] [place] [address] Phyllis Grande, RN CASE COMMUNICATION 01/21/2025 1:55 PM CDT - 01/21/2025 11:59 PM CDT Hospital Encounter [facility] [address] [place] [address] Isaac Serrano, DPM Discharge Disposition: Home or Self Care (Routine Discharge) 01/21/2025 Travel 01/20/2025 11:06 AM CDT - 01/20/2025 11:59 PM CDT Hospital Encounter [place] [address] [facility] [place] [address] Meenakshi Sanderson MD Discharge Disposition: Home or Self Care (Routine Discharge) 01/20/2025 9:00 AM CDT Home Care Visit [facility] [address] [place] [address] Carine Duenas, RN SN OASIS RESUMPTION OF CARE 01/20/2025 Orders Only [place] [address] [place] [address] Meenakshi Sanderson MD 01/20/2025 Hospital Follow-up Call [facility] Cardiovascular Care Unit [address] [place] [address] Regina Foster RN 01/20/2025 Plan of Care Documentation [facility] Care [facility] [address] [place] [address] 01/17/2025 12:00 PM CDT Telephone [facility] [address] [place] [address] Bryan Fleming MD Holter Monitor 01/16/2025 Home Care Visit [facility] Home Care [facility] [address] [place] [address] Desire Chinchilla RN SN OASIS TRANSFER W/OUT DC 01/16/2025 Telephone [facility] [address] [place] [phone] Ritesh Sanchez MD Appointment Request 01/15/2025 2:45 PM CDT - 01/17/2025 1:46 PM CDT Hospital Encounter [facility] Cardiovascular Care Unit [address] [place] [address] Carlos Valderrama MD Markapuram, Srikanth, MD Discharge Disposition: Home with Home Health Care 01/15/2025 Travel 01/14/2025 2:30 PM CDT - 01/14/2025 11:59 PM CDT Hospital Encounter [facility] Interventional Radiology [address] [place] [address] Russell Cannon MD Discharge Disposition: Home or Self Care (Routine Discharge) 01/14/2025 12:58 PM CDT - 01/14/2025 2:29 PM CDT Hospital Encounter [facility] [address] [place] [address] Meenakshi Sanderson MD Discharge Disposition: Home or Self Care (Routine Discharge) 01/14/2025 Travel 01/13/2025 10:31 AM CDT - 01/13/2025 11:59 PM CDT Hospital Encounter [facility] [address] [place] [address] Meenakshi Sanderson MD Discharge Disposition: Home or Self Care (Routine Discharge) 01/13/2025 8:00 AM CDT Home Care Visit [facility] Home Care [facility] [address] [place] [address] Phyllis Grande, RN SN HOME VISIT 01/13/[address] [facility] [address] [place] [address] Meenakshi Sanderson MD 01/13/2025 Telephone [facility] Interventional Radiology [address] [place] [address] Carla Arana, RN Advise (Phyllis schmid/[facility] Home health called stating patient's red [...] 01/10/2025 8:00 AM CDT Home Care Visit [facility] Home Care [facility] [address] [place] [address] Phyllis Grande, RN SN HOME VISIT 01/10/2025 Telephone [facility] [address] [place] [address] Bryan Fleming MD Holter Monitor 01/09/2025 3:30 PM CDT Treatment [facility] Infusion Services [address] [place] [address] Meenakshi Sanderson MD Infusion Therapy; Lab Draw 01/09/2025 2:00 PM CDT - 01/09/2025 11:59 PM CDT Hospital Encounter [facility] Interventional Radiology [address] [place] [address] Meenakshi Sanderson MD Discharge Disposition: Home or Self Care (Routine Discharge) 01/09/2025 Travel 01/07/2025 2:00 PM CDT - 01/07/2025 11:59 PM CDT Hospital Encounter [facility] [address] [place] [address] Isaac Serrano DPM Discharge Disposition: Home or Self Care (Routine Discharge) 01/07/2025 Scan [facility] FACILITY DEFAULT Scanned, [facility] 01/07/2025 Travel 01/07/2025 Telephone [facility] Interventional Radiology [address] [place] [address] Carla Arana, RN Schedule Procedure (Patient accepted procedure date/time of 5/8/25 ARR 1345/PICC 1400 and where to arrive. They are aware they may eat, drink, take meds, and drive after the procedure.) 01/02/2025 8:49 AM CDT - 01/02/2025 11:59 PM CDT Hospital Encounter [facility] [address] [place] [address] Meenakshi Sanderson MD Discharge Disposition: Home or Self Care (Routine Discharge) 01/02/2025 Travel 12/31/2024 10:15 AM CDT Home Care Visit [facility] Home Care [facility] [address] [place] [address] María Elena Canales LPN SN HOME VISIT 12/31/2024 Telephone [facility] [address] [place] [address] Bryan Fleming MD Concerns 12/27/2024 11:00 AM CDT Home Care Visit [facility] Home Care [facility] [address] [place] [address] Phyllis Grande, RN SN OASIS RECERTIFICATION 12/27/2024 Plan of Care Documentation [facility] Home Care [facility] [address] [place] [address] 12/26/2024 Telephone [facility] [address] [place] [address] [phone] Bryan Fleming MD Heart Problem 12/26/2024 Results Follow-Up [facility] [address] [place] [address] Connie Forman LPN USE ECHOCARDIOGRAM 12/25/2024 9:57 AM CDT - 12/25/2024 11:59 PM CDT Hospital Encounter [facility] Cardiology - [facility] [place] [address] [place] [address] Bryan Fleming MD Discharge Disposition: Home or Self Care (Routine Discharge) 12/25/2024 9:54 AM CDT - 12/25/2024 9:56 AM CDT Hospital Encounter [facility] Non Invasive Cardiology - [facility] [address] [place] [address] Bryan Fleming MD Discharge Disposition: Home or Self Care (Routine Discharge) 12/25/2024 Travel 12/24/2024 8:41 AM CDT - 12/24/2024 11:59 PM CDT Hospital Encounter [facility] Wound [facility] [address] [place] [address] Jayashree Lee DPM Discharge Disposition: Home or Self Care (Routine Discharge) 12/24/2024 Travel 12/23/2024 Results Follow-Up [facility] [address] [place] [address] Ruth Durbin, VIVIANA MRI FOOT LT WWO CON, MRI FOOT RT WWO CON 12/20/2024 12:30 PM CDT Home Care Visit [facility] Home Care [facility] [address] [place] [address] María Elena Canales LPN SN HOME PRN VISIT 12/18/2024 9:02 AM CDT - 12/18/2024 11:59 PM CDT Hospital Encounter [facility] - [address] [place] [address] Ruth Durbin NP Discharge Disposition: Home or Self Care (Routine Discharge) 12/17/2024 2:02 PM CDT - 12/17/2024 11:59 PM CDT Hospital Encounter [facility] Wound [facility] [address] [place] [address] Isaac Serrano DPM Discharge Disposition: Home or Self Care (Routine Discharge) 12/17/2024 Travel 12/13/2024 10:00 AM CDT Home Care Visit [facility] Home Care [facility] [address] [place] [address] María Elena Canales LPN SN HOME VISIT 12/10/2024 9:42 AM CDT - 12/10/2024 11:59 PM CDT Hospital Encounter [facility] [address] [place] [address] Jayashree Lee, SOURAV Discharge Disposition: Home or Self Care (Routine Discharge) 12/10/2024 Travel from Last 3 Months Immunizations Immunization Administration Dates Next Due Fluzone (IIV3, Trivalent, 0.5 ML Prefilled Syrin ge) 06/02/2024 Social History Tobacco Use Types Packs/Day Years Used Date Smoking Tobacco: Every Day Cigarettes 1 40 Smokeless Tobacco: Never Tobacco Cessation:Ready to Q uit: Not Asked; Counseling Given: Not Answered Alcohol Use Standard Drinks/Week Comments Never 0 (1 standard drink = 0.6 oz pur e alcohol) OASIS D0700: Social Isolation Answer Da te Recorded Frequency of experiencing loneliness or isolatio n Never 02/20/2025 OASIS A1250: Transportation Answer Date Recorded Lack of Transportation (Medical) No 02/20/2025 Lack of Transportation (Non-Medical) No 02/20/2025 Patient Unable or Declines to Respond No 02/20/2025 OASIS B1300: Health Literacy Answer Onofre e Recorded Frequency of needing help to read materials from doctor or pharmacy Sometimes 02/20/2025 [facility] Utilities Answer Date Recorded In the past 12 months has e [facility], gas, oil, or water [employer] threatened to shut off services in your home? No 02/07/2025 Humiliation, Afraid, Rape, and Kick questionnair e Answer Date Recorded Within the last year, have y ou been afraid of your partner or ex-partner? No 02/07/2025 Within the last year, have y ou been humiliated or emotionally abused in other ways by your partner or ex-partner? No Within the last year, have y ou been kicked, hit, slapped, or otherwise physically hurt by your partner or ex-partner? No 02/07/2025 Within the last year, have y ou been raped or forced to have any kind of sexual activity by your partner or ex-partner? No 02/07/2025 Overall Financial Resource Strain (CARDIA) Answe r Date Recorded How hard is it for you to pa y for the very basics like food, housing, medical care, and heating? Not hard at all 02/07/2025 Hunger Vital Sign Answer Date Recorded Within the past 12 months, y ou worried that your food would run out before you got the money to buy more. Never true 02/08/20 25 Within the past 12 months, t he food you bought just didn't last and you didn't have money to get more. Never true 02/07/2025 PRAPARE - Transportation Answer Date Re corded In the past 12 months, has l ack of transportation kept you from medical appointments or from getting medications? No 02/2025 In the past 12 months, has l ack of transportation kept you from meetings, work, or from getting things needed for daily living? No 02/07/2025 Housing Stability Vital Sign Answer Onofre e Recorded In the last 12 months, was t here a time when you were not able to pay the mortgage or rent on time? No 02/07/2025 In the past 12 months, how m any times have you moved where you were living? 0 02/07/2025 At any time in the past 12 m [facility], were you homeless or living in a residential (including now)? No 02/07/2025 Sex and Gender Information Value Date Recorded Sex Assigned at Male 09/23/2024 10:52 AM PHYSICIST NUCLEAR Legal Sex Male 5:55 PM PHYSICIST NUCLEAR Gender Identity Not on file Sexual Orientation Not on file Last Filed Vital Signs Vital Sign Reading Time Taken Comments Blood Pressure 150/80 03/06/2025 12:49 PM CDT Pulse 100 03/06/2025 12:49 PM CDT Temperature 35.6 C (96.1 F) 03/06/2025 12:49 PM CDT Respiratory Rate 18 03/06/2025 12:4 9 PM CDT Oxygen Saturation 100% 03/06/2025 12: 49 PM CDT 2 liters of oxygen Inhaled Oxygen Concentration - - Weight 115 kg (253 lb 8.5 oz) 02/17/2025 7:00 AM CDT Height 182.9 cm (6') 02/07/2025 8:01 PM CDT Body Mass Index 34.38 02/07/2025 8:01 PM CDT Plan of Treatment Upcoming Encounters Date Type Department Care Team (Late st Contact Info) Description 03/11/2025 11:00 AM CDT Appointment [facility] [address] [place] [address] Meenakshi Sanderson MD [address] [place] [address] Jayashree Lee, DPM [address] [facility] [place] [address] 03/12/2025 11:00 AM CDT [facility] [address] [place] [address] Leona Murcia, LONE LEAD LINEMAN 03/13/2025 2:00 PM CDT [facility] [address] [place] [address] Bryan Fleming MD [address] [place] [address] [phone] 03/14/2025 9:15 AM CDT [facility] [address] [place] [address] MaríaE lena Canales LPN 03/14/2025 10:00 AM CDT [facility] Visit [facility] [address] [place] [address] Leona Murcia, LONE LEAD LINEMAN 2025 10:00 AM CDT [facility] Visit [facility] [address] [place] [address] Leona Murcia, LONE LEAD LINEMAN 03/21/2025 8:00 AM CDT Home Care Visit [facility] [address] [place] [address] Phyllis Grande, RN 03/21/2025 10:00 AM CDT Home [facility] Visit [facility] [address] [place] [address] Marla Logan, PT [address] [place] [address] 03/28/2025 9:00 AM CDT Home Care Visit [place] [address] [place] [address] Phyllis Grande, RN 04/04/2025 8:00 AM CDT Home Care Visit [facility] [address] [place] [address] Phyllis Grande, RN 04/11/2025 8:00 AM CDT Home Care Visit [facility] [address] [place] [address] Phyllis Grande, RN 04/18/2025 9:00 AM CDT Home Care Visit [facility] [address] [place] [address] Phyllis Grande, RN 04/25/2025 8:00 AM CDT Appointment [facility] [address] [place] [address] Phyllis Grande, RN Health Maintenance Due Date Last Done Comments ASCVD LDL 1962 ASCVD Statin 1962 Colorectal Cancer Screening Colonoscopy (10 Years) 1962 Kidney Health Evaluation 1962 Lipid Panel 1962 Annual Physical 1965 [...] - 2023-2 5 season) 2024 01/26/2021, 12/15/2020 Hemoglobin A1C 07/18/2025 01/15/2025 Meningococcal B Vaccine Aged Out No l onger eligible based on patient's age to complete this topic Meningococcal Vaccine Aged Out No carlton tamanna eligible based on patient's age to complete this topic RSV Immunizations Under 20 Months Aged Out No longer eligible b ased on patient's age to complete this topic Procedures Procedure Name Priority Date/Time Associated Diagnosis Comments MOBILE CONTINUOUS TELEMETRY Routine 02/28/2025 1:15 PM CDT A-fib ([facility]) Atrial flutter, unspecified type ([facility]) Atrial fibrillation status post cardioversion ([facility]) HOME O2 EVAL Routine 02/17/2025 1:52 PM CDT POCT GLUCOSE - DOCKED DEVICE Routine 02/17/2025 12:11 PM CDT POCT GLUCOSE - DOCKED DEVICE Routine 02/17/2025 6:31 AM CDT CBC W/DIFF AUTOMATED Routine 02/17/2025 5:46 AM CDT BASIC METABOLIC PANEL Routine 02/17/2025 5:46 AM CDT VANCOMYCIN TIMED 02/17/2025 5:46 AM CDT POCT GLUCOSE - DOCKED DEVICE Routine 02/16/2025 8:14 PM CDT POCT GLUCOSE - DOCKED DEVICE Routine 02/16/2025 4:08 PM CDT POCT GLUCOSE - DOCKED DEVICE Routine 02/16/2025 11:01 AM CDT HOME O2 EVAL Routine 02/16/2025 9:40 AM CDT POCT GLUCOSE - DOCKED DEVICE Routine 02/16/2025 6:17 AM CDT RENAL FUNCTION PANEL Routine 02/16/2025 1:30 AM CDT POCT GLUCOSE - DOCKED DEVICE Routine 02/15/2025 9:07 PM CDT POCT GLUCOSE - DOCKED DEVICE Routine 02/15/2025 4:46 PM CDT POCT GLUCOSE - DOCKED DEVICE Routine 02/15/2025 11:45 AM CDT POCT GLUCOSE - DOCKED DEVICE Routine 02/15/2025 5:40 AM CDT MAGNESIUM Routine 02/15/2025 1:29 AM CDT BASIC METABOLIC PANEL Routine 02/15/2025 1:29 AM CDT POCT GLUCOSE - DOCKED DEVICE Routine 02/14/2025 8:29 PM CDT POCT GLUCOSE - DOCKED DEVICE Routine 02/14/2025 4:49 PM CDT POCT GLUCOSE - DOCKED DEVICE Routine 02/14/2025 11:36 AM CDT POCT GLUCOSE - DOCKED DEVICE Routine 02/14/2025 6:30 AM CDT CBC, AUTO, NO DIFF Routine 02/14/2025 2: 52 AM CDT BASIC METABOLIC PANEL Routine 02/14/2025 2:52 AM CDT POCT GLUCOSE - DOCKED DEVICE Routine 02/13/2025 9:15 PM CDT POCT GLUCOSE - DOCKED DEVICE Routine 02/13/2025 4:43 PM CDT POCT GLUCOSE - DOCKED DEVICE Routine 02/13/2025 12:08 PM CDT POCT GLUCOSE - DOCKED DEVICE Routine 02/13/2025 8:36 AM CDT HOME O2 EVAL Routine 02/13/2025 7:33 AM CDT POCT GLUCOSE - DOCKED DEVICE Routine 02/13/2025 6:32 AM CDT MAGNESIUM Routine 02/13/2025 2:43 AM CDT BASIC METABOLIC PANEL Routine 02/13/2025 2:43 AM CDT POCT GLUCOSE - DOCKED DEVICE Routine 02/12/2025 8:16 PM CDT POCT GLUCOSE - DOCKED DEVICE Routine 02/12/2025 3:47 PM CDT POCT GLUCOSE - DOCKED DEVICE Routine 02/12/2025 11:25 AM CDT CBC, AUTO, NO DIFF Routine 02/12/2025 8: 36 AM CDT MAGNESIUM Routine 02/12/2025 8:36 AM CDT BASIC METABOLIC PANEL Routine 02/12/2025 8:36 AM CDT POCT GLUCOSE - DOCKED DEVICE Routine 02/12/2025 6:05 AM CDT PROCEDURE GENERIC (SCAN ORDER) Routine 02/12/2025 POCT GLUCOSE - DOCKED DEVICE Routine 02/11/2025 9:08 PM CDT POCT GLUCOSE - DOCKED DEVICE Routine 02/11/2025 4:42 PM CDT POCT GLUCOSE - DOCKED DEVICE Routine 02/11/2025 11:19 AM CDT VANCOMYCIN Routine 02/11/2025 11:06 AM CDT MAGNESIUM Routine 02/11/2025 11:06 AM CDT BASIC METABOLIC PANEL Routine 02/11/2025 11:06 AM CDT POCT GLUCOSE - DOCKED DEVICE Routine 02/11/2025 5:44 AM CDT POCT GLUCOSE - DOCKED DEVICE Routine 02/10/2025 7:49 PM CDT POCT GLUCOSE - DOCKED DEVICE Routine 02/10/2025 3:55 PM CDT BMP WITHOUT GLUCOSE Routine 02/10/2025 1 :03 PM CDT XR CHEST PA OR AP 1V Routine 02/10/2025 11:58 AM CDT US GD THORACENT W IMAGING Today 02/10/2025 11:39 AM CDT HC PH BODY FLUID Nurse Collected Priority 02/10/2025 11:39 AM CDT HC GLUCOSE BODY FLUID Nurse Collected Priority 02/10/2025 11:39 AM CDT PROTEIN TOTAL FLUID Nurse Collected Priority 02/10/2025 11:39 AM CDT LDH BODY FLUID Nurse Collected Priority 02/10/2025 11:39 AM CDT HC BODY FLUID CULTURE Nurse Collected Priority 02/10/2025 11:39 AM CDT HOME O2 EVAL Routine 02/10/2025 10:03 AM CDT POCT GLUCOSE - DOCKED DEVICE Routine 02/09/2025 9:37 PM CDT CBC, AUTO, NO DIFF Routine 02/09/2025 9:22 AM CDT BMP WITHOUT GLUCOSE Routine 02/09/2025 9 :22 AM CDT VANCOMYCIN TIMED 02/09/2025 9:22 AM CDT POCT GLUCOSE - DOCKED DEVICE Routine 02/09/2025 5:41 AM CDT POCT GLUCOSE - DOCKED DEVICE Routine 02/08/2025 8:33 PM CDT POCT GLUCOSE - DOCKED DEVICE Routine 02/08/2025 3:[address] HEAD WO CON Today 02/08/2025 12:52 PM CDT PROTHROMBIN TIME, VENOUS Routine 02/08/2025 11:35 AM CDT POCT GLUCOSE - DOCKED DEVICE Routine 02/08/2025 11:03 AM CDT POCT GLUCOSE - DOCKED DEVICE Routine 02/08/2025 5:42 AM CDT PROCALCITONIN (PCT) Routine 02/08/2025 5 :40 AM CDT MAGNESIUM Routine 02/08/2025 5:40 AM CDT COMPREHENSIVE METABOLIC PANEL Routine 02/08/2025 5:40 AM CDT CBC W/DIFF AUTOMATED Routine 02/08/2025 5:40 AM CDT RESPIRATORY PCR PANEL 2 Nurse Collected Priority 02/08/2025 2:25 AM CDT POCT GLUCOSE - DOCKED DEVICE Routine 02/07/2025 9:17 PM CDT LACTIC ACID Routine 02/07/2025 9:14 PM CDT BASIC METABOLIC PANEL Routine 02/07/2025 9:14 PM CDT CBC W/DIFF AUTOMATED Routine 02/07/2025 9:14 PM CDT XR CHEST PORTABLE STAT 02/07/2025 8:5 0 PM CDT C-REACTIVE PROTEIN Routine 01/28/2025 9: 05 AM CDT Acute osteomyelitis of ankle and foot, right (CMS/HCC HHS/HCC) VANCOMYCIN TROUGH Routine 01/28/2025 9:0 5 AM CDT Acute osteomyelitis of ankle and foot, right (CMS/HCC HHS/HCC) COMPREHENSIVE METABOLIC PANEL Routine 01/28/2025 9:05 AM CDT Acute osteomyelitis of ankle and foot, right (CMS/HCC HHS/HCC) SED RATE, ERYTHROCYTE (ESR) Routine 01/28/2025 9:05 AM CDT Acute osteomyelitis of ankle and foot, right (CMS/HCC HHS/HCC) CBC W/DIFF AUTOMATED Routine 01/28/2025 9:05 AM CDT Acute osteomyelitis of ankle and foot, right (CMS/HCC HHS/HCC) CBC W/DIFF AUTOMATED Routine 01/24/2025 9:40 AM CDT Sick sinus syndrome (CMS/HCC HHS/HCC) Open wound COMPREHENSIVE METABOLIC PANEL Routine 01/24/2025 9:40 AM CDT Sick sinus syndrome (CMS/HCC HHS/HCC) Open wound COMPREHENSIVE METABOLIC PANEL Routine 01/20/2025 9:05 AM CDT Osteomyelitis of right foot (CMS/HCC HHS/HCC) VANCOMYCIN TROUGH Routine 01/20/2025 9:0 5 AM CDT Osteomyelitis of right foot (CMS/HCC HHS/HCC) CBC W/DIFF AUTOMATED Routine 01/20/2025 9:05 AM CDT Osteomyelitis of right foot (CMS/HCC HHS/HCC) POCT GLUCOSE - DOCKED DEVICE Routine 01/17/2025 11:51 AM CDT POCT GLUCOSE - DOCKED DEVICE Routine 01/17/2025 6:16 AM CDT VANCOMYCIN TIMED 01/17/2025 5:53 AM CDT MAGNESIUM Routine 01/17/2025 5:53 AM CDT BASIC METABOLIC PANEL Routine 01/17/2025 5:53 AM CDT CBC W/DIFF AUTOMATED Routine 01/17/2025 5:53 AM CDT POCT GLUCOSE - DOCKED DEVICE Routine 01/16/2025 9:59 PM CDT POCT GLUCOSE - DOCKED DEVICE Routine 01/16/2025 5:16 PM CDT POCT GLUCOSE - DOCKED DEVICE Routine 01/16/2025 11:21 AM CDT POCT GLUCOSE - DOCKED DEVICE Routine 01/16/2025 6:27 AM CDT VANCOMYCIN TIMED 01/16/2025 3:10 AM CDT PRO-BRAIN NATRIURETIC PEPTIDE Routine 01/16/2025 3:10 AM CDT BASIC METABOLIC PANEL Routine 01/16/2025 3:10 AM CDT CBC W/DIFF AUTOMATED Routine 01/16/2025 3:10 AM CDT POCT GLUCOSE - DOCKED DEVICE Routine 01/15/2025 9:30 PM CDT TROPONIN, QUANT TIMED 01/15/2025 9:20 PM CDT XR CHEST PORTABLE Today 01/15/2025 8:0 1 PM CDT ECG 12-LEAD STAT 01/15/2025 3:58 PM CDT VANCOMYCIN STAT 01/15/2025 3:19 PM CDT TROPONIN, QUANT TIMED 01/15/2025 3:19 PM CDT HEMOGLOBIN, GLYCOSYLATED Routine 01/15/2025 3:19 PM CDT LACTIC ACID Routine 01/15/2025 3:19 PM CDT PROTHROMBIN TIME, VENOUS Routine 01/15/2025 3:19 PM CDT CBC W/DIFF AUTOMATED Routine 01/15/2025 3:19 PM CDT BASIC METABOLIC PANEL Routine 01/15/2025 3:19 PM CDT IR REPLACE PICC WO PORT PUMP Routine 01/14/2025 3:37 PM CDT S/P PICC central line placement CBC W/DIFF AUTOMATED Routine 01/13/2025 8:30 AM CDT Osteomyelitis of right foot (CMS/HCC HHS/HCC) SED RATE, ERYTHROCYTE (ESR) Routine 01/13/2025 8:30 AM CDT Osteomyelitis of right foot (CMS/HCC HHS/HCC) COMPREHENSIVE METABOLIC PANEL Routine 01/13/2025 8:30 AM CDT Osteomyelitis of right foot (CMS/HCC HHS/HCC) VANCOMYCIN TROUGH Routine 01/13/2025 8:3 0 AM CDT Osteomyelitis of right foot (CMS/HCC HHS/HCC) C-REACTIVE PROTEIN Routine 01/13/2025 8: 30 AM CDT Osteomyelitis of right foot (CMS/HCC HHS/HCC) C-REACTIVE PROTEIN Routine 01/09/2025 2: 50 PM CDT Other chronic osteomyelitis, right ankle [...] HHS/HCC) IR PICC PLC GREATER 5YR Routine 01/09/2025 2:27 PM CDT Chronic osteomyelitis of toe, [...] heart failure (CMS/HCC HHS/HCC) CARDIOVERSION EXTERNAL Routine 12/25/2024 9:57 AM CDT Acute on chronic systolic [...] with complication, initial encounter Osteomyelitis (CMS/HCC HHS/HCC) from Last 3 Months Results * MOBILE CONTINUOUS TELEMETRY (02/28/2025 1:15 PM CDT) [facility] - 02/28/2025 1:15 PM CDT AMBULATORY CARDIAC RHYTHM MONITORING Body guard INDICATION: atrial fib/flut ORDERING PROVIDER: lonnie INTERPRETING PROVIDER: Bryan Fleming MD PERIOD OF MONITORIN/16-02/15/2025 EFFECTIVE MONITORINd 7h CUMULATIVE DATA: Range: 72-117 Average: 101 Tachycardia: 35% Bradycardia: <1% SINUS NODE: Bradycardia: - Inappropriate tachycardia: - Chronotropic competence: - Pause more than 3 seconds: - Observation: - function could not be tested due to 100 % atrial flutter/fib ATRIOVENTRICULAR NODE: Heart block: no Ventricular Pause more than 3 seconds: 0 Observation: normal function SUPRAVENTRICULAR ARRHYTHMIA: Premature atrial contraction: - Atrial tachycardia: - Atrial fibrillation or flutter: 100% Other supraventricular arrhythmia: - VENTRICULAR ARRHYTHMIA: Premature ventricular contraction: <1% Ventricular couplets: few Non-sustained ventricular tachycardia: - Sustained ventricular tachycardia: - Idioventricular rhythm: - SYMPTOMS: - CONCLUSIONS: 100% atrial fib/flutter Bryan Fleming MD Clinical Cardiac Social Research Assistant [facility] Bryan Fleming MD CV VASCULAR ORDERABLES Final R esult Performing Organization Address [facility] de Phone Number [facility]AN CARDIOVASCULAR * (ABNORMAL) POCT glucose (02/17/2025 12:11 PM CDT) Only the most recent of43 resultswithin the time period is included. GLUCOSE POC 124(H) 70 - 109 02/17/2025 12:[address] [facility] 02/17/2025 12:1 1 PM CDT Aristeo Pratt MD POCT ORDERABLES - DEVICE Final Result Performing Organization Address [facility] de Phone Number [facility] [address] [place] [address], [place] [phone] * (ABNORMAL) BASIC METABOLIC PANEL (02/17/2025 5:46 AM CDT) Only the most recent of11 resultswithin the time period is included. SODIUM S/P/B 140 136 - 145 MMOL/L 02/17/2025 6:54 AM [facility] POTASSIUM S/P/B 3.9 3.5 - 5.1 MMOL/L 02/17/2025 6:54 AM [facility] CHLORIDE S/P/B 103 97 - 115 MMOL/L 02/17/2025 6:54 AM [facility] CO2 32.1(H) 21.0 - 32.0 MMOL/L 02/17/2025 6:54 AM [facility] GLUCOSE 156(H) 74 - 106 MG/DL 02/17/2025 6:54 AM [facility] BUN 30(H) 7 - 18 MG/DL 02/17/2025 6:54 AM [facility] CREATININE S/P/B 0.99 0.70 - 1.30 MG/DL 02/17/2025 6:54 AM [facility] CALCIUM S/P/B 8.9 8.5 - 10.1 MG/DL 02/17/2025 6:54 AM [facility] ANION GAP 4.9 2.0 - 10.0 MMOL/L 02/17/2025 6:54 AM [facility] OSMOLALITY (CALC) 299 MOSM/KG 025 6:54 AM [facility] Comment:REFERENCE RANGE NOT ESTABLISHED GFR ESTIMATE 86(L) >90 ML/MIN/1. 73 M2 02/17/2025 6:54 AM [facility] GFR NOTES GFR REFERENCE S: 02/17/2025 6:54 AM [facility] Comment: THE ESTIMATED GFR IS CALCULATED [...] ml/min/1.73 m2 G5,KIDNEY FAILURE: <15 ml/min/1.73 m2 02/17/2025 5:46 AM CDT Aristeo Pratt MD LABORATORY Final Result [facility] [address] [place] [address], [id number] * (ABNORMAL) CBC W/DIFF AUTOMATED (02/17/2025 5:46 AM CDT) Only the most recent of11 resultswithin the time period is included. WBC 6.47 4.00 - 10.80 x10'3/uL 02/17/2025 6:[address] [facility] RBC 4.14(L) 4.50 - 6.10 x10'6/uL 02/17/2025 6:[address] [facility] HGB 13.4 13.0 - 18.0 G/DL 02/17/2025 6:[address] [facility] HCT 41.7 37.0 - 52.0 % 02/17/2025 6:[address] [facility] MCV 100.7(H) 78.0 - 100.0 FL 02/17/2025 6:[address] [facility] MCH 32.4(H) 27.0 - 31.0 PG 02/17/2025 6:[address] [facility] MCHC 32.1(L) 33.0 - 36.0 G/DL 02/17/2025 6:[address] [facility] RDW 13.9 11.5 - 14.5 % 02/17/2025 6:[address] [facility] PLT 163 150 - 350 x10'3/uL 02/17/2025 6:[address] [facility] MPV 10.5(H) 7.4 - 10.4 FL 02/17/2025 6:[address] [facility] DIFFERENTIAL TYPE AUTOMATED DIFFERENTIAL 02/17/2025 6:[address] [facility] SEG NEUTROPHILS 65.5 % 6:[address] [facility] LYMPHOCYTES 15.6 % 02/17/2025 6:[address] [facility] MONOCYTES 15.9 % 02/17/2025 6:[address] [facility] EOSINOPHILS 2.3 % 02/17/2025 6:[address] [facility] BASOPHILS 0.5 % 02/17/2025 6:[address] [facility] IMMATURE GRANS % 0.2 % 02/18/20 6:[address] [facility] ABS. NEUTROPHILS 4.24 1.60 - 8.30 x10'3/uL 02/17/2025 6:[address] [facility] ABS. LYMPHOCYTES 1.01 0.80 - 4.70 x10'3/uL 02/17/2025 6:[address] [facility] ABS. MONOCYTES 1.03 0.00 - 1.50 x10'3/uL 02/17/2025 6:[address] [facility] ABS. EOSINOPHILS 0.15 0.00 - 0.40 x10'3/uL 02/17/2025 6:[address] [facility] ABS. BASOPHILS 0.03 0.00 - 0.20 x10'3/uL 02/17/2025 6:[address] [facility] ABS. IMMATURE GRANULOCYTES 0.01 0.00 - 0.03 x10'3/uL 02/17/2025 6:[address] [facility] ABS. NUCLEATED RBC'S 0.00 0.00 - 0.01 x10'3/uL 02/17/2025 6:[address] [facility] NRBC % 0.0 % 02/17/2025 6:[address] [facility] 02/17/2025 5:46 AM CDT Aristeo Pratt MD LABORATORY Final Result Performing Organization Address [facility] Co de Phone Number [facility] [address] [place] [address], [place] [phone] * Vancomycin Random Level (02/17/2025 5:46 AM CDT) Only the most recent of6 resultswithin the time period is included. VANCOMYCIN RANDOM 11.7 MCG/ML 02/17/2025 6:[address] [facility] Comment:REFERENCE RANGE NOT ESTABLISHED 02/17/2025 5:46 AM CDT Aristeo Pratt MD LABORATORY Final Result Performing Organization Address [facility] de Phone Number [facility] [address] [place] [address], [place] [phone] * (ABNORMAL) RENAL FUNCTION PANEL (02/16/2025 1:30 AM CDT) SODIUM S/P/B 138 136 - 145 MMOL/L 02/16/2025 2:[address] [facility] POTASSIUM S/P/B 3.5 3.5 - 5.1 MMOL/L 02/16/2025 2:[address] [facility] CHLORIDE S/P/B 97 97 - 115 MMOL/L 02/16/2025 2:[address] [facility] CO2 37.0(H) 21.0 - 32.0 MMOL/L 02/16/2025 2:[address] [facility] GLUCOSE 140(H) 74 - 106 MG/DL 02/16/2025 2:[address] [facility] BUN 32(H) 7 - 18 MG/DL 02/16/2025 2:04 AM [facility] CREATININE S/P/B 1.32(H) 0.70 - 1.30 MG/DL 02/16/2025 2:04 AM [facility] CALCIUM S/P/B 8.8 8.5 - 10.1 MG/DL 02/16/2025 2:[address] [facility] ALBUMIN S/P/B 2.9(L) 3.4 - 5.0 G/DL 02/16/2025 2:04 AM [facility] PHOSPHORUS 3.8 2.5 - 4.9 MG/DL 02/16/2025 2:04 AM [facility] ANION GAP 4.0 2.0 - 10.0 MMOL/L 02/16/2025 2:04 AM [facility] OSMOLALITY (CALC) 295 MOSM/KG 025 2:04 AM [facility] Comment:REFERENCE RANGE NOT ESTABLISHED GFR ESTIMATE 61(L) >90 ML/MIN/1. 73 M2 02/16/2025 2:04 AM [facility] GFR NOTES GFR REFERENCE S: 02/16/2025 2:04 AM [facility] Comment: THE ESTIMATED GFR IS CALCULATED [...] ml/min/1.73 m2 G5,KIDNEY FAILURE: <15 ml/min/1.73 m2 02/16/2025 1:30 AM CDT us Aristeo Pratt MD LABORATORY Final Result Performing Organization Address [facility]/ZIP Co de Phone Number [facility] [address] [place] [address], [phone] * MAGNESIUM (02/15/2025 1:29 AM CDT) Only the most recent of6 resultswithin the time period is included. MAGNESIUM 2.4 1.6 - 2.6 MG/DL 02/15/2025 2:[address] [facility] 02/15/2025 1:29 AM CDT Aristeo Pratt MD LABORATORY Final Result Performing Organization Address [facility] de Phone Number [facility] [address] [place] [address], [phone] * (ABNORMAL) CBC, AUTO, NO DIFF (02/14/2025 2:52 AM CDT) Only the most recent of3 resultswithin the time period is included. WBC 6.36 4.00 - 10.80 x10'3/uL 02/14/2025 3:[address] [facility] RBC 3.97(L) 4.50 - 6.10 x10'6/uL 02/14/2025 3:[address] [facility] HGB 12.7(L) 13.0 - 18.0 G/DL 02/14/2025 3:[address] [facility] HCT 40.1 37.0 - 52.0 % 02/14/2025 3:[address] [facility] MCV 101.0(H) 78.0 - 100.0 FL 02/14/2025 3:[address] [facility] MCH 32.0(H) 27.0 - 31.0 PG 02/14/2025 3:[address] [facility] MCHC 31.7(L) 33.0 - 36.0 G/DL 02/14/2025 3:[address] [facility] RDW 14.6(H) 11.5 - 14.5 % 02/14/2025 3:[address] [facility] PLT 164 150 - 350 x10'3/uL 02/14/2025 3:[address] [facility] MPV 10.4 7.4 - 10.4 FL 02/14/2025 3:[address] [facility] 02/14/2025 2:52 AM CDT Aristeo Pratt MD LABORATORY Final Result Performing Organization Address [facility]/ZIP Co de Phone Number [facility] [address] [place] [address], [phone] * PROCEDURE GENERIC (02/12/2025) [facility] Scanned SCANNING Final Resul t Performing Organization Address [facility] de Phone Number [facility] ONBASE * (ABNORMAL) BMP WITHOUT GLUCOSE (02/10/2025 1:03 PM CDT) Only the most recent of2 resultswithin the time period is included. SODIUM S/P/B 141 136 - 145 MMOL/L 02/10/2025 1:[address] [facility] POTASSIUM S/P/B 4.5 3.5 - 5.1 MMOL/L 02/10/2025 1:[address] [facility] Comment:MILD HEMOLYSIS, RESU LT MAY BE AFFECTED. CHLORIDE S/P/B 107 97 - 115 MMOL/L 02/10/2025 1:[address] [facility] CO2 30.0 21.0 - 32.0 MMOL/L 02/10/2025 1:[address] [facility] BUN 33(H) 7 - 18 MG/DL 02/10/2025 1:[address] [facility] CREATININE S/P/B 1.21 0.70 - 1.30 MG/DL 02/10/2025 1:[address] [facility] CALCIUM S/P/B 9.2 8.5 - 10.1 MG/DL 02/10/2025 1:[address] [facility] ANION GAP 4.0 2.0 - 10.0 MMOL/L 02/10/2025 1:[address] [facility] GFR ESTIMATE 68(L) >90 ML/MIN/1. 73 M2 02/10/2025 1:[address] [facility] GFR NOTES GFR REFERENCE S: 02/10/2025 1:[address] [facility] Comment: THE ESTIMATED GFR IS CALCULATED [...] ml/min/1.73 m2 G5,KIDNEY FAILURE: <15 ml/min/1.73 m2 02/10/2025 1:03 PM CDT us Momo Clement MD LABORATORY Final Result [facility] [address] [place] [address], [id number] * XR CHEST PA OR AP 1V (02/10/2025 11:58 AM CDT) Anatomical Region Laterality Modality Chest Radiographic Melinda ging 02/10/2025 11:5 9 AM CDT Impressions 02/10/2025 12:00 PM CDT IMPRESSION: No pneumothorax post right thoracentesis with significant interval reduction in size right effusion. There is small residual right effusion. Tiny left effusion. Cardiomegaly with pulmonary congestion. Ordered By: ACE YANCEY Interpreted By: Ace Yancey MD, 02/10/2025 11:59 AM Narrative 02/10/2025 12:00 PM [address] [address] EXAM DESCRIPTION: Chest 1 view EXAM TIME : 02/10/2025 11:37 AM INDICATION: Post RT thoracentesis COMPARISON FILM : 02/07/2025 TECHNIQUE: Chest- 1 - view, 1 - images FINDINGS: Upright AP film obtained. Left-sided PICC line again noted with tip in mid SVC. Stable cardiomegaly. No pneumothorax post right thoracentesis with interval reduction in size of right effusion. There is small residual right effusion with associated atelectasis. Tiny left effusion. There is central pulmonary congestion. No acute bony abnormality. Procedure Note Ace Yancey MD - 02/10/[address] [address] EXAM DESCRIPTION: Chest 1 view EXAM TIME : 02/10/2025 11:37 AM INDICATION: Post RT thoracentesis COMPARISON FILM : 02/07/2025 TECHNIQUE: Chest- 1 - view, 1 - images FINDINGS: Upright AP film obtained. Left-sided PICC line again noted with tip in midSVC. Stable cardiomegaly. No pneumothorax post right thoracentesis withinterval reduction in size of right effusion. There is small residualright effusion with associated atelectasis. Tiny left effusion. There iscentral pulmonary congestion. No acute bony abnormality. IMPRESSION: No pneumothorax post right thoracentesis with significantinterval reduction in size right effusion. There is small residual righteffusion. Tiny left effusion. Cardiomegaly with pulmonary congestion. Ordered By: ACE YANCEY Interpreted By: Ace Yancey MD, 02/10/2025 11:59 AM us Ace Yancey MD GENERAL IMAGING Final Resu lt * US GD THORACENT W IMAGING (02/10/2025 11:39 AM CDT) Anatomical Region Laterality Modality Ultrasound 02/10/2025 12:0 0 PM CDT Impressions 02/10/2025 12:02 PM CDT Impression: Procedure note for ultrasound-guided right thoracentesis. Ordered By: VU CACERES Interpreted By: Ace Yancey MD, 02/10/2025 12:00 PM Narrative 02/10/2025 12:02 PM CDT [facility] [address] [address] IR Procedure Note Pre op diagnosis: Right pleural effusion Post Op Diagnosis: same Procedure: Ultrasound-guided right thoracentesis Grafts/Implants: none Radiologist: Luis M Urban Anthropologist: [email or web address] Anesthesia: Local - 1% Lidocaine Technique /Findings: Procedure and risks were discussed with patient including risks of bleeding, pneumothorax etc. Informed consent was obtained. Ultrasound demonstrated large right effusion. Suitable skin site was marked posterolaterally using ultrasound. The site was prepped and draped in sterile fashion. All elements of maximal sterile barrier technique as well as all elements of sterile ultrasound technique were utilized during this procedure. Timeout was performed. Following administration of 1% lidocaine local anesthetic a One-step needle/catheter was advanced under ultrasound guidance just over the superior aspect of the underlying rib to the pleural space and the catheter was left in place. Approximately 1550 ml of clear yellow serousfluid was removed and sent for labs. Volume limited due to patient coughing. Small residual effusion on post thoracentesis ultrasound. The catheter was removed and a sterile occlusive dressing applied. Post thoracentesis chest film showed no pneumothorax. Drains: none Complications: none Estimated Blood Loss: nil Specimens removed: 1550 ml of pleural fluid removed. Condition: good Procedure Note Ace Yancey MD - 02/10/2025 [facility] [address] [place], [place] [address] IR Procedure Note Pre op diagnosis: Right pleural effusion Post Op Diagnosis: same Procedure: Ultrasound-guided right thoracentesis Grafts/Implants: none Radiologist: Luis M Urban Anthropologist: none Anesthesia: Local - 1% Lidocaine Technique /Findings: Procedure and risks were discussed with patient including risks ofbleeding, pneumothorax etc. Informed consent was obtained. Ultrasound demonstrated large right effusion. Suitable skin site was marked posterolaterally using ultrasound. The sitewas prepped and draped in sterile fashion. All elements of maximal sterilebarrier technique as well as all elements of sterile ultrasound techniquewere utilized during this procedure. Timeout was performed. Following administration of 1% lidocaine local anesthetic a One- stepneedle/catheter was advanced under ultrasound guidance just over thesuperior aspect of the underlying rib to the pleural space and thecatheter was left in place. Approximately 1550 ml of clear yellowserousfluid was removed and sent for labs. Volume limited due to patientcoughing. Small residual effusion on post thoracentesis ultrasound. The catheter was removed and a sterile occlusive dressing applied. Post thoracentesis chest film showed no pneumothorax. Drains: none Complications: none Estimated Blood Loss: nil Specimens removed: 1550 ml of pleural fluid removed. Condition: good Impression: Procedure note for ultrasound-guided right thoracentesis. Ordered By: VU CACERES Interpreted By: Ace Yancey MD, 02/10/2025 12:00 PM us Vu Caceres MD ULTRASOUND Final Res ult * PH BODY FLUID (02/10/2025 11:39 AM CDT) Fluid pH >7.5 PH UNITS 02/10/2025 1:[address] [facility] Comment:REFERENCE RANGE NOT ESTABLISHED FOR THIS BODY FLUID. SOURCE (FLUID) PLEURAL FLUID 02/10/2025 11:[address] [facility] PLEURAL FLUID SPECIMEN / Unknown 02/10/2025 11:39 AM CDT us Vu Caceres MD BODY FLUIDS AND STOOLS OR DERABLES Final Result Performing Organization Address [facility] Co de Phone Number [facility] [address] [place] [address], [place] [phone] * LDH BODY FLUID (02/10/2025 11:39 AM CDT) LDH (FLUID) 84 UNITS/L 02/10/2025 1:[address] [facility] Comment:REFERENCE RANGE NOT ESTABLISHED FOR THIS BODY FLUID. SOURCE (FLUID) PLEURAL FLUID 02/10/2025 11:[address] [facility] PLEURAL FLUID SPECIMEN / Unknown 02/10/2025 11:39 AM CDT us Vu Caceres MD BODY FLUIDS AND STOOLS OR DERABLES Final Result Performing Organization Address [facility] de Phone Number [facility] [address] [place] [address], [place] [phone] * PROTEIN TOTAL FLUID (02/10/2025 11:39 AM CDT) PROTEIN (FLUID) 2.5 G/DL 1:[address] [facility] Comment:REFERENCE RANGE NOT ESTABLISHED FOR THIS BODY FLUID. SOURCE (FLUID) PLEURAL FLUID 02/10/2025 11:[address] [facility] PLEURAL FLUID SPECIMEN / Unknown 02/10/2025 11:39 AM CDT us Vu Caceres MD BODY FLUIDS AND STOOLS OR DERABLES Final Result Performing Organization Address [facility]/ZIP Co de Phone Number [facility] [address] [place] [address], [place] [phone] * CULTURE, BODY FLUID W/ GRAM STAIN (02/10/2025 11:39 AM CDT) SPEC DESCRIPTION PLEURAL FLUID 02/10/2025 11:[address] [facility] SPECIAL REQUESTS NO SPECIAL REQUEST 02/10/2025 11:[address] [facility] GRAM STAIN RESULT FEW NEUTROPHILS SEEN 02/10/2025 1:[address] [facility] GRAM STAIN RESULT NO ORGANISMS SEEN 02/10/2025 1:[address] [facility] CULTURE RESULT NO GROWTH 5 DAYS 02/15/2025 9:[address] [facility] PLEURAL FLUID SPECIMEN / Unknown 02/10/2025 11:39 AM CDT 02/10/2025 12:02 PM CDT us Vu Caceres MD MICROBIOLOGY - GENERAL OR DERABLES Final Result Performing Organization Address City/[facility] Co de Phone Number [facility] [address] [place] [address], [place] [phone] * GLUCOSE, BODY FLUID (02/10/2025 11:39 AM CDT) GLUCOSE FLUID 158 MG/DL 02/10/2025 1:[address] [facility] Comment:REFERENCE RANGE NOT ESTABLISHED FOR THIS BODY FLUID. SOURCE (FLUID) PLEURAL FLUID 02/10/2025 11:[address] [facility] PLEURAL FLUID SPECIMEN / Unknown 02/10/2025 11:39 AM CDT us Vu Caceres MD BODY FLUIDS AND STOOLS OR DERABLES Final Result Performing Organization Address City/[facility]/ZIP Co de Phone Number [facility] [address] [place] [address], [phone] * CT HEAD WO CON (02/08/2025 12:52 PM CDT) Anatomical Region Laterality Modality Head Computed Tomogra phy 02/08/2025 1:30 PM CDT Impressions 02/08/2025 1:33 PM CDT IMPRESSION: No acute intracranial findings. Referred By: PROVIDER NON-STAFF Interpreted By: Artemio Rosales MD, 02/08/2025 1:30 PM Narrative 02/08/2025 1:33 PM CDT [place] [address] EXAM: CT HEAD WO CON DATE: 02/08/2025 COMPARISON: None INDICATION: CONFUSION ON XARELTO TECHNIQUE: Noncontrast imaging A dose lowering technique was used for this procedure, which may include, but is not limited to, dose reduction technique, automated exposure control, iterative reconstruction, ALARA (As Low As Reasonably Achievable), or Image Gently techniques. FINDINGS: No hemorrhage, mass effect, or ventricular dilation. No evidence of stroke. Mild mucosal thickening and a small mucous retention cyst in the right maxillary sinus. Procedure Note Artemio Rosales MD - 02/08/2025 [place] [address] EXAM: CT HEAD WO CON DATE: 02/08/2025 COMPARISON: None INDICATION: CONFUSION ON XARELTO TECHNIQUE: Noncontrast imaging A dose lowering technique was used for this procedure, which may include,but is not limited to, dose reduction technique, automated exposurecontrol, iterative reconstruction, ALARA (As Low As ReasonablyAchievable), or Image Gently techniques. FINDINGS: No hemorrhage, mass effect, or ventricular dilation. Noevidence of stroke. Mild mucosal thickening and a small mucous retentioncyst in the right maxillary sinus. IMPRESSION: No acute intracranial findings. Referred By: PROVIDER NON-STAFF Interpreted By: Artemio Rosales MD, 02/08/2025 1:30 PM Momo Clement MD CT Final Result * (ABNORMAL) PROTIME/INR, VENOUS (PROTHROMBIN TIME) (02/08/2025 11:35 AM CDT) Only the most recent of2 resultswithin the time period is included. PROTIME 14.9(H) 9.4 - 12.5 SEC 02/08/2025 12:[address] [facility] INR 1.3(H) 0.8 - 1.1 02/08/2025 12:[address] [facility] 02/08/2025 11:3 5 AM CDT Momo Clement MD LABORATORY Final Result Performing Organization Address [facility] Co de Phone Number [facility] [address] [place] [address], [id number] * PROCALCITONIN (PCT) (02/08/2025 5:40 AM CDT) PROCALCITONIN 0.04 0.00 - 0.49 NG/ML 02/08/2025 9:[address] [facility] 02/08/2025 5:40 AM CDT Vu Caceres MD LABORATORY Final Res ult Performing Organization Address City/[facility] Co de Phone Number [facility] [address] [place] [address], [phone] * (ABNORMAL) COMPREHENSIVE METABOLIC PANEL (02/08/2025 5:40 AM CDT) Only the most recent of6 resultswithin the time period is included. SODIUM S/P/B 143 136 - 145 MMOL/L 02/08/2025 6:[address] [facility] POTASSIUM S/P/B 4.0 3.5 - 5.1 MMOL/L 02/08/2025 6:[address] [facility] CHLORIDE S/P/B 109 97 - 115 MMOL/L 02/08/2025 6:[address] [facility] CO2 28.5 21.0 - 32.0 MMOL/L 02/08/2025 6:[address] [facility] GLUCOSE 132(H) 74 - 106 MG/DL 02/08/2025 6:[address] [facility] BUN 34(H) 7 - 18 MG/DL 02/08/2025 6:[address] [facility] CREATININE S/P/B 1.35(H) 0.70 - 1.30 MG/DL 02/08/2025 6:[address] [facility] CALCIUM S/P/B 8.8 8.5 - 10.1 MG/DL 02/08/2025 6:[address] [facility] BILIRUBIN TOTAL S/P/B 0.8 0.2 - 1.0 MG/DL 02/08/2025 6:[address] [facility] ALKALINE PHOSPHATASE S/P/B 212(H) 45 - 115 U/L 02/08/2025 6:[address] [facility] AST 26 15 - 37 U/L 02/08/2025 6:27 AM [facility] ALT 38 16 - 61 U/L 02/08/2025 6:[address] [facility] TOTAL PROTEIN S/P/B 6.7 6.4 - 8.2 G/DL 02/08/2025 6:[address] [facility] ALBUMIN S/P/B 3.3(L) 3.4 - 5.0 G/DL 02/08/2025 6:[address] [facility] ANION GAP 5.5 2.0 - 10.0 MMOL/L 02/08/2025 6:[address] [facility] OSMOLALITY (CALC) 305 MOSM/KG 025 6:[address] [facility] Comment:REFERENCE RANGE NOT ESTABLISHED GFR ESTIMATE 59(L) >90 ML/MIN/1. 73 M2 02/08/2025 6:[address] [facility] GFR NOTES GFR REFERENCE S: 02/08/2025 6:[address] [facility] Comment: THE ESTIMATED GFR IS CALCULATED [...] ml/min/1.73 m2 G5,KIDNEY FAILURE: <15 ml/min/1.73 m2 02/08/2025 5:40 AM CDT Vu Caceres MD LABORATORY Final Res ult [facility] [address] [place] [phone], [phone] * BIOFIRE PCR UPPER RESPIRATORY PROFILE (RESPIRATORY PCR PANEL 2) (02/08/2025 2:25 AM CDT) ADENOVIRUS PCR (RESP) NOT DETECTED NOT DETECTED 02/08/2025 3:[address] [facility] CORONAVIRUS 229E PCR (RESP) NOT DETECTED NOT DETECTED 02/08/2025 3:[address] [facility] CORONAVIRUS HKU1 PCR (RESP) NOT DETECTED NOT DETECTED 02/08/2025 3:[address] [facility] CORONAVIRUS NL63 PCR (RESP) NOT DETECTED NOT DETECTED 02/08/2025 3:[address] [facility] CORONAVIRUS OC43 PCR (RESP) NOT DETECTED NOT DETECTED 02/08/2025 3:[address] [facility] METAPNEUMOVIRUS PCR (RESP) NOT DETECTED NOT DETECTED 02/08/2025 3:[address] [facility] RHINOVIRUS/ENTEROV IRUS PCR (RESP) NOT DETECTED NOT DETECTED 02/08/2025 3:[address] [facility] INFLUENZA A PCR (RESP) NOT DETECTED NOT DETECTED 02/08/2025 3:[address] [facility] INFLUENZA B PCR (RESP) NOT DETECTED NOT DETECTED 02/08/2025 3:[address] [facility] PARAINFLUENZA 1 PCR (RESP) NOT DETECTED NOT DETECTED 02/08/2025 3:[address] [facility] PARAINFLUENZA 2 PCR (RESP) NOT DETECTED NOT DETECTED 02/08/2025 3:[address] [facility] PARAINFLUENZA 3 PCR (RESP) NOT DETECTED NOT DETECTED 02/08/2025 3:[address] [facility] PARAINFLUENZA 4 PCR (RESP) NOT DETECTED NOT DETECTED 02/08/2025 3:[address] [facility] RSV PCR (RESP) NOT DETECTED NOT DETECTED 02/08/2025 3:[address] [facility] B PARAPERTUSIS PCR (RESP) NOT DETECTED NOT DETECTED 02/08/2025 3:[address] [facility] BORDETELLA PERTUSSIS PCR (RESP) NOT DETECTED NOT DETECTED 02/08/2025 3:[address] [facility] CHLAMYDOPHILA PNEUMONIAE PCR (RESP) NOT DETECTED NOT DETECTED 02/08/2025 3:[address] [facility] MYCOPLASMA PNEUMONIAE PCR (RESP) NOT DETECTED NOT DETECTED 02/08/2025 3:29 AM CDT [facility] CORONAVIRUS SARS COV 2 PCR (RESP) NOT DETECTED NOT DETECTED 02/08/2025 3:[address] [facility] NASOPHARYNGEAL SWAB / Unknown 02/08/2025 2:25 AM CDT Vu Caceres MD MICROBIOLOGY - GENERAL OR DERABLES Final Result Performing Organization Address [facility] Co de Phone Number [facility] [address] [place] [address], [place] [phone] * LACTIC ACID (02/07/2025 9:14 PM CDT) Only the most recent of2 resultswithin the time period is included. LACTIC ACID VENOUS 0.7 0.4 - 2.0 MMOL/L 02/07/2025 9:[address] [facility] 02/07/2025 9:14 PM CDT Vu Caceres MD LABORATORY Final Res ult Performing Organization Address [facility] de Phone Number [facility] [address] [place] [address], [place] [phone] * XR CHEST PORTABLE (02/07/2025 8:50 PM CDT) Only the most recent of2 resultswithin the time period is included. Anatomical Region Laterality Modality Chest Radiographic Melinda ging 02/07/2025 8:55 PM CDT Impressions 02/07/2025 8:56 PM CDT IMPRESSION: 1) Cardiomegaly with mild pulmonary vascular congestion. 2. Interval development of small right pleural effusion and right basilar consolidation. Ordered By: VU CACERES Interpreted By: Tyron Berrios MD, 02/07/2025 8:55 PM Narrative 02/07/2025 8:56 PM CDT [facility] [address] [place], [place] [address] Examination: XR CHEST PORTABLE Exam time: 02/07/2025 8:36 PM Clinical history: Short of breath, pleural effusion Comparison: 01/15/2025 Technique: None Findings: Left arm PICC line placement unchanged. Shallow inspiration. Mild cardiomegaly with persistent pulmonary vascular congestion. Interval development of small right pleural effusion right basilar consolidation. Lungs otherwise clear. Procedure Note Tyron Berrios MD - 02/07/2025 [facility] [address] [place], [place] [address] Examination: XR CHEST PORTABLE Exam time: 02/07/2025 8:36 PM Clinical history: Short of breath, pleural effusion Comparison: 01/15/2025 Technique: None Findings: Left arm PICC line placement unchanged. Shallow inspiration.Mild cardiomegaly with persistent pulmonary vascular congestion. Intervaldevelopment of small right pleural effusion right basilar consolidation.Lungs otherwise clear. IMPRESSION: 1) Cardiomegaly with mild pulmonary vascular congestion. 2. Interval development of small right pleural effusion and right basilarconsolidation. Ordered By: VU CACERES Interpreted By: Tyron Berrios MD, 02/07/2025 8:55 PM Vu Caceres MD GENERAL IMAGING Final Res ult * VANCOMYCIN TROUGH (01/28/2025 9:05 AM CDT) Only the most recent of3 resultswithin the time period is included. VANCOMYCIN TROUGH 13.6 10.0 - 20.0 MCG/ML 01/28/2025 12:58 PM CDT [facility] 01/28/2025 9:05 AM CDT us Meenakshi Sanderson MD LABORATORY Final Result [facility] [address] [place] [address], * (ABNORMAL) SED RATE, ERYTHROCYTE (ESR) (01/28/2025 9:05 AM CDT) Only the most recent of3 resultswithin the time period is included. ESR 28(H) 0 - 15 MM/HR 01/28/2025 11:06 AM CDT [facility] 01/28/2025 9:05 AM CDT us Meenakshi Sanderson MD LABORATORY Final Result Performing Organization Address City/[facility]/ZIP Co de Phone Number [facility] [address] [place] [phone], * (ABNORMAL) C-REACTIVE PROTEIN (01/28/2025 9:05 AM CDT) Only the most recent of3 resultswithin the time period is included. C-REACTIVE PROTEIN 1.52(H) <0.30 mg/dL 01/28/2025 11:19 AM CDT [facility] 01/28/2025 9:05 AM CDT us Meenakshi Sanderson MD LABORATORY Final Result Performing Organization Address [facility] Co de Phone Number [facility] [address] [place] [phone], * (ABNORMAL) PRO-BRAIN NATRIURETIC PEPTIDE (01/16/2025 3:10 AM CDT) PRO-B TYPE NATRIURETIC PEPTIDE 3,340(H) <125 PG/ML 01/16/2025 3:[address] [facility] Comment: AGE INDEPENDENT: <300 PG/ML HAS A 99% NEGATIVE PREDICTIVE VALUE FOR EXCLUDING ACUTE CHF <50 YEARS: >450 PG/ML IS CONSISTENT WITH ACUTE CHF 50-75 YEARS: >900 PG/ML IS CONSISTENT WITH ACUTE CHF >75 YEARS: >1800 PG/ML IS CONSISTENT WITH ACUTE CHF IN PATIENTS WITH RENAL INSUFFICIENCY (GFR <60), >1200 PG/ML YIELDS A DIAGNOSTIC SENSITIVITY AND SPECIFICITY OF 89% AND 72% FOR ACUTE CHF. 01/16/2025 3:10 AM CDT us Carlos Valderrama MD LABORATORY Final Result Performing Organization Address [facility] Co de Phone Number [facility] [address] [place] [address], [place] [phone] * TROPONIN, QUANT (01/15/2025 9:20 PM CDT) Only the most recent of2 resultswithin the time period is included. TROPONIN I HIGH SENSITIVITY 46 0 - 78 ng/L 01/15/2025 10:[address] [facility] 01/15/2025 9:20 PM CDT us Carlos Valderrama MD LABORATORY Final Result Performing Organization Address [facility] de Phone Number [facility] [address] [place] [address], [place] [phone] * ECG 12 lead (01/15/2025 3:58 PM CDT) Only the most recent of3 resultswithin the time period is included. 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1960 Requested By: RITESH SANCHEZ Order Number: [id number] Reading MD: Hannah Durant Measurements Intervals Wilber Rate: 86 P: 58 NM: 211 QRS: -1 QRSD: 178 T: 176 QT: 420 QTc: 505 Interpretive Statements SINUS RHYTHM WITH FIRST DEGREE AV BLOCK WITH OCCASIONAL VENTRICULARPREMATURE COMPLEXES INTRAVENTRICULAR CONDUCTION DELAY [130+ ms QRS DURATION] POSSIBLE ANTERIOR MYOCARDIAL INFARCTION , OF INDETERMINATE AGE [30 ms QWAVE IN V3/V4, OR R < 0.2 mV IN V4] us Ritesh Sanchez MD ECG ORDERABLES Final Resul t Performing Organization Address City/[facility]/ZIP Co de Phone Number [facility] * (ABNORMAL) HEMOGLOBIN, GLYCATED (01/15/2025 3:19 PM CDT) HGB A1C 7.8(H) <5.7 % 01/15/2025 4:[address] [facility] ESTIMATED AVG GLUCOSE 177(H) 74 - 114 MG/DL 01/15/2025 4:[address] [facility] 01/15/2025 3:19 PM CDT Carlos Valderrama MD LABORATORY Final Result Performing Organization Address [facility] Co de Phone Number [facility] [address] [place] [address], [place] [phone] * IR REPLACE PICC WO PORT PUMP (01/14/2025 3:37 PM CDT) Anatomical Region Laterality Modality NA Interventional R adiology, Radiographic Imaging 01/14/2025 3:47 PM CDT Impressions 01/14/2025 4:04 PM CDT IMPRESSION: Procedure note for PICC line change. Ordered By: RUSSELL CANNON Interpreted By: Ace Yancey MD, 01/14/2025 3:47 PM Narrative 01/14/2025 4:04 PM CDT [place] [address] IR PROCEDURE NOTE - PICC LINE CHANGE Indication/preprocedure diagnosis: Hole in red lumen of PICC line PICC line change required. Post procedure diagnosis: Same Radiologist: Dr. Yancey Urban Anthropologist: None Technique/findings: The left arm PICC line site was prepped and draped in sterile fashion. Maximal sterile barrier technique was utilized for the entire procedure including hand washing with conventional soap and water or an alcohol based hand rub. Timeout was performed. The indwelling the line was removed over a 0.018 guidewire. Peel-away sheath was placed. A new 5 Gambian dual PICC line was cut to 51 [...] Complications: None EBL: Nil Procedure Note Ace Yancey MD - 01/14/[address] [address] IR PROCEDURE NOTE - PICC LINE CHANGE Indication/preprocedure diagnosis: Hole in red lumen of PICC line PICCline change required. Post procedure diagnosis: Same Radiologist: Dr. Yancey Urban Anthropologist: None Technique/findings: The left arm PICC line site was prepped and draped in sterile fashion. Maximal sterile barrier technique was utilized for the entire procedureincluding hand washing with conventional soap and water or an alcoholbased hand rub. Timeout was performed. The indwelling the line was removed over a 0.018 guidewire. Peel-awaysheath was placed. A new 5 Gambian dual PICC line was cut to 51 [...] Ordered By: RUSSELL CANNON Interpreted By: Ace Yancey MD, 01/14/2025 3:47 PM Russell Cannon MD INTERVENTIONAL RADIOLOGY Final Result * IR PICC PLC GREATER 5YR (01/09/2025 2:27 PM CDT) Anatomical Region Laterality Modality Chest Interventional R adiology, Radiographic Imaging 01/10/2025 12:2 1 PM CDT Impressions 01/10/2025 1:15 PM CDT IMPRESSION: Placement of a Left upper extremity 4 Gambian dual lumen peripherally inserted central venous catheter as described. PLAN: 1. The catheter is ready for immediate use. 2. IR Follow up as needed. The attending radiologist, Dr. Cannon , was in the department for all critical portions of the procedure, has reviewed the images, and agrees with the content of this report. Dictated By: PABLO Bourgeois on 01/10/2025 12:21 PM Ordered By: MEENAKSHI SANDERSON Interpreted By: PABLO Bourgeois, 01/10/2025 12:21 PM Narrative 01/10/2025 1:[address] [address] PROCEDURE: Left upper extremity double lumen peripherally inserted central venous catheter (PICC). DATE : 01/10/2025 12:21 PM INDICATION: IV antibiotics needed. PHYSICIANS: Russell Cannon M.D. , Cristi Quezada PA-C MEDICATIONS: Local lidocaine anesthesia only. FLUOROSCOPY TIME: 0.2 minutes. Reference air kerma 7 mGy TECHNIQUE AND FINDINGS: The patient was brought to the fluoroscopy suite, placed in the supine position, and a timeout was performed. The patient's Left upper extremity was then sterilely prepped and draped. Maximal sterile barrier techniques were utilized throughout the procedure; including hand cleaning with alcohol based hand rub. Sterile ultrasound barrier techniques were utilized throughout the procedure. Ultrasound evaluation of potential access sites was performed. Following local anesthesia with 1% lidocaine, a 21 gauge needle was used to puncture the patent basilic vein several centimeters above the antecubital fossa under ultrasound guidance, with image saved for the permanent record. An 0.018 inch wire was advanced through the needle into the central veins, as confirmed fluoroscopically. The needle was then exchanged over the wire for a peel-away sheath. A 4 Gambian dual lumen PICC was cut to an appropriate length of 51 cm and advanced through the peel-away sheath. The wire and peel-away sheath were removed. The tip of the PICC tip was located at the cavoatrial junction on final recorded fluoroscopic image. The PICC aspirated and flushed well and was flushed with heparinized saline. The catheter was secured to the skin at the exit site and a sterile dressing was applied. The patient appeared to tolerate the procedure well. Procedure Note Russell Cannon MD - 01/10/[address] [address] PROCEDURE: Left upper extremity double lumen peripherally inserted centralvenous catheter (PICC). DATE : 01/10/2025 12:21 PM INDICATION: IV antibiotics needed. PHYSICIANS: Russell Cannon M.D. , Cristi Quezada PA-C MEDICATIONS: Local lidocaine anesthesia only. FLUOROSCOPY TIME: 0.2 minutes. Reference air kerma 7 mGy TECHNIQUE AND FINDINGS: The patient was brought to the fluoroscopy suite, placed in the supineposition, and a timeout was performed. The patient's Left upper extremitywas then sterilely prepped and draped. Maximal sterile barrier techniqueswere utilized throughout the procedure; including hand cleaning withalcohol based hand rub. Sterile ultrasound barrier techniques wereutilized throughout the procedure. Ultrasound evaluation of potentialaccess sites was performed. Following local anesthesia with 1% lidocaine,a 21 gauge needle was used to puncture the patent basilic vein severalcentimeters above the antecubital fossa under ultrasound guidance, withimage saved for the permanent record. An 0.018 inch wire was advancedthrough the needle into the central veins, as confirmed fluoroscopically.The needle was then exchanged over the wire for a peel-away sheath. A 4French dual lumen PICC was cut to an appropriate length of 51 cm andadvanced through the peel-away sheath. The wire and peel-away sheath wereremoved. The tip of the PICC tip was located at the cavoatrial junction onfinal recorded fluoroscopic image. The PICC aspirated and flushed well andwas flushed with heparinized saline. The catheter was secured to the skinat the exit site and a sterile dressing was applied. The patient appearedto tolerate the procedure well. IMPRESSION: Placement of a Left upper extremity 4 Gambian dual lumen peripherallyinserted central venous catheter as described. PLAN: 1. The catheter is ready for immediate use. 2. IR Follow up as needed. The attending radiologist, Dr. Cannon , was in the department for allcritical portions of the procedure, has reviewed the images, and agreeswith the content of this report. Dictated By: PABLO Bourgeois on 01/10/2025 12:21 PM Ordered By: MEENAKSHI SANDERSON Interpreted By: PABLO Bourgeois, 01/10/2025 12:21 PM us Meenakshi Sanderson MD INTERVENTIONAL RADIOLOGY Final R esult * USE ECHOCARDIOGRAM (12/25/2024 10:44 AM CDT) Anatomical Region Laterality Modality Cardiac Echocardiogram 12/25/2024 10:0 4 AM CDT Narrative 12/25/2024 5:53 PM CDT Echocardiography Report Pat.Name: BREANNE MCKAY Pat.ID: [id number] .Date: 12/25/2024 ReferBakariMD: [id number] LONNIE BRYAN Morena EWDPROV EWDPROV Exam Time: 10:04:00 AM Study Type:ECHO WITH CARDIAC DOPPLER COMP Height: 182 cm Weight: 111 kg BSA: 2.31 m2 Age: 7 1960,64Y Sex: M BP: 125/85 HR: 100 bpm Sonogrphr: Myra Rayo RDCS Pat. Stat.:Outpatient CPT - 4: [id number] Reason for Study:Atrial fibrillation / flutter Procedures: 2D, M-mode, Doppler, Color Flow Race: W ++++++++++++++++++++++++++++++++++++ SUMMARY: ++++++++++++++++++++++++++++++++++++ The left ventricular size is mildly enlarged. The left ventricular systolic function is moderately depressed. Estimated left ventricular ejection fraction is 30-35%. Mild concentric left ventricular hypertrophy. Left ventricular diastolic function is not accessible due to atrial fibrillation. The right ventricular size is normal. Right ventricular systolic function is mildly depressed. The proximal ascending aorta measures 3.6cm. The peak pulmonary artery systolic pressure is estimated to be approximately 43 mmHg. Estimated right atrial pressure of 3 mmHg. Fluid seen in the subcostal window - likely pleural with fibrin material. The aortic valve is trileaflet. No evidence of aortic valve regurgitation. Structurally normal mitral valve. Trace mitral regurgitation. Mild tricuspid regurgitation. ++++++++++++++++++++++++++++++++++++ FINDINGS: ++++++++++++++++++++++++++++++++++++ LV: The left ventricular size is mildly enlarged. The left ventricular systolic function is moderately depressed. Estimated left ventricular ejection fraction is 30-35%. Mild concentric left ventricular hypertrophy. The septal E/e' is elevated at >15. The lateral E/e' is elevated at >11. Left ventricular diastolic function is not accessible due to atrial fibrillation. RV: The right ventricular size is normal. Right ventricular systolic function is mildly depressed. IVS: Mild septal hypertrophy. LA: The left atrial volume is normal ( less than 34 ml/M2). RA: Right atrial size is normal. IAS: Atrial septum not well visualized in all views. MALCOLM: No evidence of pericardial effusion. AO: The proximal ascending aorta measures 3.6cm. PA: The peak pulmonary artery systolic pressure is estimated to be approximately 43 mmHg. Estimated right atrial pressure of 3 mmHg. PVn: Pulmonary veins are not assessable. SVn: Inferior vena cava shows >50% collapse with respiration consistent with normal right atrial pressure. Other: Fluid seen in the subcostal window - likely pleural with fibrin material. AV: The aortic valve is trileaflet. No evidence of aortic valve stenosis. No evidence of aortic valve regurgitation. MV: Structurally normal mitral valve. Trace mitral regurgitation. No evidence of mitral stenosis. PV: The pulmonic valve is normal There is trace pulmonic regurgitation TV: Mild tricuspid regurgitation. No evidence of tricuspid valve stenosis. ++++++++++++++++++++++++++++++++++++ MEASUREMENTS: ++++++++++++++++++++++++++++++++++++ DOPPLER LVOT LVOTpkPG 2 mmHg LVOTmnPG 2 mmHg LVOTpkVel 70.2 cm/s (70-110)+ LVOT SV 46 ml LVOT TVI 10.1 cm AV Forward Flow AV TVI 12.6 cm AV pkPG 4 mmHg AV pkVel 100 cm/s (100-170)+ Area (TVI) 3.62 cm2 (3-5) AV mnVel 82 cm/s Area (Juan Antonio) 3.17 cm2 (3-5) AV mnPG 3 mmHg MV Forward Flow MV DeTm 147 msec MV pkE 110 cm/s (60-130)+ TV Regurg Flow TV pkPG 40 mmHg TV pkVel 317 cm/s (30-70)+* Lat E' Lat e 3.49 cm/s Lat E/E' Lat E/e 31.5 Med E' Med e 2.59 cm/s Med E/E' Med E/e 42.5 Aortic Valve Aortic Valve Ar 1.57 Aortic Valve Ve 0.7 AV DI Value 0.8 GEOVANNY (VTI) Index Value 1.57 AV Antegrade Flow AC 16 ms Acceleration Sl 3006 cm/s2 Right Ventricle Right Ventricle 8.4 cm/s 2D Left Ventricle LVIDd 5.3 cm (3.6-5.2)* LV%fs 5.66 % (25-46)* LVIDs 5 cm (2.3-3.9)* LV RWT 0.491 % LVPW LVPWd 1.3 cm Ventricular Septum IVSd 1.4 cm Aorta Ao Rtd 3.1 cm Ao Asc 3.6 cm (2.1-3.4)* LVOT LVOT 2.4 cm Ratios IVS LA Biplane LAVol I BP 15.5 ml/m2 Right Ventricle Right Ventricle 3.25 cm Major Wilber 7.74 cm MMODE TA Tricuspid Annul 0.923 cm <Electronic Signature> 12/25/2024 05:53 PM Bryan Fleming M.D. Procedure Note Bryan Fleming MD - 12/25/2024 Echocardiography Report Pat.Name: BREANNE MCKAY Pat.ID: [id number] St.Date: 12/25/2024 Refer.MD: [id number] LONNIE Berg EWDPROV EWDPROV Exam Time: 10:04:00 AM Study Type:ECHO WITH CARDIAC DOPPLER COMP Height: 182 cm Weight: 111 kg BSA: 2.31 m2 Age: 7 1960,64Y Sex: M BP: 125/85 HR: 100 bpm Sonogrphr: Myra Rayo RDCS Pat. Stat.:Outpatient CPT - 4: [id number] Reason for Study:Atrial fibrillation / flutter Procedures: 2D, M-mode, Doppler, Color Flow Race: W ++++++++++++++++++++++++++++++++++++ SUMMARY: ++++++++++++++++++++++++++++++++++++ The left ventricular size is mildly enlarged. The left ventricular systolic function is moderately depressed. Estimated left ventricular ejection fraction is 30-35%. Mild concentric left ventricular hypertrophy. Left ventricular diastolic function is not accessible due to atrial fibrillation. The right ventricular size is normal. Right ventricular systolic function is mildly depressed. The proximal ascending aorta measures 3.6cm. The peak pulmonary artery systolic pressure is estimated to be approximately 43 mmHg. Estimated right atrial pressure of 3 mmHg. Fluid seen in the subcostal window - likely pleural with fibrin material. The aortic valve is trileaflet. No evidence of aortic valve regurgitation. Structurally normal mitral valve. Trace mitral regurgitation. Mild tricuspid regurgitation. ++++++++++++++++++++++++++++++++++++ FINDINGS: ++++++++++++++++++++++++++++++++++++ LV: The left ventricular size is mildly enlarged. The left ventricular systolic function is moderately depressed. Estimated left ventricular ejection fraction is 30-35%. Mild concentric left ventricular hypertrophy. The septal E/e' is elevated at >15. The lateral E/e' is elevated at >11. Left ventricular diastolic function is not accessible due to atrial fibrillation. RV: The right ventricular size is normal. Right ventricular systolic function is mildly depressed. IVS: Mild septal hypertrophy. LA: The left atrial volume is normal ( less than 34 ml/M2). RA: Right atrial size is normal. IAS: Atrial septum not well visualized in all views. MALCOLM: No evidence of pericardial effusion. AO: The proximal ascending aorta measures 3.6cm. PA: The peak pulmonary artery systolic pressure is estimated to be approximately 43 mmHg. Estimated right atrial pressure of 3 mmHg. PVn: Pulmonary veins are not assessable. SVn: Inferior vena cava shows >50% collapse with respiration consistent with normal right atrial pressure. Other: Fluid seen in the subcostal window - likely pleural with fibrin material. AV: The aortic valve is trileaflet. No evidence of aortic valve stenosis. No evidence of aortic valve regurgitation. MV: Structurally normal mitral valve. Trace mitral regurgitation. No evidence of mitral stenosis. PV: The pulmonic valve is normal There is trace pulmonic regurgitation TV: Mild tricuspid regurgitation. No evidence of tricuspid valve stenosis. ++++++++++++++++++++++++++++++++++++ MEASUREMENTS: ++++++++++++++++++++++++++++++++++++ DOPPLER LVOT LVOTpkPG 2 mmHg LVOTmnPG 2 mmHg LVOTpkVel 70.2 cm/s (70-110)+ LVOT SV 46 ml LVOT TVI 10.1 cm AV Forward Flow AV TVI 12.6 cm AV pkPG 4 mmHg AV pkVel 100 cm/s (100-170)+ Area (TVI) 3.62 cm2 (3-5) AV mnVel 82 cm/s Area (Juan Antonio) 3.17 cm2 (3-5) AV mnPG 3 mmHg MV Forward Flow MV DeTm 147 msec MV pkE 110 cm/s (60-130)+ TV Regurg Flow TV pkPG 40 mmHg TV pkVel 317 cm/s (30-70)+* Lat E' Lat e 3.49 cm/s Lat E/E' Lat E/e 31.5 Med E' Med e 2.59 cm/s Med E/E' Med E/e 42.5 Aortic Valve Aortic Valve Ar 1.57 Aortic Valve Ve 0.7 AV DI Value 0.8 GEOVANNY (VTI) Index Value 1.57 AV Antegrade Flow AC 16 ms Acceleration Sl 3006 cm/s2 Right Ventricle Right Ventricle 8.4 cm/s 2D Left Ventricle LVIDd 5.3 cm (3.6-5.2)* LV%fs 5.66 % (25-46)* LVIDs 5 cm (2.3-3.9)* LV RWT 0.491 % LVPW LVPWd 1.3 cm Ventricular Septum IVSd 1.4 cm Aorta Ao Rtd 3.1 cm Ao Asc 3.6 cm (2.1-3.4)* LVOT LVOT 2.4 cm Ratios IVS LA Biplane LAVol I BP 15.5 ml/m2 Right Ventricle Right Ventricle 3.25 cm Major Wilber 7.74 cm MMODE TA Tricuspid Annul 0.923 cm <Electronic Signature> 12/25/2024 05:53 PM Bryan Fleming M.D. us Bryan Fleming MD ECHO Final Result * Cardioversion external (12/25/2024 9:57 AM CDT) 12/25/2024 9:57 AM CDT Narrative ESCRIPTION - 12/28/2024 1:29 PM CDT Patient Name: BREANNE MCKAY Date of : 1960 Account: [id number] Facility: [facility] Location: [facility] Date of Service: 12/25/2024 Cardiac Cath INDICATION: Atrial fibrillation. PROCEDURES PERFORMED: 1. Cardioversion. 2. Sedation. POSTOPERATIVE DIAGNOSES: 1. Atrial fibrillation. 2. Successful cardioversion to sinus rhythm. 3. Bradycardia post-cardioversion. 4. Successful sedation, 1:30 p.m. to 2:10 p.m. HISTORY: This is a patient with symptomatic atrial fibrillation. DESCRIPTION OF PROCEDURE: The patient was prepped in the usual fashion, was sedated with Versed and Fentanyl. He then received 200 joules of external energy in anteroposterior vector synchronized mode manual biphasic shock waveform, which converted him back to sinus rhythm. The patient had significant bradycardia post-conversion, which maintained itself for some period of time; however, the patient's heart rate gradually stabilized, approximately 50 60 beats per minute. The patient was sedated and monitored, 1:30 p.m. to 2:10 p.m. OVERALL IMPRESSION: 1. Atrial fibrillation. 2. Successful cardioversion to sinus rhythm. 3. Bradycardia post-cardioversion. 4. Successful sedation, 1:30 p.m. to 2:10 p.m. Signature/Date: BRYAN FLEMING MD #[id number] /[id number] us Bryan Fleming MD CV CARDIAC SERVICES ORDERABLES Final Result ESCRIPTION * MRI FOOT RT WWO CON (12/18/2024 11:17 AM CDT) Anatomical Region Laterality Modality Foot Magnetic Resonan ce 12/23/2024 3:22 PM CDT Impressions 12/23/2024 3:28 PM CDT IMPRESSION: 1) Extensive diffuse dorsal lateral subcutaneous edema over the forefoot. Soft tissue swelling and ulceration involving the second third toes. No evidence of subcutaneous abscess. 2. There are findings consistent with septic arthritis and osteomyelitis involving the third DIP joint as described. No other evidence of osteomyelitis. Ordered By: RUTH DURBIN Interpreted By: Tyron Berrios MD, 12/23/2024 3:22 PM Narrative 12/23/2024 3:28 PM CDT [place] [address] Examination: MRI FOOT RT WWO CON Exam time: 12/18/2024 9:43 AM Clinical history: Chronic nonhealing ulceration first 3 toes Comparison: 02/22/2024 Technique: T1-weighted images were obtained sagittal, axial and coronal to the forefoot. Corresponding STIR images obtained in all 3 planes along with additional axial fat-suppressed T1-weighted images. Following intravenous injection of 20 mL Dotarem gadolinium contrast, post contrast coronal and axial fat-suppressed T1-weighted images were obtained. Findings: Extensive abnormal subcutaneous edema over the lateral dorsal aspect of the forefoot. Soft tissue swelling and probable dorsal ulceration second and third toes. There is no evidence of loculated subcutaneous fluid collection to suggest undrained abscess. However, there has been interval development of significant marrow signal abnormality involving the third middle and distal phalanges with fluid in the third DIP joint space. This is associated with abnormal soft tissue and bone enhancement. Findings suggest septic arthritis and osteomyelitis involving the third DIP joint. There is mild abnormal soft tissue enhancement involving the first and second toes. Marrow signal in the first and second phalanges however is normal. No evidence of osteomyelitis in the first and second toes. The third and fourth toes demonstrate no evidence of osteomyelitis. The metatarsals have normal marrow signal. 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 Procedure Note Tyron Berrios MD - 12/23/[address] [address] Examination: MRI FOOT RT WWO CON Exam time: 12/18/2024 9:43 AM Clinical history: Chronic nonhealing ulceration first 3 toes Comparison: 02/22/2024 Technique: T1-weighted images were obtained sagittal, axial and coronal tothe forefoot. Corresponding STIR images obtained in all 3 planes alongwith additional axial fat-suppressed T1-weighted images. Followingintravenous injection of 20 mL Dotarem gadolinium contrast, post contrastcoronal and axial fat-suppressed T1-weighted images were obtained. Findings: Extensive abnormal subcutaneous edema over the lateral dorsalaspect of the forefoot. Soft tissue swelling and probable dorsalulceration second and third toes. There is no evidence of loculatedsubcutaneous fluid collection to suggest undrained abscess. However, there has been interval development of significant marrow signalabnormality involving the third middle and distal phalanges with fluid inthe third DIP joint space. This is associated with abnormal soft tissueand bone enhancement. Findings suggest septic arthritis and osteomyelitisinvolving the third DIP joint. There is mild abnormal soft tissue enhancement involving the first andsecond toes. Marrow signal in the first and second phalanges however isnormal. No evidence of osteomyelitis in the first and second toes. The third and fourth toes demonstrate no evidence of osteomyelitis. Themetatarsals have normal marrow signal. Advanced chronic degenerativeosteoarthritis first MTP joint. IMPRESSION: 1) Extensive diffuse dorsal lateral subcutaneous edema over the forefoot.Soft tissue swelling and ulceration involving the second third toes. Noevidence of subcutaneous abscess. 2. There are findings consistent with septic arthritis and osteomyelitisinvolving the third DIP joint as described. No other evidence ofosteomyelitis. Ordered By: RUTH DURBIN Interpreted By: Tyron Berrios MD, 12/23/2024 3:22 PM us Ruth Dubrin [employer] MRI Final Result * MRI FOOT LT WWO CON (12/18/2024 11:16 AM CDT) Anatomical Region Laterality Modality Foot Magnetic Resonan ce 12/23/2024 3:28 PM CDT Impressions 12/23/2024 3:39 PM CDT IMPRESSION: 1) Evidence of soft tissue swelling and ulceration involving the first, second and third toes. No evidence of undrained subcutaneous abscess. 2. Subtle marrow edema second and third distal phalanges suspicious for possible osteomyelitis. No other evidence to suggest osteomyelitis. Ordered By: RUTH DURBIN Interpreted By: Tyron Berrios MD, 12/23/2024 3:28 PM Narrative 12/23/2024 3:39 PM CDT [address] [address] Examination: MRI FOOT LT WWO CON Exam time: 12/18/2024 9:43 AM Clinical history: Chronic nonhealing ulcers first second third toes Comparison: None Technique: T1-weighted images were obtained sagittal, axial and coronal to the forefoot. Corresponding STIR images obtained in all 3 planes with additional axial fat-suppressed T1-weighted images. All intravenous injection of 20 mL Dotarem gadolinium contrast coronal and axial fat-suppressed T1-weighted images were obtained. Findings: The images demonstrate extensive abnormal soft tissue swelling and subcutaneous edema over the dorsum of the forefoot. There is soft tissue swelling and ulceration involving the medial aspect of the first toe. In addition, there is soft tissue swelling and probable ulceration involving the dorsal aspect of the distal second and third toes. There is no evidence of loculated subcutaneous fluid collection to suggest undrained abscess. There is subtle marrow edema in the second and third distal phalanges seen on the STIR images with relatively normal appearance on the T1-weighted images. This is not specific and could represent either sterile osteomyelitis or early osteomyelitis. Marrow signal in the phalanges otherwise unremarkable. The metatarsals have normal marrow signal. Following intravenous injection of gadolinium contrast there is mild soft tissue enhancement involving the first, second and third toes. Procedure Note Tyron Berrios MD - 12/23/[address] [address] Examination: MRI FOOT LT WWO CON Exam time: 12/18/2024 9:43 AM Clinical history: Chronic nonhealing ulcers first second third toes Comparison: None Technique: T1-weighted images were obtained sagittal, axial and coronal tothe forefoot. Corresponding STIR images obtained in all 3 planes withadditional axial fat-suppressed T1-weighted images. All intravenousinjection of 20 mL Dotarem gadolinium contrast coronal and axialfat-suppressed T1-weighted images were obtained. Findings: The images demonstrate extensive abnormal soft tissue swellingand subcutaneous edema over the dorsum of the forefoot. There is softtissue swelling and ulceration involving the medial aspect of the firsttoe. In addition, there is soft tissue swelling and probable ulcerationinvolving the dorsal aspect of the distal second and third toes. There isno evidence of loculated subcutaneous fluid collection to suggestundrained abscess. There is subtle marrow edema in the second and third distal phalanges seenon the STIR images with relatively normal appearance on the T1-weightedimages. This is not specific and could represent either sterileosteomyelitis or early osteomyelitis. Marrow signal in the phalangesotherwise unremarkable. The metatarsals have normal marrow signal.Following intravenous injection of gadolinium contrast there is mild softtissue enhancement involving the first, second and third toes. IMPRESSION: 1) Evidence of soft tissue swelling and ulceration involving the first,second and third toes. No evidence of undrained subcutaneous abscess. 2. Subtle marrow edema second and third distal phalanges suspicious forpossible osteomyelitis. No other evidence to suggest osteomyelitis. Ordered By: RUTH DURBIN Interpreted By: Tyron Berrios MD, 12/23/2024 3:28 PM Ruth Durbin [employer] MRI Final Result from Last 3 Months Additional Health Concerns Infection Onset Date Last Indicated MRSA 05/30/2024 05/30/2024 Insurance [employer] Advance Directives * Full Code (Latest Code Status on File) Date Activated Date Inactivated Comments 02/20/2025 3:00 PM * Full Code Date Activated Date Inactivated Comments 02/07/2025 8:28 PM 02/17/2025 5:46 PM * Full Code Date Activated Date Inactivated Comments 01/15/2025 3:00 PM 01/17/2025 3:51 PM * Full Code Date Activated Date Inactivated Comments 10/30/2024 5:22 PM 01/15/2025 2:45 PM * Full Code Date Activated Date Inactivated Comments 05/30/2024 12:04 AM 06/04/2024 3:18 PM Care Teams Veneer Cutter Relationship Specialty Start Date End Date Yessi Cantu FNP [address] [place] [address] PCP - General NURSE PRACTITIONER 09/26/23 Bryan Fleming MD [address] [place] [id number] EP Driver Trainer CLINICAL CARDIAC ELECTROPHYSIOLOGY 10/31/24
--- OUTSIDE RECORDS SUMMARY | 2025-03-10 15:06 | XMS_ITS | Encounter Summary ---
Author Organization [facility] Address [address] [place] [address] Care Team Providers Care Commercial Lines Underwriter Name Role Phone Yessi CantuP Primary Care Provider [phone] Ray Brar MD Unavailable [phone] Encounter Details Date Type Department Care Team (Late st Contact Info) Description 01/30/2025 Results Follow-Up [facility] [address] [place] [address] Cyndi Alex, LOADER SEMICONDUCTOR DIES CONTINUOUS TELEMETRY Social History Tobacco Use Types Packs/Day Years [...] materials from doctor or pharmacy Rarely 01/20/2025 [facility] Utilities Answer Date Recorded In [...] any time in the past 12 m [facility], were you homeless or living in a group home (including now)? 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 Answer Date of Assessment Author Status No 01/15/2025 3:07 PM Connie Landaverde RN Active * Do you have serious difficulty walking or climbing stairs? Answer Date of Assessment Author Status Yes 01/15/2025 3:07 PM Connie Landaverde RN Active * Do you have difficulty dressing or bathing? Answer Date of Assessment Author Status Yes 01/15/2025 3:07 PM CDConnie Rodgers RN Active * Because of a physical, [...] Date Author Status No 01/15/2025 3:07 PM Connie Landaverde RN Active documented in this encounter Plan of Treatment Upcoming Encounters Date Type Department Care Team (Late st Contact Info) Description 03/11/2025 11:00 AM CDT Appointment [facility] [address] [place] [address] Meenakshi Koroma MD [address], [place] [id number] Jayashree Lee DPM [address] [place] [address] 03/12/2025 11:00 AM CDT [facility] [address] [place] [address] Leona Murcia PTA 03/13/2025 2:00 PM CDT Office Visit [facility] [address] [place] [id number] Ray Brar MD [address] [place] [address] 03/14/2025 9:15 AM CDT Home Care Visit [facility] [address] [place] [address] María Elena Canales LPN 03/14/2025 10:00 AM CDT Home Care Visit [facility] [address] [place] [address] Leona Murcia, VOCATIONAL AIDE 2025 10:00 AM CDT Home Care Visit [facility] [address] [place] [address] Leona Murcia, VOCATIONAL AIDE 03/21/2025 8:00 AM CDT Home Care Visit [facility] [address] [place] [address] Phyllis Grande, RN 03/21/2025 10:00 AM CDT Home Care Visit [facility] [address] [place] [address] Marla Logan, PT [address] [place] [address] 03/28/2025 9:00 AM CDT Home Care Visit [facility] [address] [place] [address] Phyllis Grande, RN 04/04/2025 8:00 AM CDT Home Care Visit [facility] [address] [place] [address] Phyllis Grande, RN 04/11/2025 8:00 AM CDT Home Care Visit [facility] [address] [place] [address] Phyllis Grande, RN 04/18/2025 9:00 AM CDT Home Care Visit [facility] [address] [place] [address] Phyllis Grande, RN 04/25/2025 8:00 AM CDT Appointment [facility] [address] [place] [address] Phyllis Grande, RN documented as of this encounter Visit Diagnoses Not on filedocumented in this encounter Additional Health Concerns Infection Onset Date Last Indicated Resolved Time MRSA 05/30/2024 05/30/2024 Respiratory Rule Out 02/08/2025 02/08/2025 025 3:30 AM CDT documented as of this encounter Care Teams Commercial Lines Underwriter Relationship Specialty Start Date End Date Yessi Cantu FNP [address] [place] [address] PCP - General NURSE PRACTITIONER 09/26/23 Ray Brar MD [address] [place] [address] EP Distribution Operation Supervisor CLINICAL CARDIAC ELECTROPHYSIOLOGY 10/31/24 documented as of this encounter
[2025-03-10 15:28] LABS: NT Pro B Type Natriuretic Pept 1320 pg/mL (19.9-100)
== END 2025-03-10 15:04 | disposition home or self-care (01) ==
LOC: CHSLAB 15:04
PROVIDERS: PCP Family Medicine; Visit Provider Nurse Practitioner Family
DX: I50.9 Heart failure, unspecified (principal)
CPT/HCPCS: 36415; 83880